=== PATIENT | female | born 1950 | race Caucasian/White ===

== ENCOUNTER 2021-12-07 12:37 | Inpatient (IN) | payer OTHER ==
--- OUTSIDE RECORDS SUMMARY | 2021-12-07 12:40 | XMS REPORT | Continuity of Care Document ---
:[address] [facility] t Address [address] [place] [address] Care Team Providers Name Role Phone Lab, Fam Pob I Attending Clinician Unavailable Nandini BEE T Attending Clinician Unavailable Only, Test Attending Clinician Unavailable MARTIN, Hyacinth Attending Clinician Unavailable Doctor Unassigned, Name Attending Clinician Unavailable Payers Payer Name Policy Type Policy Number Effective Date Expiration Date S hubert MEDICARE PART A [id number] 2017 \T\ B 00:00:00 [id number] 2001 00:00:00 Problems This patient has no known problems. Allergies, Adverse Reactions, Alerts Allergy Allergy Status Severity Reaction(s) Onset Inactive Treating Comm ents Source Name Type Date Date Clinician PENICILL Drug Active Rash 2018- [facility] INS Class 5-01 ity of 00:00: [place] [address] [facility] Social History Social Habit Start Date Stop Date Quantity Comments Source Sex Assigned At [birth year] [facility] 00:00:00 00:00:00 Smoking Status Start Date Stop Date Source Tobacco smoking consumption unknown [facility] Medications This patient has no known medications. Procedures This patient has no known procedures. Plan of Care Planned Activity Planned Date Details Comments Source Future Scheduled 2021-09-13 COVID-19 VACCINE (1) [facility] Test 03:12:08 [code = COVID-19 VACCINE (1)] Future Scheduled 2021-09-13 COLONOSCOPY SCREENING [facility] Test 03:12:08 [code = COLONOSCOPY SCREENING] Future Scheduled 2021-09-13 SHINGLES VACCINES (#1) [facility] Test 03:12:08 [code = SHINGLES VACCINES (#1)] Future Scheduled 2021-09-13 BREAST CANCER [facility] Test 03:12:08 SCREENING [code = BREAST CANCER SCREENING] Future Scheduled 2021-09-13 65+ [facility] [facility] Test 03:12:08 VACCINE (1 of 1 - PPSV23) [code = 65+ PNEUMOCOCCAL VACCINE (1 of 1 - PPSV23)] Future Scheduled 2021-09-13 [facility] 03:12:08 [code = INFLUENZA VACCINE] Encounters Start End Encounter Admission Attending Care Care Encounter Source Date/Time Date/Time Type Type Clinicians Facility Department ID 2020-08-26 2020-08-26 Laboratory Lab, [facility] [id number] 16:51:09 17:11:09 Only Fam Pob I [facility] [id number] Mohamud [id number] [facility] [id number] nal [address] 2020-08-26 2020-08-26 Outpatient R [facility] [id number] Univers 17:00:00 17:00:00 [id number] [facility] 2020-08-26 2020-08-26 Outpatient R [facility] [id number] [facility] 17:00:00 17:00:00 [facility] 2020-05-20 2020-05-20 Letter NILA Delatorre [id number] 00:00:00 00:00:00 (Out) [place] PRADO [id number] [facility] [id number] 2020-05-16 2020-05-16 Laboratory Only, [facility] [id number] 13:50:33 14:05:33 Only Test Mohamud [id number] [place] [id number] [place] [id number] 2020-05-16 2020-05-16 Outpatient R [facility] [id number] Univers 13:30:00 13:30:00 [facility]NA[facility] 2020-05-16 2020-05-16 Orders Doctor NILA [id number] 00:00:00 00:00:00 Only Unassigned, EVE [id number] [place] [facility] [id number] Results This patient has no known results.
[2021-12-07 12:59] LABS: Absolute Lymphocytes (CBC) 0.8 K/uL (0.7-4.9); Hematocrit 39.5 % (36.0-45.0); Lymphocytes % 21.8 % (15.3-44.8); MPV 7.9 fL (7.6-11.3); RBC Red Blood Cell Count 4.34 M/uL (3.86-4.86)
[2021-12-07 13:12] LABS: Magnesium 2.1 mg/dL (1.8-2.4); Potassium 4.4 mmol/L (3.5-5.1)
--- NOTE | 2021-12-07 13:13 | RAD REPORT ---
EXAM DESCRIPTION: RAD - Chest Single View - 12/07/2021 1:03 pm CLINICAL HISTORY: CHEST PAIN, near syncope COMPARISON: Portable 06/23/2016 TECHNIQUE: AP portable chest image was obtained 12/07/2021 1:03 pm . FINDINGS: Lung volumes are low accentuating a chronic interstitial lung pattern. Under penetrated fi lm technique further accentuates the lung pattern. No focal infiltrate or suspicious mass identifiabl e. A small 4-5 mm nodular focus in the lateral mid right lung field is not clearly seen on prior imag ing. Scarring or small granuloma would be favored. This can be monitored with re-evaluation chest exa m in 6 months. Trachea is midline. Hiatal hernia is seen in the midline. Heart and vasculature are normal. No measur able pleural effusion and no pneumothorax. No acute bony abnormality seen. No acute aortic findings s uspected. IMPRESSION: No acute cardiopulmonary process suspected. Chronic interstitial lung disease is present. Small 4-5 mm nodular focus lateral mid right lung field is likely benign but can be monitored for sta bility with re-evaluation chest exam in 6 months.
--- NOTE | 2021-12-07 14:17 | EDPHYS ---
Physician Documentation [facility] Name: Chaparrita Blanca Age: 71 yrs Sex: Female : 1950 Arrival Date: 12/07/2021 Time: 12:38 Bed 23 Private MD: ED Physician Desmond Thomason HPI: 12/07 13:10 This 71 yrs old Female presents to ER via EMS with complaints of Near Syncope. ms3 13:10 This 71 yrs old Female presents to ER via EMS with complaints of Chest pain. ms3 13:10 The patient or guardian reports chest pain that is located primarily in the substernal ms3 area. Onset: just prior to arrival. The patient has experienced near-syncope. Onset: The symptoms/episode began/occurred just prior to arrival. The pain does not radiate. Associated signs and symptoms: Pertinent positives: diaphoresis, lightheadedness. The chest pain is described as "Uncomfortable". Modifying factors: The symptoms are alleviated by exertion. Associated injury: The patient did not suffer any apparent associated injury. Associated signs and symptoms: Pertinent positives: lightheadedness, shortness of breath. 71-year-old female with past medical history of anxiety, arthritis, hyperlipidemia, hypertension presents for near-syncope that occurred while chasing a lizard. Patient states she and experiencing chest pain or shortness of breath with exertion that has been intermittent for the previous 6 months. Patient states her chest pressure is rated 2/10. Patient states it is worse with exertion. Patient denies alleviating factors. EMS states patient was given 324 mg of aspirin prior to arrival. . Historical: - Allergies: 12:40 PENICILLINS; ld1 - Home Meds: 12:40 gabapentin 100 mg Oral cap 1 caps nightime [Active]; spironolactone 25 mg Oral tab 1 ld1 tab once daily [Active]; Cymbalta 40 mg Oral cpDR 1 cap once daily [Active]; Metoprolol Tartrate Oral [Active]; imipramine HCl 50 mg Oral tab 1 tab 2 times per day [Active]; Estrace 0.5 mg Oral tab 1 tab once daily [Active]; Dexilant 60 mg oral CpDB 1 cap once daily [Active]; pitavastatin calcium 2 mg oral tab 1 tab once daily [Active]; oxymorphone 10 mg oral tab 1 tab every 6 hours [Active]; - PMHx: 12:40 Anxiety; Arthritis; Chronic pain; Hyperlipidemia; Hypertension; ld1 - Immunization history:: Adult Immunizations up to date, Client reports having NOT received the Covid vaccine. - Social history:: Smoking status: Patient denies any tobacco usage or history of. Patient/guardian denies using alcohol. ROS: 13:10 Constitutional: Negative for fever, and chills. Eyes: Negative for injury, pain, ms3 redness, and discharge, Neck: Negative for injury, pain, and swelling, Abdomen/GI: Negative for abdominal pain, nausea, vomiting, diarrhea, and constipation, Back: Negative for injury and pain, MS/Extremity: Negative for injury and deformity, Skin: Negative for injury, rash, and discoloration. 13:10 Cardiovascular: Positive for chest pain. 13:10 Respiratory: Positive for shortness of breath. 13:10 Neuro: Positive for Lightheaded. Exam: 12:35 ECG was reviewed by the Attending Physician. ms3 13:01 ECG was reviewed by the Attending Physician. ms3 13:10 Constitutional: This is a well developed, well nourished patient who is awake, alert, ms3 and in no acute distress. Eyes: Pupils equal round and reactive to light, extra-ocular motions intact. Lids and lashes normal. Conjunctiva and sclera are non-icteric and not injected. Periorbital areas with no swelling, redness, or edema. ENT: Nares patent. No nasal discharge, no septal abnormalities noted. Tympanic membranes are normal and external auditory canals are clear. Oropharynx with no redness, swelling, or masses, exudates, or evidence of obstruction, uvula midline. Mucous membranes moist. Neck: Trachea midline, no cervical lymphadenopathy. Supple, full range of motion without nuchal rigidity, or vertebral point tenderness. No Meningismus. Chest/axilla: Normal chest wall appearance and motion. Nontender with no deformity. Cardiovascular: Regular rate and rhythm with a normal S1 and S2. No gallops, murmurs, or rubs. Normal PMI, no JVD. No pulse deficits. Respiratory: Lungs have equal breath sounds bilaterally, clear to auscultation and percussion. No rales, rhonchi or wheezes noted. No increased work of breathing, no retractions or nasal flaring. Abdomen/GI: Soft, non-tender, with normal bowel sounds. No distension or tympany. No guarding or rebound. No evidence of tenderness throughout. Skin: Warm, dry with normal turgor. Normal color with no rashes, no lesions, and no evidence of cellulitis. Neuro: Awake and alert, GCS 15, oriented to person, place, time, and situation. Cranial nerves II-XII grossly intact. Motor strength 5/5 in all extremities. Sensory grossly intact. Cerebellar exam normal. Normal gait. Psych: Awake, alert, with orientation to person, place and time. Behavior, mood, and affect are within normal limits. Vital Signs: 12:38 BP 124 / 65; Pulse 91; Resp 18; Temp 98.5(O); Pulse Ox 97% on R/A; Weight 83.91 kg; ld1 Height 5 ft. 3 in. (160.02 cm); Pain 0/10; 14:12 BP 135 / 69; Pulse 79; Resp 18; Pulse Ox 97% on R/A; ld1 15:00 BP 103 / 67; Pulse 75; Resp 16; Pulse Ox 96% on R/A; ld1 15:45 BP 126 / 85; Pulse 74; Resp 25; Pulse Ox 99% on R/A; ld1 16:54 BP 151 / 73; Pulse 74; Resp 18; Pulse Ox 95% on R/A; ld1 18:28 BP 141 / 83; Pulse 70; Resp 18; Pulse Ox 97% on R/A; Pain 0/10; ld1 19:39 BP 165 / 98; Pulse 69; Resp 20; Pulse Ox 93% on R/A; sf1 12:38 Body Mass Index 32.77 (83.91 kg, 160.02 cm) ld1 MDM: 12:40 Patient medically screened. ms3 13:09 Transition of care: After a detail discussion of the patient's case, care is ms3 transferred to Desmond Thomason MD. 13:10 Differential diagnosis: abnormal EKG, acute myocardial infarction, anxiety, coronary ms3 artery disease pulmonary embolus, stable angina, unstable angina. 14:08 HEART Score: History: Moderately Suspicious (1), ECG: Normal (0), Age: > or = 65 years jr11 (2), Risk Factors: > or = 3 Risk factors for atherosclerotic disease (2), Troponin: < or = 1 x Normal Limit (0), Total Score = 5. Data reviewed: vital signs, nurses notes, lab test result(s), EKG. 14:15 ED course: Dr Reaves accepted OBS, asked for repeat trop 5pm, patient aware. 11 12/07 12:41 Order name: Basic Metabolic Panel; Complete Time: 14:04 ms3 12/07 12:41 Order name: CBC with Diff; Complete Time: 14:04 ms3 12/07 12:41 Order name: D-Dimer; Complete Time: 14:04 ms3 12/07 12:41 Order name: Magnesium; Complete Time: 14:04 ms3 12/07 12:41 Order name: NT PRO-BNP; Complete Time: 14:04 ms3 12/07 12:41 Order name: Troponin HS; Complete Time: 14:04 ms3 12/07 12:41 Order name: XRAY Chest (1 view); Complete Time: 14:04 ms3 12/07 12:41 Order name: EKG; Complete Time: 12:42 ms3 12/07 12:41 Order name: Cardiac monitoring; Complete Time: 12:45 ms3 12/07 14:15 Order name: Troponin High Sensitivity: for 5PM [facility] 12/07 14:16 Order name: Troponin High Sensitivity EDCO 12/07 14:22 Order name: COVID-19 SARS RT PCR (Document "Date of Onset" if Symptomatic) 12/07 14:22 Order name: SARS-COV-2 RT PCR; Complete Time: 15:45 EDMS 12/07 12:41 Order name: EKG - Nurse/Tech; Complete Time: 12:45 ms3 12/07 12:41 Order name: IV Saline Lock; Complete Time: 12:45 ms3 12/07 12:41 Order name: Labs collected and sent; Complete Time: 12:48 ms3 12/07 12:41 Order name: O2 Per Protocol; Complete Time: 12:45 ms3 12/07 12:41 Order name: O2 Sat Monitoring; Complete Time: 12:45 ms3 EC:35 Rate is 89 beats/min. Rhythm is regular. Left axis deviation noted. Clinical ms3 impression: NSR w/ Non-specific ST/T Changes. Interpreted by me. 13:01 Rate is 82 beats/min. Rhythm is regular. Left axis deviation noted. Clinical ms3 impression: NSR w/ Non-specific ST/T Changes. Interpreted by me. Administered Medications: No medications were administered Disposition Summary: 12/07/21 14:16 Hospitalization Ordered Hospitalization Status: Observation jr11 Provider: Juan Jose Reaves 11 Location: Telemetry/MedSurg (observation) jr11 Condition: Fair jr11 Problem: new jr11 Symptoms: have improved jr11 Bed/Room Type: Standard [facility] Room Assignment: [facility](12/07/21 18:33) bd Diagnosis - Chest pain, unspecified jr11 Forms: - Medication Reconciliation Form jr11 - SBAR form jr11 Signatures: Dispatcher [employer] EDMS Indu Shukla Marcus, DO DO ms3 Lima Howard RN RN ld1 Desmond Thomason MD MD jr11 Corrections: (The following items were deleted from the chart) 18:33 14:16 jr11 bd
--- NOTE | 2021-12-07 14:17 | ER ---
Nurse's Notes [facility] Name: Chaparrita Blanca Age: 71 yrs Sex: Female : 1950 Arrival Date: 12/07/2021 Time: 12:38 Bed 23 Private MD: Diagnosis: Chest pain, unspecified Presentation: 12/07 12:38 Chief complaint: Patient states: "I was chasing a lizard outside for my dog and I began ld1 feeling lightheaded and thought I was going to pass out." EMS reported near syncopal event on the way to ER. Coronavirus screen: At this time, the client does not indicate any symptoms associated with coronavirus-19. Ebola Screen: No symptoms or risks identified at this time. Initial Sepsis Screen: Does the patient meet any 2 criteria? No. Patient's initial sepsis screen is negative. Does the patient have a suspected source of infection? No. Patient's initial sepsis screen is negative. Risk Assessment: Do you want to hurt yourself or someone else? Patient reports no desire to harm self or others. Onset of symptoms was December 07, 2021. 12:38 Method Of Arrival: EMS: [facility] ld1 12:38 Acuity: NORBERT 3 ld1 Triage Assessment: 12:40 General: Appears in no apparent distress. comfortable, Behavior is calm, cooperative, ld1 appropriate for age. Pain: Denies pain. EENT: No signs and/or symptoms were reported regarding the EENT system. Neuro: Level of Consciousness is awake, alert, obeys commands, Oriented to person, place, time, situation, Appropriate for age. Cardiovascular: Capillary refill < 3 seconds Patient's skin is warm and dry. Respiratory: Reports shortness of breath on exertion Airway is patent Respiratory effort is even, unlabored, Respiratory pattern is regular, symmetrical. GI: Abdomen is round non-distended. : No signs and/or symptoms were reported regarding the genitourinary system. Derm: No signs and/or symptoms reported regarding the dermatologic system. Musculoskeletal: No signs and/or symptoms reported regarding the musculoskeletal system. Historical: - Allergies: 12:40 PENICILLINS; ld1 - Home Meds: 12:40 gabapentin 100 mg Oral cap 1 caps nightime [Active]; spironolactone 25 mg Oral tab 1 ld1 tab once daily [Active]; Cymbalta 40 mg Oral cpDR 1 cap once daily [Active]; Metoprolol Tartrate Oral [Active]; imipramine HCl 50 mg Oral tab 1 tab 2 times per day [Active]; Estrace 0.5 mg Oral tab 1 tab once daily [Active]; Dexilant 60 mg oral CpDB 1 cap once daily [Active]; pitavastatin calcium 2 mg oral tab 1 tab once daily [Active]; oxymorphone 10 mg oral tab 1 tab every 6 hours [Active]; - PMHx: 12:40 Anxiety; Arthritis; Chronic pain; Hyperlipidemia; Hypertension; ld1 - Immunization history:: Adult Immunizations up to date, Client reports having NOT received the Covid vaccine. - Social history:: Smoking status: Patient denies any tobacco usage or history of. Patient/guardian denies using alcohol. Screenin:43 Abuse screen: Denies threats or abuse. Denies injuries from another. Nutritional ld1 screening: No deficits noted. Tuberculosis screening: No symptoms or risk factors identified. Fall Risk None identified. Assessment: 12:43 Reassessment: See triage assessment. ld1 14:00 Reassessment: Patient appears in no apparent distress at this time. Patient and/or ld1 family updated on plan of care and expected duration. Pain level reassessed. Patient is alert, oriented x 3, equal unlabored respirations, skin warm/dry/pink. 15:10 Reassessment: No changes from previously documented assessment. Patient is alert, ld1 oriented x 3, equal unlabored respirations, skin warm/dry/pink. 16:00 Reassessment: Patient appears in no apparent distress at this time. Patient is alert, ld1 oriented x 3, equal unlabored respirations, skin warm/dry/pink. Patient denies pain at this time. 17:30 Reassessment: Patient appears in no apparent distress at this time. Patient and/or ld1 family updated on plan of care and expected duration. Pain level reassessed. Patient is alert, oriented x 3, equal unlabored respirations, skin warm/dry/pink. 18:30 Reassessment: Unsuccessful attempt to contact Dr. Reaves about elevated troponin 177.6. aa5 Left voice mail for Dr. Reaves to call back. . 18:46 Reassessment: Patient appears in no apparent distress at this time. Pt waiting to go ld1 upstairs to personal room. Denies concerns at this time. States "I am feeling better." Patient denies pain at this time. Vital Signs: 12:38 BP 124 / 65; Pulse 91; Resp 18; Temp 98.5(O); Pulse Ox 97% on R/A; Weight 83.91 kg; ld1 Height 5 ft. 3 in. (160.02 cm); Pain 0/10; 14:12 BP 135 / 69; Pulse 79; Resp 18; Pulse Ox 97% on R/A; ld1 15:00 BP 103 / 67; Pulse 75; Resp 16; Pulse Ox 96% on R/A; ld1 15:45 BP 126 / 85; Pulse 74; Resp 25; Pulse Ox 99% on R/A; ld1 16:54 BP 151 / 73; Pulse 74; Resp 18; Pulse Ox 95% on R/A; ld1 18:28 BP 141 / 83; Pulse 70; Resp 18; Pulse Ox 97% on R/A; Pain 0/10; ld1 19:39 BP 165 / 98; Pulse 69; Resp 20; Pulse Ox 93% on R/A; sf1 12:38 Body Mass Index 32.77 (83.91 kg, 160.02 cm) ld1 ED Course: 12:38 Patient arrived in ED. ds1 12:38 Lima Howard, RN is Primary Nurse. ld1 12:40 Triage completed. ld1 12:40 Haresh Winchester DO is Attending Physician. ms3 12:40 Arm band placed on right wrist. ld1 12:43 Patient has correct armband on for positive identification. Placed in gown. Bed in low ld1 position. Call light in reach. Side rails up X2. rubber mixer on. Pulse ox on. NIBP on. Door closed. Noise minimized. Warm blanket given. 12:43 No provider procedures requiring assistance completed. Maintain EMS IV. Dressing ld1 intact. Good blood return noted. Site clean \\T\\ dry. Gauge \\T\\ site: 22 G RAC. 13:03 XRAY Chest (1 view) In Process Unspecified. EDMS 14:04 Attending Physician role handed off by Haresh Winchester DO jr11 14:04 Desmond Thomason MD is Attending Physician. jr11 14:16 Juan Jose Reaves MD is Hospitalizing Provider. jr11 16:56 COVID-19 SARS RT PCR (Document "Date of Onset" if Symptomatic) Sent. ld1 17:23 Troponin High Sensitivity: for 5PM Sent. ld1 Administered Medications: No medications were administered Outcome: 14:16 Decision to Hospitalize by Provider. jr11 19:38 Admitted to Med/surg Report called to ROHIT Millan sf1 19:38 Condition: good 20:04 Patient left the ED. sf1 Signatures: Dispatcher [employer] EDMS Indu Shukla Demi ds1 Giselel Xiong RN RN aa5 Haresh Winchester DO DO ms3 Lima Howard RN RN ld1 Stacia Nails RN RN sf1 Desmond Thomason MD MD jr11 Corrections: (The following items were deleted from the chart) 16:26 14:22 initiated transfer to [facility]. bd bd
--- NOTE | 2021-12-07 21:02 | P.SSS ---
Patient History Date of Service: 12/07/21 Reason for admission: CHEST PAIN History of Present Illness: LETA HAS HTN AND DJD. SHE HAS HAD DYSPNEA ON EXERSION OVER 6 MONTHS AND WANTED TO GO TO MEASURE[facility] BUT NEVER DID. TODAY SHE HAD CHEST PAIN WHILE CHASING A LIZARD. SHE WAS ON THE FLOOR OUTSIDE. SHE HAS NO NAUSEA, VOMITING OR DIARRHEA. Allergies citalopram hydrobromide [From Celexa] Allergy (Verified 06/23/16 05:31) UNK codeine Allergy (Verified 06/23/16 05:31) UNK ezetimibe [From Zetia] Allergy (Verified 06/23/16 05:31) UNK fish derived Allergy (Verified 06/23/16 05:31) PALPITATIONS ibandronate sodium [From Boniva] Allergy (Verified 06/23/16 05:31) REFLUX levofloxacin [From Levaquin] Allergy (Verified 06/23/16 05:31) UNK meloxicam [From Mobic] Allergy (Verified 06/23/16 05:31) Rash niacin Allergy (Verified 06/23/16 05:31) UNK NSAIDS (Non-Steroidal Anti-Inflamma Allergy (Verified 06/23/16 05:31) UNK paroxetine HCl [From Paxil] Allergy (Verified 06/23/16 05:31) UNK penicillin G Allergy (Verified 06/23/16 05:31) UNK Penicillins Allergy (Verified 06/23/16 05:31) Unknown risedronate sodium [From Actonel] Allergy (Verified 06/23/16 05:31) UNK Eybocha-NAY-CsB Reductase Inhibitor [Gcxcfnj-Fet-Icl Reductase Inhibitor] Allergy (Verified 06/23/16 05:31) UNK cephalexin monohydrate [From Keflex] Adverse Reaction (Verified 06/23/16 05:31) NAUSEA Home Medications: Duloxetine [Cymbalta *] 30 mg PO DAILY 08/17/13 estradioL [Estradiol] 0.5 mg PO DAILY 08/17/13 Esomeprazole Mag Trihydrate [Nexium] 20 mg PO DAILY 05/29/15 Pitavastatin Calcium [Livalo] 2 mg PO DAILY 05/29/15 Tramadol HCl [Ultram] 50 mg PO Q12H #30 tablet 05/31/15 Metoprolol Succinate [Toprol Xl] 50 mg PO DAILY #30 tab 06/23/16 - Past Medical/Surgical History Diabetic: No -: Arthritis -: Chronic Pain -: Hysterectomy -: Appendectomy -: Pain Pump - Family History Father -: Heart disease Mother -: Stroke - Social History Alcohol use: Yes CD- Drugs: No Caffeine use: No Review of Systems 10-point ROS is otherwise unremarkable Physical Examination - Vital Signs Temperature: 97.4 F Blood Pressure: 158/74 Pulse: 69 Respirations: 18 Pulse Ox (%): 98 - Physical Exam General: Mild distress HEENT: Atraumatic, PERRLA, Mucous membr. moist/pink, EOMI, Sclerae nonicteric Neck: Supple, 2+ carotid pulse no bruit, No LAD, Without JVD or thyroid abnormality Respiratory: Clear to auscultation bilaterally, Normal air movement Cardiovascular: Regular rate/rhythm, Normal S1 S2 Gastrointestinal: Normal bowel sounds, No tenderness Musculoskeletal: No tenderness Integumentary: No rashes Neurological: Normal gait, Normal speech, Normal strength at 5/5 x4 extr, Normal tone, Normal affect Lymphatics: No axilla or inguinal lymphadenopathy - Studies Laboratory Data (last 24 hrs) 12/07/21 12:46: WBC 3.70 L, Hgb 13.4, Hct 39.5, Plt Count 166 12/07/21 12:46: Sodium 139, Potassium 4.4, BUN 23 H, Creatinine 1.09, Glucose 113 H, Magnesium 2.1 - Diagnosis (Problem(s)) (1) Anterior wall myocardial infarction Current Visit: Yes Status: Acute Plan: HER TROPONIN IS HIGH ANT Q WAVES ON SECOND EKG. START LOVENOX SC OXYGEN. ASPIRIN 81 MG DAILY I CALLED DR. ROMO AND HE WILL SEE PATIENT IN AM. MAY NEED CATH IN AM. (2) DJD (degenerative joint disease) Current Visit: Yes Status: Chronic - Disposition Disposition: ROUTINE DISCHARGE
[2021-12-07] MEDS: ALPRAZOLAM 0.5 MG TABLET PO PRN (21:30)
[2021-12-07] MEDS: ENOXAPARIN 60 MG/0.6 ML SQ SCH (23:31)
[2021-12-08 02:02] VITALS: BMI 32.8
[2021-12-08 04:35] LABS: Absolute Lymphocytes (CBC) 1.1 K/uL (0.7-4.9); Hematocrit 40.5 % (36.0-45.0); Lymphocytes % 24.5 % (15.3-44.8); MPV 7.7 fL (7.6-11.3); RBC Red Blood Cell Count 4.46 M/uL (3.86-4.86)
[2021-12-08] MEDS: ENOXAPARIN 60 MG/0.6 ML SQ SCH ×2 (09:00→20:24)
[2021-12-08] MEDS: OXYMORPHONE HCL 10 MG PO SCH ×2 (09:00→21:00)
[2021-12-08] MEDS ORDERED: HOME MED 1 EA UNK (Dexlansoprazole [Dexilant] 30 MG Cap.Dr.Bp) PO SCH (09:00)
[2021-12-08] MEDS: ESTRADIOL 0.5 MG PO SCH (09:00)
[2021-12-08] MEDS: SPIRONOLACTONE 25 MG TABLET PO SCH (09:04)
[2021-12-08] MEDS: PANTOPRAZOLE 40MG TABLET PO SCH (09:04)
[2021-12-08] MEDS: METOPROLOL TAR 50 MG TAB PO SCH ×2 (09:05→20:22)
[2021-12-08] MEDS: ASPIRIN EC 81 MG TAB PO SCH (09:17)
[2021-12-08] MEDS: ALPRAZOLAM 0.5 MG TABLET PO PRN (20:22)
--- NOTE | 2021-12-08 20:34 | P.PN ---
Subjective Date of Service: 12/08/21 Chief Complaint: CHEST PAIN Subjective: Improving SHE HAS BEEN PAINFREE. I TALKED T DR. ONEAL LAST NIGHT AND KEPT HER NPO BUT HE GOT TOO BUSY AND COULD NOT SEE HER UNTIL AFTERNOON. HE WILL DO OUTPATIENT CATH BUT WANTS TO KEEP HER ONE MORE DAY AND REPEAT TROP IN AM. IF STALE WILL GO HOME AND HE WILL DO ANGIOGRAM NW. Physical Examination - Vital Signs Temperature: 97.6 F Blood Pressure: 166/55 Pulse: 77 Respirations: 17 Pulse Ox (%): 95 - Physical Exam General: Alert, In no apparent distress HEENT: Atraumatic, PERRLA, EOMI Neck: Supple, JVD not distended Respiratory: Clear to auscultation bilaterally, Normal air movement Cardiovascular: Regular rate/rhythm, Normal S1 S2 Gastrointestinal: Normal bowel sounds, No tenderness Musculoskeletal: No tenderness Integumentary: No rashes Neurological: Normal speech, Normal tone, Normal affect Lymphatics: No axilla or inguinal lymphadenopathy - Studies Laboratory Data (last 24 hrs) 12/08/21 04:19: Sodium 136, Potassium 4.0, BUN 19 H, Creatinine 0.85, Glucose 93 12/08/21 04:19: WBC 4.60 D, Hgb 13.7, Hct 40.5, Plt Count 171 Medications List Reviewed: Yes Assessment And Plan - Current Problems (Diagnosis) (1) Anterior wall myocardial infarction Current Visit: Yes Status: Acute Plan: HER TROPONIN IS HIGH ANT Q WAVES ON SECOND EKG. START LOVENOX SC OXYGEN. ASPIRIN 81 MG DAILY I CALLED DR. ROMO AND HE WILL SEE PATIENT IN AM. MAY NEED CATH IN AM. PLAN PER NOTED. CONT LOVENOX FEED HER TODAY. TALKD TO DR. ROMO ADN NURSES A FEW TIMES. (2) DJD (degenerative joint disease) Current Visit: Yes Status: Chronic
[2021-12-08 20:49] VITALS: O2SAT 96
[2021-12-08] MEDS ORDERED: DULOXETINE 30 MG CAP PO SCH (21:00)
[2021-12-08] MEDS ORDERED: GABAPENTIN 100 MG CAP PO SCH (21:00)
[2021-12-08] MEDS ORDERED: PITAVASTATIN CALCIUM 2 MG PO SCH (21:00)
[2021-12-08] MEDS ORDERED: IMIPRAMINE HCL 25 MG TAB PO SCH (21:00)
--- NOTE | 2021-12-08 22:25 | CON ---
Date of Consultation: 12/08/2021 Reason For Consultation: Chest pain, elevated troponin. History Of Present Illness: A 71-year-old female has a new known cardiac history, has history of dys lipidemia, presented with chest pain, pressure-like while she was playing with her dog. Lasted for a bout 15 minutes. When she rested, the pain subsided and she has been chest pain free. States she hagan s been having this pain with exertion over the past 2 months, retrosternal, radiates to left upper ex tremity and gets slightly short of breath with exertion as well and the pain lasts 10-15 minutes afte r she stops the strenuous activity and then she will feel better. Past Medical History: Dyslipidemia. Medications: Refer to reconciliation sheet for detailed list. Allergies: LONG LIST OF ALLERGIES WAS REVIEWED. Family History: No premature coronary artery disease or cancer. Social History: She does not smoke or drink. Does not use any drugs. Review of Systems: All systems reviewed and negative except mentioned in HPI. Physical Examination: Vital Signs: Reviewed. Head and Neck: Pupils are equal, reactive to light. Intact eye movements. No JVD. No cervical lym phadenopathy. Neck is supple. Thyroid is not enlarged. Lungs: Clear to auscultation bilaterally. No rhonchi, rales, or crackles. No accessory muscle use. Heart: Regular rate and rhythm. No extra sounds. Abdomen: Soft, nontender. Bowel sounds positive. No organomegaly. No masses or hernia. No rigidi ty or rebound. Extremities: No clubbing, cyanosis. Intact pulses. Skin: No rashes. Neurologic: Alert, awake, oriented x3. No acute focal deficits appreciated. Investigations: Troponin 177 and 126. Assessment And Recommendations: Chest pain, very typical. This is suggestive of angina. Load with Plavix 300 mg, then 75 mg daily and 81 mg of aspirin. Also, recommend to start on low-dose beta bloc ker, metoprolol-XL 25 mg daily. Obtain echocardiogram and this patient will need coronary angiogram. The timing of it will be determined based on her symptoms. If she remains asymptomatic by tomorrow and cardiac enzymes kept trending down, then it will be okay to discharge her home and do a coronary angiogram early next week on Saturday or Saturday. However, if she gets further chest pain episodes , if her troponin rises, then I recommend to keep her through the weekend for coronary angiogram on M on. I will see the patient in the morning and will make a final plan accordingly. Thank you for the consult. /MARLENY Voice ID: [id number] Report ID: [id number]
[2021-12-09 06:12] LABS: Hematocrit 41.1 % (36.0-45.0); Lymphocytes % 27.2 % (15.3-44.8); MPV 7.8 fL (7.6-11.3)
[2021-12-09 08:15] VITALS: BP 139/67; TEMP 96.5
[2021-12-09] MEDS: SPIRONOLACTONE 25 MG TABLET PO SCH (08:29)
[2021-12-09] MEDS: PANTOPRAZOLE 40MG TABLET PO SCH (08:29)
[2021-12-09] MEDS: METOPROLOL TAR 50 MG TAB PO SCH (08:29)
[2021-12-09] MEDS: ASPIRIN EC 81 MG TAB PO SCH (08:29)
[2021-12-09] MEDS: ENOXAPARIN 60 MG/0.6 ML SQ SCH (08:30)
[2021-12-09] MEDS: ESTRADIOL 0.5 MG PO SCH (08:31)
[2021-12-09] MEDS: OXYMORPHONE HCL 10 MG PO SCH (08:31)
--- NOTE | 2021-12-11 08:30 | EKG ---
Test Date: 2021-12-07 Test Time: 13:01:32 Virtualization Architect: NURY MEASUREMENT RESULTS: Intervals: Rate: 82 KS: 208 QRSD: 86 QT: 380 QTc: 443 [place]: P: 66 KS: 208 QRS: -31 T: 38 INTERPRETIVE STATEMENTS: Normal sinus rhythm Left axis deviation Low voltage QRS Cannot rule out Anterior infarct, age undetermined Abnormal ECG Compared to ECG 12/07/2021 12:35:13 Left-axis deviation now present Myocardial infarct finding now present Electronically Signed On 12-11-21 08:23:37 CDT by Randy Mason
--- NOTE | 2021-12-11 08:30 | EKG ---
Test Date: 2021-12-07 Test Time: 12:35:13 Event Manager: NURY MEASUREMENT RESULTS: Intervals: Rate: 89 AK: 198 QRSD: 84 QT: 376 QTc: 457 [place]: P: 71 AK: 198 QRS: -19 T: 61 INTERPRETIVE STATEMENTS: Normal sinus rhythm Low voltage QRS Borderline ECG Compared to ECG 06/23/2016 03:44:01 Left-axis deviation no longer present Electronically Signed On 12-11-21 08:23:39 CDT by Randy Mason
== END 2021-12-09 09:02 | disposition home or self-care (01) | DRG 282 ==
LOC: ER 12:37 → ERHOLD 14:30 → 2ND 19:47 → OBSVTOIN 12-08 17:54
PROVIDERS: ADMIT Internal Medicine; ATTEND Internal Medicine
DX: I21.09 ST elevation (STEMI) myocardial infarction involving other coronary artery of anterior wall (principal); I10 Essential (primary) hypertension; M19.90 Unspecified osteoarthritis, unspecified site; E78.5 Hyperlipidemia, unspecified; Z88.0 Allergy status to penicillin; Z20.822 Contact with and (suspected) exposure to COVID-19
CPT/HCPCS: 36415; 71045; 80048; 83735; 83880; 84484; 85025; 85379; 93005; 99285; G0378; J1650; U0003

== ENCOUNTER 2021-12-14 11:00 | Day surgery (SDC) | payer OTHER ==
[2021-12-12 10:38] LABS: Protime INR 1.01
[~2021-12-14 11:00] MED LIST: ASPIRIN 325 MG TAB ONE; CLOPIDOGREL 75 MG TABLET ONE; FENTANYL CITR 100 MCG/2 ML ONE; HEPA 1000U/500MLS 2,000 UNIT/1,000 ML BAG IV ONE; HEPARIN 10,000 UNIT/10 ML VIAL IV ONE; HEPARIN 5000 UNIT/ML 1 ML VIAL ONE; LIDOCAINE 1% 20 ML MDV ONE; MIDAZOLAM HCL 2 MG/2 ML INJ ONE; VERAPAMIL HCL 10 MG/4 ML VIAL IV ONE
[2021-12-14] MEDS ORDERED: TICAGRELOR 90 MG TABLET PO ONE (11:01)
[2021-12-14] MEDS ORDERED: ATROPINE SULF 1 MG/10 ML SYR IV ONE (11:01)
[2021-12-14] MEDS ORDERED: NA CHLORIDE 0.9% 500 ML ONE (11:14)
[2021-12-14 16:36] VITALS: O2SAT 97
[2021-12-14 17:06] VITALS: BP 114/60
--- NOTE | 2021-12-14 23:32 | OP ---
Date of Procedure: 12/14/2021 Surgeon: LEXIE ROMO Procedure Performed: 1.Selective coronary angiogram. 2.Percutaneous coronary intervention of severe mid left circumflex stenosis, used 3.5 x 20 mm Synerg y drug-eluting stent and overlapped distally due to the edge of dissection using 3.0 x 8 mm Synergy d rug-eluting stent. Access: Right radial artery 6-Bhutanese closed with TR band. Indication: Unstable angina. Anesthesia: Total sedation time was 55 minutes. Complications: None. Bleeding: Less than 10 mL. Description Of Procedure: After risks, benefits, and alternatives were explained, the patient agreed to procedure and signed informed consent. [facility] prepped and draped in the usual sterile fashion. Then I accessed right radial artery using p ediatric micropuncture kit, placed a 6-Bhutanese slender sheath and given fentanyl and Versed in increme ntal doses to achieve adequate moderate sedation, then accessed right radial artery using pediatric m icropuncture kit, placed 6-Bhutanese slender sheath and took a 5-Bhutanese [place] 4.0 Catheter into the aort ic root, engaged the left main, right coronary artery, took standard views and then removed the serafin ter, exchanged for a 6-Bhutanese XB to the aortic root over wire, engaged left main, gave sys temic heparin to assure ACT level above 250 and loaded with 300 mg of Plavix that she was on 75 mg da pepper and she took them today. Then I took a short run-through wire into the left main, the left circu mflex, and the pre-dilated lesion and then I took a 3.5 x 20 mm Synergy drug-eluting stent across the area of stenosis, expanded very well with excellent results; however, there was a concern of possibl e dissection, so I used another 3.0 x 8 mm Synergy drug-eluting stent to overlap the first one with e xcellent angiographic results at the end with ELISABETH-3 flow and 0% residual stenosis. I then removed t he wire and took final angiogram, which was satisfactory and then removed the catheter and the sheath was removed, placed TR band with good hemostasis. Findings: 1.Left main is normal. 2.LAD, large vessel with ostial 20% and diagonal branches appears to be normal. Then the rest of th e LAD is with luminal irregularities. 3.The left circumflex is a large size vessel with mid 80% stenosis status post successful PCI as abo ve. 4.RCA it is large and dominant with luminal irregularities throughout stenosis. Conclusion: Severe mid left circumflex stenosis, status post successful PCI as above. Plan: Aspirin, Plavix, and high-dose statin. Follow up with me in the office in 1 week. SR/MODL Voice ID: [id number] Report ID: [id number]
== END 2021-12-14 17:31 | disposition home or self-care (01) ==
LOC: CCL 11:00
PROVIDERS: ATTEND Internal Medicine
DX: I25.110 Atherosclerotic heart disease of native coronary artery with unstable angina pectoris (principal); I10 Essential (primary) hypertension; E78.5 Hyperlipidemia, unspecified; Z88.0 Allergy status to penicillin; Z88.1 Allergy status to other antibiotic agents; Z88.6 Allergy status to analgesic agent; Z88.8 Allergy status to other drugs, medicaments and biological substances
CPT/HCPCS: 36415; 85610; 85730; 93454; 76937; C1893; C1725; C9600; J1644 ×2; J2250; J3010; J7040

== ENCOUNTER 2021-12-20 18:11 | Observation (INO) | payer OTHER ==
--- OUTSIDE RECORDS SUMMARY | 2021-12-20 18:13 | XMS REPORT | Continuity of Care Document ---
:1950 Author Organization [facility] t Address [address] [place] [address] Care Team Providers Name Role Phone Lab, Fam Pob I Attending Clinician Unavailable Nandini BEE T Attending Clinician Unavailable Only, Test Attending Clinician Unavailable MARTIN, Hyacinth Attending Clinician Unavailable Doctor Unassigned, Name Attending Clinician Unavailable Payers Payer Name Policy Type Policy Number Effective Date Expiration Date S hubert MEDICARE PART A [id number] 2017 \T\ B 00:00:00 [id number] 2001 00:00:00 Problems This patient has no known problems. Allergies, Adverse Reactions, Alerts Allergy Allergy Status Severity Reaction(s) Onset Inactive Treating Comm ents Source Name Type Date Date Clinician PENICILL Drug Active Rash 2018- [facility] INS Class 5-01 ity of 00:00: [place] [address] [facility] Social History Social Habit Start Date Stop Date Quantity Comments Source Sex Assigned At [birth year] [facility] 00:00:00 00:00:00 Smoking Status Start Date Stop Date Source Tobacco smoking consumption unknown [facility] Medications This patient has no known medications. Procedures This patient has no known procedures. Plan of Care Planned Activity Planned Date Details Comments Source Future Scheduled 2021-09-13 COVID-19 VACCINE (1) [facility] Test 03:12:08 [code = COVID-19 VACCINE (1)] Future Scheduled 2021-09-13 COLONOSCOPY SCREENING [facility] Test 03:12:08 [code = COLONOSCOPY SCREENING] Future Scheduled 2021-09-13 SHINGLES [facility]INES (#[facility]) [facility] Test 03:12:08 [code = SHINGLES VACCINES (#1)] Future Scheduled 2021-09-13 BREAST CANCER [facility] Test 03:12:08 SCREENING [code = BREAST [...] Facility Department ID 2020-08-26 2020-08-26 Laboratory Lab, [facility] [id number] 16:51:09 17:11:09 Only Fam Pob I [facility] [id number] Mohamud [id number] [facility] [id number] nal [address] 2020-08-26 2020-08-26 Outpatient R [facility] [id number] Univers 17:00:00 17:00:00 [id number] [facility] 2020-08-26 2020-08-26 Outpatient R [facility] [id number] Univers 17:00:00 17:00:00 [facility] 2020-05-20 2020-05-20 Letter NILA Delatorre [id number] 00:00:00 00:00:00 (Out) [id number] [facility] [id number] 2020-05-16 2020-05-16 Laboratory Only, [facility] [id number] 13:50:33 14:05:33 Only Test Mohamud [id number] [place] [id number] [place] [id number] 2020-05-16 2020-05-16 [facility] [id number] Univers 13:30:00 13:30:00 DANAY [facility] 2020-05-16 2020-05-16 Orders Doctor NILA [id number] 00:00:00 00:00:00 Only Unassigned, EVE [id number] [facility] [id number] Results This patient has no known results.
[2021-12-20 18:57] LABS: Absolute Lymphocytes (CBC) 0.9 K/uL (0.7-4.9); Hematocrit 36.9 % (36.0-45.0); Lymphocytes % 26.1 % (15.3-44.8); MPV 7.6 fL (7.6-11.3); RBC Red Blood Cell Count 4.05 M/uL (3.86-4.86)
[2021-12-20 19:05] LABS: Protime INR 0.99
[2021-12-20 19:14] LABS: Magnesium 2.2 mg/dL (1.8-2.4); Potassium 3.9 mmol/L (3.5-5.1)
--- NOTE | 2021-12-20 19:18 | RAD REPORT ---
EXAM DESCRIPTION: Vlad Single View12/20/2021 7:00 pm CLINICAL HISTORY: Chest pain COMPARISON: December 07, 2021 FINDINGS: The lungs appear clear of acute infiltrate. The heart is normal size IMPRESSION: No acute abnormalities displayed
[2021-12-20 19:24] LABS: Troponin High Sensitivity 474.6 pg/mL (<58.9)
[2021-12-20] MEDS ORDERED: LORazepam 2 MG/ML VIAL ONE (19:41)
--- NOTE | 2021-12-20 19:48 | ER ---
Nurse's Notes [facility] Name: Chaparrita Blanca Age: 71 yrs Sex: Female : 1950 Arrival Date: 12/20/2021 Time: 18:11 Bed 27 Private MD: Diagnosis: Chest pain, unspecified Presentation: 12/20 18:12 Chief complaint: Patient states: Chest pain that began earlier today. Pt reports that ss she recently had cardiac cath with 2 stents placed. F/u with Barahdi tomorrow. Coronavirus screen: Client denies travel out of the [place] in the last 14 days. Ebola Screen: Patient denies exposure to infectious person. Patient denies travel to an Ebola-affected area in the 21 days before illness onset. Initial Sepsis Screen: Does the patient have a suspected source of infection? No. Patient's initial sepsis screen is negative. Risk Assessment: Do you want to hurt yourself or someone else? Patient reports no desire to harm self or others. Note EMS states, "12 LEAD shows sinus tach.". Onset of symptoms was December 20, 2021. 18:12 Method Of Arrival: EMS: [facility] ss 18:12 Acuity: NORBERT 2 ss 18:38 Initial Sepsis Screen: Does the patient meet any 2 criteria? No. Patient's initial ph sepsis screen is negative. Triage Assessment: 18:44 General: Appears in no apparent distress. comfortable, well groomed, Behavior is calm, ph cooperative, appropriate for age, Denies fever, feeling ill. Pain: Complains of pain in chest Pain does not radiate. Quality of pain is described as squeezing. Neuro: Level of Consciousness is awake, alert, obeys commands, Oriented to person, place, time, situation. Cardiovascular: Reports chest pain, shortness of breath, Capillary refill < 3 seconds in bilateral fingers Patient's skin is warm and dry. Chest pain quality is squeezing, is located in substernal area. Respiratory: Reports shortness of breath at rest Airway is patent Respiratory effort is even, unlabored, Respiratory pattern is regular, symmetrical. GI: No signs and/or symptoms were reported involving the gastrointestinal system. Derm: Skin is healthy with good turgor, Skin is pink, warm \\T\\ dry. Musculoskeletal: Circulation, motion, and sensation intact. Range of motion: intact in all extremities. Historical: - Allergies: 18:39 PENICILLINS; ph - Home Meds: 18:39 Cymbalta 40 mg Oral cpDR 1 cap once daily [Active]; Dexilant 60 mg Oral CpDB 1 cap once ph daily [Active]; Estrace 0.5 mg Oral tab 1 tab once daily [Active]; gabapentin 100 mg Oral cap 1 cap nightime [Active]; imipramine HCl 50 mg Oral tab 1 tab 2 times per day [Active]; Metoprolol Tartrate Oral [Active]; oxymorphone 10 mg Oral tab 1 tab every 6 hours [Active]; pitavastatin calcium 2 mg Oral tab 1 tab once daily [Active]; spironolactone 25 mg Oral tab 1 tab once daily [Active]; - PMHx: 18:39 Anxiety; Arthritis; Chronic pain; Hyperlipidemia; Hypertension; ph - PSHx: 18:39 pain pump (morphine); ph - Immunization history:: Adult Immunizations up to date. - Social history:: Smoking status: Patient denies any tobacco usage or history of. Screenin:43 Abuse screen: Denies threats or abuse. Denies injuries from another. Nutritional ph screening: No deficits noted. Tuberculosis screening: No symptoms or risk factors identified. Fall Risk None identified. Assessment: 18:55 General: SEE TRIAGE ASSESSMENT. ph Vital Signs: 18:38 BP 132 / 93; Pulse 99; Resp 18; Temp 97.8(TE); Pulse Ox 98% on R/A; Weight 81.65 kg; ph Height 5 ft. 5 in. (165.10 cm); 21:22 BP 141 / 69; Pulse 96; Resp 18; Pulse Ox 95% on R/A; sm5 18:38 Body Mass Index 29.95 (81.65 kg, 165.10 cm) ph ED Course: 18:11 Patient arrived in ED. ss 18:12 Alyssa Gloria, ROHIT is Primary Nurse. ph 18:14 Triage completed. ss 18:14 Arm band placed on left wrist. ss 18:23 Femi Reese PA is PHCP. jr8 18:23 Haresh Winchester DO is Attending Physician. jr8 18:44 Patient has correct armband on for positive identification. Bed in low position. Call ph light in reach. Side rails up X 1. raise drill operator on. Pulse ox on. NIBP on. Door closed. Noise minimized. Warm blanket given. 18:45 Inserted saline lock: 20 gauge in right antecubital area, using aseptic technique. Blood collected. 19:02 XRAY Chest (1 view) In Process Unspecified. EDMS 19:03 EKG done, by automotive specialty technician. 19:41 Primary Nurse role handed off by Alyssa Gloria, ROHIT mw2 19:42 Lynette Delatorre, RN is Primary Nurse. [facility] 19:46 Juan Jose Reaves MD is Hospitalizing Provider. jr8 Administered Medications: 19:42 Drug: Ativan (LORazepam) 1 mg Route: IVP; Site: right antecubital; [facility] Outcome: 19:47 Decision to Hospitalize by Provider. jr8 12/21 13:01 Patient left the ED. iw Signatures: Dispatcher [employer] EDCO Paloma Cruz RN RN Niyah Beltrán RN Femi Carroll PA PA jr8 Alyssa Gloria RN RN Elena Tsang 2 Monika Merino Lynette Delatorre, ROHIT BEE Herbert
--- NOTE | 2021-12-20 19:48 | EDPHYS ---
Physician Documentation [facility] Name: Chaparrita Blanca Age: 71 yrs Sex: Female : 1950 Arrival Date: 12/20/2021 Time: 18:11 Bed 27 Private MD: ED Physician Haresh Winchester HPI: 12/20 21:29 This 71 yrs old Female presents to ER via EMS with complaints of Chest Pain > 30 y/o. jr8 21:29 The patient or guardian reports chest pain that is located primarily in the substernal jr8 area. Onset: acutely, today. The pain does not radiate. Associated signs and symptoms: The patient has no apparent associated signs or symptoms. The chest pain is described as a pressure. Duration: The patient or guardian reports a single episode, that is still ongoing. Modifying factors: The symptoms are alleviated by nothing. the symptoms are aggravated by nothing. Severity of pain: At its worst the pain was moderate in the emergency department the pain has improved mildly. The patient has experienced a previous episode. The patient has been recently seen by a physician:. Historical: - Allergies: 18:39 PENICILLINS; ph - Home Meds: 18:39 Cymbalta 40 mg Oral cpDR 1 cap once daily [Active]; Dexilant 60 mg Oral CpDB 1 cap once ph daily [Active]; Estrace 0.5 mg Oral tab 1 tab once daily [Active]; gabapentin 100 mg Oral cap 1 cap nightime [Active]; imipramine HCl 50 mg Oral tab 1 tab 2 times per day [Active]; Metoprolol Tartrate Oral [Active]; oxymorphone 10 mg Oral tab 1 tab every 6 hours [Active]; pitavastatin calcium 2 mg Oral tab 1 tab once daily [Active]; spironolactone 25 mg Oral tab 1 tab once daily [Active]; - PMHx: 18:39 Anxiety; Arthritis; Chronic pain; Hyperlipidemia; Hypertension; ph - PSHx: 18:39 pain pump (morphine); ph - Immunization history:: Adult Immunizations up to date. - Social history:: Smoking status: Patient denies any tobacco usage or history of. ROS: 21:29 Eyes: Negative for injury, pain, redness, and discharge, ENT: Negative for injury, jr8 pain, and discharge, Neck: Negative for injury, pain, and swelling, Respiratory: Negative for shortness of breath, cough, wheezing, and pleuritic chest pain, Abdomen/GI: Negative for abdominal pain, nausea, vomiting, diarrhea, and constipation, Back: Negative for injury and pain, MS/Extremity: Negative for injury and deformity, Skin: Negative for injury, rash, and discoloration, Neuro: Negative for headache, weakness, numbness, tingling, and seizure. 21:29 Cardiovascular: Positive for chest pain, Negative for edema, orthopnea, palpitations, paroxysmal nocturnal dyspnea. Exam: 21:29 Neck: Trachea midline, no thyromegaly or masses palpated, and no cervical jr8 lymphadenopathy. Supple, full range of motion without nuchal rigidity, or vertebral point tenderness. No Meningismus. Cardiovascular: Regular rate and rhythm with a normal S1 and S2. No gallops, murmurs, or rubs. Normal PMI, no JVD. No pulse deficits. Respiratory: Lungs have equal breath sounds bilaterally, clear to auscultation and percussion. No rales, rhonchi or wheezes noted. No increased work of breathing, no retractions or nasal flaring. Abdomen/GI: Soft, non-tender, with normal bowel sounds. No distension or tympany. No guarding or rebound. No evidence of tenderness throughout. Back: No spinal tenderness. No costovertebral tenderness. Full range of motion. Skin: Warm, dry with normal turgor. Normal color with no rashes, no lesions, and no evidence of cellulitis. MS/ Extremity: Pulses equal, no cyanosis. Neurovascular intact. Full, normal range of motion. Neuro: Awake and alert, GCS 15, oriented to person, place, time, and situation. Cranial nerves II-XII grossly intact. Motor strength 5/5 in all extremities. Sensory grossly intact. Cerebellar exam normal. Normal gait. Vital Signs: 18:38 BP 132 / 93; Pulse 99; Resp 18; Temp 97.8(TE); Pulse Ox 98% on R/A; Weight 81.65 kg; ph Height 5 ft. 5 in. (165.10 cm); 21:22 BP 141 / 69; Pulse 96; Resp 18; Pulse Ox 95% on R/A; sm5 18:38 Body Mass Index 29.95 (81.65 kg, 165.10 cm) ph MDM: 18:27 Patient medically screened. 8 21:29 Data reviewed: vital signs, nurses notes, lab test result(s), EKG, radiologic studies, [facility] plain films. Data interpreted: Pulse oximetry: on room air is 95 %. Interpretation: normal. Counseling: I had a detailed discussion with the patient and/or guardian regarding: the historical points, exam findings, and any diagnostic results supporting the discharge/admit diagnosis, lab results, radiology results, the need for further work-up and treatment in the hospital. ED course: Dr. Mason called and will consult on case. Admitted to Dr. Reaves. 12/20 18:24 Order name: Basic Metabolic Panel; Complete Time: 19: [facility] 12/20 18:24 Order name: CBC with Diff; Complete Time: 19: [facility] 12/20 18:24 Order name: Magnesium; Complete Time: : [facility] 12/20 18:24 Order name: NT PRO-BNP; Complete Time: : [facility] 12/20 18:24 Order name: PT-INR; Complete Time: 19: [facility] 12/20 18:24 Order name: Troponin HS; Complete Time: 19: [facility] 12/20 18:24 Order name: XRAY Chest (1 view); Complete Time: : [facility] 12/20 20:12 Order name: COVID-19/FLU A+B (Document "Date of Onset" if Symptomatic); Complete Time: sm5 21:27 12/21 00:10 Order name: Troponin High Sensitivity; Complete Time: 00:33 [facility] 12/21 03:43 Order name: CBC with Automated Diff [facility] 12/21 03:55 Order name: Basic Metabolic Panel [facility] 12/21 09:18 Order name: CT [facility] 12/21 10:10 Order name: Troponin High Sensitivity [facility] 12/20 18:24 Order name: EKG; Complete Time: 18:25 [facility] 12/20 18:24 Order name: Cardiac monitoring; Complete Time: 18:28 [facility] 12/20 18:24 Order name: EKG - Nurse/Tech; Complete Time: 19:06 [facility] 12/20 18:24 Order name: IV Saline Lock; Complete Time: 18:45 [facility] 12/20 18:24 Order name: Labs collected and sent; Complete Time: 18:28 8 12/20 18:24 Order name: O2 Per Protocol; Complete Time: 18:28 jr8 12/20 18:24 Order name: O2 Sat Monitoring; Complete Time: 18:8 12/20 21:27 Order name: CONS Physician Consult EDMS Administered Medications: 19:42 Drug: Ativan (LORazepam) 1 mg Route: IVP; Site: right antecubital; 5 Disposition: 12/21 18:16 Co-signature as Attending Physician, Haresh FERREIRA was immediately available on-site ms3 in the Emergency Department for consultation in the care of the patient.. Disposition Summary: 12/20/21 19:47 Hospitalization Ordered Hospitalization Status: Observation jr8 Provider: Juan Jose Reaves jr Condition: Stable jr8 Problem: new jr8 Symptoms: have improved jr8 Bed/Room Type: Standard [facility] Location: [facility] ER HOLD(12/20/21 21:33) mw2 Room Assignment: ERHOLD-(12/20/21 21:33) mw2 Diagnosis - Chest pain, unspecified jr8 Forms: - Medication Reconciliation Form jr8 - SBAR form jr8 Signatures: Dispatcher [employer] EDMS Femi Reese PA PA jr8 Alyssa Gloria, RN RN Elena Tsang mw2 Haresh Winchester DO DO ms3 Lyntete Delatorre, RN RN sm5 Corrections: (The following items were deleted from the chart) 12/20 21:33 19:47 Telemetry/MedSurg (observation) 8 mw2 21:33 19:47 jr8 mw2
[2021-12-20 21:19] LABS: SARS-COV-2 RT PCR NEGATIVE (NEGATIVE)
[2021-12-20] MEDS ORDERED: ONDANSETRON 4 MG/2 ML VIAL IV PRN (22:51)
[2021-12-21 00:27] VITALS: BMI 31.7
[2021-12-21 03:36] LABS: Hematocrit 38.5 % (36.0-45.0)
[2021-12-21 03:42] LABS: Absolute Lymphocytes (CBC) 1.1 K/uL (0.7-4.9); MPV 7.6 fL (7.6-11.3); RBC Red Blood Cell Count 4.21 M/uL (3.86-4.86)
[2021-12-21 03:55] LABS: Potassium 4.7 mmol/L (3.5-5.1)
[2021-12-21 05:00] VITALS: TEMP 97.7
[2021-12-21] MEDS ORDERED: PANTOPRAZOLE 40MG TABLET PO SCH (07:30)
[2021-12-21] MEDS ORDERED: ASPIRIN EC 81 MG TAB PO ONE ×2 (07:50→08:54)
[2021-12-21] MEDS ORDERED: CLOPIDOGREL 75 MG TABLET ONE (07:51)
[2021-12-21] MEDS ORDERED: PANTOPRAZOLE 40MG TABLET PO ONE (08:54)
[2021-12-21] MEDS ORDERED: METOPROLOL TAR 50 MG TAB ONE (08:54)
[2021-12-21] MEDS ORDERED: SPIRONOLACTONE 25 MG TABLET ONE (08:55)
[2021-12-21 08:57] VITALS: BP 138/69
[2021-12-21] MEDS ORDERED: CLOPIDOGREL 75 MG TABLET PO SCH (09:00)
[2021-12-21] MEDS ORDERED: ESTRADIOL 0.5 MG PO SCH (09:00)
[2021-12-21] MEDS ORDERED: ASPIRIN EC 81 MG TAB PO SCH (09:00)
[2021-12-21] MEDS ORDERED: OXYMORPHONE HCL 10 MG PO SCH (09:00)
[2021-12-21] MEDS ORDERED: METOPROLOL TAR 50 MG TAB PO SCH (09:00)
[2021-12-21] MEDS ORDERED: SPIRONOLACTONE 25 MG TABLET PO SCH (09:00)
--- NOTE | 2021-12-21 09:18 | RAD REPORT ---
EXAM DESCRIPTION: CT - Chest For Pe Angio - 12/21/2021 8:59 am CLINICAL HISTORY: Chest pain COMPARISON: None. TECHNIQUE: Dynamically enhanced axial 3 mm thick images of the chest were obtained during administra tion of <100> mL Isovue 370 IV contrast. Coronal and oblique reconstruction images were generated and reviewed. Exam utilizes a protocol for optimal evaluation of pulmonary arterial tree. Maximum intensity projections 3D imaging was utilized All CT scans are performed using dose optimization technique as appropriate and may include automated exposure control or mA/KV adjustment according to patient size. FINDINGS: A pulmonary embolus is not seen. A thoracic aortic aneurysm is not noted. Bovine aorta A pleural effusion is not seen. A pericardial effusion is not seen. Mild tree-in-bud opacities are scattered throughout the lungs. A few very small nodules are present w ithin the lungs bilaterally. Moderate to large hiatal hernia IMPRESSION: Negative for a pulmonary embolism. Mild tree-in-bud opacities are scattered throughout the lungs. A few very small nodules are present w ithin the lungs bilaterally. Most likely this is infectious. An atypical pneumonia is a consideration . Neoplasm is doubtful. However, it is recommended that the patient have an unenhanced CT chest in 6 months for re-evaluation
--- NOTE | 2021-12-21 12:09 | P.SSS ---
Patient History Date of Service: 12/21/21 Reason for admission: CHEST HEAVINESS History of Present Illness: ELTA JUST HAD CATH AND STENT FOR SAME SYMPTOMS SHE GOT LAST NIGHT. SHE HAD CHEST HEAVINESS, GOT WEAK AND ALMOST FELL. HER TROP WAS MILD HIGH THAT DR. CASSIDY EXPECTS FROM THE CATH AND STENT. I ORDERED CT ANGIO TO MAKE SURE AND THAT SHOWS ATYPICAL PNEUMONIA. I CALLED IN Kim TANG RTHAT. SHE CAN'T TAKE LEVAQUIN. SHE IS STABLE TO GO HOME. Allergies citalopram hydrobromide [From Celexa] Allergy (Verified 06/23/16 05:31) UNK codeine Allergy (Verified 06/23/16 05:31) UNK ezetimibe [From Zetia] Allergy (Verified 06/23/16 05:31) UNK fish derived Allergy (Verified 06/23/16 05:31) PALPITATIONS ibandronate sodium [From Boniva] Allergy (Verified 06/23/16 05:31) REFLUX levofloxacin [From Levaquin] Allergy (Verified 06/23/16 05:31) UNK meloxicam [From Mobic] Allergy (Verified 06/23/16 05:31) Rash niacin Allergy (Verified 06/23/16 05:31) UNK NSAIDS (Non-Steroidal Anti-Inflamma Allergy (Verified 06/23/16 05:31) UNK paroxetine HCl [From Paxil] Allergy (Verified 06/23/16 05:31) UNK penicillin G Allergy (Verified 06/23/16 05:31) UNK Penicillins Allergy (Verified 06/23/16 05:31) Unknown risedronate sodium [From Actonel] Allergy (Verified 06/23/16 05:31) UNK Bpijgmo-NVG-IgH Reductase Inhibitor [Oticdbz-Npw-Fdt Reductase Inhibitor] Allergy (Verified 06/23/16 05:31) UNK cephalexin monohydrate [From Keflex] Adverse Reaction (Verified 06/23/16 05:31) NAUSEA Home medications list reviewed: Yes Home Medications: Duloxetine [Cymbalta *] 30 mg PO BEDTIME 08/17/13 estradioL [Estradiol] 0.5 mg PO DAILY 08/17/13 Pitavastatin Calcium [Livalo] 2 mg PO BEDTIME 05/29/15 Dexlansoprazole [Dexilant] 60 mg PO DAILY 12/08/21 Gabapentin 100 mg PO BEDTIME 12/08/21 Imipramine HCl 50 mg PO BEDTIME 12/08/21 Metoprolol Tartrate 100 mg PO BID 12/08/21 Oxymorphone HCl [Opana ER] 10 mg PO BID 12/08/21 Spironolactone 25 mg PO DAILY 12/08/21 Azithromycin Tab [Zithromax*] 250 mg PO SY #1 yandy 12/21/21 - Past Medical/Surgical History Has patient received pneumonia vaccine in the past: Yes Diabetic: No -: Arthritis -: Chronic Pain -: CORONARY ARTERY DISEASE WITH STENT RECENTLY -: Hysterectomy -: Appendectomy -: Pain Pump - Family History Father -: Heart disease Mother -: Stroke - Social History Smoking Status: Never smoker Alcohol use: No CD- Drugs: No Caffeine use: Yes Place of Residence: Home Review of Systems 10-point ROS is otherwise unremarkable Physical Examination - Vital Signs Temperature: 97.7 F Blood Pressure: 138/69 Pulse: 88 Respirations: 20 Pulse Ox (%): 94 - Physical Exam General: Alert, In no apparent distress, Mild distress (SEVERE ARTHRITIS) HEENT: Atraumatic, PERRLA, Mucous membr. moist/pink, EOMI, Sclerae nonicteric Neck: Supple, 2+ carotid pulse no bruit, No LAD, Without JVD or thyroid abnormality Respiratory: Clear to auscultation bilaterally, Normal air movement Cardiovascular: Regular rate/rhythm, Normal S1 S2 Gastrointestinal: Normal bowel sounds, No tenderness Musculoskeletal: No tenderness Integumentary: No rashes Neurological: Normal gait, Normal speech, Normal strength at 5/5 x4 extr, Normal tone, Normal affect Lymphatics: No axilla or inguinal lymphadenopathy - Studies Laboratory Data (last 24 hrs) 12/20/21 18:40: PT 10.9, INR 0.99 12/20/21 18:40: WBC 3.5 L, Hgb 12.4, Hct 36.9, Plt Count 207 D 12/20/21 18:40: Sodium 140, Potassium 3.9, BUN 19 H, Creatinine 0.92, Glucose 107 H, Magnesium 2.2 - Diagnosis (Problem(s)) (1) Atypical chest pain Current Visit: Yes Status: Acute Plan: MAY BE ANGINA OR SPASTIC CORONARY OR PNEUMONIA RELATED. PE AND DISSECTION RULED OUT. (2) Atypical pneumonia Current Visit: Yes Status: Acute Plan: Z PACK CALLED IN WILL FU NODULES SEEM TO BE BENIGN IN ORIGIN. (3) Coronary artery disease Current Visit: Yes Status: Acute - Disposition Disposition: ROUTINE DISCHARGE Condition: FAIR
--- NOTE | 2021-12-21 12:11 | CON ---
Date of Consultation: 12/21/[address] Reaves on 12/20/2021 for chest pain. I saw the patient on 12/21/2021. History Of Present Illness: Ms. Henderson is 71, has a history of gastroesophageal reflux disease. She had previous esophageal dilatation by Dr. Anglin. She has a history of hypertension, dyslipidemia , depression, neuropathy, recently 4 days ago underwent a circumflex stent by Dr. Perry which was ve ry successful. The LAD showed minimal coronary artery disease, so did the RCA. She came in after e started having chest pain after she bent over. Her chest pain is mid-epigastric. Her EKG is unrem arkable, chest x-ray is unremarkable. Troponin is elevated probably secondary to the recent stent. She denied PND, orthopnea, pedal edema. She denied any nausea, vomiting, or diaphoresis. Denied any palpitation. Denied any syncope. Denied any fever or chills. She is pain-free today. Past Medical History: As stated above. Allergies: SHE IS ALLERGIC TO ZETIA, FISH, CODEINE, AND LEVAQUIN. Medications: At home include Dexilant, Livalo, Aldactone, Cymbalta, , metoprolol. Physical Examination: General: She was pleasant, no acute distress. Vital Signs: Stable. Afebrile. HEENT: Negative. Neck: Supple with no bruit. Chest: Clear. Cardiac: Normal. Abdomen: Benign. Extremities: Revealed no clubbing, cyanosis, or edema. Diagnostic Data: As stated earlier. Impression And Plan: Chest pain, most likely gastroesophageal reflux disease in nature. She is on D exilant. She will see Dr. Anglin soon for a possible endoscopy and maybe more esophageal dilatation. She has been on Nexium in the past. Her troponin elevation is secondary to the recent stent. I doub t very seriously that this is a stent closure. Typically when the stent closed only 4 days after the procedure would be a thrombus causing ST elevation and she would be much sicker. I am comfortable w ith her going home. The case was discussed with Dr. Reaves. She will see her in the office in the ca xt week or 2. She will continue her home medications which should include Plavix. She will continue her statin and her metoprolol as well. Her other problems including hypertension, dyslipidemia, ronen ropathy, and depression are stable. NB/MODL Voice ID: [id number] Report ID: [id number]
[2021-12-21 12:28] VITALS: O2SAT 98
[2021-12-21] MEDS ORDERED: ENOXAPARIN 40 MG/0.4 ML SQ SCH (17:00)
[2021-12-21] MEDS ORDERED: GABAPENTIN 100 MG CAP PO SCH (21:00)
[2021-12-21] MEDS ORDERED: PITAVASTATIN CALCIUM 2 MG PO SCH (21:00)
[2021-12-21] MEDS ORDERED: DULOXETINE 30 MG CAP PO SCH (21:00)
[2021-12-21] MEDS ORDERED: IMIPRAMINE HCL 25 MG TAB PO SCH (21:00)
--- NOTE | 2021-12-25 11:28 | EKG ---
Test Date: 2021-12-20 Test Time: 18:52:49 Machined Parts Quality Inspector: PH MEASUREMENT RESULTS: Intervals: Rate: 89 CT: 190 QRSD: 76 QT: 358 QTc: 435 [place]: P: 62 CT: 190 QRS: -43 T: 30 INTERPRETIVE STATEMENTS: Normal sinus rhythm Left axis deviation Low voltage QRS Cannot rule out Anterior infarct, age undetermined Abnormal ECG Compared to ECG 12/07/2021 13:01:32 No significant changes Electronically Signed On 12-25-21 11:14:35 CDT by Randy Mason
== END 2021-12-21 12:15 | disposition home or self-care (01) ==
LOC: ER 18:11 → ERHOLD 21:24
PROVIDERS: ADMIT Internal Medicine; ATTEND Internal Medicine
DX: R07.89 Other chest pain (principal); J18.9 Pneumonia, unspecified organism; I25.10 Atherosclerotic heart disease of native coronary artery without angina pectoris; K21.9 Gastro-esophageal reflux disease without esophagitis; I10 Essential (primary) hypertension; E78.5 Hyperlipidemia, unspecified; G62.9 Polyneuropathy, unspecified; M19.90 Unspecified osteoarthritis, unspecified site; G89.29 Other chronic pain; F32.A Depression, unspecified; F41.9 Anxiety disorder, unspecified; Z95.5 Presence of coronary angioplasty implant and graft; Z79.899 Other long term (current) drug therapy; Z88.0 Allergy status to penicillin; Z88.6 Allergy status to analgesic agent; Z88.3 Allergy status to other anti-infective agents; Z88.8 Allergy status to other drugs, medicaments and biological substances; Z91.013 Allergy to seafood; Z90.710 Acquired absence of both cervix and uterus; Z20.822 Contact with and (suspected) exposure to COVID-19; Z82.49 Family history of ischemic heart disease and other diseases of the circulatory system; Z82.3 Family history of stroke
CPT/HCPCS: 93005; 85025 ×2; 80048 ×2; 36415; 83735; 85610; 84484 ×3; 83880; 0240U; 71275; 71045; Q9967; G0378 ×3; 96374; 99285

== ENCOUNTER 2022-01-18 11:05 | Day surgery (SDC) | payer OTHER ==
[2022-01-16 12:11] LABS: Absolute Lymphocytes (CBC) 0.9 K/uL (0.7-4.9); Lymphocytes % 23.1 % (15.3-44.8); MPV 7.9 fL (7.6-11.3); RBC Red Blood Cell Count 4.37 M/uL (3.86-4.86)
[2022-01-16 12:25] LABS: Protime INR 0.98
[2022-01-16 12:26] LABS: Potassium 4.5 mmol/L (3.5-5.1)
--- NOTE | 2022-01-17 12:59 | EKG ---
Test Date: 2022-01-16 Test Time: 10:49:25 Progressive Die Maker: GLENYS MEASUREMENT RESULTS: Intervals: Rate: 66 UT: 206 QRSD: 82 QT: 396 QTc: 415 Levels: P: 60 UT: 206 QRS: -55 T: 40 INTERPRETIVE STATEMENTS: Normal sinus rhythm Left axis deviation Low voltage QRS Abnormal ECG Compared to ECG 12/20/2021 18:52:49 Myocardial infarct finding no longer present Electronically Signed On 01-17-22 12:57:36 CDT by Randy Mason
[~2022-01-18 11:05] MED LIST changes: +ATROPINE SULF 1 MG/10 ML SYR IV ONE; -LIDOCAINE 1% 20 ML MDV ONE; +TICAGRELOR 90 MG TABLET PO ONE
[2022-01-18] MEDS ORDERED: NA CHLORIDE 0.9% 500 ML ONE (11:11)
[2022-01-18] MEDS ORDERED: LIDOCAINE 1% 20 ML MDV ONE (11:39)
[2022-01-18 14:25] VITALS: BP 113/58; O2SAT 62
--- NOTE | 2022-01-18 23:36 | OP ---
Date of Procedure: 01/18/2022 Surgeon: LEXIE ROMO Procedure Performed: Selective bilateral carotid angiogram. Indication: Abnormal Doppler suggesting significant stenosis on left side. Access: Right femoral artery 6-Kittitian closed with StarClose. Complications: None. Estimated Blood Loss: Bleeding less than 10 mL. Anesthesia: Total sedation time was 25 minutes. Description Of Procedure: After risks, benefits, and alternatives were explained, the patient agreed to the procedure and signed informed consent. The patient was brought into cardiac catheterization laboratory, prepped and draped in usual sterile fashion and given fentanyl and Versed in incremental doses to achieve adequate moderate sedation. Then I accessed right femoral artery using the [place] cture kit with ultrasound guidance and fluoroscopy and placed 6-Kittitian [place] sheath and took a 6-F rench JR4 catheter into the aortic root and then engaged selectively the right common carotid artery and obtained standard angiogram and then selectively engaged the left common carotid artery, which co mes from the brachiocephalic artery and then I took a standard angiogram and then removed the cathete r and the sheath, and StarClose was used for closure with good hemostasis. Findings: 1.Right common carotid artery/right internal carotid artery/right external carotid artery were all n ormal with no significant disease. 2.Left common carotid artery is normal. 3.In the left internal carotid artery, there is an area of bend with some stenosis that is about 60% with a very good ELISABETH-3 flow. Conclusion: Moderate left internal carotid artery stenosis. Plan: Medical management. /MARLENY Voice ID: [id number] Report ID: [id number]
== END 2022-01-18 14:50 | disposition home or self-care (01) ==
LOC: CCL 11:05
PROVIDERS: ATTEND Internal Medicine
DX: I65.22 Occlusion and stenosis of left carotid artery (principal); I70.212 Atherosclerosis of native arteries of extremities with intermittent claudication, left leg; I25.10 Atherosclerotic heart disease of native coronary artery without angina pectoris; I87.2 Venous insufficiency (chronic) (peripheral); G62.9 Polyneuropathy, unspecified; I10 Essential (primary) hypertension; K21.9 Gastro-esophageal reflux disease without esophagitis; F41.0 Panic disorder [episodic paroxysmal anxiety]; Z87.891 Personal history of nicotine dependence; Z88.0 Allergy status to penicillin; Z88.3 Allergy status to other anti-infective agents; Z88.5 Allergy status to narcotic agent; Z88.8 Allergy status to other drugs, medicaments and biological substances; Z79.84 Long term (current) use of oral hypoglycemic drugs; Z79.02 Long term (current) use of antithrombotics/antiplatelets; Z79.82 Long term (current) use of aspirin; Z79.899 Other long term (current) drug therapy; Z20.822 Contact with and (suspected) exposure to COVID-19; Z82.49 Family history of ischemic heart disease and other diseases of the circulatory system
CPT/HCPCS: 93005; 85025; 80048; 36415; 85610; 85730; 36215; 36222; U0003; C1893; J2250; J3010; J7040; J1644

== ENCOUNTER 2022-09-01 07:41 | Inpatient (IN) | payer OTHER ==
--- OUTSIDE RECORDS SUMMARY | 2022-09-01 07:44 | XMS REPORT | Continuity of Care Document ---
:1950 Author Organization [facility] t Address [address] [place] [address] Care Team Providers Name Role Phone HALINA LOWERY Primary Care Physician Unavailable Viviana De León MD Attending Clinician VIVIANA DE LEÓN Attending Clinician Unavailable Lab, Adc Fam Pob I Attending Clinician Unavailable Emerald Delatorre RN Attending Clinician Unavailable Only, Adc Test Attending Clinician Unavailable DANAY SALAZAR Attending Clinician Unavailable Doctor Unassigned, [place] Attending Clinician Unavailable Payers Payer Name Policy Type Policy Number Effective Date Expiration Date Aishwarya HIGH [id number] 2001 00:00:00 Problems Condition Condition Condition Status Onset Resolution Last Treating Co mments Source Name Details Category Date Date Treatment Clinician Date No known No known Disease Unive rs active active ity of problems problems [facility] Allergies, Adverse Reactions, Alerts Allergy Allergy Status Severity Reaction(s) Onset Inactive Treating Comm ents Source Name Type Date Date Clinician [place] Drug Active Rash 2018- Univers INS Class 01-21 ity of 00:00: [address] [place] Propensi Active Rash 2018- Univer s ins ty to 01-21 ity of adverse 00:00: [place] reaction [address] [place] [address] Social History Social Habit Start Date Stop Date Quantity Comments Source History of tobacco Cigarette Smoker University of use [facility] [place] [facility] Exposure to 2022-08-20 2022-08-30 Not sure University SARS-CoV-2 (event) 00:00:00 23:24:00 [facility] Alcohol intake 2022-08-30 2022-08-30 Current University of 00:00:00 00:00:00 non-drinker of [facility] alcohol Branch (finding) Cigarettes smoked 2019-01-21 2019-01-21 Univers ity of current (pack per 00:00:00 00:00:00 [facility] ) - Reported Branch Cigarette 2019-01-21 2019-01-21 University of pack-years 00:00:00 00:00:00 [facility] Tobacco use and 2019-01-21 2019-01-21 Smokeless Universit y of exposure 00:00:00 00:00:00 tobacco non-user [facility] dical [place] Sex Assigned At [birth year] [facility] 00:00:00 00:00:00 Hospital Smoking Status Start Date Stop Date Source Tobacco smoking [facility] consumption unknown Ex-smoker 2019-01-21 00:00:00 2019-01-21 University o f [place] 00:00:00 Medical Branch Medications Ordered Filled Start Stop Current Ordering Indication Dosage Frequency Signature Comments Components Source Medication Medication Date Date Medication? Clinician (SIG) Name Name iopamidol 2021-09- No [id number] 75mL 75 mL, U nivers (ISOVUE 2-09 12-09 Intravenou ity o f 370-500 mL) 09:15: 09:15 s, ONCE, 1 [place] injection 00 :00 dose, On Medica l 75 mL Fri Branch 08/31/22 at 0315, Routine GABAPENTIN 2018- Yes 100mg Take 100 Un milagros ORAL 5-06 mg by ity of 09:03: mouth [place] 35 daily. Medical Branch estradiol 2019-0 Yes .5mg Take 0.5 Univ ers (ESTRACE 5-06 mg by ity of ORAL) 09:03: mouth [place] 35 daily. Medical Branch DULoxetine 2018- Yes 30mg Take 30 mg U nivers 30 mg 5-06 by mouth ity of capsule 09:03: daily. [place] 35 Medical Branch Dexlansopra 2018-0 Yes Take by Uni vers zole 5-06 mouth ity of (DEXILANT) 09:03: daily. [place] 60 35 Medical capsule Branch metoprolol 2018- Yes 100mg Take 100 Un milagros tartrate 5-06 mg by ity of 100 mg 09:03: mouth 2 [place] tablet 35 (two) Medical times [place] daily. imipramine Yes 10mg Take 10 mg U nivers 10 mg 5-06 by mouth 2 ity of tablet 09:03: (two) [place] [address] times Medical daily. Branch Pitavastati Yes Take by Uni vers n (LIVALO) 5-06 mouth ity of 2 mg Tab 09:03: daily. [address] aspirin 81 2018- Yes 81mg Take 81 mg U nivers mg EC 5-06 by mouth ity of tablet 09:03: daily. [address] oxyMORphone Yes 10mg Take 10 mg Univers 10 mg 5-06 by mouth 2 ity of tablet 09:03: (two) [place] 35 [facility] daily. [place] Vital Signs Vital Name Observation Time Observation Value Comments Source Systolic blood 2022-08-31 09:59:00 123 mm[facility]Hg[facility] Diastolic blood 2022-08-31 09:59:00 70 mm[Hg] [facility] Heart rate 2022-08-31 09:59:00 88 /min [facility] Respiratory rate 2022-08-31 09:59:00 12 /min [facility] Oxygen saturation in 2022-08-31 09:59:00 94 /min [facility] Arterial blood by [facility] Pulse oximetry Branch Body temperature 2022-08-31 05:27:00 36.5 Lacey [facility] Body height 2022-08-31 05:27:00 162.6 cm [facility] Body weight 2022-08-31 05:27:00 81.194 kg [facility] BMI 2022-08-31 05:27:00 30.73 kg/m2 [facility] Procedures Procedure Date / Time Performing Clinician Source Performed CT CHEST PULMONARY 2022-08-31 08:29:00 Viviana De León [facility] ANGIOGRAM Medical [place] BASIC METABOLIC PANEL 2022-08-31 06:03:00 Viviana De León [facility] (NA, K, CL, CO2, Medical Branch GLUCOSE, BUN, CREATININE, CA) CBC WITH DIFF 2022-08-31 06:03:[address] [facility] PROTHROMBIN TIME / INR 2022-08-31 06:03:00 Viviana De León [facility] Plan of Care Planned Activity Planned Date Details Comments Source Future Scheduled 2022-08-30 INFLUENZA VACCINE [facility] Test 23:17:19 [code = INFLUENZA VACCINE] Future Scheduled 2022-08-30 HEPATITIS B VACCINES Met [facility] Test 23:17:19 (1 of 3 - 3-dose series) [code = HEPATITIS B VACCINES (1 of 3 - 3-dose series)] Future Scheduled 2022-08-30 COVID-19 VACCINE (#1) [facility] Test 23:17:19 [code = COVID-19 VACCINE (#1)] Future Scheduled 2022-08-30 COLONOSCOPY SCREENING [facility] Test 23:17:19 [code = COLONOSCOPY SCREENING] Future Scheduled 2022-08-30 SHINGLES VACCINES (1 Met [facility] Test 23:17:19 of 2) [code = SHINGLES VACCINES (1 of 2)] Future Scheduled 2022-08-30 BREAST CANCER [facility] Test 23:17:19 SCREENING [code = BREAST CANCER SCREENING] Future Scheduled 2022-08-30 65+ [facility]CCAL [facility] 23:17:19 VACCINE (1 - PCV) [code = 65+ PNEUMOCOCCAL VACCINE (1 - PCV)] Future Scheduled 2021-09-13 COVID-19 VACCINE (1) Met [facility] Test 03:12:08 [code = COVID-19 VACCINE (1)] Future Scheduled 2021-09-13 COLONOSCOPY SCREENING [facility] Test 03:12:08 [code = COLONOSCOPY SCREENING] Future Scheduled 2021-09-13 SHINGLES VACCINES (#1) [facility] Test 03:12:08 [code = SHINGLES VACCINES (#1)] Future Scheduled 2021-09-13 BREAST CANCER [facility] Test 03:12:08 SCREENING [code = BREAST CANCER SCREENING] Future Scheduled 2021-09-13 65+ [facility]CCAL [facility] Test 03:12:08 VACCINE (1 of 1 - PPSV23) [code = 65+ PNEUMOCOCCAL VACCINE (1 of 1 - PPSV23)] Future Scheduled 2021-09-13 INFLUENZA VACCINE [facility] Test 03:12:08 [code = INFLUENZA VACCINE] Encounters Start End Encounter Admission Attending Care Care Encounter Source Date/Time Date/Time Type Type Clinicians Facility Department ID 2022-08-30 2022-08-31 Emergency Samantha [facility] [id number] Univers 23:23:00 05:07:00 Viviana Neff DOMI [id number] [facility] [id number] [facility] [id number] [place] [id number] [place] 2022-08-30 2022-08-31 Emergency X SAMANTHA [facility] ERT [id number] Univers 23:23:00 05:07:00 VIVIANA [facility] 2020-08-26 2020-08-26 Laboratory Lab, [facility] [id number] 16:51:09 17:11:09 Only Fam Pob I [facility] [id number] [place] [id number] Profess [id number] nal [facility] 2020-08-26 2020-08-26 Outpatient R [facility] [id number] Univers 17:00:00 17:00:00 [facility] 2020-05-20 2020-05-20 Letter NILA Delatorre [id number] 00:00:00 00:00:00 (Out) Emerald Asencio EVE [id number] [facility] [id number] 2020-05-16 2020-05-16 Laboratory Only, [facility] [id number] 13:50:33 14:05:33 Only Test [place] [id number] [place] [id number] [place] [id number] 2020-05-16 2020-05-16 [facility] [id number] Univers 13:30:00 13:30:00 DANAY [facility] 2020-05-16 2020-05-16 Anand DOTSON [id number] 00:00:00 00:00:00 Only Unassigned, EVE [id number] [place] [facility] [id number] [id number] Results Test Description Test Time Test Comments Results Result Comments Source BASIC METABOLIC PANEL (NA, K, CL, CO2, GLUCOSE, BUN, 2022-08 07:11:02 CREATININE, CA) Test Item Value Reference Range Interpretation Comme nts NA (test code = 8041386966) 137 mmol/L 135-145 K (test code = 2567465471) 5.0 mmol/L 3.5-5.0 CL (test code = 5639301624) 96 mmol/L 98-108 L CO2 TOTAL (test code = 5522289906) 31 mmol/L 23-31 AGAP (test code = 4239313205) 2-16 BUN (test code = 9033607532) 19 mg/dL 7-23 GLUCOSE (test code = 9379126452) 123 mg/dL 70-110 H CREATININE (test code = 0.74 mg/dL 0.50-1.04 7113640337) CALCIUM (test code = 3210425940) 9.4 mg/dL 8.6-10.6 eGFR (test code = 6368310196) mL/min/1.73m2 YANI (test code = YANI) Association of Glomerular Filtration Rate (GFR) and Staging of Kidney Disease* + +-------- + ------+| GFR (mL/min/1.73 m2) ?| With Kidney Damage ?| ?Without Kidney Damage+ +-- + +| ?>90 ?| ?Stage one ?| ? Normal ?+ +------- + -------+| ?60-89 ?| ?Stage two ?| ? Decreased GFR ? + +-------- + ------+| ?30-59 ?| ?Stage three ?| ? Stage three ? + +-------- + ------+| ?15-29 ?| ?Stage four ? | ? Stage four ?+ +------- + -------+| ?<15 (or dialysis) ? ?| ?Stage five ? | ? Stage five ?+ +------- + -------+ *Each stage assumes the associated GFR level has been in effect for at least three months. ?Stages 1 to 5, with or without kidney disease, indicate chronic kidney disease. Notes: Determination of stages one and two (with eGFR >59mL/min/1.73 m2) requires estimation of kidney damage for at least three months as defined by structural or functional abnormalities of the kidney, manifested by either:Pathological abnormalities or Markers of kidney damage (including abnormalities in the composition of the blood or urine or abnormalities in imaging tests). Lab Interpretation (test code = Abnormal 42851-9) [facility] Time / [id number] 06:54:58 Test Item Value Reference Range Interpretation Comments PROTIME PATIENT (test See_Comment [Auto mated message] code = 5964-2) The system Plib[employer] ich generated this result transmitted ref erence range: 12.0 - 1 4.7 Seconds. The re ference range was not u sed to interpret this result as normal/abnor mal. INR (test code = 6301-6) Nor mal INR <1.1; Warfarin Therap eutic range 2.0 to 3. 0 or 2.5 to 3.5, dep ending upon the indica tions. Lab Interpretation (test Normal code = 47900-2) [facility] WITH [id number] 06:22:40 Test Item Value Reference Range Interpretation Comments WBC (test code = See_Comment H [Automated 7690-2) message] The sy stem which generated this result transmitted reference range : 4.30 - 11.10 10*3/?L. The reference range was not used to interpret this result as normal/abnormal . RBC (test code = See_Comment [Automated 229-8) message] The sy stem which generated this result transmitted reference range : 3.93 - 5.25 10*6/?L. The reference range was not used to interpret this result as normal/abnormal . HGB (test code = 13.9 g/dL 11.6-15.0 718-7) HCT (test code = 43.3 % 35.7-45.2 4544-3) MCV (test code = 90.8 fL 80.6-95.5 787-2) MCH (test code = 29.1 pg 25.9-32.8 785-6) MCHC (test code = 32.1 g/dL 31.6-35.1 786-4) RDW-SD (test code = 40.1 fL 39.0-49.9 36314-8) RDW-CV (test code = 12.1 % 12.0-15.5 788-0) PLT (test code = See_Comment H [Automated 777-3) message] The sy stem which generated this result transmitted reference range : 166 - 358 10*3/ ?L. The reference r musa was not used to interpret this result as normal/abnormal . MPV (test code = 9.1 fL 9.5-12.9 L 64814-0) NRBC/100 WBC (test See_Comment [Automat ed code = 9984164409) message] The system which generated this result transmitted reference range : 0.0 - 10.0 /100 WBCs. The refer ence range was not u sed to interpret th is result as normal/abnormal . NRBC x10^3 (test code See_Comment [Auto mated = 5724769154) message] The s ystem which generated this result transmitted reference range : 10*3/?L. The reference range was not used to interpret this result as normal/abnormal . GRAN MAT (NEUT) % 87.4 % (test code = 770-8) IMM GRAN % (test code 0.80 % = 5436953814) LYMPH % (test code = 5.3 % 736-9) MONO % (test code = 6.2 % 5905-5) EOS % (test code = 0.0 % 713-8) BASO % (test code = 0.3 % 706-2) GRAN MAT x10^3(ANC) 9.99 10*3/uL 1.88-7.09 H (test code = 2714126320) IMM GRAN x10^3 (test 0.09 10*3/uL 0.00-0.06 H code = 5299439107) LYMPH x10^3 (test code 0.60 10*3/uL 1.32-3.29 L = 731-0) MONO x10^3 (test code 0.71 10*3/uL 0.33-0.92 = 742-7) EOS x10^3 (test code = 0.03-0.39 L 711-2) BASO x10^3 (test code 0.03 10*3/uL 0.01-0.07 = 704-7) Lab Interpretation Abnormal (test code = 52079-5) [facility]"
--- NOTE | 2022-09-01 08:41 | RAD REPORT ---
EXAM DESCRIPTION: RAD - Chest Single View - 09/01/2022 8:34 am CLINICAL HISTORY: CHEST PAIN COMPARISON: 08/28/2022 FINDINGS: Lines: None. Lungs: Increased consolidative airspace disease in the right lung base. Pleural: No significant pleural effusions or pneumothorax. Cardiac: The heart size is within normal limits. Mediastinum: Within normal limits. Bones: No acute fractures. Other: None IMPRESSION: New consolidative airspace disease in the right lower lobe may represent atelectasis and /or pneumonia. A chest CT is pending.
[2022-09-01] MEDS ORDERED: HYDROCODONE/CHLORPHEN 5 ML/OSYR ONE (08:59)
[2022-09-01 09:21] LABS: Protime INR 1.34
[2022-09-01 09:24] LABS: Albumin 2.4 g/dL (3.4-5.0); Bilirubin Direct 0.3 mg/dL (0-0.2); Bilirubin Total 0.8 mg/dL (0.2-1.0); Potassium 4.5 mmol/L (3.5-5.1); Protein, Total 7.2 g/dL (6.4-8.2); Troponin High Sensitivity 4.4 pg/mL (<58.9)
--- NOTE | 2022-09-01 09:30 | RAD REPORT ---
EXAM DESCRIPTION: CT - Chest For Pe Angio - 09/01/2022 9:08 am CLINICAL HISTORY: hemoptysis COMPARISON: 12/21/2021, chest radiograph from 08/28/2022 TECHNIQUE: Dynamically enhanced axial 3 mm thick images of the chest were obtained during administra tion of <100> mL Isovue 370 IV contrast. Coronal and oblique reconstruction images were generated and reviewed. Exam utilizes a protocol for optimal evaluation of pulmonary arterial tree. Maximum intensity projections 3D imaging was utilized All CT scans are performed using dose optimization technique as appropriate and may include automated exposure control or mA/KV adjustment according to patient size. FINDINGS: Chest Wall: No suspicious thyroid nodules or pathologic lymphadenopathy. Lungs: Near complete consolidation of the right middle lobe. Pleura: Small right pleural effusion. Mediastinum/sheeba: Enlarged subcarinal lymph node measuring 11 millimeters. Moderate hiatal hernia. Pulmonary arteries/Aorta: No filling defect identified. No aortic aneurysm. Heart: No significant pericardial effusion. Normal heart size. Upper abdomen: No acute abnormality. Bones: No acute abnormality. IMPRESSION: Negative for pulmonary embolism. Near complete consolidation of the right middle lobe wh ich is probably secondary to lobar pneumonia. A small right pleural effusion is noted. Close [facility] follow-up is recommended to ensure resolution. Bronchoscopy is another consideration if pneumoni a is not suspected clinically.
--- NOTE | 2022-09-01 09:52 | ER ---
Nurse's Notes [facility] Name: Chaparrita Blanca Age: 72 yrs Sex: Female : 1950 Arrival Date: 09/01/2022 Time: 07:55 Bed 18 Private MD: Diagnosis: Right lobar pneumonia/hemoptysis/hypoxemia Presentation: 09/01 08:20 Chief complaint: EMS states: toned out for chest pain, was in [facility] on the 08/30 with dx kr3 of pneumonia, collapsed lung, coughing up blood. EMS applied 2 LPM [place] O2 due to oxygen sat in high 80's and chest pain went away. Coronavirus screen: Vaccine status: Patient reports being unvaccinated. Client denies travel out of the [place] in the last 14 days. Ebola Screen: Patient denies travel to an Ebola-affected area in the 21 days before illness onset. Initial Sepsis Screen: Does the patient meet any 2 criteria? No. Patient's initial sepsis screen is negative. Does the patient have a suspected source of infection? Yes: Productive cough/pneumonia. Initial Sepsis Screen: Does the patient meet any 2 criteria?. Risk Assessment: Do you want to hurt yourself or someone else? Patient reports no desire to harm self or others. Onset of symptoms was September 01, 2022. 08:20 Method Of Arrival: EMS kr3 08:20 Acuity: NORBERT 3 kr3 Triage Assessment: 08:30 General: Appears in no apparent distress. uncomfortable, Behavior is calm, cooperative, kr3 appropriate for age. Pain: Complains of pain in chest. EENT: Reports nasal congestion. Neuro: Level of Consciousness is awake, alert, obeys commands, Oriented to person, place, time, situation. Cardiovascular: Patient's skin is warm and dry. Respiratory: Airway is patent Respiratory effort is even, unlabored, Respiratory pattern is regular, symmetrical. GI: Abdomen is round non-distended. : No signs and/or symptoms were reported regarding the genitourinary system. Derm: Skin is intact, Skin is diaphoretic, Skin is pink. Musculoskeletal: Circulation, motion, and sensation intact. Historical: - Allergies: 08:28 PENICILLINS; kr3 - Home Meds: 08:28 Dexilant 60 mg Oral CpDB 1 cap once daily [Active]; oxymorphone 10 mg Oral tab 1 tab kr3 every 6 hours [Active]; Metoprolol Tartrate Oral [Active]; pitavastatin calcium 2 mg Oral tab 1 tab once daily [Active]; imipramine HCl 50 mg Oral tab 1 tab 2 times per day [Active]; gabapentin 100 mg Oral cap 1 cap nightime [Active]; Estrace 0.5 mg Oral tab 1 tab once daily [Active]; Cymbalta 40 mg Oral cpDR 1 cap once daily [Active]; - PMHx: 08:28 Anxiety; Arthritis; Chronic pain; Hyperlipidemia; Hypertension; kr3 - PSHx: 08:28 pain pump (morphine); kr3 - Immunization history:: Adult Immunizations up to date. - Social history:: Smoking status: Patient/guardian denies using tobacco, the patient reports quitting approximately 50 years ago. Screenin:29 Abuse screen: Denies threats or abuse. Nutritional screening: No deficits noted. kr3 Tuberculosis screening: No symptoms or risk factors identified. Fall Risk IV access (20 points). Total Luz Fall Scale indicates No Risk (0-24 pts). Assessment: 10:20 Reassessment: No changes from previously documented assessment. Patient and/or family kr3 updated on plan of care and expected duration. Pain level reassessed. Patient is alert, oriented x 3, equal unlabored respirations, skin warm/dry/pink. 11:20 Reassessment: No changes from previously documented assessment. Patient and/or family kr3 updated on plan of care and expected duration. Pain level reassessed. Patient is alert, oriented x 3, equal unlabored respirations, skin warm/dry/pink. 12:20 Reassessment: No changes from previously documented assessment. Patient and/or family kr3 updated on plan of care and expected duration. Pain level reassessed. Patient is alert, oriented x 3, equal unlabored respirations, skin warm/dry/pink. 13:20 Reassessment: No changes from previously documented assessment. Patient and/or family kr3 updated on plan of care and expected duration. Pain level reassessed. Patient is alert, oriented x 3, equal unlabored respirations, skin warm/dry/pink. Vital Signs: 08:20 BP 113 / 54; Pulse 101; Resp 20; Temp 98.5; Pulse Ox 95% on 2 lpm NC; Weight 79.38 kg; kr3 Height 5 ft. 4 in. (162.56 cm); 11:20 BP 128 / 63; Pulse 100; Resp 20; Pulse Ox 95% on 1 lpm NC; kr3 12:20 BP 112 / 61; Pulse 102; Resp 20; Pulse Ox 95% on 1 lpm NC; kr3 13:34 BP 108 / 51; Pulse 107; Resp 20; Pulse Ox 96% on 1 lpm NC; kr3 08:20 Body Mass Index 30.04 (79.38 kg, 162.56 cm) kr3 ED Course: 07:55 Patient arrived in ED. vc1 08:00 Lynnette Will [facility]-C [facility] snw 08:00 Indra Hartmann MD is Attending Physician. snw 08:12 Aleyda Sawyer, RN is Primary Nurse. kr3 08:28 Triage completed. kr3 08:32 Arm band placed on right wrist. Patient placed in an exam room, on a stretcher, on kr3 oxygen. 08:36 XRAY Chest (1 view) In Process Unspecified. EDMS 08:40 Bed in low position. Call light in reach. Side rails up X 1. kr3 08:54 Inserted saline lock: 22 gauge in right antecubital area, using aseptic technique. kr3 Blood collected. 08:55 Maintain EMS IV. Dressing intact. Site clean \T\ dry. Gauge \T\ site: 20 LH. kr 3 09:10 CT Chest For PE Angio In Process Unspecified. EDMS 09:50 Juan Jose Reaves MD is Hospitalizing Provider. snw 11:35 Urinalysis Sent. kr3 13:29 No provider procedures requiring assistance completed. kr3 Administered Medications: 09:35 Drug: Tussionex Pennkinetic ER (chlorpheniramine-hydrocodone) Suspension 5 ml Route: PO;kr3 Outcome: 09:51 Decision to Hospitalize by Provider. snw 15:43 Patient left the ED. kr3 Signatures: Dispatcher [employer] EDMS Lynnette Will FNP-C DRY PAN CHARGER-Csnw Sherrie Durant RN RN vc1 Aleyda Sawyer, ROHIT RN kr3 Corrections: (The following items were deleted from the chart) 13:34 13:32 BP 128 / 63; Pulse 100bpm; Resp 20bpm; Pulse Ox 95% 1 lpm Nasal Cannula; kr3 kr3
--- NOTE | 2022-09-01 09:52 | EDPHYS ---
Physician Documentation [facility] Name: Chaparrita Blanca Age: 72 yrs Sex: Female : 1950 Arrival Date: 09/01/2022 Time: 07:55 Bed 18 Private MD: ED Physician Indra Hartmann HPI: 09/01 08:10 This 72 yrs old Female presents to ER via Unassigned with complaints of anterior chest. snw 08:10 The patient or guardian reports chest pain that is located primarily in the anterior snw chest wall, bilaterally. Onset: suddenly. The pain does not radiate. Associated signs and symptoms: Pertinent positives: hemoptysis, shortness of breath. The chest pain is described as a heaviness. Duration: The patient or guardian reports multiple episodes. Severity of pain: At its worst the pain was moderate. EMS care prior to arrival includes: supplemental oxygen, pain resolved with Oxygen. The patient has experienced a previous episode, last week. Historical: - Allergies: 08:28 PENICILLINS; kr3 - Home Meds: 08:28 Dexilant 60 mg Oral CpDB 1 cap once daily [Active]; oxymorphone 10 mg Oral tab 1 tab kr3 every 6 hours [Active]; Metoprolol Tartrate Oral [Active]; pitavastatin calcium 2 mg Oral tab 1 tab once daily [Active]; imipramine HCl 50 mg Oral tab 1 tab 2 times per day [Active]; gabapentin 100 mg Oral cap 1 cap nightime [Active]; Estrace 0.5 mg Oral tab 1 tab once daily [Active]; Cymbalta 40 mg Oral cpDR 1 cap once daily [Active]; - PMHx: 08:28 Anxiety; Arthritis; Chronic pain; Hyperlipidemia; Hypertension; kr3 - PSHx: 08:28 pain pump (morphine); kr3 - Immunization history:: Adult Immunizations up to date. - Social history:: Smoking status: Patient/guardian denies using tobacco, the patient reports quitting approximately 50 years ago. ROS: 08:12 Eyes: Negative for injury, pain, redness, and discharge, ENT: Negative for injury, snw pain, and discharge, Neck: Negative for injury, pain, and swelling. 08:12 Abdomen/GI: Negative for abdominal pain, nausea, vomiting, diarrhea, and constipation, Back: Negative for injury and pain, : Negative for injury, bleeding, discharge, and swelling, MS/Extremity: Negative for injury and deformity, Skin: Negative for injury, rash, and discoloration, Neuro: Negative for headache, weakness, numbness, tingling, and seizure. 08:12 Constitutional: Positive for malaise. 08:12 Cardiovascular: Positive for chest pain. 08:12 Respiratory: Positive for cough, pleurisy, shortness of breath, hemoptysis. Exam: 09:49 Constitutional: This is a well developed, well nourished patient who is awake, alert, snw and in no acute distress. Head/Face: Normocephalic, atraumatic. Eyes: Pupils equal round and reactive to light, extra-ocular motions intact. Lids and lashes normal. Conjunctiva and sclera are non-icteric and not injected. Cornea within normal limits. Periorbital areas with no swelling, redness, or edema. ENT: Nares patent. No nasal discharge, no septal abnormalities noted. Tympanic membranes are normal and external auditory canals are clear. Oropharynx with no redness, swelling, or masses, exudates, or evidence of obstruction, uvula midline. Mucous membranes moist. Neck: Trachea midline, no thyromegaly or masses palpated, and no cervical lymphadenopathy. Supple, full range of motion without nuchal rigidity, or vertebral point tenderness. No Meningismus. Chest/axilla: Normal chest wall appearance and motion. Nontender with no deformity. No lesions are appreciated. Cardiovascular: Regular rate and rhythm with a normal S1 and S2. No gallops, murmurs, or rubs. Normal PMI, no JVD. No pulse deficits. 09:49 Abdomen/GI: Soft, non-tender, with normal bowel sounds. No distension or tympany. No guarding or rebound. No evidence of tenderness throughout. Back: No spinal tenderness. No costovertebral tenderness. Full range of motion. Skin: Warm, dry with normal turgor. Normal color with no rashes, no lesions, and no evidence of cellulitis. MS/ Extremity: Pulses equal, no cyanosis. Neurovascular intact. Full, normal range of motion. Neuro: Awake and alert, GCS 15, oriented to person, place, time, and situation. Cranial nerves II-XII grossly intact. Motor strength 5/5 in all extremities. Sensory grossly intact. Cerebellar exam normal. Normal gait. 09:49 Respiratory: the patient does not display signs of respiratory distress, Respirations: normal, Breath sounds: decreased breath sounds, that are moderate, are heard in the right posterior middle lobe. Vital Signs: 08:20 BP 113 / 54; Pulse 101; Resp 20; Temp 98.5; Pulse Ox 95% on 2 lpm NC; Weight 79.38 kg; kr3 Height 5 ft. 4 in. (162.56 cm); 11:20 BP 128 / 63; Pulse 100; Resp 20; Pulse Ox 95% on 1 lpm NC; kr3 12:20 BP 112 / 61; Pulse 102; Resp 20; Pulse Ox 95% on 1 lpm NC; kr3 13:34 BP 108 / 51; Pulse 107; Resp 20; Pulse Ox 96% on 1 lpm NC; kr3 08:20 Body Mass Index 30.04 (79.38 kg, 162.56 cm) kr3 MDM: 08:00 Patient medically screened. snw 09:52 The patient was not given aspirin in the Emergency Department. Not indicated due to snw patient's past medical history. Data reviewed: vital signs, nurses notes, lab test result(s), radiologic studies. Data interpreted: Pulse oximetry: on room air is 88 %. Interpretation: hypoxia. Plan: O2 by NC applied. Physician consultation: Juan Jose Reaves MD was called at 09:52, regarding admission, to the telemetry unit. 10:04 Physician consultation: was contacted at 10:04, would like medications started, Merrem snw 1gm IV BID. Other consultation: Dr. Delacruz for bronchoscopy - called and notified, no new orders.. 09/01 08:18 Order name: Basic Metabolic Panel; Complete Time: 09:29 snw 09/01 08:18 Order name: CBC with Diff; Complete Time: 10:11 snw 09/01 08:18 Order name: LFT's; Complete Time: : snw 09/01 08:18 Order name: Magnesium; Complete Time: :29 snw 09/01 08:18 Order name: NT PRO-BNP; Complete Time: :29 snw 09/01 08:18 Order name: PT-INR; Complete Time: : snw 09/01 08:18 Order name: Troponin HS; Complete Time: 09:29 snw 09/01 08:18 Order name: Procalcitonin; Complete Time: 10:05 snw 09/01 08:18 Order name: Blood Culture Adult (2) snw 09/01 08:18 Order name: Sputum Culture snw 09/01 08:18 Order name: Lactate w/ 2H reflex if indic.; Complete Time: 09:41 snw 09/01 08:22 Order name: Acid Fast Bacilli Culture EDMS 09/01 10:02 Order name: Urinalysis EDMS 09/01 10:02 Order name: Basic Metabolic Panel EDMS 09/01 10:02 Order name: Basic Metabolic Panel EDMS 09/01 10:02 Order name: CBC with Automated Diff EDMS 09/01 10:02 Order name: CBC with Automated Diff EDMS 09/01 10:02 Order name: Comprehensive Metabolic Panel EDMS 09/01 10:02 Order name: Comprehensive Metabolic Panel EDMS 09/01 10:02 Order name: Creatine Phosphokinase EDMS 09/01 10:02 Order name: Creatine Phosphokinase; Complete Time: 14:24 EDMS 09/01 10:02 Order name: Creatine Phosphokinase EDMS 09/01 10:02 Order name: Creatine Phosphokinase EDMS 09/01 10:02 Order name: Lipid Profile EDMS 09/01 10:02 Order name: Lipid Profile EDMS 09/01 10:02 Order name: Magnesium EDMS 09/01 10:02 Order name: Magnesium EDMS 09/01 10:02 Order name: Phosphorus EDMS 09/01 10:02 Order name: Phosphorus EDMS 09/01 10:02 Order name: PTT, Activated Partial Thromb EDMS 09/01 08:18 Order name: XRAY Chest (1 view); Complete Time: 08:43 snw 09/01 08:18 Order name: EKG; Complete Time: 08:19 snw 09/01 08:18 Order name: Cardiac monitoring; Complete Time: 08:54 snw 09/01 08:18 Order name: EKG - Nurse/Tech; Complete Time: 10:11 snw 09/01 08:18 Order name: IV Saline Lock; Complete Time: 08:54 snw 09/01 08:18 Order name: Labs collected and sent; Complete Time: 08:54 snw 09/01 08:18 Order name: O2 Per Protocol; Complete Time: 08:54 snw 09/01 08:18 Order name: O2 Sat Monitoring; Complete Time: 08:54 snw 09/01 08:18 Order name: CT Chest For PE Angio; Complete Time: 09:41 snw 09/01 10:02 Order name: CONS Physician Consult EDDE 09/01 10:02 Order name: Heart Healthy EDDE 09/01 10:02 Order name: PTT, Activated Partial Thromb EDMS 09/01 11:35 Order name: Urine Dipstick-Ancillary; Complete Time: 11:41 EDMS 09/01 11:49 Order name: SARS RAPID; Complete Time: 13:02 eb EC:48 Rate is 104 beats/min. Rhythm is regular. QRS [place] is Normal. T waves are Inverted in snw leads III, aVR. Clinical impression: Sinus tachycardia. Administered Medications: 09:35 Drug: Tussionex Pennkinetic ER (chlorpheniramine-hydrocodone) Suspension 5 ml Route: PO;kr3 Disposition: 17:29 Co-signature as Attending Physician, Indra Hartmann MD I agree with the assessment and rt plan of care. Disposition Summary: 09/01/22 09:51 Hospitalization Ordered Hospitalization Status: Inpatient Admission snw Provider: Juan Jose Reaves snw Location: Telemetry/MedSurg (Inpatient) snw Condition: Fair snw Problem: an acute exacerbation snw Symptoms: have worsened snw Bed/Room Type: Standard snw Room Assignment: 427(09/01/22 13:15) ja1 Diagnosis - Right lobar pneumonia/hemoptysis/hypoxemia snw Forms: - Medication Reconciliation Form snw - SBAR form snw Signatures: Dispatcher [employer] EDDE Lynnette Will, [employer]PER[employer]OR-C [employer] SUPERVISOR-Csnw Desmond Anaya RN RN ja1 Aleyda Sawyer RN RN kr3 Indra Hartmann MD MD rt Corrections: (The following items were deleted from the chart) 13:15 09:51 snw ja1
[2022-09-01] MEDS ORDERED: ALBUTEROL 2.5 MG/3 ML NEB SOL NEB PRN (09:54)
[2022-09-01 10:07] LABS: Absolute Lymphocytes (CBC) 0.9 K/uL (0.7-4.9); Hematocrit 36.5 % (36.0-45.0); Lymphocytes % 6.8 % (15.3-44.8); MCV 87.4 fL (80-100); MPV 6.9 fL (7.6-11.3); RBC Red Blood Cell Count 4.18 M/uL (3.86-4.86)
[2022-09-01 11:35] LABS: Urine Blood Negative (Negative); Urine Glucose Negative (Negative); Urine Protein Negative (Negative)
[2022-09-01 12:59] LABS: SARS-CoV-2 Antigen Rapid Res Negative (Negative)
--- NOTE | 2022-09-01 16:42 | P.CNS ---
Date of Consult: 09/01/22 Reason for Consult: Hemoptysis and right middle lobe atelectasis Chief Complaint: Hemoptysis and right-sided chest pain History of Present Illness: Patient is pleasant 72-year-old lady been having problems for the past 2 weeks developed some pain [place] any fever or chills went to [facility] emergency room in [place] and was informed that she had a collapse of her right middle lobe to follow-up with pulmonology he was treated with antibiotics as an outpatient pain continued to get worse ended up here in the emergency room he is got arthritis back pain has a pain pump and takes oxycodone patient has never smoked Allergies citalopram hydrobromide [From Celexa] Allergy (Verified 01/16/22 12:05) UNK codeine Allergy (Verified 01/16/22 12:05) Flushing in face ezetimibe [From Zetia] Allergy (Verified 01/16/22 12:05) UNK fish derived Allergy (Verified 01/16/22 12:05) PALPITATIONS ibandronate sodium [From Boniva] Allergy (Verified 01/16/22 12:05) REFLUX levofloxacin [From Levaquin] Allergy (Verified 01/16/22 12:05) Rash meloxicam [From Mobic] Allergy (Verified 01/16/22 12:05) Rash niacin Allergy (Verified 01/16/22 12:05) UNK NSAIDS (Non-Steroidal Anti-Inflamma Allergy (Verified 01/16/22 12:05) UNK paroxetine HCl [From Paxil] Allergy (Verified 01/16/22 12:05) UNK penicillin G Allergy (Verified 01/16/22 12:05) Rash Penicillins Allergy (Verified 01/16/22 12:05) Rash risedronate sodium [From Actonel] Allergy (Verified 01/16/22 12:05) UNK Wsixguw-BSI-WrM Reductase Inhibitor [Bzontld-Bdx-Fkk Reductase Inhibitor] Allergy (Verified 01/16/22 12:05) UNK cephalexin monohydrate [From Keflex] Adverse Reaction (Verified 01/16/22 12:05) NAUSEA Home Medications: Duloxetine [Cymbalta *] 30 mg PO BEDTIME 08/17/13 estradioL [Estradiol] 0.5 mg PO DAILY 08/17/13 Pitavastatin Calcium [Livalo] 2 mg PO BEDTIME 05/29/15 Dexlansoprazole [Dexilant] 60 mg PO DAILY 12/08/21 Gabapentin 100 mg PO BEDTIME 12/08/21 Imipramine HCl 50 mg PO BEDTIME 12/08/21 Metoprolol Tartrate 100 mg PO BID 12/08/21 Spironolactone 25 mg PO DAILY 12/08/21 - Past Medical/Surgical History Diabetic: No -: Arthritis -: Chronic Pain -: CORONARY ARTERY DISEASE WITH STENT RECENTLY -: Hysterectomy -: Appendectomy -: Pain Pump - Family History Father Medical History: Heart disease Mother Medical History: Stroke - Social History Smoking Status: Former smoker Alcohol use: No CD- Drugs: No Caffeine use: Yes Place of Residence: Home Review of Systems 10-point ROS is otherwise unremarkable Physical Examination General: Alert, Oriented x3 Neck: Supple Respiratory: Clear to auscultation bilaterally Cardiovascular: No edema, Normal pulses, Normal S1 S2 Gastrointestinal: Normal bowel sounds, Soft and benign Musculoskeletal: No clubbing, No swelling Integumentary: No rashes, No breakdown Laboratory Data (last 24 hrs) 09/01/22 09:44: WBC 12.70 H, Hgb 12.1, Hct 36.5, Plt Count 352 09/01/22 08:47: PT 14.7 H, INR 1.34 09/01/22 08:47: Sodium 130 L, Potassium 4.5, BUN 15, Creatinine 0.88, Glucose 96, Magnesium 2.0, Total Bilirubin 0.8, AST 18, ALT 28, Alkaline Phosphatase 114 - Problems (1) Hemoptysis Current Visit: Yes Status: Acute Plan: Patient is 72 years of age admitted with hemoptysis right-sided chest pain he is got complete right middle lobe collapse is never smoked no prior history of malignancy labs chemistries reviewed mildly elevated white count patient is also on Plavix PT/INR is also mildly elevated CT scan reviewed she will need a bronchoscopy possibility of a malignancy cussed with cardiology can stop Plavix for 5 days this was in November and she had a stent placed patient was also started on meropenem according to Dr. Ruiz she has numerous allergies have to hold off on the Plavix for at least 5 days and for bronchoscopy on Saturday or Saturday discussed with the patient
[2022-09-01] MEDS: Meropenem 1,000 MG in NA CHLORIDE 0.9% 100 ML IV SCH (17:10)
--- NOTE | 2022-09-01 18:58 | P.HP ---
Certification for Inpatient Patient admitted to: Inpatient With expected LOS: >2 Midnights Practitioner: I am a practitioner with admitting privileges, knowledge of patient current condition, hospital course, and medical plan of care. Services: Services provided to patient in accordance with Admission requirements found in Title 42 Section 412.3 of the Code of Federal Regulations Patient History Date of Service: 09/01/22 Reason for admission: Hemoptysis and right-sided chest pain History of Present Illness: LETA IS PATIENT WITH CORONARY ARTERY DISEASE AND A STENT ABOUT 6 MONTHS AGO. SHE HAS HAD COUGH AND REPORTED TO ME FIRST. I ASKED HER TO COME TO ER SHE HAD CHEST PAIN AND DYSPNEA. SHE DID NOT GO FIRST HER SON IS PHYSICALLY AND MENTALLY CHALLANGED. SHE CAME TO OFFICE, I PUT HER ON Z KITTY SHE ALLERGIC TO ALL OTHER ANTIBIOTICS. SHE HAD DSPNEA NEXT DAY AND SHE RPORTS TO ER SHE WAS FOUND TO HAVE R MIDDLE LOBE COLLAPSE, CONTINUED ON ZPAK WITH PLAN TO GO TO PULMONARY MD BUT NEXT DAY ENDS UP IN ER AGAIN SHE HAD HEMOPTYSIS. SHE NOW IS ADMITTED. I ASKED ER PA TO CALL DR. BECKER TO PLAN FOR BRONCHOSCOPY. SHE IS ON PLAVIX AND WILL HAVE TO HOLD IT FOR 5 DAYS BEFORE WE CAN DO SCOPE. SHE UNDERSTANDS. SHE MAY GO HOME WITH SOME IMPROVEMENT AND RETURN FOR SCOPE IF SHE GETS BETTER. Allergies citalopram hydrobromide [From Celexa] Allergy (Verified 01/16/22 12:05) UNK codeine Allergy (Verified 01/16/22 12:05) Flushing in face ezetimibe [From Zetia] Allergy (Verified 01/16/22 12:05) UNK fish derived Allergy (Verified 01/16/22 12:05) PALPITATIONS ibandronate sodium [From Boniva] Allergy (Verified 01/16/22 12:05) REFLUX levofloxacin [From Levaquin] Allergy (Verified 01/16/22 12:05) Rash meloxicam [From Mobic] Allergy (Verified 01/16/22 12:05) Rash niacin Allergy (Verified 01/16/22 12:05) UNK NSAIDS (Non-Steroidal Anti-Inflamma Allergy (Verified 01/16/22 12:05) UNK paroxetine HCl [From Paxil] Allergy (Verified 01/16/22 12:05) UNK penicillin G Allergy (Verified 01/16/22 12:05) Rash Penicillins Allergy (Verified 01/16/22 12:05) Rash risedronate sodium [From Actonel] Allergy (Verified 01/16/22 12:05) UNK Dwgdugw-DMG-TqV Reductase Inhibitor [Ytvdqvp-Yiq-Ngw Reductase Inhibitor] Allergy (Verified 01/16/22 12:05) UNK cephalexin monohydrate [From Keflex] Adverse Reaction (Verified 01/16/22 12:05) NAUSEA Home Medications: Duloxetine [Cymbalta *] 30 mg PO BEDTIME 08/17/13 estradioL [Estradiol] 0.5 mg PO DAILY 08/17/13 Pitavastatin Calcium [Livalo] 2 mg PO BEDTIME 05/29/15 Dexlansoprazole [Dexilant] 60 mg PO DAILY 12/08/21 Gabapentin 100 mg PO BEDTIME 12/08/21 Imipramine HCl 50 mg PO BEDTIME 12/08/21 Metoprolol Tartrate 100 mg PO BID 12/08/21 Spironolactone 25 mg PO DAILY 12/08/21 - Past Medical/Surgical History Has patient received pneumonia vaccine in the past: Yes Diabetic: No -: Arthritis -: Chronic Pain -: CORONARY ARTERY DISEASE WITH STENT RECENTLY -: Hysterectomy -: Appendectomy -: Pain Pump - Family History Father -: Heart disease Mother -: Stroke - Social History Smoking Status: Former smoker Alcohol use: No CD- Drugs: No Caffeine use: Yes Place of Residence: Home Review of Systems 10-point ROS is otherwise unremarkable General: Weakness, Malaise Respiratory: Shortness of Breath, Pleuritic Pain (R BREAST TO BACK.) Physical Examination - Vital Signs Temperature: 98.1 F Blood Pressure: 128/62 Pulse: 116 Respirations: 18 Pulse Ox (%): 94 - Physical Exam General: Oriented x3, Mild distress, Moderate distress HEENT: Atraumatic, PERRLA, Mucous membr. moist/pink, EOMI, Sclerae nonicteric Neck: Supple, 2+ carotid pulse no bruit, No LAD, Without JVD or thyroid abnormality Respiratory: Clear to auscultation bilaterally, Normal air movement Cardiovascular: Regular rate/rhythm, Normal S1 S2 Gastrointestinal: Normal bowel sounds, No tenderness Musculoskeletal: No tenderness Integumentary: No rashes Neurological: Normal gait, Normal speech, Normal strength at 5/5 x4 extr, Normal tone, Normal affect Lymphatics: No axilla or inguinal lymphadenopathy - Studies Laboratory Data (last 24 hrs) 09/01/22 09:44: WBC 12.70 H, Hgb 12.1, Hct 36.5, Plt Count 352 09/01/22 08:47: PT 14.7 H, INR 1.34 09/01/22 08:47: Sodium 130 L, Potassium 4.5, BUN 15, Creatinine 0.88, Glucose 96, Magnesium 2.0, Total Bilirubin 0.8, AST 18, ALT 28, Alkaline Phosphatase 114 Assessment and Plan - Problems (Diagnosis) (1) Chest pain, radiating Current Visit: Yes Status: Acute Plan: THIS IS FROM THE POST OBSTRUCTIVE PNEUMONIA. SHE MAY HAVE MALIGNANCY IN R BRONCHUS. (2) Atelectasis, right Current Visit: Yes Status: Acute Plan: FROM OBSTRUCTION. (3) Bacterial pneumonia Current Visit: Yes Status: Acute Plan: IV MERRREM SHE IS ALLERGIC TO ALL OTHER ANTIBIOTICS AND ZPAKDID NOT WORK. - Advance Directives Does patient have a Living Will: Yes Does patient have a Durable POA for Healthcare: Yes
[2022-09-01] MEDS: ATORVASTATIN 10 MG TAB PO SCH ×2 (20:36→20:43)
[2022-09-01] MEDS: METOPROLOL TAR 50 MG TAB PO SCH (20:36)
[2022-09-01] MEDS: DULOXETINE 30 MG CAP PO SCH (20:37)
[2022-09-01] MEDS: GABAPENTIN 100 MG CAP PO SCH (20:37)
[2022-09-01] MEDS: IMIPRAMINE HCL 25 MG TAB PO SCH (20:39)
[2022-09-01] MEDS: TRAMADOL HCL 50 MG TAB PO PRN (21:49)
[2022-09-01] MEDS: ENOXAPARIN 40 MG/0.4 ML SQ SCH (22:44)
[2022-09-01] MEDS: SOTALOL HCL 80 MG TAB PO SCH (22:45)
[2022-09-02] MEDS: TRAMADOL HCL 50 MG TAB PO PRN ×3 (05:04→21:37)
[2022-09-02] MEDS: SOTALOL HCL 80 MG TAB PO SCH ×2 (05:05→18:08)
[2022-09-02 06:04] LABS: Specific Gravity > 1.030 (1.005-1.030); Urine Bacteria <20 /HPF (<20); Urine Bilirubin NEGATIVE (Negative); Urine Blood Trace (Negative); Urine Clarity Clear (Clear); Urine Color Yellow (Yellow); Urine Glucose NEGATIVE (Negative); Urine Mucus Slight /HPF (None Seen); Urine Protein 1+ (Negative); Urine Urobilinogen Normal (Normal)
[2022-09-02 06:23] LABS: Absolute Lymphocytes (CBC) 1.3 K/uL (0.7-4.9); Hematocrit 44.3 % (36.0-45.0); Lymphocytes % 6.7 % (15.3-44.8); MCV 88.1 fL (80-100); MPV 7.2 fL (7.6-11.3); RBC Red Blood Cell Count 5.03 M/uL (3.86-4.86)
[2022-09-02 06:49] LABS: Bilirubin Total 0.7 mg/dL (0.2-1.0); Magnesium 2.2 mg/dL (1.6-2.4); Phosphorus 4.3 mg/dL (2.5-4.9); Potassium 4.4 mmol/L (3.5-5.1); Protein, Total 6.8 g/dL (6.4-8.2)
[2022-09-02 07:04] LABS: Blood Morphology Comment NOT SEEN (NOT SEEN); Platelet Estimate INCR; White Blood Cell Scan OK (OK)
[2022-09-02] MEDS: METOPROLOL TAR 50 MG TAB PO SCH (09:00)
[2022-09-02] MEDS: ESTRADIOL 0.5 MG PO SCH (09:00)
[2022-09-02] MEDS ORDERED: SPIRONOLACTONE 25 MG TABLET PO SCH (09:00)
[2022-09-02] MEDS: Meropenem 1,000 MG in NA CHLORIDE 0.9% 100 ML IV SCH ×2 (09:12→21:37)
[2022-09-02] MEDS: PANTOPRAZOLE 40MG TABLET PO SCH (09:16)
[2022-09-02] MEDS: ENOXAPARIN 40 MG/0.4 ML SQ SCH (10:17)
--- NOTE | 2022-09-02 10:34 | P.PN ---
Subjective Date of Service: 09/02/22 Chief Complaint: Hemoptysis and right-sided chest pain Subjective: New changes (PAIN IS SAME. LAST NIGHT A FIB. CHANGED TO SOTALOL. BACK IN SINUS) Review of Systems 10-point ROS is otherwise unremarkable General: Weakness, Malaise Respiratory: Pleuritic Pain Physical Examination - Vital Signs Temperature: 97.2 F Blood Pressure: 98/51 Pulse: 80 Respirations: 19 Pulse Ox (%): 95 - Physical Exam General: Oriented x3, Moderate distress HEENT: Atraumatic, PERRLA, EOMI Neck: Supple, JVD not distended Respiratory: Clear to auscultation bilaterally, Normal air movement Cardiovascular: Regular rate/rhythm, Normal S1 S2 Gastrointestinal: Normal bowel sounds, No tenderness Musculoskeletal: No tenderness Integumentary: No rashes Neurological: Normal speech, Normal tone, Normal affect Lymphatics: No axilla or inguinal lymphadenopathy - Studies Microbiology Data (last 24 hrs): 09/01/22 09:54 Sputum Sputum Gram Stain - Final Medications List Reviewed: Yes Assessment And Plan - Current Problems (Diagnosis) (1) Chest pain, radiating Current Visit: Yes Status: Acute Plan: THIS IS FROM THE POST OBSTRUCTIVE PNEUMONIA. SHE MAY HAVE MALIGNANCY IN R BRONCHUS. TRAMADOL NOT ENOUGH ADD DILAUDID. (2) Atelectasis, right Current Visit: Yes Status: Acute Plan: FROM OBSTRUCTION. (3) Bacterial pneumonia Current Visit: Yes Status: Acute Plan: IV MERRREM SHE IS ALLERGIC TO ALL OTHER ANTIBIOTICS AND ZPAKDID NOT WORK. CONT ABX. DR Myriam SOLIZ ADDED STEROIDS IV. (4) A-fib Current Visit: Yes Status: Acute Plan: BACK TO SINUS AFTER SOTALOL STOP METOPROLOL STOP ALDACTONE BP IS MILD LOW. WILL AVOID ANTICOAG FOR NOW SHE NEEDS BRONCHOSCOPY. Qualifiers: Atrial fibrillation type: paroxysmal Qualified Code(s): I48.0 - Paroxysmal atrial fibrillation
[2022-09-02] MEDS ORDERED: HYDROMORPHONE HCL 1 MG/ML INJ IV PRN (10:36)
[2022-09-02] MEDS ORDERED: NA CHLORIDE 0.9% 500 ML IV ONE (11:12)
[2022-09-02] MEDS: METHYLPREDNISOLONE 125 MG INJ IV SCH ×2 (11:22→21:42)
--- NOTE | 2022-09-02 12:07 | P.PN ---
Subjective Date of Service: 09/02/22 Chief Complaint: Hemoptysis and right-sided chest pain Patient is not doing well blood pressures are low still complaining of right- sided chest pain is more hypoxic Review of Systems General: Weakness Respiratory: Cough, Shortness of Breath Cardiovascular: Chest Pain Physical Examination - Vital Signs Temperature: 97.2 F Blood Pressure: 98/51 Pulse: 80 Respirations: 19 Pulse Ox (%): 95 - Physical Exam General: Alert, Moderate distress Respiratory: Clear to auscultation bilaterally, Diminished (Condition on the right side) Cardiovascular: No edema, Regular rate/rhythm, Normal S1 S2 - Studies Microbiology Data (last 24 hrs): 09/01/22 09:54 Sputum Sputum Gram Stain - Final Medications List Reviewed: Yes Assessment And Plan - Current Problems (Diagnosis) (1) Hemoptysis Current Visit: Yes Status: Acute Plan: No further hemoptysis (2) Atelectasis, right Current Visit: Yes Status: Acute Plan: Discussed with the patient she is going to need a bronchoscopy when she is more stable her Plavix has been stopped plan for bronchoscopy either Saturday or Saturday discussed with the patient risk of bronchoscopy include bleeding infection and lung collapse - Plan Patient admitted with right middle lobe atelectasis White count now is mildly elevated have added some steroids continue with meropenem pain relief complains of pleuritic chest pain IV fluid boluses repeat chest x-ray given her a fluid bolus patient is complaining of severe anxiety add some Xanax as needed low-dose
--- NOTE | 2022-09-02 13:23 | RAD REPORT ---
EXAM DESCRIPTION: RAD - Chest Single View - 09/02/2022 12:44 pm CLINICAL HISTORY: Respiratory failure COMPARISON: Chest CT 09/01/2022, chest radiograph 09/01/2022 FINDINGS: Lines: None. Lungs: Unchanged right middle lobe consolidation. Pleural: Small right effusion. Cardiac: The heart size is within normal limits. Mediastinum: Within normal limits. Bones: No acute fractures. Other: None IMPRESSION: Aeration of the lungs is unchanged since 09/01/2022 with persistent right middle lobe co nsolidation and small right effusion.
[2022-09-02] MEDS: NA CHLORIDE 0.9% 1,000 ML IV SCH ×2 (14:17→23:10)
--- NOTE | 2022-09-02 15:31 | CON ---
Date of Consultation: 09/02/2022 Reason For Consultation: Anti-platelet management. History Of Present Illness: This is a well known patient to me, 72 years of age, history of coronary artery disease, status post PCI to the RCA back in November. She has been doing well; however, she has been battling with postobstructive pneumonia. There was a concern for a lung malignancy. Dr. Kimberli patton called me and is planning to do a bronchoscopy once to hold Plavix, which is done at this point a s the patient is having some significant symptoms that could suggest lung malignancy that needs alexis p. I saw her by bedside, is doing well hemodynamically and clinically. Past Medical History: Coronary artery disease, dyslipidemia, hypertension. Medications: Refer to reconciliation sheet for detailed list. Allergies: STATINS. Family History: No premature coronary artery disease or cancer. Social History: She does not currently smoke. She is an ex-smoker. Does not drink, use any drugs. Review of Systems: All systems reviewed and they were negative except what mentioned in HPI. Physical Examination: Vital Signs: Reviewed. Head and Neck: Pupils are equal, reactive to light. Intact eye movements. No JVD. No cervical lym phadenopathy. Neck is supple. Thyroid is not enlarged. Lungs: She has rhonchi bilaterally. No accessory muscle use or muscle retraction. Heart: Irregular. No extra sounds. Abdomen: Soft, nontender. Bowel sounds positive. No organomegaly. No masses or hernia. No rigidi ty or rebound. Extremities: No edema, clubbing, or cyanosis. Intact pulses. Skin: No rash. Neurologic: Alert, awake, oriented x3. No acute focal deficits appreciated. Lymph Nodes: No cervical or axillary lymphadenopathy. Investigations: Labs were reviewed. Assessment And Recommendations: 1.Coronary artery disease, status post percutaneous coronary intervention back in November. At this po int, she needs to have bronchoscopy and it was requested that she comes off the Plavix. There has be en more than 9 months since she had the stent. I believe at this point, the benefits of stopping the Plavix outweighs the risk of waiting for ahead and proceed with bronchoscopy and hold Simeon vix for 5 days and monitor with EKG on daily basis, especially if she gets a chest pain. 2.Pneumonia that is postobstructive. There is a plan for a bronchoscopy. 3.Atrial fibrillation, rate is controlled. At this point, she requires anticoagulation; however, th is is held for the bronchoscopy. SR/MODL Voice ID: [id number] Report ID: [id number]
[2022-09-02] MEDS: ATORVASTATIN 10 MG TAB PO SCH (21:00)
[2022-09-02] MEDS: ALPRAZOLAM 0.25 MG TABLET PO PRN (21:38)
[2022-09-02] MEDS: DULOXETINE 30 MG CAP PO SCH (21:38)
[2022-09-02] MEDS: IMIPRAMINE HCL 25 MG TAB PO SCH (21:38)
[2022-09-02] MEDS: GABAPENTIN 100 MG CAP PO SCH (21:38)
[2022-09-02] MEDS ORDERED: SOTALOL HCL 80 MG TAB PO SCH (22:02)
[2022-09-02] MEDS ORDERED: ENOXAPARIN 40 MG/0.4 ML SQ SCH (22:03)
[2022-09-03] MEDS: SOTALOL HCL 80 MG TAB PO SCH ×2 (06:08→16:45)
[2022-09-03] MEDS: TRAMADOL HCL 50 MG TAB PO PRN ×2 (06:08→21:06)
--- NOTE | 2022-09-03 07:53 | RAD REPORT ---
EXAM DESCRIPTION: Zot Single View09/03/2022 6:06 am CLINICAL HISTORY: Respiratory failure COMPARISON: September 02 FINDINGS: Right middle lobe atelectasis persists The remainder lungs appear clear of acute infiltrate. Heart is normal size
[2022-09-03] MEDS: ESTRADIOL 0.5 MG PO SCH (08:07)
[2022-09-03] MEDS: NA CHLORIDE 0.9% 1,000 ML IV SCH ×3 (09:00→21:07)
[2022-09-03] MEDS: ENOXAPARIN 40 MG/0.4 ML SQ SCH (09:41)
[2022-09-03] MEDS: Meropenem 1,000 MG in NA CHLORIDE 0.9% 100 ML IV SCH ×2 (09:42→16:45)
[2022-09-03] MEDS: PANTOPRAZOLE 40MG TABLET PO SCH (09:42)
[2022-09-03] MEDS: METHYLPREDNISOLONE 125 MG INJ IV SCH ×2 (09:42→21:04)
--- NOTE | 2022-09-03 12:33 | P.PN ---
Subjective Date of Service: 09/03/22 Chief Complaint: Hemoptysis and right-sided chest pain Patient is doing much better improving chest pain has improved oxygenation is also improved Review of Systems General: Weakness Respiratory: Shortness of Breath Cardiovascular: Chest Pain Physical Examination - Vital Signs Temperature: 96.9 F Blood Pressure: 109/53 Pulse: 66 Respirations: 16 Pulse Ox (%): 92 - Physical Exam General: Alert, In no apparent distress, Oriented x3 Respiratory: Clear to auscultation bilaterally, Diminished Cardiovascular: No edema, Regular rate/rhythm, Normal S1 S2 - Studies Microbiology Data (last 24 hrs): 09/01/22 09:54 Sputum Sputum Gram Stain - Final Medications List Reviewed: Yes Assessment And Plan - Current Problems (Diagnosis) (1) Atelectasis, right Current Visit: Yes Status: Acute Plan: Patient admitted with atelectasis of the right middle lobe she is doing much better off Plavix as per cardiology has been 9 months Case to be relative contraindication due to hemoptysis patient's chest pain has improved discussed with the patient will have to remain off Plavix for 5 to 7 days at least plan to arrange for a bronchoscopy as an outpatient can be discharged home on prednisone 10 mg twice a day for 2 weeks in addition to an antibiotic vital signs and oxygenation have all improved chest x-ray no change right middle lobe atelecta sis
--- NOTE | 2022-09-03 13:00 | P.PN ---
Subjective Date of Service: 09/03/22 Chief Complaint: Hemoptysis and right-sided chest pain Subjective: Improving SHE SAYS HER SYMPTOMS HAVE IMPROVED BY 50%. DR. BECKER CALLED ME THAT SHE HAS TO BE OFF PLAVIX FOR 7 DAYS AND HE IS OUT OF [place]. HE WILL DO PROCEDURE AFTER DISCHARGE. Review of Systems 10-point ROS is otherwise unremarkable General: Weakness, Malaise Respiratory: Pleuritic Pain Physical Examination - Vital Signs Temperature: 96.9 F Blood Pressure: 109/53 Pulse: 66 Respirations: 16 Pulse Ox (%): 92 - Physical Exam General: Oriented x3, Mild distress HEENT: Atraumatic, PERRLA, EOMI Neck: Supple, JVD not distended Respiratory: Clear to auscultation bilaterally, Normal air movement Cardiovascular: Regular rate/rhythm, Normal S1 S2 Gastrointestinal: Normal bowel sounds, No tenderness Musculoskeletal: No tenderness Integumentary: No rashes Neurological: Normal speech, Normal tone, Normal affect Lymphatics: No axilla or inguinal lymphadenopathy - Studies Microbiology Data (last 24 hrs): 09/01/22 09:54 Sputum Sputum Gram Stain - Final Medications List Reviewed: Yes Assessment And Plan - Current Problems (Diagnosis) (1) Chest pain, radiating Current Visit: Yes Status: Acute Plan: THIS IS FROM THE POST OBSTRUCTIVE PNEUMONIA. SHE MAY HAVE MALIGNANCY IN R BRONCHUS. TRAMADOL NOT ENOUGH ADD DILAUDID. BRONCHOSCOPY PLANNED. WILL DC N AM AND FU WITH DR. BECKER. (2) Atelectasis, right Current Visit: Yes Status: Acute Plan: FROM OBSTRUCTION. (3) Bacterial pneumonia Current Visit: Yes Status: Acute Plan: IV MERRREM SHE IS ALLERGIC TO ALL OTHER ANTIBIOTICS AND ZPAKDID NOT WORK. CONT ABX. DR Myriam SOLIZ ADDED STEROIDS IV. (4) A-fib Current Visit: Yes Status: Acute Plan: BACK TO SINUS AFTER SOTALOL STOP METOPROLOL STOP ALDACTONE BP IS MILD LOW. WILL AVOID ANTICOAG FOR NOW SHE NEEDS BRONCHOSCOPY. Qualifiers: Atrial fibrillation type: paroxysmal Qualified Code(s): I48.0 - Paroxysmal atrial fibrillation
[2022-09-03] MEDS ORDERED: ALBUTEROL 2.5 MG/3 ML NEB SOL NEB PRN (14:00)
--- NOTE | 2022-09-03 15:02 | EKG ---
Test Date: 2022-09-01 Test Time: 09:42:24 Dragline Mechanic: MAYITO MEASUREMENT RESULTS: Intervals: Rate: 104 DE: 160 QRSD: 78 QT: 336 QTc: 441 [place]: P: 49 DE: 160 QRS: -51 T: 34 INTERPRETIVE STATEMENTS: Sinus tachycardia Left axis deviation Low voltage QRS Cannot rule out Anterior infarct, age undetermined Abnormal ECG Compared to ECG 01/16/2022 10:49:25 Myocardial infarct finding now present Sinus rhythm no longer present Electronically Signed On 09-03-22 14:57:22 TEACHER [employer]IFT[employer]UD[employer] by Abdon Perry
[2022-09-03] MEDS: ATORVASTATIN 10 MG TAB PO SCH (21:00)
[2022-09-03] MEDS: IMIPRAMINE HCL 25 MG TAB PO SCH (21:05)
[2022-09-03] MEDS: ALPRAZOLAM 0.25 MG TABLET PO PRN (21:05)
[2022-09-03] MEDS: GABAPENTIN 100 MG CAP PO SCH (21:06)
[2022-09-03] MEDS: DULOXETINE 30 MG CAP PO SCH (21:06)
[2022-09-04] MEDS: Meropenem 1,000 MG in NA CHLORIDE 0.9% 100 ML IV SCH ×3 (01:17→17:05)
[2022-09-04] MEDS: NA CHLORIDE 0.9% 1,000 ML IV SCH ×2 (05:00→08:43)
[2022-09-04] MEDS: SOTALOL HCL 80 MG TAB PO SCH ×2 (05:18→17:05)
[2022-09-04] MEDS: ESTRADIOL 0.5 MG PO SCH (08:39)
[2022-09-04] MEDS: ENOXAPARIN 40 MG/0.4 ML SQ SCH (08:39)
[2022-09-04] MEDS: METHYLPREDNISOLONE 125 MG INJ IV SCH ×2 (08:39→21:31)
[2022-09-04] MEDS: PANTOPRAZOLE 40MG TABLET PO SCH (08:40)
[2022-09-04] MEDS: TRAMADOL HCL 50 MG TAB PO PRN ×2 (08:43→21:30)
[2022-09-04] MEDS ORDERED: NA CHLORIDE 0.9% 1,000 ML IV SCH (11:41)
--- NOTE | 2022-09-04 12:21 | P.PN ---
Subjective Date of Service: 09/04/22 Chief Complaint: Hemoptysis and right-sided chest pain Patient is doing better chest pain is improved shortness of breath is also improved Review of Systems Respiratory: Shortness of Breath Cardiovascular: Chest Pain Physical Examination - Vital Signs Temperature: 97.3 F Blood Pressure: 122/65 Pulse: 83 Respirations: 18 Pulse Ox (%): 93 - Physical Exam General: Alert, In no apparent distress, Oriented x3 Respiratory: Clear to auscultation bilaterally, Diminished (Diminished on the right side) Cardiovascular: No edema, Regular rate/rhythm, Normal S1 S2 - Studies Microbiology Data (last 24 hrs): 09/01/22 09:54 Sputum Sputum Gram Stain - Final 09/01/22 09:54 Sputum Culture & Sensitivity - Final Pseudomonas Aeruginosa Medications List Reviewed: Yes Assessment And Plan - Current Problems (Diagnosis) (1) Atelectasis, right Current Visit: Yes Status: Acute Plan: Patient's condition is improved hemodynamically stable no further hemoptysis patient has been off Plavix will be 5 days tomorrow mild hyponatremia White count is mildly elevated I suspect is from the steroid discussed with the patient we will plan to proceed with bronchoscopy tomorrow pulm patient risk of bleeding infection and lung collapse and she agrees oxygenation satisfactory reduce dose of IV fluid DC Lovenox
--- NOTE | 2022-09-04 19:36 | PN ---
Date of Progress Note: 09/03/2022 Subjective: Seen by bedside. No chest pain. Review of Systems: No chest pain. She has cough and shortness of breath. No nausea, vomiting, diarrhea. No abdominal pain. No history of polyuria or urgency. All other systems reviewed are negative. Physical Examination: Vital Signs: Reviewed. Head and Neck: Pupils are equal, reactive to light. Intact eye movements. No JVD. No cervical lym phadenopathy. Neck is supple. Thyroid is not enlarged. Lungs: Clear to auscultation bilaterally. No rhonchi, wheezing, or crackles. No accessory muscle u se. Heart: Regular rate and rhythm. No extra sounds. Abdomen: Soft, nontender. Bowel sounds positive. No organomegaly. No masses or hernia. No rigidi ty or rebound. Extremities: No edema, clubbing, or cyanosis. Intact pulses. Skin: No rash. Neurologic: Alert, awake, oriented x3. No acute focal deficits appreciated. Lymph Nodes: No cervical or axillary lymphadenopathy. Investigations: Labs were reviewed. Assessment And Recommendations: Coronary artery disease, status post percutaneous coronary intervent ion in November, doing clinically well, off the Plavix. No chest pain. Continue to monitor on daily ba sis while off the Plavix and we will discuss with Pulmonary to try to do the bronchoscopy later this week and to resume Plavix as soon as the bronchoscopy is done. Continue baby aspirin. SR/MODL Voice ID: [id number] Report ID: [id number]
--- NOTE | 2022-09-04 20:34 | PN ---
Date of Progress Note: 09/04/2022 Subjective: Seen by bedside, doing clinically well. Does not have any chest pain. Review of Systems: No chest pain. Has cough and shortness of breath. No nausea, vomiting, or diarrhea. No abdominal p ain. All other systems reviewed, they were negative. Physical Examination: Vital Signs: Reviewed. Head and Neck: Pupils are equal, reactive to light. Intact eye movements. No JVD. No cervical lym phadenopathy. Neck is supple. Thyroid is not enlarged. Lungs: Clear to auscultation bilaterally. Heart: Irregular. No extra sounds. Abdomen: Soft, nontender. Bowel sounds positive. No organomegaly. No masses or hernia. No rigidi ty or rebound. Extremities: No clubbing or cyanosis. Intact pulses. Skin: No rashes. Neurologic: Alert, awake. No acute focal deficits appreciated. Investigations: Labs were reviewed. Assessment And Recommendations: Coronary artery disease, status post percutaneous coronary intervent ion in November. She is still off the Plavix and the patient has no chest pain. Discussed with Pulmary ortega and we will plan to do bronchoscopy tomorrow and to resume the Plavix after that and to continue b luciano aspirin 81 mg daily and I will follow the patient on an outpatient basis. /MODL Voice ID: [id number] Report ID: [id number]
[2022-09-04] MEDS: ATORVASTATIN 10 MG TAB PO SCH (21:00)
[2022-09-04] MEDS ORDERED: SPIRONOLACTONE 25 MG TABLET PO SCH (21:00)
[2022-09-04] MEDS: DULOXETINE 30 MG CAP PO SCH (21:30)
[2022-09-04] MEDS: ALPRAZOLAM 0.25 MG TABLET PO PRN (21:30)
[2022-09-04] MEDS: GABAPENTIN 100 MG CAP PO SCH (21:31)
[2022-09-04] MEDS: IMIPRAMINE HCL 25 MG TAB PO SCH (21:31)
--- NOTE | 2022-09-04 21:51 | P.PN ---
Subjective Date of Service: 09/04/22 Chief Complaint: Hemoptysis and right-sided chest pain Subjective: Improving SHE SAYS HER SYMPTOMS HAVE IMPROVED BY 50%. DR. BECKER CALLED ME THAT SHE HAS TO BE OFF PLAVIX FOR 7 DAYS AND HE IS OUT [place]. HE WILL DO PROCEDURE AFTER DISCHARGE. SHE IS STABLE. I TALKED TO DR BOYLE AND DR ROMO. SHE CAN GET BRONCHOSCOPY IN AM. Physical Examination - Vital Signs Temperature: 97.0 F Blood Pressure: 150/75 Pulse: 78 Respirations: 18 Pulse Ox (%): 98 - Physical Exam General: Oriented x3, Mild distress HEENT: Atraumatic, PERRLA, EOMI Neck: Supple, JVD not distended Respiratory: Clear to auscultation bilaterally, Normal air movement Cardiovascular: Regular rate/rhythm, Normal S1 S2 Gastrointestinal: Normal bowel sounds, No tenderness Musculoskeletal: No tenderness Integumentary: No rashes Neurological: Normal speech, Normal tone, Normal affect Lymphatics: No axilla or inguinal lymphadenopathy - Studies Microbiology Data (last 24 hrs): 09/01/22 09:54 Sputum Sputum Gram Stain - Final 09/01/22 09:54 Sputum Culture & Sensitivity - Final Pseudomonas Aeruginosa Medications List Reviewed: Yes Assessment And Plan - Current Problems (Diagnosis) (1) Chest pain, radiating Current Visit: Yes Status: Acute Plan: THIS IS FROM THE POST OBSTRUCTIVE PNEUMONIA. SHE MAY HAVE MALIGNANCY IN R BRONCHUS. TRAMADOL NOT ENOUGH ADD DILAUDID. BRONCHOSCOPY PLANNED. WILL DC N AM AND FU WITH DR. BECKER. (2) Atelectasis, right Current Visit: Yes Status: Acute Plan: FROM OBSTRUCTION. (3) Bacterial pneumonia Current Visit: Yes Status: Acute Plan: IV MERRREM SHE IS ALLERGIC TO ALL OTHER ANTIBIOTICS AND ZPAKDID NOT WORK. CONT ABX. DR Myriam SOLIZ ADDED STEROIDS IV. STABLE BRONCHIN AM. (4) A-fib Current Visit: Yes Status: Acute Plan: BACK TO SINUS AFTER SOTALOL STOP METOPROLOL STOP ALDACTONE BP IS MILD LOW. WILL AVOID ANTICOAG FOR NOW SHE NEEDS BRONCHOSCOPY. Qualifiers: Atrial fibrillation type: paroxysmal Qualified Code(s): I48.0 - Paroxysmal atrial fibrillation
[2022-09-05] MEDS: Meropenem 1,000 MG in NA CHLORIDE 0.9% 100 ML IV SCH ×3 (00:15→16:01)
[2022-09-05] MEDS: SOTALOL HCL 80 MG TAB PO SCH ×2 (06:00→17:18)
[2022-09-05] MEDS ORDERED: Meropenem 1000 MG/VIAL IV ONE (07:36)
[2022-09-05] MEDS: METHYLPREDNISOLONE 125 MG INJ IV SCH (08:18)
[2022-09-05] MEDS: PANTOPRAZOLE 40MG TABLET PO SCH (08:20)
[2022-09-05] MEDS: ESTRADIOL 0.5 MG PO SCH (08:20)
[2022-09-05] MEDS ORDERED: NA CHLORIDE 0.9% 100 ML ONE (08:23)
[2022-09-05 09:11] LABS: Absolute Lymphocytes (CBC) 0.6 K/uL (0.7-4.9); Hematocrit 37.6 % (36.0-45.0); Lymphocytes % 5.4 % (15.3-44.8); MCV 88.5 fL (80-100); MPV 6.8 fL (7.6-11.3); RBC Red Blood Cell Count 4.25 M/uL (3.86-4.86)
[2022-09-05 09:23] LABS: Magnesium 2.6 mg/dL (1.6-2.4); Potassium 4.6 mmol/L (3.5-5.1)
[2022-09-05] MEDS ORDERED: Phenylephrine HCl 10 MG/ML 1 ML VIAL ONE ×2 (09:53→12:31)
[2022-09-05] MEDS ORDERED: LIDOCAINE 4% TOP SOLUTION ONE (09:54)
[2022-09-05] MEDS ORDERED: Ringers Lactate 1,000 ML IV ONE (11:37)
[2022-09-05 12:11] LABS: Blood Morphology Comment NOT SEEN (NOT SEEN); Platelet Estimate INCR; Smudge Cells PRESENT
[2022-09-05] MEDS ORDERED: LIDOCAINE VISCOUS 2% SOLN 15 ML UDC ONE (12:31)
[2022-09-05] MEDS ORDERED: LIDOCAINE 1% MPF 30 ML VIAL ONE (12:31)
[2022-09-05] MEDS ORDERED: GLYCOPYRROLATE 0.2 MG/ML SYR ONE (12:31)
[2022-09-05] MEDS ORDERED: LIDOCAINE 1% MPF 5 ML VIAL ONE (12:32)
[2022-09-05] MEDS ORDERED: propofoL 200 MG/20 ML VIAL IV ONE ×2 (12:32)
--- NOTE | 2022-09-05 13:17 | P.OP ---
Date of Service: 09/05/22 (Bronchoscopy with RML Biospy and ) Findings and Operative Technique Pt is 72 ys of age AW RML atelectasis. No risk factors for cancer. He also has some hemoptysis patient was on Plavix After obtaining informed consent from the patient she was premedicated by anesthesia findings normal vocal cords normal trachea normal right and left- sided bronchial anatomy he did have loss of purulent secretions in the right mainstem and the right middle lobe some in the left lower lobe which were all suctioned and there was no endobronchial lesion or obstruction in the right middle lobe symptoms were sent for routine pathology and culture patient tolerated the procedure very well did not experience any bleeding or arrhythmias suppurative chest x-ray has been ordered patient be followed up in my office in 2-week
--- NOTE | 2022-09-05 14:11 | RAD REPORT ---
EXAM DESCRIPTION: RAD - Fluoroscopy <1 Hour - 09/05/2022 1:45 pm CLINICAL HISTORY: Device placement central venous catheter placement FINDINGS: Fluoroscopy time 191 seconds. Three fluoroscopic spot images obtained. Bronchoscope placed into right bronchus. Procedure performed by Dr. Delacruz
--- NOTE | 2022-09-05 14:43 | RAD REPORT ---
EXAM DESCRIPTION: Vlad Single View09/05/2022 2:25 pm CLINICAL HISTORY: Bronchoscopy IMPRESSION: No pneumothorax
[2022-09-05 14:49] VITALS: O2SAT 95
[2022-09-05] MEDS ORDERED: CLOPIDOGREL 75 MG TABLET PO ONE (17:27)
--- NOTE | 2022-09-05 18:04 | P.DS ---
Admission Date: 09/01/22 Discharge Date: 09/05/22 Disposition: ROUTINE DISCHARGE Discharge Condition: FAIR Reason for Admission: Hemoptysis and right-sided chest pain - Problems (1) Chest pain, radiating Current Visit: Yes Status: Acute (2) Atelectasis, right Current Visit: Yes Status: Acute (3) Bacterial pneumonia Current Visit: Yes Status: Acute (4) A-fib Current Visit: Yes Status: Acute Qualifiers: Atrial fibrillation type: paroxysmal Qualified Code(s): I48.0 - Paroxysmal atrial fibrillation Brief History of Present Illness: LETA IS PATIENT WITH CORONARY ARTERY DISEASE AND A STENT ABOUT 6 MONTHS AGO. SHE HAS HAD COUGH AND REPORTED TO ME FIRST. I ASKED HER TO COME TO ER SHE HAD CHEST PAIN AND DYSPNEA. SHE DID NOT GO FIRST HER SON IS PHYSICALLY AND MENTALLY CHALLANGED. SHE CAME TO OFFICE, I PUT HER ON Z KITTY SHE ALLERGIC TO ALL OTHER ANTIBIOTICS. SHE HAD DSPNEA NEXT DAY AND SHE RPORTS TO ER SHE WAS FOUND TO HAVE R MIDDLE LOBE COLLAPSE, CONTINUED ON ZPAK WITH PLAN TO GO TO PULMONARY MD BUT NEXT DAY ENDS UP IN ER AGAIN SHE HAD HEMOPTYSIS. SHE NOW IS ADMITTED. I ASKED ER PA TO CALL DR. BECKER TO PLAN FOR BRONCHOSCOPY. SHE IS ON PLAVIX AND WILL HAVE TO HOLD IT FOR 5 DAYS BEFORE WE CAN DO SCOPE. SHE UNDERSTANDS. SHE MAY GO HOME WITH SOME IMPROVEMENT AND RETURN FOR SCOPE IF SHE GETS BETTER. Hospital Course: LETA COMES WITH CHEST PAIN, COUGH, DYSPNEA, FOUNDTO HAVE R SIDE MID LOBE PNEUMONIA, IMPROVED ON IV ABX. WE HAD TO GIVE HER SOTALOL FOR A FIB AND STOP METOPROLOL. SHE HAS HEMOPTYSIS SO SHE IS NOT ON ANTICOAGULATION. WILL LET HER TECHNICIAN AUTOMATIC DECIDE. SHE IS BACK ON PLAVIX NOW. SHE WILL CONT AUGMENTIN. [facility] DID NOT SHOW AND MASS PER DR. BECKER. Vital Signs/Physical Exam: Temp Pulse Resp BP Pulse Ox 98.2 F 78 18 137/65 95 09/05/22 13:50 09/05/22 14:20 09/05/22 14:20 09/05/22 14:20 09/05/22 08:00 Laboratory Data at Discharge: WBC 11.90 K/uL (4.3-10.9) H 09/05/22 08:51 Hgb 12.4 g/dL (12.0-15.0) 09/05/22 08:51 Hct 37.6 % (36.0-45.0) 09/05/22 08:51 Plt Count 450 K/uL (152-406) H 09/05/22 08:51 PT 14.7 SECONDS (9.5-12.5) H 09/01/22 08:47 INR 1.34 09/01/22 08:47 APTT 32.8 SECONDS (24.3-36.9) 09/02/22 05:33 Sodium 138 mmol/L (136-145) 09/05/22 08:45 Potassium 4.6 mmol/L (3.5-5.1) 09/05/22 08:45 BUN 27 mg/dL (7-18) H 09/05/22 08:45 Creatinine 0.81 mg/dL (0.55-1.02) 09/05/22 08:45 Glucose 114 mg/dL (74-106) H 09/05/22 08:45 Phosphorus 4.3 mg/dL (2.5-4.9) 09/02/22 05:33 Magnesium 2.6 mg/dL (1.6-2.4) H 09/05/22 08:45 Total Bilirubin 0.7 mg/dL (0.2-1.0) 09/02/22 05:33 AST 17 U/L (15-37) 09/02/22 05:33 ALT 21 U/L (13-56) 09/02/22 05:33 Alkaline Phosphatase 126 U/L (45-117) H 09/02/22 05:33 Triglycerides 111 mg/dL (<150) 09/02/22 05:33 Cholesterol 162 mg/dL (<200) 09/02/22 05:33 HDL Cholesterol 22 mg/dL (40-60) L 09/02/22 05:33 Cholesterol/HDL Ratio 7.36 09/02/22 05:33 Home Medications: Duloxetine [Cymbalta *] 30 mg PO BEDTIME 08/17/13 estradioL [Estradiol] 0.5 mg PO DAILY 08/17/13 Pitavastatin Calcium [Livalo] 2 mg PO BEDTIME 05/29/15 Dexlansoprazole [Dexilant] 60 mg PO DAILY 12/08/21 Gabapentin 100 mg PO BEDTIME 12/08/21 Imipramine HCl 50 mg PO BEDTIME 12/08/21 Spironolactone 25 mg PO DAILY 12/08/21 Amox/Clavulanate [Augmentin 875-125 Tab] 875 mg PO BID #14 tab 09/05/22 Sotalol HCl [Betapace*] 80 mg PO BID 6AM 6PM #60 tab 09/05/22 New Medications: Amox/Clavulanate [Augmentin 875-125 Tab] 875 mg PO BID #14 tab Sotalol HCl [Betapace*] 80 mg PO BID 6AM 6PM #60 tab Followup: NONE,NONE [Primary Care Provider] -
[2022-09-05 18:41] VITALS: BP 128/74; TEMP 97.3
[2022-09-05] MEDS ORDERED: SPIRONOLACTONE 25 MG TABLET PO SCH (21:00)
[2022-09-05] MEDS ORDERED: METHYLPREDNISOLONE 40 MG INJ IV SCH (21:00)
--- NOTE | 2022-09-06 08:09 | EKG ---
Test Date: 2022-09-01 Test Time: 21:39:35 Linux Vmware Administrator: SHAMEKA MEASUREMENT RESULTS: Intervals: Rate: 147 CT: QRSD: 74 QT: 268 QTc: 419 [place]: P: CT: QRS: -34 T: 9 INTERPRETIVE STATEMENTS: Atrial fibrillation with rapid ventricular response Left axis deviation Low voltage QRS Inferior infarct, age undetermined Abnormal ECG Compared to ECG 09/01/2022 09:42:24 Sinus tachycardia no longer present Myocardial infarct finding still present Electronically Signed On 09-06-22 08:02:34 BRAKE COUPLER DINKEY by Randy Mason
== END 2022-09-05 18:40 | disposition home or self-care (01) | DRG 194 ==
LOC: ER 07:41 → ERHOLD 12:49 → 4TH 14:49
PROVIDERS: ADMIT Internal Medicine; ATTEND Internal Medicine
PROC: 0B9D8ZX Drainage of Right Middle Lung Lobe, Via Natural or Artificial Opening Endoscopic, Diagnostic (ICD-10-PCS; principal; 2022-09-05 12:00)
DX: J15.9 Unspecified bacterial pneumonia (principal); E87.1 Hypo-osmolality and hyponatremia; J98.11 Atelectasis; R04.2 Hemoptysis; E78.5 Hyperlipidemia, unspecified; I10 Essential (primary) hypertension; I48.0 Paroxysmal atrial fibrillation; G89.29 Other chronic pain; I25.10 Atherosclerotic heart disease of native coronary artery without angina pectoris; R09.02 Hypoxemia; Z95.5 Presence of coronary angioplasty implant and graft; Z88.0 Allergy status to penicillin; Z88.1 Allergy status to other antibiotic agents; Z88.5 Allergy status to narcotic agent; Z88.8 Allergy status to other drugs, medicaments and biological substances; Z90.49 Acquired absence of other specified parts of digestive tract; Z79.02 Long term (current) use of antithrombotics/antiplatelets; Z91.013 Allergy to seafood; Z87.891 Personal history of nicotine dependence; Z90.710 Acquired absence of both cervix and uterus; Z79.899 Other long term (current) drug therapy; Z20.822 Contact with and (suspected) exposure to COVID-19
CPT/HCPCS: 36415; 71045; 71275; 76000; 80048; 80053; 80061; 80076; 81001; 81003; 82550; 82565; 83605; 83735; 83880; 84100; 84145; 84484; 85025; 85610; 85730; 87015; 87040; 87070; 87077; 87102; 87116; 87186; 87205; 87206; 87811; 88108; 88305; 88312; 93005; 94760; 99284; J1170; J1650; J2001; J2185; J2370; J2704; J2930; J7030; J7040; J7120; Q9967

== ENCOUNTER 2022-10-08 10:45 | Observation (INO) | payer OTHER ==
[2022-10-08 11:51] LABS: Hematocrit 37.7 % (36.0-45.0); Lymphocytes % 13.5 % (15.3-44.8); MCV 86.7 fL (80-100); RBC Red Blood Cell Count 4.35 M/uL (3.86-4.86)
[2022-10-08 11:56] LABS: Protime INR 1.05
[2022-10-08 11:59] LABS: SARS-CoV-2 Antigen Rapid Res Negative (Negative)
--- OUTSIDE RECORDS SUMMARY | 2022-10-08 12:27 | XMS REPORT | Continuity of Care Document ---
:1950 Author Organization [facility] t Address [address] [place] [address] Care Team Providers Name Role Phone HALINA LOWERY Primary Care Physician Unavailable SIDNEY LOPES Attending Clinician Unavailable Viviana De León MD Attending Clinician VIVIANA DE LEÓN Attending Clinician Unavailable Lab, Adc Fam Pob I Attending Clinician Unavailable Emerald Delatorre RN Attending Clinician Unavailable Only, Adc Test Attending Clinician Unavailable DANAY SALAZAR Attending Clinician Unavailable Doctor Unassigned, [place] Attending Clinician Unavailable SIDNEY LOPES Admitting Clinician Unavailable VIVIANA DE LEÓN Admitting Clinician Unavailable Payers Payer Name Policy Type Policy Number Effective Date Expiration Date S hubert MEDICARE PART A [id number] 2017 \\T\\ B 00:00:00 [id number] 2021 00:00:00 [id number] 2001 00:00:00 Problems Condition Condition Condition Status Onset Resolution Last Treating Co mments Source Name Details Category Date Date Treatment Clinician Date No known No known Disease Unive rs active active ity of problems problems [facility] Allergies, Adverse Reactions, Alerts Allergy Allergy Status Severity Reaction(s) Onset Inactive Treating Comm ents Source Name Type Date Date Clinician [place] Drug Active Rash Univers INS Class 01-21 ity of 00:00: [address] [place] Propensi Active Rash Univer s ins ty to 01-21 ity of adverse 00:00: [place] reaction 00 Medical s Branch Social History Social Habit Start Date Stop Date Quantity Comments Source History of tobacco Cigarette Smoker University of use [facility] Exposure to 2022-08-20 2022-08-30 Not sure University SARS-CoV-2 (event) 00:00:00 23:24:00 [facility] Alcohol intake 2022-08-30 2022-08-30 Current University of 00:00:00 00:00:00 non-drinker of [facility] alcohol Branch (finding) Cigarettes smoked 2019-01-21 2019-01-21 [facility] ity of current (pack per 00:00:00 00:00:00 [facility] ) - Reported Branch Cigarette 2019-01-21 2019-01-21 University of pack-years 00:00:00 00:00:00 [facility] Tobacco use and 2019-01-21 2019-01-21 Smokeless Universit y of exposure 00:00:00 00:00:00 tobacco non-user [facility] Sex Assigned At [birth year] [facility] 00:[facility]00 [facility] Smoking Status Start Date Stop Date Source Tobacco smoking [facility] consumption unknown Ex-smoker 2019-01-21 00:00:00 2019-01-21 [place] [facility] 00:00:00 [facility] Medications Ordered Filled Start Stop Current Ordering Indication Dosage Frequency Signature Comments Components Source Medication Medication Date Date Medication? Clinician (SIG) Name Name iopamidol 2021-09- No [id number] 75mL 75 mL, U nivers (ISOVUE 11-01 Intravenou ity o f 370-500 mL) 09:15: 09:15 s, ONCE, 1 [place] injection 00 :00 dose, On Medica l 75 mL Fri Branch 08/31/22 at 0315, Routine GABAPENTIN 2018- Yes 100mg Take 100 Un milagros ORAL 5-06 mg by ity of 09:03: mouth [place] 35 daily. Medical Branch estradiol 2019- Yes .5mg Take 0.5 Univ ers (ESTRACE 5-06 mg by ity of ORAL) 09:03: mouth [place] 35 daily. Medical Branch DULoxetine 2018- Yes 30mg Take 30 mg U nivers 30 mg 5-06 by mouth ity of capsule 09:03: daily. [address] Branch Dexlansopra 2018-0 Yes Take by Uni vers zole 5-06 mouth ity of (DEXILANT) 09:03: daily. [place] 60 mg 35 Medical capsule Branch metoprolol 0 Yes 100mg Take 100 Un milagros tartrate 5-06 mg by ity of 100 mg 09:03: mouth 2 [place] tablet 35 (two) Medical times Branch daily. imipramine 2018-0 Yes 10mg Take 10 mg U nivers 10 mg 5-06 by mouth 2 ity of tablet 09:03: (two) [place] 35 times Medical daily. Branch Pitavastati 2018-0 Yes Take by Uni vers n (LIVALO) 5-06 mouth ity of 2 mg Tab 09:03: daily. [address] aspirin 81 2018-0 Yes 81mg Take 81 mg U nivers mg EC 5-06 by mouth ity of tablet 09:03: daily. [address] Branch oxyMORphone Yes 10mg Take 10 mg Univers 10 mg 5-06 by mouth 2 ity of tablet 09:03: (two) [place] 35 times Medical daily. Branch Vital Signs Vital Name Observation Time Observation Value Comments Source Systolic blood 2022-08-31 09:59:00 123 mm[Hg] Univer sity of pressure [facility] Diastolic blood 2022-08-31 09:59:00 70 mm[Hg] Unive rsity of pressure [facility] Heart rate 2022-08-31 09:59:00 88 /min [facility] acute hospital Respiratory rate 2022-08-31 09:59:00 12 /min [facility] Oxygen saturation in 2022-08-31 09:59:00 94 /min [facility] Arterial blood by [facility] Pulse oximetry Branch Body height 2022-08-31 05:27:00 162.6 cm General acute hospital Body weight 2022-08-31 05:27:00 81.194 kg General acute hospital BMI 2022-08-31 05:27:00 30.73 kg/m2 General acute hospital Body temperature 2022-08-31 05:27:00 36.5 [place] [facility] Procedures Procedure Date / Time Performing Clinician Source Performed CT CHEST PULMONARY 2022-08-31 08:29:00 Viviana De León [facility] ANGIOGRAM Medical Branch BASIC METABOLIC PANEL 2022-08-31 06:03:00 Viviana De León [facility] (NA, K, CL, CO2, Medical Branch GLUCOSE, BUN, CREATININE, CA) CBC WITH DIFF 2022-08-31 06:03:00 Viviana De León [facility] PROTHROMBIN TIME / INR 2022-08-31 06:03:00 Viviana De León [facility] Plan of Care Planned Activity Planned Date Details Comments Source Future Scheduled 2022-09-05 [facility]19 [facility] Test 05:13:37 [code = COVID-19 VACCINE (#1)] Future Scheduled 2022-09-05 [facility] Test 05:13:37 [code = COLONOSCOPY SCREENING] Future Scheduled 2022-09-05 SHINGLES VACCINES (1 [facility] Test 05:13:37 of 2) [code = SHINGLES VACCINES (1 of 2)] Future Scheduled 2022-09-05 BREAST CANCER [facility] Test 05:13:37 SCREENING [code = BREAST CANCER SCREENING] Future Scheduled 2022-09-05 65+ PNEUMOCOCCAL [facility] Test 05:13:37 VACCINE (1 - PCV) [code = 65+ PNEUMOCOCCAL VACCINE (1 - PCV)] Future Scheduled 2022-09-05 INFLUENZA VACCINE [facility] Test 05:13:37 [code = INFLUENZA VACCINE] Future Scheduled 2022-08-30 COVID-19 VACCINE (#1) [facility] Hospital Test 23:17:19 [code = COVID-19 VACCINE (#1)] Future Scheduled 2022-08-30 COLONOSCOPY SCREENING [facility] Hospital Test 23:17:19 [code = COLONOSCOPY SCREENING] Future Scheduled 2022-08-30 SHINGLES VACCINES (1 [facility] Test 23:17:19 of 2) [code = SHINGLES VACCINES (1 of 2)] Future Scheduled 2022-08-30 BREAST CANCER [facility] Test 23:17:19 SCREENING [code = BREAST CANCER SCREENING] Future Scheduled 2022-08-30 65+ P[facility]UMOCOCCAL [facility] Test 23:17:19 VACCINE (1 - PCV) [code = 65+ PNEUMOCOCCAL VACCINE (1 - PCV)] Future Scheduled 2022-08-30 INFLUENZA VACCINE Method is Hospital Test 23:17:19 [code = INFLUENZA VACCINE] Future Scheduled 2022-08-30 HEPATITIS B VACCINES [facility] Test 23:17:19 (1 of 3 - 3-dose series) [code = HEPATITIS B VACCINES (1 of 3 - 3-dose series)] Future Scheduled 2021-09-13 COLONOSCOPY SCREENING [place] [facility] Hospital Test 03:12:08 [code = COLONOSCOPY SCREENING] Future Scheduled 2021-09-13 SHINGLES VACCINES (#1) [facility] Hospital Test 03:12:08 [code = SHINGLES VACCINES (#1)] Future Scheduled 2021-09-13 BREAST CANCER [facility] Test 03:12:08 SCREENING [code = BREAST CANCER SCREENING] Future Scheduled 2021-09-13 65+ PNEUMOCOCCAL [facility] Test 03:12:08 VACCINE (1 of 1 - PPSV23) [code = 65+ PNEUMOCOCCAL VACCINE (1 of 1 - PPSV23)] Future Scheduled 2021-09-13 INFLUENZA VACCINE Method [facility] Hospital Test 03:12:08 [code = INFLUENZA VACCINE] Future Scheduled 2021-09-13 COVID-19 VACCINE (1) [facility] Test 03:12:08 [code = COVID-19 VACCINE (1)] Encounters Start End Encounter Admission Attending Care Care Encounter Source Date/Time Date/Time Type Type Clinicians Facility Department ID 2022-10-04 Outpatient [facility] OPH [id number] Univers 08:14:59 SIDNEY [facility] 2022-08-30 2022-08-31 [facility] [id number] Univers 23:23:00 05:07:00 Viviana Neff JESUP [id number] [facility] [id number] [facility] [id number] [place] [id number] Branch 2022-08-30 2022-08-31 Emergency [id number] Univers 23:23:00 05:07:00 VIVIANA [facility] 2020-08-26 2020-08-26 Laboratory Lab, [facility] [id number] 16:51:09 17:11:09 Only Fam Pob I Health [id number] [place] [id number] [facility] [id number] nal [address] 2020-08-26 2020-08-26 Outpatient R [facility] [id number] Univers 17:00:00 17:00:00 [facility] 2020-05-20 2020-05-20 Letter NILA Delatorre [id number] 00:00:00 00:00:00 (Out) Emerald PRADO [id number] [facility] [id number] 2020-05-16 2020-05-16 Laboratory Only, [facility] [id number] 13:50:33 14:05:33 Only Test [place] [id number] [place] [id number] [place] [id number] 2020-05-16 2020-05-16 Outpatient R MARTIN, [facility] [id number] Univers 13:30:00 13:30:00 DANAY [facility] 2020-05-16 2020-05-16 Orders Doctor NILA [id number] 00:00:00 00:00:00 Only Unassigned, EEV [id number] [place] [facility] [id number] Results Test Description Test Time Test Comments Results Result Comments Source BASIC METABOLIC PANEL (NA, K, CL, CO2, GLUCOSE, BUN, 2022-08 07:11:02 CREATININE, CA) Test Item Value Reference Range Interpretation Comme nts NA (test code = 1356796652) 137 mmol/L 135-145 K (test code = 3086449112) 5.0 mmol/L 3.5-5.0 CL (test code = 4183805200) 96 mmol/L 98-108 L CO2 TOTAL (test code = 7615835034) 31 mmol/L 23-31 AGAP (test code = 7095474135) 2-16 BUN (test code = 4332680031) 19 mg/dL 7-23 GLUCOSE (test code = 2787296083) 123 mg/dL 70-110 H CREATININE (test code = 0.74 mg/dL 0.50-1.04 7449855620) CALCIUM (test code = 3677301347) 9.4 mg/dL 8.6-10.6 eGFR (test code = 3150907111) mL/min/1.73m2 YANI (test code = YANI) Association [...] tests). Lab Interpretation (test code = Abnormal 90305-2) [facility] / [id number] 06:54:58 Test Item Value Reference Range Interpretation Comments PROTIME PATIENT (test See_Comment [Auto mated message] code = 5964-2) The system [employer] generated this result transmitted ref erence range: 12.0 - 1 4.7 Seconds. The re ference range was not u sed to interpret this result as normal/abnor mal. INR (test code = 6301-6) Nor mal INR <1.1; Warfarin Therap eutic range 2.0 to 3. 0 or 2.5 to 3.5, dep ending upon the indica tions. Lab Interpretation (test Normal code = 74390-7) [facility] WITH [id number] 06:22:40 Test Item Value Reference Range Interpretation Comments WBC (test code = See_Comment H [Automated 8190-2) message] The sy stem which generated this result transmitted reference range : 4.30 - 11.10 10*3/?L. The reference range was not used to interpret this result as normal/abnormal . RBC (test code = See_Comment [Automated 789-8) message] The sy stem which generated this [...] RDW-SD (test code = 40.1 fL 39.0-49.9 40610-4) RDW-CV (test code = 12.1 % 12.0-15.5 788-0) PLT (test code = See_Comment H [Automated 777-3) message] The sy stem which generated this result transmitted reference range : 166 - 358 10*3/ ?L. The reference r musa was not used to interpret this result as normal/abnormal . MPV (test code = 9.1 fL 9.5-12.9 L 79818-4) NRBC/100 WBC (test See_Comment [Automat ed code = 5894363468) message] The system which generated this result transmitted reference range : 0.0 - 10.0 /100 WBCs. The refer ence range was not u sed to interpret th is result as normal/abnormal . NRBC x10^3 (test code See_Comment [Auto mated = 5395803342) message] The s ystem which generated this result transmitted reference range : 10*3/?L. The reference range was not used to interpret this result as normal/abnormal . GRAN MAT (NEUT) % 87.4 % (test code = 770-8) IMM GRAN % (test code 0.80 % = 9210097182) LYMPH % (test code = 5.3 % 736-9) MONO % (test code = 6.2 % 5905-5) EOS % (test code = 0.0 % 713-8) BASO % (test code = 0.3 % 706-2) GRAN MAT x10^3(ANC) 9.99 10*3/uL 1.88-7.09 H (test code = 5483763139) IMM GRAN x10^3 (test 0.09 10*3/uL 0.00-0.06 H code = 5989066403) LYMPH x10^3 (test code 0.60 10*3/uL 1.32-3.29 L = 731-0) MONO x10^3 (test code 0.71 10*3/uL 0.33-0.92 = 742-7) EOS x10^3 (test code = 0.03-0.39 L 711-2) BASO x10^3 (test code 0.03 10*3/uL 0.01-0.07 = 704-7) Lab Interpretation Abnormal (test code = 51713-7) [facility]"
[2022-10-08 12:30] LABS: Bilirubin Direct 0.1 mg/dL (0-0.2); Bilirubin Total 0.4 mg/dL (0.2-1.0); C-Reactive Protein 80.9 mg/L (<3.00); Magnesium 2.2 mg/dL (1.6-2.4); Phosphorus 4.3 mg/dL (2.5-4.9); Potassium 4.7 mmol/L (3.5-5.1); Protein, Total 7.3 g/dL (6.4-8.2); Thyroid Stimulating Hormone 3.36 uIU/mL (0.358-3.740); Troponin High Sensitivity 4.1 pg/mL (<58.9)
[2022-10-08 13:39] VITALS: BMI 28.6
[2022-10-08] MEDS ORDERED: ONDANSETRON 4 MG/2 ML VIAL IV PRN (14:10)
[2022-10-08] MEDS ORDERED: DIPHENHYDRAMINE 25 MG TAB/CAP PO PRN (14:10)
[2022-10-08] MEDS ORDERED: ACETAMINOPHEN 325 MG TABLET PO PRN (14:10)
[2022-10-08] MEDS ORDERED: LOPERAMIDE HCL 2 MG CAPSULE PO PRN (14:10)
[2022-10-08] MEDS ORDERED: POLYETHYL GLY 3350 17 GM/DOSE PO PRN (14:10)
[2022-10-08] MEDS ORDERED: NACHLORIDE 0.45% 500 ML IV SCH (14:30)
[2022-10-08] MEDS ORDERED: NACHLORIDE 0.45% 1,000 ML IV SCH ×2 (14:45→15:25)
[2022-10-08] MEDS: ENOXAPARIN 40 MG/0.4 ML SQ SCH (14:53)
[2022-10-08] MEDS: METHYLPREDNISOLONE 40 MG INJ IV SCH ×3 (14:53→23:11)
[2022-10-08] MEDS ORDERED: METHYLPRED NA SUC 40 MG in NA CHLORIDE 0.9% 100 ML IV SCH (15:00)
[2022-10-08 15:35] LABS: Specific Gravity 1.013 (1.005-1.030); Urine Bilirubin NEGATIVE (Negative); Urine Blood Negative (Negative); Urine Clarity Clear (Clear); Urine Color Light-Yellow (Yellow); Urine Glucose NEGATIVE (Negative); Urine Protein NEGATIVE (Negative); Urine Urobilinogen Normal (Normal); Urine pH 5.5 (5.0-7.0)
--- NOTE | 2022-10-08 15:46 | RAD REPORT ---
EXAM DESCRIPTION: CT - Chest For Pe Angio - 10/08/2022 3:30 pm CLINICAL HISTORY: Chest pain. chest pain COMPARISON: Chest For Pe Angio dated 09/01/2022 TECHNIQUE: CT angiogram of the pulmonary arteries was performed with MIP. All CT scans are performed using dose optimization technique as appropriate and may include automated exposure control or mA/KV adjustment according to patient size. FINDINGS: No evidence of pulmonary thromboembolism. No acute aortic finding demonstrated. Airspace consolidation is seen in the right middle lobe, moderately improved. Mild ground-glass atten uation is seen bilaterally. 6 mm nodule in the right apex is noted which is new since comparative brijesh dy. No significant pericardial or pleural fluid. No concerning bony finding. Large hiatal hernia. IMPRESSION: No evidence of pulmonary thromboembolism. Moderate improvement in right middle lobe pneumonia.
--- NOTE | 2022-10-08 15:51 | RAD REPORT ---
EXAM DESCRIPTION: US - Extrem Venous W Compress [place] - 10/08/2022 3:46 pm CLINICAL HISTORY: rule out DVT Bilateral leg edema and swelling. COMPARISON: EXT VENOUS UNI LTD dated 09/09/2015 TECHNIQUE: Real-time sonographic interrogation of the left and right lower extremity deep venous sys tems was performed. FINDINGS: Normal compressibility, flow augmentation, phasic flow and spontaneous flow is identified in both the left and right lower extremity deep venous systems. IMPRESSION: No sonographic evidence of left or right lower extremity deep venous thrombosis.
[2022-10-08] MEDS: SOTALOL HCL 80 MG TAB PO SCH (17:47)
[2022-10-08] MEDS ORDERED: DULOXETINE 30 MG CAP PO SCH (21:00)
[2022-10-08] MEDS ORDERED: IMIPRAMINE HCL 50 MG PO SCH (21:00)
[2022-10-08] MEDS ORDERED: GABAPENTIN 100 MG CAP PO SCH (21:00)
[2022-10-08] MEDS ORDERED: IMIPRAMINE HCL 25 MG TAB PO SCH (21:00)
[2022-10-08] MEDS: TRAMADOL HCL 50 MG TAB PO SCH (21:20)
[2022-10-08] MEDS: PANTOPRAZOLE 40MG TABLET PO SCH (21:20)
[2022-10-09 03:44] LABS: Absolute Lymphocytes (CBC) 0.6 K/uL (0.7-4.9); Lymphocytes % 13.4 % (15.3-44.8); MCV 86.2 fL (80-100); MPV 6.8 fL (7.6-11.3); RBC Red Blood Cell Count 4.18 M/uL (3.86-4.86)
[2022-10-09 04:02] LABS: Magnesium 2.2 mg/dL (1.6-2.4); Potassium 4.3 mmol/L (3.5-5.1)
[2022-10-09] MEDS: SOTALOL HCL 80 MG TAB PO SCH (06:14)
[2022-10-09] MEDS: METHYLPREDNISOLONE 40 MG INJ IV SCH (06:14)
[2022-10-09] MEDS: ENOXAPARIN 40 MG/0.4 ML SQ SCH (08:37)
[2022-10-09 08:38] VITALS: O2SAT 93
[2022-10-09] MEDS: TRAMADOL HCL 50 MG TAB PO SCH (08:38)
[2022-10-09] MEDS: PANTOPRAZOLE 40MG TABLET PO SCH (08:39)
[2022-10-09 08:40] VITALS: BP 121/66
[2022-10-09] MEDS ORDERED: ESTRADIOL 0.5 MG PO SCH (09:00)
[2022-10-09] MEDS ORDERED: AMLODIPINE 5 MG TAB PO SCH (09:00)
[2022-10-09] MEDS ORDERED: CLOPIDOGREL 75 MG TABLET PO SCH (09:00)
[2022-10-09] MEDS ORDERED: SPIRONOLACTONE 25 MG TABLET PO SCH (09:00)
[2022-10-09] MEDS ORDERED: HOME MED 1 EA UNK (Dexlansoprazole [Dexilant] 30 MG Cap.Dr.Bp) PO SCH (09:00)
[2022-10-09 09:08] VITALS: TEMP 97.5
--- NOTE | 2022-10-09 22:01 | P.DS ---
Admission Date: 10/08/22 Discharge Date: 10/09/22 Disposition: ROUTINE DISCHARGE Discharge Condition: FAIR Hospital Course: SHE IS DOING LOT BETTER. STEROIDS HELPED HER BACK AND BREATHING CT SCAN SHOWS NO NEW FININGS AND PNEUMONIA HAS IMPROVED. SHE IS STABLE. I CALLED IN [facility] FOR HER. Vital Signs/Physical Exam: Temp Pulse Resp BP Pulse Ox 97.5 F 86 17 121/66 93 10/09/22 08:00 10/09/22 08:38 10/09/22 08:00 10/09/22 08:38 10/09/22 08:00 Laboratory Data at Discharge: WBC 4.20 K/uL (4.3-10.9) L 10/09/22 03:00 Hgb 12.0 g/dL (12.0-15.0) 10/09/22 03:00 Hct 36.0 % (36.0-45.0) 10/09/22 03:00 Plt Count 329 K/uL (152-406) 10/09/22 03:00 PT 11.5 SECONDS (9.5-12.5) 10/08/22 11:34 INR 1.05 10/08/22 11:34 APTT 24.2 SECONDS (24.3-36.9) L 10/08/22 11:34 Sodium 137 mmol/L (136-145) 10/09/22 03:00 Potassium 4.3 mmol/L (3.5-5.1) 10/09/22 03:00 BUN 14 mg/dL (7-18) 10/09/22 03:00 Creatinine 0.54 mg/dL (0.55-1.02) L 10/09/22 03:00 Glucose 137 mg/dL (74-106) H 10/09/22 03:00 Phosphorus 4.3 mg/dL (2.5-4.9) 10/08/22 11:34 Magnesium 2.2 mg/dL (1.6-2.4) 10/09/22 03:00 Total Bilirubin 0.4 mg/dL (0.2-1.0) 10/08/22 11:34 AST 15 U/L (15-37) 10/08/22 11:34 ALT 16 U/L (13-56) 10/08/22 11:34 Alkaline Phosphatase 69 U/L (45-117) 10/08/22 11:34 Home Medications: Duloxetine [Cymbalta *] 30 mg PO BEDTIME 08/17/13 estradioL [Estradiol] 0.5 mg PO DAILY 08/17/13 Dexlansoprazole [Dexilant] 60 mg PO DAILY 12/08/21 Gabapentin 200 mg PO BEDTIME 12/08/21 Imipramine HCl 50 mg PO BEDTIME 12/08/21 Spironolactone 25 mg PO DAILY 12/08/21 Sotalol HCl [Betapace*] 80 mg PO BID 6AM 6PM #60 tab 09/05/22 Amlodipine Besylate 5 mg PO DAILY 10/08/22 Clopidogrel Bisulfate [Plavix*] 75 mg PO DAILY 10/08/22 traMADol HCL [Ultram*] 50 mg PO TID 10/08/22 Polyethyl Gly 3350 [Glycolax*] 17 gm PO DAILY PRN udbot 10/09/22 Followup: Omar Delacruz MD [ACTIVE - CAN ADMIT] - 1-2 Weeks Juan Jose Reaves MD [ACTIVE - CAN ADMIT] - 1-2 Weeks
== END 2022-10-09 10:35 | disposition home or self-care (01) ==
LOC: 4TH 12:24
PROVIDERS: ADMIT Internal Medicine; ATTEND Internal Medicine
DX: J18.1 Lobar pneumonia, unspecified organism (principal); Z20.822 Contact with and (suspected) exposure to COVID-19
CPT/HCPCS: 85025 ×2; 80048 ×2; 36415 ×2; 83735 ×2; 84100; 85610; 85379; 80076; 85730; 84443; 81003; 83036; 84484 ×3; 82607; 82306; 86140 ×2; 71275; 93970; 87811; Q9967; J1650 ×2; J2920 ×4; G0378; G0379

== ENCOUNTER 2022-10-28 22:42 | Inpatient (IN) | payer OTHER ==
--- OUTSIDE RECORDS SUMMARY | 2022-10-28 22:46 | XMS REPORT | Continuity of Care Document ---
:1950 Author Organization [facility] t Address [address] [place] [address] Care Team Providers Name Role Phone HALINA LOWERY Primary Care Physician Unavailable SIDNEY LOPES Attending Clinician Unavailable Viviana De León MD Attending Clinician VIVIANA DE LEÓN Attending Clinician Unavailable Lab, Adc Fam Pob I Attending Clinician Unavailable Emerald Delatorre RN Attending Clinician Unavailable Only, Adc Test Attending Clinician Unavailable DANAY SALAZAR Attending Clinician Unavailable Doctor Unassigned, [place] Attending Clinician Unavailable SIDNEY LOPES Admitting Clinician Unavailable VIVIANA DE LEÓN Admitting Clinician Unavailable Payers Payer Name Policy Type Policy Number Effective Date Expiration Date S hubert MEDICARE PART A [id number] 2017 \\T\\ B 00:00:00 [id number] 2021 00:00:00 [id number] 2001 00:00:00 Problems Condition Condition Condition Status Onset Resolution Last Treating Co mments Source Name Details Category Date Date Treatment Clinician Date No known No known Disease Unive rs active active ity of problems problems [facility] Allergies, Adverse Reactions, Alerts Allergy Allergy Status Severity Reaction(s) Onset Inactive Treating Comm ents Source Name Type Date Date Clinician [place] Drug Active Rash Univers INS Class 01-21 ity of 00:00: [address] [place] Propensi Active Rash Univer s ins ty to 01-21 ity of adverse 00:00: [place] reaction 00 Medical s Branch Social History Social Habit Start Date Stop Date Quantity Comments Source History of tobacco Cigarette Smoker University of use [facility] Exposure to 2022-08-20 2022-08-30 Not sure University SARS-CoV-2 (event) 00:00:00 23:24:00 [facility] Alcohol intake 2022-08-30 2022-08-30 Current University of 00:00:00 00:00:00 non-drinker of [facility] alcohol Branch (finding) Cigarettes smoked 2019-01-21 2019-01-21 [facility] ity of current (pack per 00:00:00 00:00:00 [facility] ) - Reported Branch Cigarette 2019-01-21 2019-01-21 University of pack-years 00:00:00 00:00:00 [facility] Tobacco use and 2019-01-21 2019-01-21 Smokeless Universit y of exposure 00:00:00 00:00:00 tobacco non-user [facility] Sex Ass[birth year] [facility] 00:00:00 00:[facility]:00 [facility] Smoking Status Start Date Stop Date Source Tobacco smoking [facility] consumption unknown Ex-smoker 2019-01-21 00:00:00 2019-01-21 [place] [facility] 00:00:00 [facility] Medications Ordered Filled Start Stop Current Ordering Indication Dosage Frequency Signature Comments Components Source Medication Medication Date Date Medication? Clinician (SIG) Name Name iopamidol 2021-09- No [id number] 75mL 75 mL, U nivers (ISOVUE 11-01 [...] by mouth ity of capsule 09:03: daily. [address] Branch Dexlansopra 2018-0 Yes Take by Uni vers zole 5-06 mouth ity of (DEXILANT) 09:03: daily. [place] 60 mg 35 Medical capsule Branch metoprolol 2018-0 Yes 100mg Take 100 Un milagros tartrate 5-06 mg by ity of 100 mg 09:03: mouth 2 [place] tablet 35 (two) Medical times Branch daily. imipramine 2018-0 Yes 10mg Take 10 mg U nivers 10 mg 5-06 by mouth 2 ity of tablet 09:03: (two) [place] 35 times Medical daily. Branch Pitavastati 2018- Yes Take by Uni vers n (LIVALO) 5-06 mouth ity of 2 mg Tab 09:03: daily. [address] aspirin 81 2018-0 Yes 81mg Take 81 mg U nivers mg EC 5-06 by mouth ity of tablet 09:03: daily. [address] Branch oxyMORphone Yes 10mg Take 10 mg Univers 10 mg 5-06 by mouth 2 ity of tablet 09:03: (two) [place] 35 times Medical daily. Branch Vital Signs Vital Name Observation Time Observation Value Comments Source Systolic blood 2022-08-31 09:59:00 123 mm[Hg] Univer sity of pressure [facility] Diastolic blood 2022-08-31 09:59:00 70 mm[Hg] Unive rsity of pressure [facility] Heart rate 2022-08-31 09:59:00 88 /min [facility] Respiratory rate 2022-08-31 09:59:00 12 /[facility] O[facility] saturation in 2022-08-31 09:59:00 94 /min [facility] Arterial blood by [facility] Pulse oximetry Branch Body temperature 2022-08-31 05:27:00 36.5 [facility] Body height 2022-08-31 05:27:00 162.6 cm [facility] Body weight 2022-08-31 05:27:00 81.194 kg [facility] BMI 2022-08-31 05:27:00 30.73 kg/m2 [facility] Procedures Procedure Date / Time Performing Clinician Source Performed CT CHEST PULMONARY 2022-08-31 08:29:00 Viviana De León [facility] ANGIOGRAM Medical Branch BASIC METABOLIC PANEL 2022-08-31 06:03:00 Viviana De León [facility] (NA, K, CL, CO2, Medical Branch GLUCOSE, BUN, CREATININE, CA) CBC WITH DIFF 2022-08-31 06:03:00 Viviana De León [facility] PROTHROMBIN TIME / INR 2022-08-31 06:03:00 Viviana [facility] León [facility] Plan of Care Planned Activity Planned Date Details Comments Source Future Scheduled 2022-10-28 COVID-19 VACCINE (#1) [facility] Hospital Test 22:45:11 [code = COVID-19 VACCINE (#1)] Future Scheduled 2022-10-28 COLONOSCOPY SCREENING [facility] Hospital Test 22:45:11 [code = COLONOSCOPY SCREENING] Future Scheduled 2022-10-28 SHINGLES VACCINES (1 Met [facility] Hospital Test 22:45:11 of 2) [code = SHINGLES VACCINES (1 of 2)] Future Scheduled 2022-10-28 BREAST CANCER [facility] Test 22:45:11 SCREENING [code = BREAST CANCER SCREENING] Future Scheduled 2022-10-28 65+ [facility]OCOCCAL [facility] Test 22:45:11 VACCINE (1 - PCV) [code = 65+ PNEUMOCOCCAL VACCINE (1 - PCV)] Future Scheduled 2022-10-28 INFLUENZA VACCINE Method [facility] Hospital Test 22:45:11 [code = INFLUENZA VACCINE] Future Scheduled 2022-09-05 COVID-19 VACCINE (#1) [facility] Hospital Test 05:13:37 [code = COVID-19 VACCINE (#1)] Future Scheduled 2022-09-05 COLONOSCOPY SCREENING [facility] Hospital Test 05:13:37 [code = COLONOSCOPY SCREENING] Future Scheduled 2022-09-05 SHINGLES VACCINES (1 Met [facility] Test 05:13:37 of 2) [code = SHINGLES VACCINES (1 of 2)] Future Scheduled 2022-09-05 BREAST CANCER [facility] Test 05:13:37 SCREENING [code = BREAST CANCER SCREENING] Future Scheduled 2022-09-05 65+ [facility]UMOCOCCAL [facility] Test 05:13:37 VACCINE (1 - PCV) [code = 65+ PNEUMOCOCCAL VACCINE (1 - PCV)] Future Scheduled 2022-09-05 INFLUENZA VACCINE [facility] Hospital Test 05:13:37 [code = INFLUENZA VACCINE] Future Scheduled 2022-08-30 SHINGLES VACCINES ([address] [facility] Test 23:17:19 of 2) [code = SHINGLES VACCINES (1 of 2)] Future Scheduled 2022-08-30 BREAST CANCER [facility] Test 23:17:19 SCREENING [code = BREAST CANCER SCREENING] Future Scheduled 2022-08-30 65+ [facility] Test 23:17:19 VACCINE (1 - PCV) [code = 65+ PNEUMOCOCCAL VACCINE (1 - PCV)] Future Scheduled 2022-08-30 INFLUENZA VACCINE [facility] Hospital Test 23:17:19 [code = INFLUENZA VACCINE] Future Scheduled 2022-08-30 HEPATITIS B VACCINES Met [facility] Test 23:17:19 (1 of 3 - 3-dose series) [code = HEPATITIS B VACCINES (1 of 3 - 3-dose series)] Future Scheduled 2022-08-30 COVID-19 VACCINE (#1) [facility] Test 23:17:19 [code = COVID-19 VACCINE (#1)] Future Scheduled 2022-08-30 COLONOSCOPY SCREENING [facility] Test 23:17:19 [code = COLONOSCOPY SCREENING] Future Scheduled 2021-09-13 COVID-19 VACCINE (1) Met [facility] Test 03:12:08 [code = COVID-19 VACCINE (1)] Future Scheduled 2021-09-13 COLONOSCOPY SCREENING [facility] Test 03:12:08 [code = COLONOSCOPY SCREENING] Future Scheduled 2021-09-13 SHINGLES VACCINES (#1) [facility] Hospital Test 03:12:08 [code = SHINGLES VACCINES (#1)] Future Scheduled 2021-09-13 BREAST CANCER [facility] Test 03:12:08 SCREENING [code = BREAST CANCER SCREENING] Future Scheduled 2021-09-13 65+ [facility]CCAL [facility] Test 03:12:08 VACCINE (1 of 1 - PPSV23) [code = 65+ PNEUMOCOCCAL VACCINE (1 of 1 - PPSV23)] Future Scheduled 2021-09-13 INFLUENZA VACCINE [facility] Test 03:12:08 [code = INFLUENZA VACCINE] Encounters Start End Encounter Admission Attending Care Care Encounter Source Date/Time Date/Time Type Type Clinicians Facility Department ID 2022-10-04 Outpatient [facility]IAN[facility] OPH [id number] Univers 08:14:59 SIDNEY [facility] 2022-08-30 2022-08-31 Emergency Samantha [facility] [id number] Univers 23:23:00 05:07:00 Viviana Neff [place] [id number] ity [facility] [id number] [facility] [id number] [facility] [address] [place] 2022-08-30 2022-08-31 Emergency X SAMANTHA [facility] ERT [id number] Univers 23:23:00 05:07:00 VIVIANA [facility] 2020-08-26 2020-08-26 Laboratory Lab, [facility] [id number] 16:51:09 17:11:09 Only Fam Pob I Health [id number] [place] [id number] [facility] [id number] [address]al [address] 2020-08-26 2020-08-26 Outpatient R [facility] [id number] Univers 17:00:00 17:00:00 [facility] 2020-05-20 2020-05-20 Letter NILA Delatorre [id number] 00:00:00 00:00:00 (Out) Emerald PRADO [id number] [facility] [id number] [id number] 2020-05-16 2020-05-16 Laboratory Only, [facility] [id number] 13:50:33 14:05:33 Only Test [place] [id number] [place] [id number] [place] [id number] 2020-05-16 2020-05-16 [facility] [id number] Univers 13:30:00 13:30:00 DANAY [facility] 2020-05-16 2020-05-16 Orders Doctor DOTSON [id number] 00:00:00 00:00:00 Only Unassigned, EVE [id number] [place] [facility] [id number] [id number] Results Test Description Test Time Test Comments Results Result Comments Source BASIC METABOLIC PANEL (NA, K, CL, CO2, GLUCOSE, BUN, 2022-08 07:11:02 CREATININE, CA) Test Item Value Reference Range Interpretation Comme nts NA (test code = 9311447360) 137 mmol/L 135-145 K (test code = 6471197384) 5.0 mmol/L 3.5-5.0 CL (test code = 1570042278) 96 mmol/L 98-108 L CO2 TOTAL (test code = 3606199667) 31 mmol/L 23-31 AGAP (test code = 9792020663) 2-16 BUN (test code = 4227873047) 19 mg/dL 7-23 GLUCOSE (test code = 3627128783) 123 mg/dL 70-110 H CREATININE (test code = 0.74 mg/dL 0.50-1.04 9146852760) CALCIUM (test code = 2705951020) 9.4 mg/dL 8.6-10.6 eGFR (test code = 1376258647) mL/min/1.73m2 YANI (test code = YANI) Association [...] tests). Lab Interpretation (test code = Abnormal 59963-0) [facility] / [id number] 06:54:58 Test Item Value Reference Range Interpretation Comments PROTIME PATIENT (test See_Comment [Auto mated message] code = 5964-2) The system [employer] ich generated this result transmitted ref erence range: 12.0 - 1 4.7 Seconds. The re ference range was not u sed to interpret this result as normal/abnor mal. INR (test code = 6301-6) Nor mal INR <1.1; Warfarin Therap eutic range 2.0 to 3. 0 or 2.5 to 3.5, dep ending upon the indica tions. Lab Interpretation (test Normal code = 68584-6) [facility] WITH [id number] 06:22:40 Test Item Value Reference Range Interpretation Comments WBC (test code = See_Comment H [Automated 3790-2) message] The sy stem which generated this result transmitted reference range : 4.30 - 11.10 10*3/?L. The reference range was not used to interpret this result as normal/abnormal . RBC (test code = See_Comment [Automated 579-8) message] The sy stem which generated this [...] RDW-SD (test code = 40.1 fL 39.0-49.9 67957-3) RDW-CV (test code = 12.1 % 12.0-15.5 788-0) PLT (test code = See_Comment H [Automated 777-3) message] The sy stem which generated this result transmitted reference range : 166 - 358 10*3/ ?L. The reference r musa was not used to interpret this result as normal/abnormal . MPV (test code = 9.1 fL 9.5-12.9 L 14886-0) NRBC/100 WBC (test See_Comment [Automat ed code = 2250729463) message] The system which generated this result transmitted reference range : 0.0 - 10.0 /100 WBCs. The refer ence range was not u sed to interpret th is result as normal/abnormal . NRBC x10^3 (test code See_Comment [Auto mated = 6810062576) message] The s ystem which generated this result transmitted reference range : 10*3/?L. The reference range was not used to interpret this result as normal/abnormal . GRAN MAT (NEUT) % 87.4 % (test code = 770-8) IMM GRAN % (test code 0.80 % = 1381009370) LYMPH % (test code = 5.3 % 736-9) MONO % (test code = 6.2 % 5905-5) EOS % (test code = 0.0 % 713-8) BASO % (test code = 0.3 % 706-2) GRAN MAT x10^3(ANC) 9.99 10*3/uL 1.88-7.09 H (test code = 3497684548) IMM GRAN x10^3 (test 0.09 10*3/uL 0.00-0.06 H code = 0573162083) LYMPH x10^3 (test code 0.60 10*3/uL 1.32-3.29 L = 731-0) MONO x10^3 (test code 0.71 10*3/uL 0.33-0.92 = 742-7) EOS x10^3 (test code = 0.03-0.39 L 711-2) BASO x10^3 (test code 0.03 10*3/uL 0.01-0.07 = 704-7) Lab Interpretation Abnormal (test code = 44035-5) [facility]"
[2022-10-29] MEDS ORDERED: MORPHINE 2 MG/ML SYR ONE ×2 (00:01→01:18)
[2022-10-29] MEDS ORDERED: ONDANSETRON 4 MG/2 ML VIAL ONE (00:01)
[2022-10-29] MEDS ORDERED: LEVALBUTEROL 1.25 MG/3 ML NEB ONE (00:01)
[2022-10-29] MEDS ORDERED: METHYLPREDNISOLONE 125 MG INJ ONE (00:01)
[2022-10-29] MEDS ORDERED: NA CHLORIDE 0.9% 1,000 ML ONE (00:02)
[2022-10-29] MEDS ORDERED: IPRATROPIUM BROM 0.5MG/2.5ML ONE (00:02)
[2022-10-29] MEDS ORDERED: NA CHLORIDE 0.9% 100 ML ONE (00:02)
[2022-10-29] MEDS ORDERED: NA CHLORIDE 0.9% 500 ML ONE (00:02)
[2022-10-29] MEDS ORDERED: PIPERACIL/TAZO 3.375 GM VIAL IV ONE (00:03)
[2022-10-29 00:14] LABS: Absolute Lymphocytes (CBC) 1.1 K/uL (0.7-4.9); Hematocrit 37.6 % (36.0-45.0); Lymphocytes % 9.9 % (15.3-44.8); MCV 86.6 fL (80-100); MPV 7.3 fL (7.6-11.3); RBC Red Blood Cell Count 4.34 M/uL (3.86-4.86)
[2022-10-29 00:15] LABS: Protime INR 1.04
[2022-10-29 00:34] LABS: Albumin 2.9 g/dL (3.4-5.0); Bilirubin Direct 0.1 mg/dL (0-0.2); Bilirubin Total 0.6 mg/dL (0.2-1.0); Potassium 4.3 mmol/L (3.5-5.1); Protein, Total 6.7 g/dL (6.4-8.2); Troponin High Sensitivity 3.6 pg/mL (<58.9)
[2022-10-29 01:00] LABS: SARS-COV-2 RT PCR NEGATIVE (NEGATIVE)
--- NOTE | 2022-10-29 01:18 | EDPHYS ---
Physician Documentation [facility] Name: Chaparrita Blanca Age: 72 yrs Sex: Female : 1950 Arrival Date: 10/28/2022 Time: 22:46 Bed 24 Private MD: ED Physician Venkatesh Evans HPI: 10/28 23:45 This 72 yrs old Female presents to ER via EMS with complaints of Breathing michelle Difficulty. 23:45 The patient has shortness of breath at rest, with light activity. Onset: The michelle symptoms/episode began/occurred 2 week(s) ago. Duration: The symptoms are continuous, and are steadily getting worse. The patient's shortness of breath is aggravated by coughing, exertion, light activity, is alleviated by rest, sitting up. Associated signs and symptoms: Pertinent positives: non-productive cough. Severity of symptoms: At their worst the symptoms were moderate in the emergency department the symptoms are unchanged. The patient has experienced similar episodes in the past, several times. Historical: - PMHx: 22:51 Anxiety; Arthritis; Chronic pain; Hyperlipidemia; Hypertension; bb - Immunization history:: Adult Immunizations up to date. - Social history:: Smoking status: Patient denies any tobacco usage or history of. Patient/guardian denies using alcohol, street drugs. ROS: 23:46 Constitutional: Negative for fever, chills, and weight loss, Eyes: Negative for injury, michelle pain, redness, and discharge, ENT: Negative for injury, pain, and discharge, Neck: Negative for injury, pain, and swelling, Cardiovascular: Negative for chest pain, palpitations, and edema, Abdomen/GI: Negative for abdominal pain, nausea, vomiting, diarrhea, and constipation, Back: Negative for injury and pain, : Negative for injury, bleeding, discharge, and swelling, MS/Extremity: Negative for injury and deformity, Skin: Negative for injury, rash, and discoloration, Neuro: Negative for headache, weakness, numbness, tingling, and seizure, Psych: Negative for depression, anxiety, suicide ideation, homicidal ideation, and hallucinations, Allergy/Immunology: Negative for hives, rash, and allergies, Endocrine: Negative for neck swelling, polydipsia, polyuria, polyphagia, and marked weight changes, Hematologic/Lymphatic: Negative for swollen nodes, abnormal bleeding, and unusual bruising. 23:46 Respiratory: Positive for cough, shortness of breath, at rest. Exam: 23:46 Constitutional: This is a well developed, well nourished patient who is awake, alert, michelle and in no acute distress. Head/Face: Normocephalic, atraumatic. Eyes: Pupils equal round and reactive to light, extra-ocular motions intact. Lids and lashes normal. Conjunctiva and sclera are non-icteric and not injected. Cornea within normal limits. Periorbital areas with no swelling, redness, or edema. ENT: Nares patent. No nasal discharge, no septal abnormalities noted. Tympanic membranes are normal and external auditory canals are clear. Oropharynx with no redness, swelling, or masses, exudates, or evidence of obstruction, uvula midline. Mucous membranes moist. Neck: Trachea midline, no thyromegaly or masses palpated, and no cervical lymphadenopathy. Supple, full range of motion without nuchal rigidity, or vertebral point tenderness. No Meningismus. Chest/axilla: Normal chest wall appearance and motion. Nontender with no deformity. No lesions are appreciated. Cardiovascular: Regular rate and rhythm with a normal S1 and S2. No gallops, murmurs, or rubs. Normal PMI, no JVD. No pulse deficits. Abdomen/GI: Soft, non-tender, with normal bowel sounds. No distension or tympany. No guarding or rebound. No evidence of tenderness throughout. Back: No spinal tenderness. No costovertebral tenderness. Full range of motion. Female : Normal external genitalia. Skin: Warm, dry with normal turgor. Normal color with no rashes, no lesions, and no evidence of cellulitis. MS/ Extremity: Pulses equal, no cyanosis. Neurovascular intact. Full, normal range of motion. Neuro: Awake and alert, GCS 15, oriented to person, place, time, and situation. Cranial nerves II-XII grossly intact. Motor strength 5/5 in all extremities. Sensory grossly intact. Cerebellar exam normal. Normal gait. Psych: Awake, alert, with orientation to person, place and time. Behavior, mood, and affect are within normal limits. 23:46 ECG was reviewed by the Attending Physician. 23:46 Respiratory: the patient does not display signs of respiratory distress, Respirations: labored breathing, that is mild, Breath sounds: decreased breath sounds, that are moderate, are located in both bases, are heard in the right middle lobe, right lower lobe, right posterior middle lobe and right posterior lower lobe. 23:50 Respiratory: Respiratory rate: 24 michelle 23:50 Musculoskeletal/extremity: DVT Exam: No signs of deep vein thrombosis. no pain, no swelling, no tenderness, negative Homans' sign noted on exam, no appreciated bluish discoloration, no erythema, no increased warmth. 10/29 01:12 ECG was reviewed by the Attending Physician. [facility] Vital Signs: 10/28 22:48 BP 142 / 78; Pulse 112; Resp 18 S; Temp 98.7; Pulse Ox 93% on R/A; bb 10/29 00:30 BP 134 / 80; Pulse 102; Resp 17 S; Pulse Ox 100% on 2 lpm NC; lg3 02:09 BP 116 / 78; Pulse 77; Resp 16 S; Pulse Ox 96% on 2 lpm NC; lg3 MDM: 10/28 22:52 Patient medically screened. michelle 23:51 Differential diagnosis: Bronchitis Chronic Obstructive Pulmonary Disease pneumonia, michelle Pneumothorax pulmonary edema, Pulmonary Embolism reactive airway disease, Sepsis. Antibiotic administration: zosyn. Differential Diagnosis: Obstructed Airway Bronchitis Influenza Upper Respiratory Infection Pneumonia. Immunization status: Pneumococcal vaccine: within last 5 years. Influenza vaccine: within last 5 years. Data reviewed: vital signs, EMS record, lab test result(s), EKG, radiologic studies, CT scan, plain films. Consideration of Admission/Observation Patient was admitted/placed on observation. I considered the following discharge prescriptions or medication management in the emergency department Medications were administered in the Emergency Department. See MAR. Historians other than the Patient: Family Member: . 10/28 22:54 Order name: Basic Metabolic Panel; Complete Time: 00:40 [facility] 10/28 22:54 Order name: CBC with Diff; Complete Time: 00:28 [facility] 10/28 22:54 Order name: LFT's; Complete Time: 00:40 [facility] 10/28 22:54 Order name: Magnesium; Complete Time: 00:40 [facility] 10/28 22:54 Order name: NT PRO-BNP; Complete Time: 00:40 [facility] 10/28 22:54 Order name: PT-INR; Complete Time: 00:18 [facility] 10/28 22:54 Order name: Troponin HS; Complete Time: 00:40 [facility] 10/28 22:54 Order name: XRAY Chest (1 view) [facility] 10/28 22:54 Order name: CT Chest For PE Angio [facility] 10/28 22:54 Order name: Blood Culture Adult (2) [facility] 10/28 22:54 Order name: Lactate w/ 2H reflex if indic.; Complete Time: 00:40 [facility] 10/28 22:55 Order name: COVID-19/FLU A+B; Complete Time: 01:06 [facility] 10/28 23:32 Order name: INCENTIVE SPIROMETRY [facility] 10/28 22:54 Order name: EKG; Complete Time: 22:55 [facility] 10/28 22:54 Order name: Cardiac monitoring; Complete Time: 23:53 [facility] 10/28 22:54 Order name: EKG - Nurse/Tech; Complete Time: 00:07 [facility] 10/28 22:54 Order name: IV Saline Lock; Complete Time: 23:53 [facility] 10/28 22:54 Order name: Labs collected and sent; Complete Time: 23:53 [facility] 10/28 22:54 Order name: O2 Per Protocol; Complete Time: 23:53 [facility] 10/29 01:25 Order name: CONS Physician Consult [facility] 10/28 22:54 Order name: O2 Sat Monitoring; Complete Time: 23:53 [facility] EC/06 01:12 Rate is 92 beats/min. Rhythm is regular. QRS [place] is Normal. MA interval is normal. QRS michelle interval is normal. QT interval is normal. No Q waves. T waves are Normal. No ST changes noted. Clinical impression: NSR w/ Non-specific ST/T Changes and No evidence of ischemia. Interpreted by me. Reviewed by me. Administered Medications: 10/28 23:31 CANCELLED (Duplicate Order): Rocephin (cefTRIAXone) 1 grams IV at per protocol once; michelle Given slow IV push per pharmacy instructions 10/29 00:09 Drug: Zosyn (piperacillin-tazobactam) 3.375 grams Route: IVPB; Infused Over: 60 mins; lg3 Site: right forearm; 00:20 Follow up: Response: No adverse reaction; IV Status: Completed infusion; IV Intake: lg3 100ml 00:09 Drug: morphine 2 mg Route: IVP; Infused Over: 4 mins; Site: right forearm; lg3 00:20 Follow up: Response: No adverse reaction; Marked relief of symptoms; Pain is decreased lg3 00:09 Drug: Zofran (Ondansetron) 4 mg Route: IVP; Site: right forearm; lg3 00:20 Follow up: Response: No adverse reaction lg3 00:10 Drug: NS 0.9% 500 ml Route: IV; Rate: bolus; Site: right forearm; lg3 00:21 Follow up: Response: No adverse reaction; IV Status: Completed infusion; IV Intake: lg3 500ml 00:10 Drug: SOLU-Medrol (methylPrednisoLONE) 125 mg Route: IVP; Site: right forearm; lg3 00:21 Follow up: Response: No adverse reaction lg3 00:15 Not Given (Patient Refused): Xopenex (levalbuterol) 2.5 mg Inhalation once lg3 00:15 Not Given (Patient Refused): AtroVENT (ipratropium) Aerosol 0.5 mg Inhalation once lg3 01:18 Drug: NS 0.9% 1000 ml Route: IV; Rate: 125 ml/hr; Site: right forearm; lg3 02:12 Follow up: IV Status: Infusion continued upon admission lg3 01:18 Drug: morphine 2 mg Route: IVP; Infused Over: 4 mins; Site: right forearm; lg3 02:12 Follow up: Response: No adverse reaction; Marked relief of symptoms; Pain is decreased lg3 Disposition Summary: 10/29/22 01:17 Hospitalization Ordered Hospitalization Status: Inpatient Admission michelle Provider: Juan Jose Reaves cha Location: Telemetry/[facility] (Inpatient) michelle Condition: Fair michelle Problem: an acute exacerbation michelle Symptoms: have worsened michelle Bed/Room Type: Standard [facility] Room Assignment: 214(10/29/22 01:55) Diagnosis - Atelectasis michelle - Pneumonia due to other specified bacteria michelle - Hypoxemia michelle - Pleural effusion in other conditions classified elsewhere michelle - Pleurisy michelle Forms: - Medication Reconciliation Form michelle - SBAR form michelle Signatures: Dispatcher [employer] EDVenkatesh Hyatt MD MD cha Ballard, Brenda RN RN Deep Chance FNP-C [id number] Tala Mireles RN RN Guerita Story RN RN lg3 Corrections: (The following items were deleted from the chart) 10/28 23:31 22:54 Rocephin (cefTRIAXone) 1 grams IV at per protocol once; Given slow IV push per [facility] pharmacy instructions ordered. [facility] 10/29 01:13 10/28 23:46 Rate is 112 beats/min. Rhythm is regular. QRS [place] is Normal. MA interval michelle is normal. QRS interval is normal. QT interval is normal. No Q waves. T waves are Normal. No ST changes noted. Clinical impression: Sinus tachycardia and No evidence of ischemia. Interpreted by me. Reviewed by me. [facility] 10/29 01:55 01:17 [facility]
--- NOTE | 2022-10-29 01:18 | ER ---
Nurse's Notes [facility] Name: Chaparrita Blanca Age: 72 yrs Sex: Female : 1950 Arrival Date: 10/28/2022 Time: 22:46 Bed 24 Private MD: Diagnosis: Atelectasis;Pneumonia due to other specified bacteria;Hypoxemia;Pleural effusion in other conditions classified elsewhere;Pleurisy Presentation: 10/28 22:48 Chief complaint: EMS states: they were toned out for report of pt with pneumonia c/o bb right sided pain increasing and she still has a productive cough pt had Covid a year ago and has had pneumonia x 2 since then had a biopsy on right lung in August but has not received results yet. Coronavirus screen: Client presents with at least one sign or symptom that may indicate coronavirus-19. Ebola Screen: No symptoms or risks identified at this time. Initial Sepsis Screen: Does the patient meet any 2 criteria? No. Patient's initial sepsis screen is negative. Does the patient have a suspected source of infection? Yes: Productive cough/pneumonia. Risk Assessment: Do you want to hurt yourself or someone else? Patient reports no desire to harm self or others. Onset of symptoms was October 28, 2022. 22:48 Method Of Arrival: EMS: [facility] bb 22:48 Acuity: NORBERT 3 bb 22:52 Care prior to arrival: Glucose check: 140. bb Historical: - PMHx: 22:51 Anxiety; Arthritis; Chronic pain; Hyperlipidemia; Hypertension; bb - Immunization history:: Adult Immunizations up to date. - Social history:: Smoking status: Patient denies any tobacco usage or history of. Patient/guardian denies using alcohol, street drugs. Screenin/06 00:30 [facility] ED Fall Risk Assessment (Adult) History of falling in the last 3 months, lg3 including since admission No falls in past 3 months (0 pts). Abuse screen: Denies threats or abuse. Denies injuries from another. Nutritional screening: No deficits noted. Tuberculosis screening: No symptoms or risk factors identified. Assessment: 00:30 General: Appears in no apparent distress. uncomfortable, Behavior is calm, cooperative. lg3 Pain: Complains of pain in right posterior lower lobe and right posterior middle lobe. Neuro: No deficits noted. Garces Agitation-Sedation Scale (RASS): 0 - Alert and Calm Level of Consciousness is awake, alert, obeys commands, Oriented to person, place, time, situation. Cardiovascular: No deficits noted. Denies chest pain, Rhythm is sinus rhythm. Respiratory: Airway is patent Trachea midline Respiratory effort is even, unlabored, Respiratory pattern is regular, symmetrical. GI: No deficits noted. No signs and/or symptoms were reported involving the gastrointestinal system. Abdomen is flat, non-distended, Abd is soft X 4 quads Abd is non tender X 4 quads. : No deficits noted. No signs and/or symptoms were reported regarding the genitourinary system. EENT: No deficits noted. No signs and/or symptoms were reported regarding the EENT system. Derm: No deficits noted. No signs and/or symptoms reported regarding the dermatologic system. Skin is intact, is healthy with good turgor, Skin is dry, Skin is normal. Musculoskeletal: No deficits noted. No signs and/or symptoms reported regarding the musculoskeletal system. Circulation, motion, and sensation intact. Range of motion: intact in all extremities. 02:42 Respiratory: lg3 Vital Signs: 10/28 22:48 BP 142 / 78; Pulse 112; Resp 18 S; Temp 98.7; Pulse Ox 93% on R/A; bb 10/29 00:30 BP 134 / 80; Pulse 102; Resp 17 S; Pulse Ox 100% on 2 lpm NC; lg3 02:09 BP 116 / 78; Pulse 77; Resp 16 S; Pulse Ox 96% on 2 lpm NC; lg3 ED Course: 10/28 22:46 Patient arrived in ED. bb 22:51 Triage completed. bb 22:51 Arm band placed on Patient placed in an exam room, on a stretcher, on pulse oximetry. bb 22:52 Venkatesh Evans MD is Attending Physician. michelle 23:17 XRAY Chest (1 view) In Process Unspecified. EDMS 10/29 00:06 Inserted saline lock: 22 gauge in right antecubital area, using aseptic technique. ds4 Blood collected. 00:20 INCENTIVE SPIROMETRY Sent. lg3 00:30 Patient has correct armband on for positive identification. Placed in gown. Bed in low lg3 position. Call light in reach. Side rails up X 1. Client placed on continuous cardiac and pulse oximetry monitoring. NIBP monitoring applied. court recording monitor on. Door closed. Noise minimized. Warm blanket given. 01:15 Juan Jose Reaves MD is Hospitalizing Provider. michelle 01:16 CT Chest For PE Angio In Process Unspecified. EDMS 02:12 No provider procedures requiring assistance completed. lg3 02:42 Patient admitted, IV remains in place. intact, No redness/swelling at site. lg3 Administered Medications: 10/28 23:31 CANCELLED (Duplicate Order): Rocephin (cefTRIAXone) 1 grams IV at per protocol once; michelle Given slow IV push per pharmacy instructions 10/29 00:09 Drug: Zosyn (piperacillin-tazobactam) 3.375 grams Route: IVPB; Infused Over: 60 mins; lg3 Site: right forearm; 00:20 Follow up: Response: No adverse reaction; IV Status: Completed infusion; IV Intake: lg3 100ml 00:09 Drug: morphine 2 mg Route: IVP; Infused Over: 4 mins; Site: right forearm; lg3 00:20 Follow up: Response: No adverse reaction; Marked relief of symptoms; Pain is decreased lg3 00:09 Drug: Zofran (Ondansetron) 4 mg Route: IVP; Site: right forearm; lg3 00:20 Follow up: Response: No adverse reaction lg3 00:10 Drug: NS 0.9% 500 ml Route: IV; Rate: bolus; Site: right forearm; lg3 00:21 Follow up: Response: No adverse reaction; IV Status: Completed infusion; IV Intake: lg3 500ml 00:10 Drug: SOLU-Medrol (methylPrednisoLONE) 125 mg Route: IVP; Site: right forearm; lg3 00:21 Follow up: Response: No adverse reaction lg3 00:15 Not Given (Patient Refused): Xopenex (levalbuterol) 2.5 mg Inhalation once lg3 00:15 Not Given (Patient Refused): AtroVENT (ipratropium) Aerosol 0.5 mg Inhalation once lg3 01:18 Drug: NS 0.9% 1000 ml Route: IV; Rate: 125 ml/hr; Site: right forearm; lg3 02:12 Follow up: IV Status: Infusion continued upon admission lg3 01:18 Drug: morphine 2 mg Route: IVP; Infused Over: 4 mins; Site: right forearm; lg3 02:12 Follow up: Response: No adverse reaction; Marked relief of symptoms; Pain is decreased lg3 Medication: 00:30 VIS not applicable for this client. lg3 Intake: 00:20 IV: 100ml; Total: 100ml. lg3 00:21 IV: 500ml; Total: 600ml. lg3 Outcome: 01:17 Decision to Hospitalize by Provider. michelle 02:42 Admitted to Med/surg accompanied by tech, via stretcher, room 214, with oxygen, Report lg3 called to [place] 02:42 Condition: stable 02:42 Instructed on the need for admit, Demonstrated understanding of instructions. 02:43 Patient left the ED. lg3 Signatures: Dispatcher [employer] EDMS Venkatesh Evans MD MD cha Ballard, Brenda, RN RN Oz Arnold ds4 Guerita Story, ROHIT RN lg3 Corrections: (The following items were deleted from the chart) 00:15 00:09 AtroVENT (ipratropium) Aerosol 0.5 mg Inhalation lg3 lg3 00:15 00:09 Xopenex (levalbuterol) 2.5 mg Inhalation lg3 lg3
[2022-10-29] MEDS ORDERED: ACETAMINOPHEN 325 MG TABLET PO PRN (03:56)
[2022-10-29] MEDS ORDERED: IPRATROPIUM BROM 0.5MG/2.5ML NEB PRN (03:56)
[2022-10-29] MEDS: ALBUTEROL 2.5 MG/3 ML NEB SOL NEB SCH ×4 (03:56→20:00)
[2022-10-29] MEDS ORDERED: ONDANSETRON 4 MG/2 ML VIAL IV PRN (03:56)
[2022-10-29] MEDS ORDERED: PNEUMOCOCCAL VACCINE 0.5 ML IMVAC ONE (08:00)
[2022-10-29] MEDS: METHYLPREDNISOLONE 40 MG INJ IV SCH ×2 (08:11→16:27)
[2022-10-29] MEDS: FAMOTIDINE 20 MG/2 ML VIAL IV SCH ×2 (08:11→21:04)
[2022-10-29] MEDS: PIPER TAZO 3.375 GM in NA CHLORIDE 0.9% 100 ML IV SCH ×2 (08:13→09:00)
[2022-10-29] MEDS ORDERED: HYDROCODONE/APAP 5/325 MG TAB PO PRN (08:14)
[2022-10-29] MEDS: TRAMADOL HCL 50 MG TAB PO PRN ×2 (09:38→16:28)
--- NOTE | 2022-10-29 11:54 | P.CNS ---
Date of Consult: 10/29/22 Reason for Consult: Right-sided chest Chief Complaint: Right-sided chest pain History of Present Illness: Patient is 72 years of age recurrent hospital admissions for right-sided infiltrate coloscopy nondiagnostic [employer] probe tested negative for TB and again [facility] complaining of pleuritic chest pain shortness of breath CT scan again shows an infiltrate in the right side Allergies Skvbujg-DGL-QuG Reductase Inhibitor [Nvyhhcn-Qjm-Qha Reductase Inhibitor] Allergy (Severe, Verified 09/01/22 20:46) Hives/Rash citalopram hydrobromide [From Celexa] Allergy (Verified 01/16/22 12:05) UNK codeine Allergy (Verified 01/16/22 12:05) Flushing in face ezetimibe [From Zetia] Allergy (Verified 01/16/22 12:05) UNK fish derived Allergy (Verified 01/16/22 12:05) PALPITATIONS ibandronate sodium [From Boniva] Allergy (Verified 01/16/22 12:05) REFLUX levofloxacin [From Levaquin] Allergy (Verified 01/16/22 12:05) Rash meloxicam [From Mobic] Allergy (Verified 01/16/22 12:05) Rash niacin Allergy (Verified 01/16/22 12:05) UNK NSAIDS (Non-Steroidal Anti-Inflamma Allergy (Verified 01/16/22 12:05) UNK paroxetine HCl [From Paxil] Allergy (Verified 01/16/22 12:05) UNK penicillin G Allergy (Verified 01/16/22 12:05) Rash Penicillins Allergy (Verified 01/16/22 12:05) Rash risedronate sodium [From Actonel] Allergy (Verified 01/16/22 12:05) UNK atorvastatin [From Lipitor] Adverse Reaction (Verified 09/03/22 03:26) Hives/Rash cephalexin monohydrate [From Keflex] Adverse Reaction (Verified 01/16/22 12:05) NAUSEA Home Medications: Duloxetine [Cymbalta *] 30 mg PO BEDTIME 08/17/13 estradioL [Estradiol] 0.5 mg PO DAILY 08/17/13 Dexlansoprazole [Dexilant] 60 mg PO DAILY 12/08/21 Gabapentin 300 mg PO BEDTIME 12/08/21 Imipramine HCl 50 mg PO BEDTIME 12/08/21 Spironolactone 25 mg PO DAILY 12/08/21 Sotalol HCl [Betapace*] 80 mg PO BID 6AM 6PM #60 tab 09/05/22 Amlodipine Besylate 5 mg PO DAILY 10/08/22 Clopidogrel Bisulfate [Plavix*] 75 mg PO DAILY 10/08/22 traMADol HCL [Ultram*] 50 mg PO TID 10/08/22 - Past Medical/Surgical History Diabetic: No -: Arthritis -: Chronic Pain -: CORONARY ARTERY DISEASE WITH STENT RECENTLY -: ANXIETY -: HTN -: HLD -: Hysterectomy -: Appendectomy -: Pain Pump -: Foot surgery - Family History Father Medical History: Heart disease, Cancer Notes: pancreatic/liver cancer Mother Medical History: Heart disease, Hypertension, Stroke - Social History Smoking Status: Former smoker Alcohol use: No CD- Drugs: No Caffeine use: Yes Place of Residence: Home Review of Systems General: Weakness Respiratory: Cough, Shortness of Breath Cardiovascular: Chest Pain Physical Examination Temp Pulse Resp BP Pulse Ox 96.7 F L 76 14 115/59 L 94 10/29/22 08:00 10/29/22 08:00 10/29/22 08:00 10/29/22 08:00 10/29/22 08:00 General: Alert, Oriented x3, Moderate distress Respiratory: Diminished Cardiovascular: No edema (Initially the right base), Regular rate/rhythm, Normal S1 S2 Gastrointestinal: Normal bowel sounds, Soft and benign, Non-distended Laboratory Data (last 24 hrs) 10/28/22 23:55: PT 11.4, INR 1.04 10/28/22 23:55: WBC 11.60 H, Hgb 12.3, Hct 37.6, Plt Count 244 10/28/22 23:55: Sodium 133 L, Potassium 4.3, BUN 15, Creatinine 0.69, Glucose 149 H, Magnesium 2.0, Total Bilirubin 0.6, AST 12 L, ALT 20, Alkaline Phosphatase 65 - Problems (1) Atypical pneumonia Current Visit: No Status: Acute Plan: Patient is 72 years of age admitted with right-sided pleuritic chest pain he was admitted in August underwent a bronchoscopy initially improving got worse again apparently she gets worse whenever the steroids are tapered off far cultures have been negative on 1209 Pseudomonas was isolated from the sputum white count is mildly elevated plan to treat her with 2 weeks of IV meropenem
[2022-10-29] MEDS: Meropenem 1,000 MG in NA CHLORIDE 0.9% 100 ML IV SCH ×2 (12:59→21:04)
--- NOTE | 2022-10-29 14:32 | RAD REPORT ---
EXAM DESCRIPTION: Chest Single View CLINICAL HISTORY: 72 years Female, Chest pain COMPARISON: Chest radiograph dated 10/26/2022 IMPRESSION: Bibasilar interstitial opacities and small right pleural effusion. Chronic lung changes. No pneumothorax. Cardiomediastinal silhouette is within normal limits. No acute osseous abnormality. Osteopenia. Electronically signed by: Seng Gonzalez DO 10/29/2022 12:01 AM BEATER ROOM SUPERVISOR Due to temporary technical issues with the PACS/Fluency reporting system, reports are being signed by the in house radiologists without review as a courtesy to insure prompt reporting. The interpreting radiologist is fully responsible for the content of the report.
--- NOTE | 2022-10-29 14:53 | RAD REPORT ---
EXAM DESCRIPTION: CT Angiography Chest With Intravenous Contrast CLINICAL HISTORY: The patient is 72 years old and is Female; dyspnea TECHNIQUE: Axial computed tomographic angiography images of the chest with intravenous contrast. T his CT exam was performed using one or more of the following dose reduction techniques: automated e xposure control, adjustment of the mA and/or kV according to patient size, and/or use of iterative re construction technique. MIP reconstructed images were created and reviewed. Oblique reformatted images were created and reviewed. DLP: 368 mGy*cm COMPARISON: Chest radiograph of the same day and CTA chest dated 10/08/2022. FINDINGS: PULMONARY ARTERIES: Unremarkable. No pulmonary embolism. AORTA: No acute findings. No thoracic aortic aneurysm. LUNGS: Interval worsening right lower lobe consolidation. Continued evidence of opacity in the right middle lobe with associated atelectasis. PLEURAL SPACE: Small right pleural effusion. No pneumothorax. HEART: Unremarkable. No cardiomegaly. No significant pericardial effusion. No evidence of RV dysfunction. MEDIASTINUM: Mediastinal and right hilar lymphadenopathy. Moderate hiatal hernia. BONES/JOINTS: No acute fracture. No dislocation. SOFT TISSUES: Unremarkable. LYMPH NODES: Unremarkable. No enlarged lymph nodes. LIVER: Hepatic steatosis. IMPRESSION: 1. No pulmonary embolism. 2. Interval worsening right lower lobe consolidation. Continued evidence of opacity in the right mi ddle lobe with associated atelectasis. 3. Small right pleural effusion. 4. Mediastinal and right hilar lymphadenopathy. 5. Moderate hiatal hernia. 6. Hepatic steatosis. Electronically signed by: Seng Gonzalez DO 10/29/2022 1:49 AM FLATWORK FOLDER Due to temporary technical issues with the PACS/Fluency reporting system, reports are being signed by the in house radiologists without review as a courtesy to insure prompt reporting. The interpreting radiologist is fully responsible for the content of the report.
[2022-10-29 18:29] VITALS: BMI 29.2
--- NOTE | 2022-10-29 18:31 | P.SSS ---
Patient History Date of Service: 10/29/22 Reason for admission: Right-sided chest pain History of Present Illness: R SIDED CHEST PAIN. LOWER. RECURRENCE. SHE HAS GONE THROUGH ABX, STEROIDS, BRONCHOSCOPY WITH NO MASS DETECTION BUT SYMPTOMS RECURRED AND SHE IS BACK HERE. CT SCAN SHOWS A MASS BUT RADIOLOGIST IS NOT SURE IF IT IS JUST PNEUMONIA OR NOT AND WANTS TO DELAY BIOPSY UNTIL MERREM IS GIVEN FOR 14 DAYS. SHE IS GROWING PSEUDOMONAS FROM THE CULTURE. SHE WANTS BIOPSY BUT DR. BECKER WILL TALK TO HER IN AM. Allergies Ombwxvj-OYP-MjL Reductase Inhibitor [Awgyawk-Ogp-Ehn Reductase Inhibitor] Allergy (Severe, Verified 09/01/22 20:46) Hives/Rash citalopram hydrobromide [From Celexa] Allergy (Verified 01/16/22 12:05) UNK codeine Allergy (Verified 01/16/22 12:05) Flushing in face ezetimibe [From Zetia] Allergy (Verified 01/16/22 12:05) UNK fish derived Allergy (Verified 01/16/22 12:05) PALPITATIONS ibandronate sodium [From Boniva] Allergy (Verified 01/16/22 12:05) REFLUX levofloxacin [From Levaquin] Allergy (Verified 01/16/22 12:05) Rash meloxicam [From Mobic] Allergy (Verified 01/16/22 12:05) Rash niacin Allergy (Verified 01/16/22 12:05) UNK NSAIDS (Non-Steroidal Anti-Inflamma Allergy (Verified 01/16/22 12:05) UNK paroxetine HCl [From Paxil] Allergy (Verified 01/16/22 12:05) UNK penicillin G Allergy (Verified 01/16/22 12:05) Rash Penicillins Allergy (Verified 01/16/22 12:05) Rash risedronate sodium [From Actonel] Allergy (Verified 01/16/22 12:05) UNK atorvastatin [From Lipitor] Adverse Reaction (Verified 09/03/22 03:26) Hives/Rash cephalexin monohydrate [From Keflex] Adverse Reaction (Verified 01/16/22 12:05) NAUSEA Home Medications: Duloxetine [Cymbalta *] 30 mg PO BEDTIME 08/17/13 estradioL [Estradiol] 0.5 mg PO DAILY 08/17/13 Dexlansoprazole [Dexilant] 60 mg PO DAILY 12/08/21 Gabapentin 300 mg PO BEDTIME 12/08/21 Imipramine HCl 50 mg PO BEDTIME 12/08/21 Spironolactone 25 mg PO DAILY 12/08/21 Sotalol HCl [Betapace*] 80 mg PO BID 6AM 6PM #60 tab 09/05/22 Amlodipine Besylate 5 mg PO DAILY 10/08/22 Clopidogrel Bisulfate [Plavix*] 75 mg PO DAILY 10/08/22 traMADol HCL [Ultram*] 50 mg PO TID 10/08/22 - Past Medical/Surgical History Has patient received pneumonia vaccine in the past: No Diabetic: No -: Arthritis -: Chronic Pain -: CORONARY ARTERY DISEASE WITH STENT RECENTLY -: ANXIETY -: HTN -: HLD -: Hysterectomy -: Appendectomy -: Pain Pump -: Foot surgery - Family History Father -: Heart disease, Cancer Notes: pancreatic/liver cancer Mother -: Heart disease, Hypertension, Stroke - Social History Smoking Status: Never smoker Alcohol use: No CD- Drugs: No Caffeine use: Yes Place of Residence: Home Review of Systems 10-point ROS is otherwise unremarkable General: Weakness, Other (WEIGHTLOSS 20 LBS), As per HPI Physical Examination - Vital Signs Temperature: 96.9 F Blood Pressure: 112/50 Pulse: 94 Respirations: 16 Pulse Ox (%): 92 - Physical Exam General: Mild distress, Moderate distress HEENT: Atraumatic, PERRLA, Mucous membr. moist/pink, EOMI, Sclerae nonicteric Neck: Supple, 2+ carotid pulse no bruit, No LAD, Without JVD or thyroid abnormality Respiratory: Clear to auscultation bilaterally, Normal air movement Cardiovascular: Regular rate/rhythm, Normal S1 S2 Gastrointestinal: Normal bowel sounds, No tenderness Musculoskeletal: No tenderness Integumentary: No rashes Neurological: Normal gait, Normal speech, Normal strength at 5/5 x4 extr, Normal tone, Normal affect Lymphatics: No axilla or inguinal lymphadenopathy - Studies Laboratory Data (last 24 hrs) 10/28/22 23:55: PT 11.4, INR 1.04 10/28/22 23:55: WBC 11.60 H, Hgb 12.3, Hct 37.6, Plt Count 244 10/28/22 23:55: Sodium 133 L, Potassium 4.3, BUN 15, Creatinine 0.69, Glucose 149 H, Magnesium 2.0, Total Bilirubin 0.6, AST 12 L, ALT 20, Alkaline Phosphatase 65 - Diagnosis (Problem(s)) (1) Right lower lobe lung mass Current Visit: Yes Status: Acute Plan: IV MERREM I SUSPECT SHE HAS RECURRENCE BECAUSE OF MASS. BIOPSY TO BE DONE AFTER ABX IF SHE HAS PERSISTENT FINDINGS. SHE LOST WEIGHT ABOUT 20 LBS AND THAT IS WORRISOME FOR MASS. (2) Bacterial pneumonia Current Visit: No Status: Acute - Disposition Disposition: ROUTINE DISCHARGE
[2022-10-29] MEDS: ENOXAPARIN 40 MG/0.4 ML SQ SCH (21:04)
[2022-10-29] MEDS ORDERED: ALPRAZOLAM 0.25 MG TABLET PO ONE (21:16)
--- NOTE | 2022-10-30 00:41 | PN ---
Date of Progress Note: 10/29/2022 Ms. Henderson is a 72-year-old female who has a history of chronic pain in the low back region. She has an indwelling intrathecal pump with low battery alarm occurring. She was scheduled to come in t o our office to get a refill. She has been admitted to the hospital for pneumonia. bupiv acaine at 15 mg/cc. Current volume was 1.2 cc, current rate was 26 mg of morphine per day. The pump was prepped and draped in a sterile fashion. A specialized needle was inserted into the pum p. Aspiration revealed 1.5 cc of a clear fluid which was discarded. Next, the syringe labelled with Chaparrita Henderson's name with the same medications 19 cc injected in to the pump, 1 cc was discarded. Rate was kept the same. She has to follow up with her son in next week . /MARLENY Voice ID: [id number] Report ID: [id number]
[2022-10-30] MEDS: METHYLPREDNISOLONE 40 MG INJ IV SCH ×3 (00:43→17:28)
[2022-10-30] MEDS: ALBUTEROL 2.5 MG/3 ML NEB SOL NEB SCH ×2 (02:00→08:00)
[2022-10-30 05:45] LABS: Absolute Lymphocytes (CBC) 0.6 K/uL (0.7-4.9); MCV 86.6 fL (80-100); MPV 7.1 fL (7.6-11.3); RBC Red Blood Cell Count 4.04 M/uL (3.86-4.86)
[2022-10-30 06:15] LABS: Potassium 4.2 mmol/L (3.5-5.1)
--- NOTE | 2022-10-30 06:55 | RAD REPORT ---
EXAM DESCRIPTION: RAD - Chest Single View - 10/30/2022 6:18 am CLINICAL HISTORY: Chest Pain COMPARISON: Portable 10/28/2022, CT chest 10/29/2022 TECHNIQUE: AP portable chest image was obtained 10/30/2022 6:18 am . FINDINGS: Right base mass density has not changed. No new or progressive lung parenchymal finding. Moderately large hiatal hernia again noted. Heart and vasculature are normal. No measurable pleural e ffusion and no pneumothorax. No acute bony abnormality seen. No acute aortic findings suspected. IMPRESSION: Stable portable chest as detailed.
[2022-10-30] MEDS: ENOXAPARIN 40 MG/0.4 ML SQ SCH (10:11)
[2022-10-30] MEDS: SPIRONOLACTONE 25 MG TABLET PO SCH (10:11)
[2022-10-30] MEDS: FAMOTIDINE 20 MG/2 ML VIAL IV SCH (10:11)
[2022-10-30] MEDS: CLOPIDOGREL 75 MG TABLET PO SCH (10:12)
[2022-10-30] MEDS: Meropenem 1,000 MG in NA CHLORIDE 0.9% 100 ML IV SCH ×2 (10:14→21:14)
[2022-10-30] MEDS: AMLODIPINE 5 MG TAB PO SCH (10:19)
[2022-10-30] MEDS: TRAMADOL HCL 50 MG TAB PO PRN (10:24)
--- NOTE | 2022-10-30 11:47 | P.PN ---
Subjective Date of Service: 10/30/22 Chief Complaint: Right-sided chest pain Subjective: Improving (Patient is improving feeling somewhat better pain is decreased) Review of Systems General: Weakness Respiratory: Shortness of Breath Cardiovascular: Chest Pain Physical Examination - Vital Signs Temperature: 97.1 F Blood Pressure: 114/57 Pulse: 89 Respirations: 18 Pulse Ox (%): 18 - Physical Exam General: Alert, Oriented x3 HEENT: Atraumatic Neck: Supple Respiratory: Diminished (Diminished on the right side) Cardiovascular: No edema, Regular rate/rhythm Assessment And Plan - Current Problems (Diagnosis) (1) Atypical pneumonia Current Visit: No Status: Acute Plan: Discussed with radiology not a suitable candidate for percutaneous biopsy did have Pseudomonas isolated in August however patient was not a candidate for oral therapy due to multiple allergies to commonly prescribed medication we will try patient on 2 weeks of meropenem for now if there is no change plan to do bronchoscopy patient to continue with Plavix will review with my office in a week chest x-ray if symptoms do not improve we will proceed to bronchoscopy chemistries labs all reviewed vital signs and oxygenation stable
[2022-10-30 12:22] LABS: Blood Morphology Comment NOT SEEN (NOT SEEN); Platelet Estimate ADEQ; White Blood Cell Scan OK (OK)
--- NOTE | 2022-10-30 17:23 | PN ---
Ms. Henderson is doing better. Denies any chest pain, nausea, vomiting. She is tolerating meropene m IV. This morning after discussion, she has agreed to a PICC line and meropenem IV. Dr. Jayme samson ants to do this for 2 weeks, repeat bronchoscopy and see if she has any masses. Radiology is not abl e to do any kind of a biopsy because they said this is just a pneumonia. 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 Meropenem will help this pneumonia hopefully. I am not sure why she has lost 20 pounds of weight and why she does have pneumonia in the same place again, which is unusual for sherry sanabria who is a nonsmoker and has no signs of any kind of COPD. In any case, patient will require possibl e biopsy to rule out cancer in future. VINITA/MARLENY Voice ID: [id number] Report ID: [id number]
[2022-10-30] MEDS: SOTALOL HCL 80 MG TAB PO SCH (17:28)
[2022-10-30] MEDS: GABAPENTIN 300 MG CAP PO SCH (21:16)
[2022-10-30] MEDS: ALPRAZOLAM 0.25 MG TABLET PO PRN (21:16)
[2022-10-30] MEDS: DULOXETINE 30 MG CAP PO SCH (21:16)
[2022-10-30] MEDS: IMIPRAMINE HCL 25 MG TAB PO SCH (21:16)
[2022-10-31] MEDS: SOTALOL HCL 80 MG TAB PO SCH ×2 (06:11→18:02)
[2022-10-31] MEDS: Meropenem 1,000 MG in NA CHLORIDE 0.9% 100 ML IV SCH ×2 (08:53→20:21)
[2022-10-31] MEDS: TRAMADOL HCL 50 MG TAB PO PRN ×2 (08:53→20:40)
[2022-10-31] MEDS: ENOXAPARIN 40 MG/0.4 ML SQ SCH (08:53)
[2022-10-31] MEDS: SPIRONOLACTONE 25 MG TABLET PO SCH (08:53)
[2022-10-31] MEDS: CLOPIDOGREL 75 MG TABLET PO SCH (08:53)
[2022-10-31] MEDS: AMLODIPINE 5 MG TAB PO SCH (08:53)
--- NOTE | 2022-10-31 12:17 | P.PN ---
Subjective Date of Service: 10/31/22 Chief Complaint: Right-sided chest pain Subjective: Improving (Patient is doing much better right-sided chest pain is improved notes of breath is also improved) Review of Systems Unremarkable Physical Examination - Vital Signs Temperature: 98.6 F Blood Pressure: 138/65 Pulse: 88 Respirations: 16 Pulse Ox (%): 95 - Physical Exam General: Alert Respiratory: Clear to auscultation bilaterally Cardiovascular: No edema, Regular rate/rhythm Assessment And Plan - Current Problems (Diagnosis) (1) Atypical pneumonia Current Visit: No Status: Acute Plan: Patient is improving on IV antibiotics continue with present therapy IV antibiotics for at least 2 weeks via PICC line pneumonia is isolated Calcitonin level is declining steroids have been discontinued vital signs oxygenation satisfactory
--- NOTE | 2022-10-31 17:55 | RAD REPORT ---
EXAM DESCRIPTION: RAD - Chest Single View - 10/31/2022 5:48 pm CLINICAL HISTORY: PICC line placement COMPARISON: Chest Single View dated 10/30/2022; Chest Single View dated 10/28/2022; Chest Pa And Lat (2 Views) dated 10/26/2022; Chest Pa And Lat (2 Views) dated 09/14/2022 FINDINGS: Portable chest was obtained following placement of a right upper extremity PICC line. The catheter tip projects over the SVC.
[2022-10-31] MEDS: DULOXETINE 30 MG CAP PO SCH (20:21)
[2022-10-31] MEDS: ALPRAZOLAM 0.25 MG TABLET PO PRN (20:21)
[2022-10-31] MEDS: GABAPENTIN 300 MG CAP PO SCH (20:21)
[2022-10-31] MEDS: IMIPRAMINE HCL 25 MG TAB PO SCH (20:22)
--- NOTE | 2022-10-31 20:29 | P.PN ---
Subjective Date of Service: 10/31/22 Chief Complaint: Right-sided chest pain Subjective: Improving SHE WILL GO HOME IN AM SHE DOES NOT WANT TO GO HOME LATE. PICC LINE PLACEMENT TOOK TIME. Physical Examination - Vital Signs Temperature: 97.4 F Blood Pressure: 136/66 Pulse: 79 Respirations: 16 Pulse Ox (%): 96 - Physical Exam General: In no apparent distress HEENT: Atraumatic, PERRLA, EOMI Neck: Supple, JVD not distended Respiratory: Clear to auscultation bilaterally, Normal air movement Cardiovascular: Regular rate/rhythm, Normal S1 S2 Gastrointestinal: Normal bowel sounds, No tenderness Musculoskeletal: No tenderness Integumentary: No rashes Neurological: Normal speech, Normal tone, Normal affect Lymphatics: No axilla or inguinal lymphadenopathy - Studies Medications List Reviewed: Yes Assessment And Plan - Current Problems (Diagnosis) (1) Right lower lobe lung mass Current Visit: Yes Status: Acute Plan: IV MERREM I SUSPECT SHE HAS RECURRENCE BECAUSE OF MASS. BIOPSY TO BE DONE AFTER ABX IF SHE HAS PERSISTENT FINDINGS. SHE LOST WEIGHT ABOUT 20 LBS AND THAT IS WORRISOME FOR MASS. (2) Bacterial pneumonia Current Visit: No Status: Acute Plan: IV MERREM FOR 14 DAYS. BRONCH AFTER THAT.
[2022-11-01] MEDS: MORPHINE 2 MG/ML SYR IV PRN ×2 (01:46→05:22)
[2022-11-01] MEDS: SOTALOL HCL 80 MG TAB PO SCH ×2 (05:27→17:12)
--- NOTE | 2022-11-01 08:10 | EKG ---
Test Date: 2022-10-29 Test Time: 00:02:00 Recruiting Internship: TESHA MEASUREMENT RESULTS: Intervals: Rate: 92 GA: 176 QRSD: 80 QT: 362 QTc: 447 Entiat: P: 45 GA: 176 QRS: -36 T: 32 INTERPRETIVE STATEMENTS: Normal sinus rhythm Left axis deviation Possible Anterior infarct, age undetermined Abnormal ECG Compared to ECG 09/01/2022 21:39:35 Atrial fibrillation no longer present Myocardial infarct finding still present Electronically Signed On 11-01-22 08:00:39 BIT BENDER by Abodn Perry
[2022-11-01] MEDS: SPIRONOLACTONE 25 MG TABLET PO SCH (08:21)
[2022-11-01] MEDS: CLOPIDOGREL 75 MG TABLET PO SCH (08:21)
[2022-11-01] MEDS: AMLODIPINE 5 MG TAB PO SCH (08:21)
[2022-11-01] MEDS: Meropenem 1,000 MG in NA CHLORIDE 0.9% 100 ML IV SCH ×2 (08:21→22:05)
[2022-11-01] MEDS: ENOXAPARIN 40 MG/0.4 ML SQ SCH (08:22)
[2022-11-01] MEDS: METHYLPREDNISOLONE 40 MG INJ IV SCH ×3 (10:09→17:12)
--- NOTE | 2022-11-01 12:24 | RAD REPORT ---
EXAM DESCRIPTION: RAD - Chest Single View - 11/01/2022 12:12 pm CLINICAL HISTORY: pnuemonia Chest pain. COMPARISON: Chest Single View dated 10/31/2022; Chest Single View dated 10/30/2022; Chest Single View da cindy 10/28/2022; Chest Pa And Lat (2 Views) dated 10/26/2022 FINDINGS: Portable technique limits examination quality. Since 10/31/2022, right-sided lung infiltrate and pleural effusion has moderately progressed. The hea rt is normal in size. Small hiatal hernia. IMPRESSION: Moderate worsening of right lower lobe lung aeration since comparative study.
[2022-11-01] MEDS: TRAMADOL HCL 50 MG TAB PO PRN (17:17)
--- NOTE | 2022-11-01 21:17 | P.PN ---
Subjective Date of Service: 11/01/22 Chief Complaint: Right-sided chest pain Subjective: New changes SHE WILL GO HOME IN AM SHE DOES NOT WANT TO GO HOME LATE. PICC LINE PLACEMENT TOOK TIME. SHE WAS DOING GREAT YESTERDAY, TODAY SHE HAS RECURRENCE OF SEVERE RIGHT SIDED CHEST PAIN. I ORDERED STEROIDS IV AGAIN AND CXR. CXR SHOWS WORSE PNEUMONIA. I ASKED DR. BECKER TO SEE HER AGAIN. Physical Examination - Vital Signs Temperature: 98.1 F Blood Pressure: 140/73 Pulse: 85 Respirations: 18 Pulse Ox (%): 95 - Physical Exam General: Oriented x3, Moderate distress HEENT: Atraumatic, PERRLA, EOMI Neck: Supple, JVD not distended Respiratory: Clear to auscultation bilaterally, Normal air movement Cardiovascular: Regular rate/rhythm, Normal S1 S2 Gastrointestinal: Normal bowel sounds, No tenderness Musculoskeletal: No tenderness Integumentary: No rashes Neurological: Normal speech, Normal tone, Normal affect Lymphatics: No axilla or inguinal lymphadenopathy - Studies Medications List Reviewed: Yes Assessment And Plan - Current Problems (Diagnosis) (1) Right lower lobe lung mass Current Visit: Yes Status: Acute Plan: IV MERREM I SUSPECT SHE HAS RECURRENCE BECAUSE OF MASS. BIOPSY TO BE DONE AFTER ABX IF SHE HAS PERSISTENT FINDINGS. SHE LOST WEIGHT ABOUT 20 LBS AND THAT IS WORRISOME FOR MASS. DESPITE MERRREM IV HER PNEUMONIA IS WORSE. POST OBSTRUCTIVE ETIOLOGY IS LIKELY. IV STEROIDS UNTIL SHE IS BETTER THEN ORAL STEROIDS. (2) Bacterial pneumonia Current Visit: No Status: Acute Plan: IV MERREM FOR 14 DAYS. BRONCH AFTER THAT.
[2022-11-01] MEDS: IMIPRAMINE HCL 25 MG TAB PO SCH (22:05)
[2022-11-01] MEDS: GABAPENTIN 300 MG CAP PO SCH (22:05)
[2022-11-01] MEDS: DULOXETINE 30 MG CAP PO SCH (22:05)
[2022-11-02] MEDS: METHYLPREDNISOLONE 40 MG INJ IV SCH ×2 (00:01→06:15)
[2022-11-02] MEDS: TRAMADOL HCL 50 MG TAB PO PRN (00:02)
[2022-11-02 05:17] VITALS: TEMP 97.6
[2022-11-02] MEDS: SOTALOL HCL 80 MG TAB PO SCH (06:15)
[2022-11-02 06:36] VITALS: O2SAT 94
--- NOTE | 2022-11-02 07:39 | RAD REPORT ---
EXAM DESCRIPTION: Vlad Single View11/02/2022 5:27 am CLINICAL HISTORY: Chest pain COMPARISON: November 01, 2022 FINDINGS: No significant change in large right basilar consolidation Left lung appears clear of acute infiltrate Heart is normal size. PICC line place IMPRESSION: No significant change in the large right basilar consolidation presumably pneumonia. Thi s should be followed until it is clear to help exclude a post obstructive process/underlying mass
[2022-11-02 08:19] VITALS: BP 134/68
[2022-11-02] MEDS: ENOXAPARIN 40 MG/0.4 ML SQ SCH (08:44)
[2022-11-02] MEDS: SPIRONOLACTONE 25 MG TABLET PO SCH (08:45)
[2022-11-02] MEDS: AMLODIPINE 5 MG TAB PO SCH (08:45)
[2022-11-02] MEDS: CLOPIDOGREL 75 MG TABLET PO SCH (08:45)
[2022-11-02] MEDS: Meropenem 1,000 MG in NA CHLORIDE 0.9% 100 ML IV SCH (08:46)
--- NOTE | 2022-11-02 15:28 | P.DS ---
Admission Date: 10/29/22 Discharge Date: 11/02/22 Disposition: ROUTINE DISCHARGE Discharge Condition: FAIR Reason for Admission: Right-sided chest pain - Problems (1) Right lower lobe lung mass Status: Acute (2) Bacterial pneumonia Status: Acute Brief History of Present Illness: R SIDED CHEST PAIN. LOWER. RECURRENCE. SHE HAS GONE THROUGH ABX, STEROIDS, BRONCHOSCOPY WITH NO MASS DETECTION BUT SYMPTOMS RECURRED AND SHE IS BACK HERE. CT SCAN SHOWS A MASS BUT RADIOLOGIST IS NOT SURE IF IT IS JUST PNEUMONIA OR NOT AND WANTS TO DELAY BIOPSY UNTIL MERREM IS GIVEN FOR 14 DAYS. SHE IS GROWING PSEUDOMONAS FROM THE CULTURE. SHE WANTS BIOPSY BUT DR. BECKER WILL TALK TO HER IN AM. Hospital Course: Stella has r side chest pain that shows pneumonia needing IV abx. She lost weight and I suspect a tumor but so far the plan is to give her 14 days of antibiotics and redo bronch by dr. becker. she hadchest pain when we stopped steroids and that is concerning also. SHe will continue steroids for now and fu with dr. rodriguez. Vital Signs/Physical Exam: Temp Pulse Resp BP Pulse Ox 97.6 F 80 16 134/68 96 11/02/22 08:00 11/02/22 08:45 11/02/22 08:00 11/02/22 08:45 11/02/22 08:00 Laboratory Data at Discharge: WBC 12.10 K/uL (4.3-10.9) H 10/30/22 05:07 Hgb 11.6 g/dL (12.0-15.0) L 10/30/22 05:07 Hct 35.0 % (36.0-45.0) L 10/30/22 05:07 Plt Count 232 K/uL (152-406) 10/30/22 05:07 PT 11.4 SECONDS (9.5-12.5) 10/28/22 23:55 INR 1.04 10/28/22 23:55 Sodium 139 mmol/L (136-145) 10/30/22 05:07 Potassium 4.2 mmol/L (3.5-5.1) 10/30/22 05:07 BUN 15 mg/dL (7-18) 10/30/22 05:07 Creatinine 0.59 mg/dL (0.55-1.02) 10/30/22 05:07 Glucose 149 mg/dL (74-106) H 10/30/22 05:07 Magnesium 2.0 mg/dL (1.6-2.4) 10/28/22 23:55 Total Bilirubin 0.6 mg/dL (0.2-1.0) 10/28/22 23:55 AST 12 U/L (15-37) L 10/28/22 23:55 ALT 20 U/L (13-56) 10/28/22 23:55 Alkaline Phosphatase 65 U/L (45-117) 10/28/22 23:55 Home Medications: Duloxetine [Cymbalta *] 30 mg PO BEDTIME 08/17/13 estradioL [Estradiol] 0.5 mg PO DAILY 08/17/13 Dexlansoprazole [Dexilant] 60 mg PO DAILY 12/08/21 Gabapentin 300 mg PO BEDTIME 12/08/21 Imipramine HCl 50 mg PO BEDTIME 12/08/21 Spironolactone 25 mg PO DAILY 12/08/21 Sotalol HCl [Betapace*] 80 mg PO BID 6AM 6PM #60 tab 09/05/22 Amlodipine Besylate 5 mg PO DAILY 10/08/22 Clopidogrel Bisulfate [Plavix*] 75 mg PO DAILY 10/08/22 traMADol HCL [Ultram*] 50 mg PO TID 10/08/22 ALPRAZolam [Xanax*] 0.25 mg PO BEDTIME PRN tab 11/02/22
== END 2022-11-02 10:13 | disposition home or self-care (01) | DRG 179 ==
LOC: ER 22:42 → ERHOLD 10-29 01:19 → 2ND 10-29 02:05
PROVIDERS: ADMIT Internal Medicine; ATTEND Internal Medicine
PROC: 02HV33Z Insertion of Infusion Device into Superior Vena Cava, Percutaneous Approach (ICD-10-PCS; principal; 2022-10-31)
DX: J15.1 Pneumonia due to Pseudomonas (principal); E78.5 Hyperlipidemia, unspecified; I10 Essential (primary) hypertension; G89.29 Other chronic pain; M54.50 Low back pain, unspecified; D49.1 Neoplasm of unspecified behavior of respiratory system; R91.8 Other nonspecific abnormal finding of lung field; Z88.5 Allergy status to narcotic agent; Z88.8 Allergy status to other drugs, medicaments and biological substances; Z88.0 Allergy status to penicillin; Z91.013 Allergy to seafood; Z79.02 Long term (current) use of antithrombotics/antiplatelets; Z79.899 Other long term (current) drug therapy; Z87.891 Personal history of nicotine dependence; Z90.710 Acquired absence of both cervix and uterus; Z20.822 Contact with and (suspected) exposure to COVID-19
CPT/HCPCS: 0240U; 36415; 71045; 71046; 71275; 80048; 80076; 83605; 83735; 83880; 84145; 84484; 85025; 85610; 87040; 87205; 93005; 94010; 94760; 96361; 96374; 96375; 99285; J1650; J2185; J2270; J2405; J2543; J2920; J7613; J7614; J7644; Q9967

== ENCOUNTER 2023-02-22 21:52 | Emergency (ER) | payer OTHER ==
--- OUTSIDE RECORDS SUMMARY | 2023-02-22 21:59 | XMS REPORT | Continuity of Care Document ---
:1950 Author Organization [facility] t Address [address] [facility] [address] [place] [address] Care Team Providers Name Role Phone No MD, Pcp Primary Care Physician Unavailable Ruperto Burns Rahil Attending Clinician Unavailable [id number] Attending Clinician Unavailable SIDNEY LOPES Attending Clinician Unavailable STEVE BENNETT Attending Clinician Unavailable JACQUELINE COHEN Attending Clinician Unavailable JACQUELINE COHEN Attending Clinician Unavailable Frances Childs Attending Clinician Sophia Mitchell Attending Clinician Unavailable Provider , Not In System Attending Clinician Unavailable ABDIRIZAK MELO Attending Clinician Unavailable Steve Bennett Attending Clinician [phone] STEVE BENNETT Attending Clinician Unavailable STACIE BUCK Attending Clinician Unavailable Stacie Buck Attending Clinician Viviana Singh MD Attending Clinician VIVIANA SINGH Attending Clinician Unavailable Lab, Adc Fam Pob I Attending Clinician Unavailable Emerald Delatorre RN Attending Clinician Unavailable Only, Adc Test Attending Clinician Unavailable DANAY SALAZAR Attending Clinician Unavailable Doctor Unassigned, [place] Attending Clinician Unavailable Ruperto Burns Rahil Admitting Clinician Unavailable [id number] Admitting Clinician Unavailable SIDNEY LOPES Admitting Clinician Unavailable STACIE BUCK Admitting Clinician Unavailable Stacie Buck Admitting Clinician VIVIANA SINGH Admitting Clinician Unavailable Payers Payer Name Policy Type Policy Number Effective Date Expiration Date Aishwarya HIGH [id number] 2001 00:00:00 [facility] [id number] MEDICARE PART A [id number] 2017 \\T\\ B 00:00:00 ANILA [id number] 2021 00:00:00 ANILA [id number] 2001 00:00:00 Problems Condition Condition Condition Status Onset Resolution Last Treating Co mments Source Name Details Category Date Date Treatment Clinician Date Gastroesop Gastroeso Diagnosis Active 2022-12-31 Memoria hageal phageal 12-25 00:46:47 l reflux reflux 00:00: Christoval disease disease 00 (disorder) (disorder) Active 12/25/2022 Diagnosis 12/31/2022 [facility] RIGHT OPEN RIGHT Diagnosis Active 2023-01-10 Memoria ANKLE OPEN ANKLE 12-21 21:54:00 l FRACTURE FRACTURE 00:00: Isaak n DISLOCATIO DISLOCATIO 00 N N Active 12/21/2022 [facility] [place] Ankle Ankle Disease Active [place] fracture, fracture, 12-19 Heal th right, right, 00:00: open type open type 00 I or II, I or II, initial initial encounter encounter HEART HEART Diagnosis Active 2022-12-08 Mem oria DISEASE DISEASE 12-07 13:54:00 l Active 00:00: Christoval 12/07/2022 [facility] ACUTE ACUTE Diagnosis Active 2022-12-19 Mem oria RIGHT RIGHT 12-06 21:48:00 l ANKLE PAIN ANKLE PAIN 00:00: He rmann Active 00 12/06/2022 [facility] [place] OPEN ANKLE OPEN Diagnosis Active 2022-12-06 Memoria FX ANKLE FX 12-06 10:50:00 l Active 00:00: Christoval 12/06/2022 00 [facility] [place] No known No known Disease Unive rs active active ity of problems problems [facility] Acute pain Acute Problem Active 2022-12-31 M emoria (finding) pain 00:46:47 l (finding) Matthias Active Problem 12/31/2022 [facility] Acute Acute Problem Active 2022-12-31 Memor ia respirator respirator 00:46:47 l y failure y failure Herm juan (disorder) (disorder) Active Problem 12/31/2022 [facility] Arthritis Arthritis Problem Active 2022-12-31 Memoria (disorder) (disorder) 00:46:47 l Active Christoval Problem 12/31/2022 [facility] Atrial Atrial Problem Active 2022-12-31 Gregory lula fibrillati fibrillati 00:46:47 l on on Matthias (disorder) (disorder) Active Problem 12/31/2022 [facility] Atypical Atypical Problem Active 2022-12-31 Memoria pneumonia pneumonia 00:46:47 l (disorder) (disorder) He rmann Active Problem 12/31/2022 [facility] Coronary Coronary Problem Active 2022-12-31 Memoria arterioscl arterioscl 00:46:47 l erosis erosis Matthias (disorder) (disorder) Active Problem 12/31/2022 [facility] Fracture Fracture Problem Active 2022-12-31 Memoria of ankle of ankle 00:46:47 l (disorder) (disorder) He rmann Active Problem 12/31/2022 [facility],M emorial Christoval [facility] Hypertensi Hypertens Problem Active 2022-12-31 Memoria ve vijaya 00:46:47 l disorder, disorder, Herm juan systemic systemic arterial arterial (disorder) (disorder) Active Problem 12/31/2022 [facility] Retention Retention Problem Active 2022-12-31 Memoria of urine of urine 00:46:47 l (disorder) (disorder) He rmann Active Problem 12/31/2022 [facility] PAIN IN PAIN IN Diagnosis Active 2022-12-19 Memoria RIGHT RIGHT 21:48:00 l ANKLE AND ANKLE AND Herm juan JOINTS OF JOINTS OF RIGHT RIGHT Active [facility] [place] Osteoarthr Osteoarth Diagnosis 2022-2022-12-31 2022-12-31 Memoria itis ritis 4-04 00:46:47 00:46:47 l (disorder) (disorder) 17:56: He rmann 12/25/2022 00 Diagnosis 12/31/2022 [facility] [place] Gastroesop Gastroeso Diagnosis 2022-12-31 2022-12-31 Memoria hageal phageal - 00:46:47 00:46:47 l reflux reflux 17:12: Matthias disease disease 00 without without esophagiti esophagiti s s (disorder) (disorder) 3 Diagnosis 12/31/2022 [facility] [place] Atheroscle Atheroscl Diagnosis 2022-12-31 2022-12-31 Memoria rosis of erosis of 12-25 00:46:47 00:46:47 l coronary coronary 17:10: Isaak n artery artery 00 (disorder) (disorder) 3 Diagnosis 12/31/2022 [facility] [place] Essential Essential Diagnosis 2022-12-31 2022-12-31 Memoria hypertensi hypertensi 12-25 00:46:47 00:46:47 l on on 17:10: Matthias (disorder) (disorder) 00 3 Diagnosis 12/31/2022 [facility] [place] Allergies, Adverse Reactions, Alerts Allergy Allergy Status Severity Reaction(s) Onset Inactive Treating Comm ents Source Name Type Date Date Clinician Ezetimib Allergy Active 2021-09 Other [place] e to 0-13 reaction( Health substanc 00:00: s): e 00 Unknown Ibandron Allergy Active 2021-09 Other [place] ic Acid to 0-13 reaction( Health substanc 00:00: s): e 00 Unknown Nsaids Allergy Active 2021-09 Other [place] to 0-13 reaction( Health substanc 00:00: s): e 00 Unknown Statins Allergy Active 2021-09 Other [place] to 0-13 reaction( Health substanc 00:00: s): e 00 Unknown Evolocum Allergy Active 2021-09 Other [place] ab to 0-13 reaction( Health substanc 00:00: s): e 00 Unknown PENICILL Drug Active Rash Univers INS Class 01-21 ity of 00:00: [place] 00 Medical Branch Penicill Propensi Active Rash Univer s ins ty to 5 ity of adverse 00:00: [place] reaction 00 Medical s Branch Penicill Allergy Active Rash Other [place] ins to 05-31 reaction( Health substanc 00:00: s): e 00 Unknown Codeine Codeine Active Memoria Sulfate Sulfate l Matthias CeleXA CeleXA Active Memoria l Matthias Repatha Repatha Active Memoria l Matthias Levaquin Levaquin Active Memori a l Christoval Paxil Paxil Active Memoria l [place] penicill penicill Active Memori a ins ins l [place] niacin niacin Active Memoria l Matthias Keflex Keflex Active Memoria l [place] Mobic Mobic Active Memoria l [place] Crestor Crestor Active Memoria l Matthias statins statins Active Memoria l Christ[place] Social History Social Habit Start Date Stop Date Quantity Comments Source History of tobacco Cigarette Smoker University of use [facility] Gender identity [facility] Sexual orientation [facility] Exposure to 2023-01-28 2023-02-07 Not sure [facility] SARS-CoV-2 (event) 00:00:00 11:54:00 Alcohol intake 2022-08-30 2022-08-30 Current University of 00:00:00 00:00:00 non-drinker of [facility] alcohol Branch (finding) Cigarettes smoked 2019-01-21 2019-01-21 Univers ity of current (pack per 00:00:00 00:00:00 [facility] ) - Reported Branch Cigarette 2019-01-21 2019-01-21 University of pack-years 00:00:00 00:00:00 [facility] Tobacco use and 2019-01-21 2019-01-21 Smokeless Universit y of exposure 00:00:00 00:00:00 tobacco non-user [facility] dical [place] Sex Ass[birth year] At [birth year] [facility] 00:00:[facility] 00:[facility]00 Hospital Smoking Status Start Date Stop Date Source Tobacco smoking [facility] consumption unknown Tobacco smoking status [facility] Ex-smoker 2019-01-21 00:00:00 2019-01-21 [place] [facility] 00:00:00 [facility] Branch Medications Ordered Filled Start Stop Current Ordering Indication Dosage Frequency Signature Comments Components Source Medication Medication Date Date Medication? Clinician (SIG) Name Name gabapentin Yes 400 mg = 1 M emoria 400 mg oral 4-06 cap, PO, l capsule 17:02: Bedtime, # Herm juan 00 30 cap, 0 Refill(s), Pharmacy: [facility] #[id number], 162.56, cm, 04/05/23 15:20:00 CDT, Height, 77.273, kg, 12/27/22 10:50:00 CDT, Weight oxyCODONE 5 2022-0 Yes 5 mg = 1 Me moria mg oral 4-06 tab, PO, l tablet, 17:01: Q6H, PRN Isaak n immediate 00 Pain Score release 7-10, X 5 day, # 20 tab, 0 Refill(s), Pharmacy: [facility] #[id number], 162.56, cm, 12/26/22 15:20:00 CDT, Height, 77.273, kg, 12/27/22 10:50:00 CDT, Weight enoxaparin 0 Yes 30 mg = Gregory lula 30 mg/0.3 4-06 0.3 ml, l mL 17:01: SUB-Q, Matthias subcutaneou 00 Q12H, X 21 s solution day, # 12.6 mL, 0 Refill(s), Pharmacy: [facility] #[id number], 162.56, cm, 12/26/22 15:20:00 CDT, Height, 77.273, kg, 12/27/22 10:50:00 CDT, Weight methocarbam 2022-0 Yes 500 mg = 1 Memoria ol 500 mg 4-06 tab, PO, l oral tablet 17:01: TID, PRN He rmann 00 Spasm, X 14 day, # 42 tab, 0 Refill(s), Pharmacy: [facility] #[id number], 162.56, cm, 12/26/22 15:20:00 CDT, Height, 77.273, kg, 12/27/22 10:50:00 CDT, Weight clopidogrel 2022-0 Yes 75 mg = 1 M emoria 75 mg oral 3-22 tab, PO, l tablet 23:21: Daily, 0 Christoval 00 Refill(s) pantoprazol 2022-0 Yes 40 mg = 1 M emoria e 40 mg 3-22 tab, PO, l oral 23:21: Daily, 0 Christoval enteric 00 Refill(s) coated tablet senna 8.6 2022-0 Yes 17.2 mg = Mem oria mg oral 3-22 2 tab, PO, l tablet 23:21: Bedtime, 0 Bambi nn 00 Refill(s) sotalol AF Yes 40 mg = Gregory lula 80 mg oral 3-22 0.5 tab, l tablet 23:21: PO, BID, 0 Bambi nn 00 Refill(s) Dermoplast Yes 1 spray, Mem oria Pain 12-12 TOP, QID, l Relieving 23:21: 0 Christoval 20%-0.5% 00 Refill(s) topical spray enoxaparin Yes 30 mg, Memor ia 12-12 SUB-Q, l 23:21: Q12H, 0 Matthias 00 Refill(s) lidocaine Yes 0.05 gm = Mem oria 1% 12-12 5 mL, l preservativ 23:21: INTRADERM, Matthias e-free 00 ONCALL, 0 injectable Refill(s) solution meropenem 1 Yes 1 gm, Memor ia g 12-12 IVPB, l intravenous 23:21: ABXQ6H, Her silva injection 00 (CrCl 10 - 29 mL/min), 0 Refill(s) methocarbam Yes 500 mg = 1 Memoria ol 500 mg -22 tab, PO, l oral tablet 23:21: TID, PRN He rmann 00 Spasm, 0 Refill(s) oxybutynin Yes 5 mg = 1 Mem oria 5 mg oral 3-22 tab, PO, l tablet 23:21: TID, 0 Matthias 00 Refill(s) tramadol 50 Yes 50 mg = 1 M emoria mg oral 3-22 tab, PO, l tablet 23:21: Q6H, PRN Matthias 00 Pain Score 4-6, 0 Refill(s) acetaminoph 0 Yes 1 gm = 2 Me moria en 500 mg 3-22 tab, PO, l oral 23:20: Q8H-06, 0 Christoval tablet. 00 Refill(s) NS 1,000 mL No 1,000 mL, M emoria 3-19 Rate: 75 l 12:33: ml/hr, Christoval 00 Infuse over: 13.3 hr, Route: IV, Dosing Weight 78.182 kg, Total Volume: 1,000, Start date: 12/09/22 7:33:00 CDT, Duration: 1 doses or times, Stop date: 12/09/22 20:50:00 CDT, BSA: 1.9 m2, 0 tramadol 50 Yes Notes: Not Memoria mg oral 3-18 to exceed l tablet 16:14: 400mg/day. Bambi nn (Same As: Ultram) tramadol 50 Yes Notes: Not Memoria mg oral 3-18 to exceed l tablet 13:35: 400mg/day. Bambi nn (Same As: Ultram) ALPRAZOLam Yes Notes: Memor ia 0.25 mg 3-18 With food l oral tablet 12:49: or milk Her silva (Same as: Xanax) tramadol No Notes: Not Mem oria 3-18 to exceed l 05:52: 400mg/day. Matthias (Same As: Ultram) trazodone No Notes: Memori a 50 mg oral 3-18 (Same As: l tablet 05:52: Desyrel) Matthias 00 acetaminoph No Notes: Do M emoria en 3-18 not exceed l 03:00: 4 gm/day. Matthias (Same as: Tylenol) enoxaparin Yes Notes: Memor ia 3-18 (Same as: l 02:00: Lovenox) Matthias 00 melatonin 3 Yes Notes: Gregory lula mg oral 3-18 (Same as: l tablet 02:00: Melatonin) Bambi nn acetaminoph No 100.4 F, M emoria en 3-17 Start l 20:35: date: Matthias 00 12/07/22 15:35:00 CDT, Duration: 30 day, Stop date: 01/06/23 15:34:00 CDT, 0 oxyCODONE No Notes: Memori a immediate 3-17 (Same as: l release 20:27: Roxicodone ) oxyCODONE 5 No Notes: Gregory lula mg/5 mL 3-17 Same as: l oral 20:27: Roxicodone Christoval solution 00 cloNIDine No 190, # 50 Mem oria 0.1 mg oral 3-17 tab, 0 l tablet 15:21: Refill(s) Isaak n 00 tramadol 50 No 50 mg = 1 M emoria mg oral 3-17 tab, PO, l tablet 15:20: TID, # 90 Isaak n 00 tab, 0 Refill(s) desoximetas No 1 appl, Mem oria one topical 3-17 TOP, TID, l 0.25% 15:19: # 60 gm, 0 Isaak n ointment 00 Refill(s) spironolact No 50 mg = 1 M emoria one 50 mg 3-17 tab, PO, l oral tablet 15:18: Daily, # He rmann 00 90 tab, 0 Refill(s) ALPRAZOLam No 0.25 mg = Me moria 0.25 mg 3-17 1 tab, PO, l oral tablet 15:18: Bedtime, He rmann 00 PRN PRN, # 30 tab, 0 Refill(s) sotalol 80 No 80 mg = 1 Me moria mg oral 3-17 tab, PO, l tablet 15:17: BID, # 180 Bambi nn 00 tab, 0 Refill(s) gabapentin Yes 400 mg = 1 M emoria 400 mg oral 3-17 cap, PO, l capsule 15:15: Bedtime, # Herm juan 00 90 cap, 0 Refill(s) imipramine No 50 mg = 1 Me moria 50 mg oral 3-17 tab, PO, l tablet 15:15: Bedtime, # Bambi nn 00 90 tab, 0 Refill(s) estradiol No 0.5 mg = 1 Me moria 0.5 mg oral 3-17 tab, PO, l tablet 15:14: Daily, # Christoval 00 90 tab, 0 Refill(s) amLODIPine No 5 mg = 1 Mem oria 5 mg oral 3-17 tab, PO, l tablet 15:13: Daily, # Christoval 00 90 tab, 0 Refill(s) Dexilant 60 2023-0 No 60 mg = 1 M emoria mg oral 3-17 cap, PO, l delayed 15:12: Daily, # Isaak n release 00 90 cap, 0 capsule Refill(s) Plavix 75 2022-0 No 75 mg = 1 Mem oria mg oral 3-17 tab, PO, l tablet 15:12: Daily, # Matthias 00 90 tab, 0 Refill(s) DULoxetine 2022-0 Yes 30 mg = 1 Me moria 30 mg oral 3-17 cap, PO, l delayed 14:49: Bedtime, # Herm juan release 00 90 tab, 0 capsule Refill(s) amLODIPine 2022-0 Yes 5 mg, 1 Gregory lula 3-17 tab, l 14:00: Route: PO, Drug form: TAB, Daily, Dosing Weight 78.182, kg, Start date: 12/07/22 9:00:00 CDT, Duration: 30 day, Stop date: 01/05/23 9:00:00 CDT, 0 Plavix 2022-0 Yes 75 mg, 1 Memoria 3-17 tab, l 14:00: Route: PO, Drug form: TAB, Daily, Dosing Weight 78.182, kg, Start date: 12/07/22 9:00:00 CDT, Duration: 30 day, Stop date: 01/05/23 9:00:00 CDT, 0 Dexilant 2022-0 No 60 mg, 1 Memor ia 3-17 cap, l 14:00: Route: PO, Drug form: DRC, Daily, Dosing Weight 78.182, kg, Start date: 12/07/22 9:00:00 CDT, Duration: 30 day, Stop date: 01/05/23 9:00:00 CDT Cymbalta 0 Yes Notes: Memoria 3-17 (Same as: l 14:00: Cymbalta) (Do Not Crush) spironolact Yes Notes: Gregory lula one 3-17 (Same As: l 14:00: Aldactone) Hazardous Drug Group 2:Non-anti neoplastic Hazardous Drug -- Refer to safe handling procedure PPE [id number] docusate Yes Notes: Memoria 3-17 (Same as: l 14:00: Colace) (Do Not Crush) polyethylen Yes Notes: Gregory lula e glycol 3-17 Dissolve l 3350 14:00: in 8 oz of water or juice. (Same as: Miralax) Protonix Yes 40 mg, 1 Memor ia 3-17 tab, l 14:00: Route: PO, Drug form: ECTAB, Daily, Start date: 12/07/22 9:00:00 CDT, Duration: 30 day, Stop date: 01/05/23 9:00:00 CDT, 0 clindamycin No Notes: Gregory lula + Sodium 3-17 (clindamyc l Chloride 12:00: in 150 Matthias 0.9% IV 100 00 mg/1 ml mL (600 mg/4 ml VL) INJ) (Same As: Cleocin) sotalol Yes Notes: Memoria 3-17 (Same As: l 11:00: Betapace) 40 mg = 1/2 x 80 mg TAB morphine No Notes: Memoria Sulfate 3-17 (Same l 02:16: as:MORPhin e Sulfate) gabapentin Yes 300 mg, 1 Me moria 300 mg oral 3-17 cap, l capsule 02:00: Route: PO, Drug form: CAP, Bedtime, Dosing Weight 78.182, kg, Start date: 12/06/22 21:00:00 CDT, Duration: 30 day, Stop date: 01/04/23 21:00:00 CDT, 0 senna Yes Notes: Memoria 3-17 (Same as: l 02:00: Senokot) ondansetron No Route: IV, Memoria (ANES) 3-17 Drug form: l 00:19: INJ, ONCE, Stop date: 12/06/22 19:19:00 CDT sugammadex No Route: IV, M emoria (ANES) 3-17 Drug form: l 00:19: SOLN, Matthias 00 ONCE, Stop date: 12/06/22 19:19:00 CDT albuterol No Route: Memori a (ANES) 3-16 INHALATION l 23:36: , Drug form: AERO/A, ONCE, Stop date: 12/06/22 18:36:00 CDT propofol No Route: IV, Mem oria (ANES) 3-16 Drug form: l 23:26: INJ, ONCE, Stop date: 12/06/22 18:26:00 CDT rocuronium No Route: IV, M emoria (ANES) 3-16 Drug form: l 23:26: INJ, ONCE, Stop date: 12/06/22 18:26:00 CDT fentaNYL No Route: IV, Mem oria (ANES) 3-16 Drug form: l 23:26: INJ, ONCE, Stop date: 12/06/22 18:26:00 CDT dexamethaso No Route: IV, Memoria ne (ANES) 3-16 Drug form: l 23:26: INJ, ONCE, Stop date: 12/06/22 18:26:00 CDT enoxaparin No Notes: Memor ia 3-16 (Same as: l 23:00: Lovenox) S No 25 Memoria fentaNYL 3-16 microgram, l 22:59: Route: IVP, Q5Min, Dosing Weight 78.182, kg, PRN Pain Score 4-6, Priority: Routine, Start date: 12/06/22 17:59:00 CDT, Duration: 4 doses or times, Stop date: Limited # of times ANES No 0.2 mg, Memoria flumazenil 3-16 Route: l 22:59: IVP, PRN, Dosing Weight 78.182, kg, PRN Benzodiaze pine Reversal, Initial dose, Start date: 12/06/22 17:59:00 CDT, Duration: 30 day, Stop date: 01/05/23 17:58:00 CDT ANES No 0.4 mg, Memoria naloxone 3-16 Route: l 22:59: IVP, Matthias 00 Q2MIN, Dosing Weight 78.182, kg, PRN Narcotic Reversal, Start date: 12/06/22 17:59:00 CDT, Duration: 8 doses or times, Stop date: Limited # of times ANES 2022-0 No 10 mg, Memoria hydrALAZINE -16 Route: l 22:59: IVP, Matthias 00 Q20Min, Dosing Weight 78.182, kg, PRN Elevated BP, Start date: 12/06/22 17:59:00 CDT, Duration: 2 doses or times, Stop date: Limited # of times ANES 2022-0 No 10 mg, Memoria labetalol -16 Route: l 22:59: IVP, Matthias 00 Q5Min, Dosing Weight 78.182, kg, PRN Elevated BP, Start date: 12/06/22 17:59:00 CDT, Duration: 5 doses or times, Stop date: Limited # of times ANES 0 No 1,000 mg, Memoria acetaminoph 16 Route: PO, l en 22:59: Drug form: Christoval 00 TAB, ONCE, Dosing Weight 78.182, kg, Start date: 12/06/22 17:59:00 CDT, Stop date: 12/06/22 17:59:00 CDT Lactated 2022-0 No Route: IV, Mem oria Ringers -16 Total l Injection 22:32: Volume: Bambi nn IV (ANES) 00 1,000, 1000 mL Start date: 12/06/22 17:32:00 CDT, Stop date: 12/06/22 18:32:00 CDT Dextrose 2022-0 Yes 12.5 gm, Memor ia 50% Syringe 16 25 mL, l (D50W) 22:29: Route: Christoval 00 IVP, Drug Form: INJ, Dosing Weight 78.182, kg, PRN, PRN Blood Glucose Results, Start date: 12/06/22 17:29:00 CDT, Duration: 30 day, Stop date: 01/05/23 17:28:00 CDT, 0 glucagon 3-0 Yes 1 mg, Memoria 3-16 Route: IM, l 22:29: Drug form: Matthias 00 PDR/INJ, PRN, Dosing Weight 78.182, kg, PRN Blood Glucose Results, Start date: 12/06/22 17:29:00 CDT, Duration: 30 day, Stop date: 01/05/23 17:28:00 CDT, 0 bisacodyl Yes Notes: Memori a 3-16 (Same As: l 22:29: Dulcolax, Christoval 00 Bisco-Lax) melatonin No Notes: Memori a 3-16 (Same as: l 22:29: Melatonin) Matthias 00 acetaminoph No Notes: Do M emoria en 3-16 not exceed l 22:29: 4 gm/day. Christoval 00 (Same as: Tylenol) estradiol No 0.5 mg = 1 Me moria 0.5 mg oral 3-16 tab, PO, l tablet 22:22: Daily, # Christoval 00 30 tab, 0 Refill(s) imipramine No 50 mg = 1 Me moria 50 mg oral 3-16 tab, PO, l tablet 22:21: TID, 0 Christoval 00 Refill(s) sotalol AF No 80 mg = 1 Me moria 80 mg oral 3-16 tab, PO, l tablet 22:21: BID, # 60 Isaak n 00 tab, 0 Refill(s) spironolact No 25 mg = 1 M emoria one 25 mg 3-16 tab, PO, l oral tablet 22:21: Daily, # He rmann 00 30 tab, 3 Refill(s) Cymbalta 30 No 30 mg = 1 M emoria mg oral 3-16 cap, PO, l delayed 22:20: Daily, # Isaak n release 00 30 cap, 0 capsule Refill(s) gabapentin No 300 mg = 1 M emoria 300 mg oral 3-16 cap, PO, l capsule 22:20: Daily, # Isaak n 00 90 cap, 1 Refill(s) amLODIPine No 5 mg = 1 Mem oria 5 mg oral 3-16 tab, PO, l tablet 22:19: Daily, # Christoval 00 30 tab, 0 Refill(s) Plavix 75 No 75 mg = 1 Mem oria mg oral 3-16 tab, PO, l tablet 22:19: Daily, # Christoval 00 30 tab, 0 Refill(s) Dexilant 60 No 60 mg = 1 M emoria mg oral 3-16 cap, PO, l delayed 22:19: Daily, # Isaak n release 00 30 cap, 0 capsule Refill(s) ketAMINE No 20 mg, Memoria 3-16 Route: IV, l 20:03: ONCE, Dosing Weight 78.182, kg, Start date: 12/06/22 15:03:00 CDT, Stop date: 12/06/22 15:03:00 CDT fentaNYL No Notes: Memoria 3-16 (Same as: l 19:42: Sublimaze) Preservati ve free. fentaNYL No Notes: Memoria 3-16 (Same as: l 19:41: Sublimaze) Preservati ve free. Omnipaque No 90 mL, Memori a 350 mg/mL 3-16 Route: l 17:18: IVP, Drug Form: SOLN, Dosing Weight 78.182, kg, ONCALL, STAT, Start date: 12/06/22 12:18:00 CDT, Duration: 1 doses or times, Dose = 2.2ml/kg, Max dose = 100ml -- "To be infused by Radiology Staff ONLY" clindamycin No Notes: Gregory lula 3-16 (Same As: l 15:03: Cleocin) ketAMINE No Notes: Memoria 3-16 (Same as: l 15:02: keTALAR) Saline Yes Notes: Memoria Flush 0.9% -16 (Same as: l 14:27: BD Posiflush) ceFAZolin No 2 gm, Memoria 3-16 Route: IV, l 14:27: ONCE, kg, Christoval 00 (Weight < 120 kg), Priority: STAT, Start date: 12/06/22 9:27:00 CDT, Stop date: 12/06/22 9:27:00 CDT, ABX Indication : Open Fracture/W ound Prophylaxi s clindamycin Yes Notes: Gregory lula + Sodium 3-16 (clindamyc l Chloride 01:00: in 150 Matthias 0.9% IV 100 00 mg/1 ml mL (600 mg/4 ml VL) INJ) (Same As: Cleocin) iopamidol 2021-09- No [id number] 75mL 75 mL, U nivers (ISOVUE 2 12-09 Intravenou ity o f 370-500 mL) 09:15: 09:15 s, ONCE, 1 [place] injection 00 :00 dose, On Medica l 75 mL Fri Branch 08/31/22 at 0315, Routine GABAPENTIN Yes 100mg Take 100 Un milagros ORAL 5-06 mg by ity of 09:03: mouth [place] 35 daily. Medical Branch estradiol Yes .5mg Take 0.5 Univ ers (ESTRACE 5-06 mg by ity of ORAL) 09:03: mouth [place] 35 daily. Medical Branch DULoxetine Yes 30mg Take 30 mg U nivers 30 mg 5-06 by mouth ity of capsule 09:03: daily. [address] Branch Dexlansopra Yes Take by Uni vers zole 5-06 mouth ity of (DEXILANT) 09:03: daily. [place] 60 mg Medical capsule Branch metoprolol Yes 100mg Take 100 Un milagros tartrate 5-06 mg by ity of 100 mg 09:03: mouth 2 [place] tablet 35 (two) Medical times Branch daily. imipramine Yes 10mg Take 10 mg U nivers 10 mg 5-06 by mouth 2 ity of tablet 09:03: (two) [place] 35 times Medical daily. Branch Pitavastati Yes Take by Uni vers n (LIVALO) 5-06 mouth ity of 2 mg Tab 09:03: daily. [address] Branch aspirin 81 Yes 81mg Take 81 mg U nivers mg EC 5-06 by mouth ity of tablet 09:03: daily. [address] Branch oxyMORphone Yes 10mg Take 10 mg Univers 10 mg 5-06 by mouth 2 ity of tablet 09:03: (two) [place] 35 times Medical daily. Branch Immunizations Ordered Immunization Filled Immunization Date Status Commen ts Source Name Name diphtheria/pertussis 2022-12-06 Completed Gregory rial , acel/tetanus adult 14:54:00 Herm juan Vital Signs Vital Name Observation Time Observation Value Comments Source Systolic blood 2022-08-31 09:59:00 123 mm[Hg] Univer sity of pressure [facility] Diastolic blood 2022-08-31 09:59:00 70 mm[Hg] Unive rsity of pressure [facility] Heart rate 2022-08-31 09:59:00 88 /min [facility] Respiratory rate 2022-08-31 09:59:00 12 /min [facility] Oxygen saturation in 2022-08-31 09:59:00 94 /min [facility] Arterial blood by [facility] Pulse oximetry Branch Body temperature 2022-08-31 05:27:00 36.5 [facility] Body height 2022-08-31 05:27:00 162.6 cm [facility] Body weight 2022-08-31 05:27:00 81.194 kg [facility] BMI 2022-08-31 05:27:00 30.73 kg/m2 [facility] Weight 2022-12-28 22:56:00 [facility] 2022-12-28 13:30:31 [facility] [facility]thias Systolic (mm Hg) 2022-12-28 13:30:26 Gregory rial Matthias Diastolic (mm Hg) 2022-12-28 13:30:26 Mem orial Matthias Temperature Oral (F) 2022-12-28 13:30:17 97.7 F [facility] Height 2022-12-26 20:20:00 5 [ft_i] [facility] BMI Calculated 2022-12-26 20:20:00 Memori al [facility] Heart Rate 2022-12-13 17:14:14 [facility] Systolic (mm Hg) 2022-12-13 17:14:08 Gregory rial Matthias Diastolic (mm Hg) 2022-12-13 17:14:08 Mem orial Matthias Temperature Oral (F) 2022-12-13 17:13:44 98.5 F [facility] Temperature Oral (F) 2022-12-13 10:11:11 97.8 F [facility] Height 2022-12-10 20:57:00 162.56 cm [facility] Weight 2022-12-10 20:57:00 [facility] Respitory Rate 2022-12-10 15:00:00 [facility] Systolic (mm Hg) 2022-12-10 15:00:00 Gregory rial Matthias Diastolic (mm Hg) 2022-12-10 15:00:00 Mem orial [facility] Heart Rate 2022-12-10 12:42:32 [facility] Respitory Rate 2022-12-10 12:42:32 [facility] Systolic (mm Hg) 2022-12-10 12:42:11 Gregory rial [facility] Diastolic (mm Hg) 2022-12-10 12:42:11 Mem orial Matthias Heart Rate 2022-12-10 12:42:11 [facility] Temperature Oral (F) 2022-12-10 12:42:09 97.8 F [facility] Heart Rate 2022-12-10 09:21:11 [facility] Systolic (mm Hg) 2022-12-10 09:20:29 Gregory rial Matthias Diastolic (mm Hg) 2022-12-10 09:20:29 [facility] Temperature Oral (F) 2022-12-10 09:20:29 97.7 F [facility] Temperature Oral (F) 2022-12-10 04:51:16 97.3 F [facility] Respitory Rate 2022-12-08 21:18:32 [facility] Height 2022-12-06 14:26:00 5 [ft_i] [facility] BMI Calculated 2022-12-06 14:26:00 Memori al [facility] Weight 2022-12-06 14:26:00 [facility] Procedures Procedure Date / Time Performing Clinician Source Performed CT CHEST W CONTRAST 2023-01-09 00:00:00 Provider, Not In [facility] CT CHEST PULMONARY 2022-08-31 08:29:00 Viviana Singh [facility] ANGIOGRAM Medical Branch BASIC METABOLIC PANEL 2022-08-31 06:03:[address] [facility] (NA, K, CL, CO2, Medical Branch GLUCOSE, BUN, CREATININE, CA) CBC WITH DIFF 2022-08-31 06:03:00 Viviana Singh [facility] PROTHROMBIN TIME / INR 2022-08-31 06:03:00 Viviana Singh [facility] ORIF - Open reduction [facility] and internal fixation of fracture I and D [facility] Placement of [facility] stent<sup>1</sup> External fixation [facility]i nn Hysterectomy [facility] Appendectomy [facility] Procedure on [facility] foot<sup>2</sup> Plan of Care Planned Activity Planned Date Details Comments Source Future Scheduled 2023-01-10 COLONOSCOPY SCREENING [facility] Test 11:11:33 [code = COLONOSCOPY SCREENING] Future Scheduled 2023-01-10 SHINGLES VACCINES (1 Met [facility] Test 11:11:33 of 2) [code = SHINGLES VACCINES (1 of 2)] Future Scheduled 2023-01-10 BREAST CANCER [facility] Test 11:11:33 SCREENING [code = BREAST CANCER SCREENING] Future Scheduled 2023-01-10 65+ [facility]AL [facility] 11:11:33 VACCINE (1 - PCV) [code = 65+ PNEUMOCOCCAL VACCINE (1 - PCV)] Future Scheduled 2023-01-10 INFLUENZA VACCINE [facility] Test 11:11:33 [code = INFLUENZA VACCINE] Future Scheduled 2023-01-10 COVID-19 VACCINE (#1) [facility] Test 11:11:33 [code = COVID-19 VACCINE (#1)] Future Scheduled 2022-10-28 COVID-19 VACCINE (#1) [facility] Test 22:45:11 [code = COVID-19 VACCINE (#1)] Future Scheduled 2022-10-28 COLONOSCOPY SCREENING [facility] Test 22:45:11 [code = COLONOSCOPY SCREENING] Future Scheduled 2022-10-28 SHINGLES VACCINES (1 Met [facility] Test 22:45:11 of 2) [code = SHINGLES VACCINES (1 of 2)] Future Scheduled 2022-10-28 BREAST CANCER [facility] Test 22:45:11 SCREENING [code = BREAST CANCER SCREENING] Future Scheduled 2022-10-28 65+ [facility]AL [facility] 22:45:11 VACCINE (1 - PCV) [code = 65+ PNEUMOCOCCAL VACCINE (1 - PCV)] Future Scheduled 2022-10-28 INFLUENZA VACCINE Method [facility] Test 22:45:11 [code = INFLUENZA VACCINE] Future Scheduled 2022-09-05 COVID-19 VACCINE (#1) [facility] Test 05:13:37 [code = COVID-19 VACCINE (#1)] Future Scheduled 2022-09-05 COLONOSCOPY SCREENING [facility] Test 05:13:37 [code = COLONOSCOPY SCREENING] Future Scheduled 2022-09-05 SHINGLES VACCINES (1 Met [facility] Test 05:13:37 of 2) [code = SHINGLES VACCINES (1 of 2)] Future Scheduled 2022-09-05 BREAST CANCER [facility] Test 05:13:37 SCREENING [code = BREAST CANCER SCREENING] Future Scheduled 2022-09-05 [address]UM[address] [facility] Test 05:13:37 VACCINE (1 - PCV) [code = 65+ PNEUMOCOCCAL VACCINE (1 - PCV)] Future Scheduled 2022-09-05 INFLUENZA VACCINE Method [facility] Test 05:13:37 [code = INFLUENZA VACCINE] Future Scheduled 2022-08-30 COVID-19 VACCINE (#1) [facility] Test 23:17:19 [code = COVID-19 VACCINE (#1)] Future Scheduled 2022-08-30 COLONOSCOPY SCREENING [facility] Test 23:17:19 [code = COLONOSCOPY SCREENING] Future Scheduled 2022-08-30 SHINGLES VACCINES (1 Met [facility] Test 23:17:19 of 2) [code = SHINGLES VACCINES (1 of 2)] Future Scheduled 2022-08-30 BREAST CANCER [facility] Test 23:17:19 SCREENING [code = BREAST CANCER SCREENING] Future Scheduled 2022-08-30 65+ [facility]CCAL [facility] Test 23:17:19 VACCINE (1 - PCV) [code = 65+ PNEUMOCOCCAL VACCINE (1 - PCV)] Future Scheduled 2022-08-30 INFLUENZA VACCINE Method [facility] Test 23:17:19 [code = INFLUENZA VACCINE] Future Scheduled 2022-08-30 HEPATITIS B VACCINES Met [facility] Test 23:17:19 (1 of 3 - 3-dose series) [code = HEPATITIS B VACCINES (1 of 3 - 3-dose series)] Future Scheduled 2021-09-13 COVID-19 VACCINE (1) [facility] Test 03:12:08 [code = COVID-19 VACCINE (1)] Future Scheduled 2021-09-13 COLONOSCOPY SCREENING Me [facility] Test 03:12:08 [code = COLONOSCOPY SCREENING] Future Scheduled 2021-09-13 SHINGLES VACCINES (#1) [facility] Test 03:12:08 [code = SHINGLES VACCINES (#1)] Future Scheduled 2021-09-13 BREAST CANCER [facility] Test 03:12:08 SCREENING [code = BREAST [...] Date/Time Type Type Clinicians Facility Department ID 2023-02-20 Outpatient [facility] [id number] [place] 13:13:41 [id number] [facility] 2023-01-15 Outpatient [facility] [id number] [place] 04:05:20 [id number] [facility] 2023-01-10 Outpatient [facility] [id number] [place] 06:53:11 [id number] [facility] 2022-12-21 Outpatient [facility] [id number] [place] 10:09:16 [id number] [facility] 2022-12-20 Outpatient [facility] [id number] [place] 06:29:52 [id number] [facility] 2022-12-13 Outpatient [facility] [id number] [place] 14:56:23 [id number] [facility] 2022-12-12 Outpatient 3 Roselynalexandru, ENCPL ANETTE [id number] [facility] 11:21:12 [facility] [place] 2022-12-11 Outpatient 3 [id number] ENCPL REF [id number] [facility] 13:49:07 [facility] [place] 2022-10-04 Outpatient MOMO LOPES [facility] [id number] Univers 08:14:59 SIDNEY carrington [facility] 2023 2023 [facility] [id number] [place] 12:15:00 12:15:00 STEVE Health 2023-03-05 2023-03-05 Outpatient R JACQUELINE COHEN [facility] 10 [id number] [facility] 10:30:00 10:30:00 JACQUELINE COHEN i [facility] 2023-02-07 2023-02-07 Office NOELLE Bennett 6414 [id number] [place] 12:00:00 13:00:[address] [id number] Health 9.2.7.2.686 [id number] 1 2023-02-07 2023-02-07 Outpatient [facility] [id number] [place] 12:00:00 12:00:00 Health 2023-01-17 2023-01-17 Office NOELLE Bennett 6414 [id number] [place] 11:45:00 12:02:[address] [id number] Health 9.2.7.2.686 [id number] 1 2023-01-17 2023-01-17 Outpatient [facility] [id number] [place] 11:45:00 11:45:00 Health 2023-01-10 2023-01-10 Office NOELLE Garza 6414 [id number] [place] 12:00:00 13:05:[address] [id number] Health 9.2.7.2.686 [id number] 1 2023-01-09 2023-01-09 Telephone Stephen 1.2.840.1 [id number] [id number] Methodi 00:00:00 00:00:[address] 3.430.2.7 Hospit a .3.260250 l .8 2023-01-09 2023-01-09 Orders Provider, 1.2.840.1 [id number] 2099 [id number] Methodi 00:00:00 00:00:00 Only [place] [address]80.1.[address] System 3.430.2.7 Hospit a .3.982095 l .8 2022-12-31 2022-12-31 Telephonic KAMERON UTP 6410 1.2.840.114 14 [id number] MD 15:45:00 15:45:00 Encounter ABDIRIZAK FAJARDO 350.1.13.58 Health 9.2.7.2.686 [id number] 2022-12-26 2022-12-28 Observatio ALYSON [facility] [id number] Memoria 15:38:00 19:15:00 [facility] 02 [facility] 2022-12-26 2022-12-28 Outpatient Oleg [facility] [id number] 10:38:00 14:15:00 Steve 02 Asif 2022-12-26 2022-12-28 Outpatient OLEG [facility] [id number] MH 10:38:00 14:15:00 STEVE 2022-12-13 2022-12-26 Inpatient 3 Katy ENCPL ANETTE [id number] [facility] 14:10:00 04:43:00 Ruperto [facility] Tramaine montanez 2022-12-20 2022-12-20 Office NOELLE Garza 6414 [id number] [id number] MD 14:00:00 14:32:34 Visit Frances FAJARDO 350.1.13.58 Health 9.2.7.2.686 [id number] 1 2022-12-06 2022-12-13 Inpatient ALYSON [facility] [id number] Memoria 14:17:08 18:40:00 Christoval 00 l [facility] 2022-12-06 2022-12-13 Inpatient E [facility] 7500 [facility] 13:40:00 13:40:00 SHIFA 2022-12-06 2022-12-13 Outpatient Heber [facility] [id number] 09:17:08 13:40:00 Shifa 00 2022-12-06 2022-12-06 Outpatient Heber [facility] [id number] 09:17:08 09:17:08 Shifa 2022-08-30 2022-08-31 Emergency [facility] [id number] Univers 23:23:00 05:07:00 [facility] 350.1.13.10 y [facility] 4.2.7.2.686 [facility] [id number] [address] 2022-08-30 2022-08-31 Emergency X GENET [facility] ERT [id number] Univers 23:23:00 05:07:[facility] 2020-08-26 2020-08-26 Laboratory Lab, [facility] 1.2.840.114 [id number] 16:51:09 17:11:09 Only Fam Pob I Health 350.1.13.10 [place] 4.2.7.2.686 [facility] [id number] nal [address] 2020-08-26 2020-08-26 Outpatient R [facility] [id number] Univers 17:00:00 17:00:00 [facility] 2020-05-20 2020-05-20 Letter NILA Delatorre 1.2.840.114 [id number] 00:00:00 00:00:00 (Out) Emerald PRADO 350.1.13.10 [facility] 4.2.7.2.686 [id number] 019 2020-05-16 2020-05-16 Laboratory Only, [facility] 1.2.840.114 [id number] 13:50:33 14:05:33 Only Test [place] 350.1.13.10 [place] [address].2.7.2.686 [place] [id number] 2020-05-16 2020-05-16 [facility] [id number] Univers 13:30:00 13:30:00 [facility] 2020-05-16 2020-05-16 Orders Doctor DOTSON 1.2.840.114 [id number] 00:00:00 00:00:00 Only UnassignedEVE 350.1.13.10 [facility] 4.2.7.2.686 [id number] Results Test Description Test Time Test Comments Results Result Comments Source CHEMISTRY 2022-12-27 07:22:00 Test Item Value Reference Range Interpretation Comme nts Glucose Lvl (test code = Glucose Lvl) 97 70-99 [place] 787243-04-06 07:22:00 Test Item Value Reference Range Interpretation Comments BUN (test code = BUN) 11 7-22 [facility]776[facility] 07:22:00 Test Item Value Reference Range Interpretation Comments Creatinine Lvl (test code = Creatinine 0.76 0.50-1.40 Lvl) [facility] HospitalNifozexASINBLOCH4639-52-20 07:22:00 Test Item Value Reference Range Interpretation Comments Sodium Lvl (test code = Sodium Lvl) 135 135-145 [place] 787243-04-06 07:22:00 Test Item Value Reference Range Interpretation Comments Potassium Lvl (test code = Potassium 4.2 3.5-5.1 Lvl) [facility] HospitalJaljxinPBGFVKYAA5956-30-91 07:22:00 Test Item Value Reference Range Interpretation Comments Chloride Lvl (test code = Chloride Lvl) 106 95-109 [facility] HospitalAdzibxwKICTTIYDR9181-12-31 07:22:00 Test Item Value Reference Range Interpretation Comments CO2 (test code = CO2) 28 24-32 [facility] HospitalIysgefpTLQZPBALK7727-02-35 07:22:00 Test Item Value Reference Range Interpretation Comments Calcium Lvl (test code = Calcium Lvl) 9.7 8.5-10.5 [facility] HospitalFiulghwPDCUGHXXQ0452-92-14 07:22:00 Test Item Value Reference Range Interpretation Comments AGAP (test code = AGAP) 5.2 10.0-20.0 [facility] HospitalVtwzzmqGKFJGQQES3653-06-84 07:22:00 Test Item Value Reference Range Interpretation Comments eGFR (test code = eGFR) 85 [facility] CenterGrexcsdRQZDCKDGJL9916-83-04 07:22:00 Test Item Value Reference Range Interpretation Comments WBC (test code = WBC) 6.1 3.7-10.4 [place] 302573-04-06 07:22:00 Test Item Value Reference Range Interpretation Comments RBC (test code = RBC) 3.63 4.20-5.40 [place] 302573-04-06 07:22:00 Test Item Value Reference Range Interpretation Comments Hgb (test code = Hgb) 10.4 12.0-16.0 [place] 302573-04-06 07:22:00 Test Item Value Reference Range Interpretation Comments Hct (test code = Hct) 31.3 36.0-48.0 [place] 302573-04-06 07:22:00 Test Item Value Reference Range Interpretation Comments MCV (test code = MCV) 86.2 80.0-98.0 [place] [address]-04-06 07:22:00 Test Item Value Reference Range Interpretation Comments MCH (test code = MCH) 28.8 pg 27.0-31.0 [place] [address]-04-06 07:22:00 Test Item Value Reference Range Interpretation Comments MCHC (test code = MCHC) 33.4 32.0-36.0 [place] 302573-04-06 07:22:00 Test Item Value Reference Range Interpretation Comments RDW (test code = RDW) 15.8 11.5-14.5 [place] 302573-04-06 07:22:00 Test Item Value Reference Range Interpretation Comments Platelet (test code = Platelet) 122 133-450 [place] 302573-04-06 07:22:00 Test Item Value Reference Range Interpretation Comments MPV (test code = MPV) 10.0 7.4-10.4 [place] 302573-04-06 07:22:00 Test Item Value Reference Range Interpretation Comments Segs (test code = Segs) 75.4 45.0-75.0 [place] 302573-04-06 07:22:00 Test Item Value Reference Range Interpretation Comments Lymphocytes (test code = Lymphocytes) 15.7 20.0-40.0 [place] [address]-04-06 07:22:00 Test Item Value Reference Range Interpretation Comments Monocytes (test code = Monocytes) 8.7 2.0-12.0 [place] [address]-04-06 07:22:00 Test Item Value Reference Range Interpretation Comments Basophils (test code = 0.2 See_Comment [Aut omated message] The Basophils) system which ge nerated this result tra nsmitted reference range : <=1.0. The reference r musa was not used to int erpret this result as normal/abnormal . [place] 302573-04-06 07:22:00 Test Item Value Reference Range Interpretation Comments Neutrophils # (test code = Neutrophils 4.6 1.5-8.1 #) [facility] CenterYhcfyyyEZKTHANMVO8153-57-07 07:22:00 Test Item Value Reference Range Interpretation Comments Lymphocytes # (test code = Lymphocytes 1.0 1.0-5.5 #) [facility] CenterIobhfbrPEGSYSPCNP2749-50-56 07:22:00 Test Item Value Reference Range Interpretation Comments Monocytes # (test code 0.5 See_Comment [Aut omated message] The = Monocytes #) system which generated this result tra nsmitted reference range : <=0.8. The reference r musa was not used to int erpret this result as normal/abnormal . [facility] CenterFmxwtmaCXVVRVYAVH2126-66-45 01:48:00 Test Item Value Reference Range Interpretation Comments PB Smear Path (test Peripheral blood smear code = PB Smear shows hypochromic anemia Path) with anisopoikilocytosis, a few elliptocytes, no increase in schistocytes, slight polychromasia, mild thrombocytopenia. Impression: (1) no evidence of microangiopathic hemolysis, (2) RBC morphology is suggestive of iron deficiency anemia vs. anemia of chronic disease. CPT: 50184 [facility] CenterTcbwxbvXDTQZKVLIE8753-79-87 01:48:00 Test Item Value Reference Range Interpretation Comments Eosinophils (test code = 0.1 See_Comment [A utomated message] The Eosinophils) system which ge nerated this result tra nsmitted reference range : <=4.0. The reference r musa was not used to int erpret this result as normal/abnormal . [facility]P6939-23-90 21:00:11 Test Item Value Reference Range Interpretation Comments RADRPT (test code EXAM: XR CHEST 1 VIEWDATE: = RADRPT) December 26, 2022, 15:59.Age: 72 years y/o FemaleINDICATION: - picc line positionCOMPARISON: December 06, 2022.TECHNIQUE: AP chest.IMPRESSION: Lines/tubes: There is a partially visualized left sided PICC line with its tip projecting over the left brachial vasculature. Advancement is recommended.Heart and mediastinum: The cardiomediastinal silhouette is stable. Aortic vascular wall calcifications are noted. Lungs: Scattered subsegmental atelectasis is noted. There are diffuse bilateral reticular/interstitial opacities which may be secondary to pulmonary edema with or without superimposed infection, less prominent compared to prior radiograph. There is a new airspace opacity in the right middle zone which likely represents infection.Pleura: The costophrenic sulci are sharp without evidence of pleural effusion. No pneumothorax is identified on this portable radiograph.Musculoskeletal: The regional skeleton is unchanged. [facility] CenterIkrzwygBTXGTTKUIX8032-87-47 11:18:00 Test Item Value Reference Range Interpretation Comments Eosinophils # (test code 0.3 See_Comment [A utomated message] The = Eosinophils #) system whic h generated this result tra nsmitted reference range : <=0.5. The reference r musa was not used to int erpret this result as normal/abnormal . [place] 787243-03-23 09:20:00 Test Item Value Reference Range Interpretation Comments Glucose Lvl (test code = Glucose Lvl) 92 70-99 [place] [address]-03-23 09:20:00 Test Item Value Reference Range Interpretation Comments BUN (test code = BUN) 10 7-22 [place] [address]-03-23 09:20:00 Test Item Value Reference Range Interpretation Comments Creatinine Lvl (test code = Creatinine 0.59 0.50-1.40 Lvl) [place] [address]-03-23 09:20:00 Test Item Value Reference Range Interpretation Comments Sodium Lvl (test code = Sodium Lvl) 138 135-145 [facility] HospitalGhlhytaVWZVEKASN9017-43-54 09:20:00 Test Item Value Reference Range Interpretation Comments Potassium Lvl (test code = Potassium 3.6 3.5-5.1 Lvl) [place] 787243-03-23 09:20:00 Test Item Value Reference Range Interpretation Comments Chloride Lvl (test code = Chloride Lvl) 104 95-109 [place] [address]-03-23 09:20:00 Test Item Value Reference Range Interpretation Comments CO2 (test code = CO2) 29 24-32 [place] 787243-03-23 09:20:00 Test Item Value Reference Range Interpretation Comments Calcium Lvl (test code = Calcium Lvl) 9.0 8.5-10.5 [place] 787243-03-23 09:20:00 Test Item Value Reference Range Interpretation Comments Total Protein (test code = Total 5.8 6.4-8.4 Protein) [facility] HospitalFapodkgWCQZYMBKL3128-14-50 09:20:00 Test Item Value Reference Range Interpretation Comments Albumin Lvl (test code = Albumin Lvl) 2.0 3.5-5.0 [facility]JnpuzuzGDYCXJZQS1211-28-10 09:20:00 Test Item Value Reference Range Interpretation Comments ALT (test code = ALT) 13 See_Comment [Auto mated message] The system which ge nerated this result transmit cindy reference range : <=65. The reference range was not used to interpr et this result as estrella l/abnormal. [facility] HospitalHatdbgpGHSCRPKHU4036-75-36 09:20:00 Test Item Value Reference Range Interpretation Comments AST (test code = AST) 14 See_Comment [Auto mated message] The system which ge nerated this result transmit cindy reference range : <=37. The reference range was not used to interpr et this result as estrella l/abnormal. [facility] ZgeqnslCLKSMGMYQ4779-03-34 09:20:00 Test Item Value Reference Range Interpretation Comments Alk Phos (test code = Alk Phos) 49 39-136 [facility] HospitalVjrkzowFGCROZKJM5130-18-31 09:20:00 Test Item Value Reference Range Interpretation Comments Bili Total (test code = Bili Total) 0.2 0.2-1.3 [facility] HospitalWoipmbdGMJJMDZJG0513-69-23 09:20:00 Test Item Value Reference Range Interpretation Comments AGAP (test code = AGAP) 8.6 10.0-20.0 [facility] HospitalIsmfdugUEOZCPCWE1125-49-90 09:20:00 Test Item Value Reference Range Interpretation Comments B/C Ratio (test code = B/C Ratio) 17 1 6-25 [facility] HospitalOnnttomZQNNGNIPK7580-28-07 09:20:00 Test Item Value Reference Range Interpretation Comments Globulin (test code = Globulin) 3.8 2.7-4.2 [facility] HospitalRhkplmiFHVLFHHIV6599-90-82 09:20:00 Test Item Value Reference Range Interpretation Comments A/G Ratio (test code = A/G Ratio) 0.5 1 0.7-1.6 [facility] HospitalDeawvbjBWFAMCWQE8036-02-34 09:20:00 Test Item Value Reference Range Interpretation Comments eGFR (test code = eGFR) 97 [facility] HospitalQhxypwoBUWXPZRUEX7280-06-31 09:20:00 Test Item Value Reference Range Interpretation Comments Segs (test code = Segs) 73.5 45.0-75.0 [place] [address]-03-23 09:20:00 Test Item Value Reference Range Interpretation Comments Lymphocytes (test code = Lymphocytes) 17.8 20.0-40.0 [place] [address]-03-23 09:20:00 Test Item Value Reference Range Interpretation Comments Monocytes (test code = Monocytes) 6.4 2.0-12.0 [place] [address]-03-23 09:20:00 Test Item Value Reference Range Interpretation Comments Eosinophils (test code = 1.8 See_Comment [A utomated message] The Eosinophils) system which ge nerated this result tra nsmitted reference range : <=4.0. The reference r musa was not used to int erpret this result as normal/abnormal . [address]03-23 09:20:00 Test Item Value Reference Range Interpretation Comments Basophils (test code = 0.5 See_Comment [Aut omated message] The Basophils) system which ge nerated this result tra nsmitted reference range : <=1.0. The reference r musa was not used to int erpret this result as normal/abnormal . [place] [address]-03-23 09:20:00 Test Item Value Reference Range Interpretation Comments Neutrophils # (test code = Neutrophils 4.4 1.5-8.1 #) [address]03-23 09:20:00 Test Item Value Reference Range Interpretation Comments Lymphocytes # (test code = Lymphocytes 1.1 1.0-5.5 #) [address]03-23 09:20:00 Test Item Value Reference Range Interpretation Comments Monocytes # (test code 0.4 See_Comment [Aut omated message] The = Monocytes #) system which generated this result tra nsmitted reference range : <=0.8. The reference r musa was not used to int erpret this result as normal/abnormal . [place] [address]-03-23 09:20:00 Test Item Value Reference Range Interpretation Comments Eosinophils # (test code 0.1 See_Comment [A utomated message] The = Eosinophils #) system whic h generated this result tra nsmitted reference range : <=0.5. The reference r musa was not used to int erpret this result as normal/abnormal . [facility] CenterCejhbalEUKIORSLGK4141-05-25 09:20:00 Test Item Value Reference Range Interpretation Comments WBC (test code = WBC) 6.0 3.7-10.4 [facility] CenterPaumsykWDQDWVMDLK0572-57-56 09:20:00 Test Item Value Reference Range Interpretation Comments RBC (test code = RBC) 3.22 4.20-5.40 [place] 302573-03-23 09:20:00 Test Item Value Reference Range Interpretation Comments Hgb (test code = Hgb) 9.3 12.0-16.0 [facility] CenterGfcbnhzBUKJNSIOJH4268-18-90 09:20:00 Test Item Value Reference Range Interpretation Comments Hct (test code = Hct) 28.0 36.0-48.0 [facility] CenterGohbntmNLZEOTEAYQ3393-01-74 09:20:00 Test Item Value Reference Range Interpretation Comments MCV (test code = MCV) 87.1 80.0-98.0 [place] 302573-03-23 09:20:00 Test Item Value Reference Range Interpretation Comments MCH (test code = MCH) 28.9 pg 27.0-31.0 [facility] CenterBsbrckxHCMAWCYYHD2408-73-00 09:20:00 Test Item Value Reference Range Interpretation Comments MCHC (test code = MCHC) 33.2 32.0-36.0 [facility] CenterUqodechSVPFQLUERZ3668-64-04 09:20:00 Test Item Value Reference Range Interpretation Comments RDW (test code = RDW) 15.7 11.5-14.5 [facility] CenterKpmyashXAPEIFAFNX9321-42-32 09:20:00 Test Item Value Reference Range Interpretation Comments Platelet (test code = Platelet) 320 133-450 [facility] CenterQojfjvvMESZTSACET1443-06-69 09:20:00 Test Item Value Reference Range Interpretation Comments MPV (test code = MPV) 7.0 7.4-10.4 [facility] HospitalKudxgkhCICZCZMNN7498-47-78 13:54:00 Test Item Value Reference Range Interpretation Comments Osmolality (test code = Osmolality) 285 280-300 [facility] HospitalXdmnuejDRIWXERJV0485-19-74 10:33:00 Test Item Value Reference Range Interpretation Comments Magnesium Lvl (test code = Magnesium 1.8 1.8-2.4 Lvl) [facility] HospitalIxsonumCYLKEQYTJ9007-23-17 10:33:00 Test Item Value Reference Range Interpretation Comments Phosphorus (test code = Phosphorus) 2.5 2.5-4.5 [facility] HospitalHxmmfyrMXNOPTDKJO9415-70-84 10:33:00 Test Item Value Reference Range Interpretation Comments Hypochrom (test code = 1+ (12/11/22 5:33 AM) Hypochrom) [facility] HospitalBmnmayxKFFTAIRTHF9980-90-38 10:33:00 Test Item Value Reference Range Interpretation Comments Polychrom (test code = Moderate *ABN*(12/11/22 Polychrom) 5:33 AM) [facility] HospitalInjdhmxMGYWIBCTGJ7296-70-72 10:33:00 Test Item Value Reference Range Interpretation Comments Rouleaux (test code = Present *ABN*(12/11/22 Rouleaux) 5:33 AM) [facility] HospitalREFER[facility] [id number] 18:00:00 Test Item Value Reference Range Interpretation Comments Test Name (test code Aspergillus Galactomanna = Test Name) [facility] HospitalREFERENC LAB [id number] 18:00:00 Test Item Value Reference Range Interpretation Comments Misc Lab (test code = Misc Lab) SEE COMMENT [facility]annAFB Fgaol7332-99-04 16:09:00 Test Item Value Reference Range Interpretation Comments AFB Stain (test code = No Acid Fast Bacilli AFB Stain) [facility]B w/Mfydc6377-55-05 16:09:00 Test Item Value Reference Range Interpretation Comments Culture: AFB w/Smear (test Culture in Process code = Culture: AFB w/Smear) [facility] HospitalFungal Fhviz9803-56-06 16:09:00 Test Item Value Reference Range Interpretation Comments Fungal Smear (test No Yeast Or Fungal code = Fungal Smear) Elements Seen [facility] HospitalannCulture: Fungal w/Curkl0394-71-68 16:09:00 Test Item Value Reference Range Interpretation Comments Culture: Fungal w/Smear Culture In Progress (test code = Culture: Fungal w/Smear) [facility] HospitalGram Qwbbb7845-39-76 16:09:00 Test Item Value Reference Range Interpretation Comments Gram Stain (test Many Wbc'S; No Squamous code = Gram Stain) Epithelial Cells; Few Gram Positive Cocci In Pairs [facility] HospitalGram Yoohp8716-27-27 16:09:00 Test Item Value Reference Range Interpretation Comments Gram Stain (test Moderate WBC's No code = Gram Stain) Squamous Epithelial Cells; Few Gram Positive Cocci In Pairs [facility] Stain Ekzvis8079-52-71 16:09:00 Test Item Value Reference Range Interpretation Comments Gram Stain Report Gram Stain Performed By: (test code = Gram [facility] Stain Report) [facility] HospitalCulture[facility] BAL Quantitative w/Gram Sopfy3592-01-00 16:09:00 Test Item Value Reference Range Interpretation Comments Culture: BAL <10,000 CFU/mL Quantitative w/Gram Pseudomonas aeruginosa Stain (test code = <10,000 CFU/mL Normal Culture: BAL Respiratory Loly Quantitative w/Gram Isolated Stain) [facility] Stain [id number] 16:09:00 Test Item Value Reference Range Interpretation Comments Gram Stain Report Gram Stain Performed By: (test code = Gram [facility] Stain Report) [facility] HospitalCulture: Respiratory w/Gram [id number] 16:09:00 Test Item Value Reference Range Interpretation Comments Culture: Respiratory Few Pseudomonas w/Gram Stain (test aeruginosa Refer To code = Culture: Culture # [id number] Respiratory w/Gram (3-19) For Stain) Susceptibility Results , Normal Respiratory Loly Isolated [facility] [id number] 05:09:00 Test Item Value Reference Range Interpretation Comments Glucose Lvl (test code = Glucose Lvl) 65 70-99 [facility] [id number] 05:09:00 Test Item Value Reference Range Interpretation Comments BUN (test code = BUN) 11 7-22 [facility]2023-03-20 05:09:00 Test Item Value Reference Range Interpretation Comments Creatinine Lvl (test code = Creatinine 0.59 0.50-1.40 Lvl) [facility] HospitalHigh [facility] [employer] [id number] 05:09:00 Test Item Value Reference Range Interpretation Comments Sodium Lvl (test code = Sodium Lvl) 137 135-145 [facility] HospitalHigh [facility] [employer] [id number] 05:09:00 Test Item Value Reference Range Interpretation Comments Potassium Lvl (test code = Potassium 3.8 3.5-5.1 Lvl) [facility] HospitalHigh [facility] [employer] [id number] 05:09:00 Test Item Value Reference Range Interpretation Comments Chloride Lvl (test code = Chloride Lvl) 105 95-109 [facility]2023-03-20 05:09:00 Test Item Value Reference Range Interpretation Comments CO2 (test code = CO2) 29 24-32 [place] 853313-03-20 05:09:00 Test Item Value Reference Range Interpretation Comments Calcium Lvl (test code = Calcium Lvl) 9.3 8.5-10.5 [place] 853313-03-20 05:09:00 Test Item Value Reference Range Interpretation Comments AGAP (test code = AGAP) 6.8 10.0-20.0 [place] 853313-03-20 05:09:00 Test Item Value Reference Range Interpretation Comments eGFR (test code = eGFR) 97 [facility] CenterAxkrjhnLYDYDYTEKO9843-21-32 05:09:00 Test Item Value Reference Range Interpretation Comments Segs (test code = Segs) 72.0 45.0-75.0 [facility] CenterBwabwpzFCLTOCDOZH7268-55-22 05:09:00 Test Item Value Reference Range Interpretation Comments Lymphocytes (test code = Lymphocytes) 18.1 20.0-40.0 [place] 302573-03-20 05:09:00 Test Item Value Reference Range Interpretation Comments Monocytes (test code = Monocytes) 7.0 2.0-12.0 [facility] CenterEemjunbCZYXKAYCPO8999-77-23 05:09:00 Test Item Value Reference Range Interpretation Comments Eosinophils (test code = 2.4 See_Comment [A utomated message] The Eosinophils) system which ge nerated this result tra nsmitted reference range : <=4.0. The reference r musa was not used to int erpret this result as normal/abnormal . [facility] CenterFydoqlsQJWYRCOJNF8693-11-73 05:09:00 Test Item Value Reference Range Interpretation Comments Basophils (test code = 0.5 See_Comment [Aut omated message] The Basophils) system which ge nerated this result tra nsmitted reference range : <=1.0. The reference r musa was not used to int erpret this result as normal/abnormal . [facility] CenterOaqwsykSMQBTYBGRZ6357-29-72 05:09:00 Test Item Value Reference Range Interpretation Comments Neutrophils # (test code = Neutrophils 4.2 1.5-8.1 #) [facility] CenterFvrrbbvRDFRBNQLJF4297-61-31 05:09:00 Test Item Value Reference Range Interpretation Comments Lymphocytes # (test code = Lymphocytes 1.1 1.0-5.5 #) [facility] CenterCjjdmqlVZKZRWNBVV9743-62-75 05:09:00 Test Item Value Reference Range Interpretation Comments Monocytes # (test code 0.4 See_Comment [Aut omated message] The = Monocytes #) system which generated this result tra nsmitted reference range : <=0.8. The reference r musa was not used to int erpret this result as normal/abnormal . [facility] CenterTrtedpsVMMEPCQJIV6397-85-70 05:09:00 Test Item Value Reference Range Interpretation Comments Eosinophils # (test code 0.1 See_Comment [A utomated message] The = Eosinophils #) system whic h generated this result tra nsmitted reference range : <=0.5. The reference r musa was not used to int erpret this result as normal/abnormal . [facility] CenterEiifsdaLMAQKDLJOV8157-32-84 05:09:00 Test Item Value Reference Range Interpretation Comments WBC (test code = WBC) 5.8 3.7-10.4 [facility] CenterCouzklsSLZFXLZGTZ9161-69-42 05:09:00 Test Item Value Reference Range Interpretation Comments RBC (test code = RBC) 3.61 4.20-5.40 [facility] CenterSlhbtvyZNPXMKOBPJ3580-29-97 05:09:00 Test Item Value Reference Range Interpretation Comments Hgb (test code = Hgb) 10.4 12.0-16.0 [facility] CenterGrxwqkaSGQBPBAGVJ5563-54-27 05:09:00 Test Item Value Reference Range Interpretation Comments Hct (test code = Hct) 31.4 36.0-48.0 [facility] CenterVcmyuvmGNCLCMIQPD1526-98-06 05:09:00 Test Item Value Reference Range Interpretation Comments MCV (test code = MCV) 86.8 80.0-98.0 [place] [address]-03-20 05:09:00 Test Item Value Reference Range Interpretation Comments MCH (test code = MCH) 28.9 pg 27.0-31.0 [place] 302573-03-20 05:09:00 Test Item Value Reference Range Interpretation Comments MCHC (test code = MCHC) 33.3 32.0-36.0 [place] 302573-03-20 05:09:00 Test Item Value Reference Range Interpretation Comments RDW (test code = RDW) 15.6 11.5-14.5 [facility] HospitalHjfrebjOWZVDWHKTZ1994-86-31 05:09:00 Test Item Value Reference Range Interpretation Comments Platelet (test code = Platelet) 334 267-450 [facility] HospitalLcbnpvpCAIOFJHTPI6737-69-95 05:09:00 Test Item Value Reference Range Interpretation Comments MPV (test code = MPV) 7.4 7.4-10.4 [facility]annIMIPENEM:SUSC:PT:ISOLATE:ORDQN:[id number] 13:26:00 Test Item Value Reference Range Interpretation Comments Gram Stain Report Gram Stain Performed By: (test code = Gram [facility] [place] Stain Report) [facility] HermannIMIPENEM:SUSC:PT:ISOLATE:ORDQN:[id number] 13:26:00 Test Item Value Reference Range Interpretation Comments Culture: Respiratory Few Pseudomonas w/Gram Stain (test code aeruginosa Normal = Culture: Respiratory Respiratory Loly w/Gram Stain) Isolated [facility] HermannIMIPENEM:SUSC:PT:ISOLATE:ORDQN:[id number] 13:26:00 Test Item Value Reference Range Interpretation Comments Pseudomonas aeruginosa Pseudomonas aeruginosa (test code = Pseudomonas aeruginosa) [facility] HospitalExtended SystemsGram Uhifo7065-70-82 13:26:00 Test Item Value Reference Range Interpretation Comments Gram Stain (test Few Wbc'S; Less Than 25 code = Gram Stain) Squamous Epithelial Cells/Lpf Few Gram Positive Cocci In Pairs Good Quality Specimen [facility] [id number] 09:53:00 Test Item Value Reference Range Interpretation Comments Magnesium Lvl (test code = Magnesium 2.1 1.8-2.4 Lvl) [facility] [id number] 09:53:00 Test Item Value Reference Range Interpretation Comments Phosphorus (test code = Phosphorus) 3.8 2.5-4.5 [facility] [id number] 09:53:00 Test Item Value Reference Range Interpretation Comments Glucose Lvl (test code = Glucose Lvl) 56 70-99 [facility] [id number] 09:53:00 Test Item Value Reference Range Interpretation Comments BUN (test code = BUN) 17 7-22 [facility] HospitalSolle Naturals [id number] 09:53:00 Test Item Value Reference Range Interpretation Comments Creatinine Lvl (test code = Creatinine 0.77 0.50-1.40 Lvl) [place] 853313-03-19 09:53:00 Test Item Value Reference Range Interpretation Comments Sodium Lvl (test code = Sodium Lvl) 134 135-145 [place] 853313-03-19 09:53:00 Test Item Value Reference Range Interpretation Comments Potassium Lvl (test code = Potassium 4.8 3.5-5.1 Lvl) [place] 853313-03-19 09:53:00 Test Item Value Reference Range Interpretation Comments Chloride Lvl (test code = Chloride Lvl) 99 95-109 [place] 853313-03-19 09:53:00 Test Item Value Reference Range Interpretation Comments CO2 (test code = CO2) 31 24-32 [place] 853313-03-19 09:53:00 Test Item Value Reference Range Interpretation Comments Calcium Lvl (test code = Calcium Lvl) 9.4 8.5-10.5 [place] 853313-03-19 09:53:00 Test Item Value Reference Range Interpretation Comments AGAP (test code = AGAP) 8.8 10.0-20.0 [place] 853313-03-19 09:53:00 Test Item Value Reference Range Interpretation Comments eGFR (test code = eGFR) 82 [facility] CenterXgeyzupEFNLYJNRGZ1735-83-66 09:53:00 Test Item Value Reference Range Interpretation Comments WBC (test code = WBC) 8.5 3.7-10.4 [place] 302573-03-19 09:53:00 Test Item Value Reference Range Interpretation Comments RBC (test code = RBC) 3.60 4.20-5.40 [place] 302573-03-19 09:53:00 Test Item Value Reference Range Interpretation Comments Hgb (test code = Hgb) 10.5 12.0-16.0 [place] [address]-03-19 09:53:00 Test Item Value Reference Range Interpretation Comments Hct (test code = Hct) 31.4 36.0-48.0 [place] [address]-03-19 09:53:00 Test Item Value Reference Range Interpretation Comments MCV (test code = MCV) 87.2 80.0-98.0 [address]03-19 09:53:00 Test Item Value Reference Range Interpretation Comments MCH (test code = MCH) 29.3 pg 27.0-31.0 [facility] CenterKxqavhbHZPHDAKPUU7097-63-33 09:53:00 Test Item Value Reference Range Interpretation Comments MCHC (test code = MCHC) 33.6 32.0-36.0 [facility] CenterAomtsoxHBEXGXEQXD4867-29-91 09:53:00 Test Item Value Reference Range Interpretation Comments RDW (test code = RDW) 15.9 11.5-14.5 [place] 302573-03-19 09:53:00 Test Item Value Reference Range Interpretation Comments Platelet (test code = Platelet) 348 133-450 [facility] CenterXtfqpaySDNXNJHEKH9479-51-31 09:53:00 Test Item Value Reference Range Interpretation Comments MPV (test code = MPV) 7.3 7.4-10.4 [facility] CenterGcmpfflCXFQJUKJYX4477-16-33 09:53:00 Test Item Value Reference Range Interpretation Comments Segs (test code = Segs) 73.7 45.0-75.0 [place] 302573-03-19 09:53:00 Test Item Value Reference Range Interpretation Comments Lymphocytes (test code = Lymphocytes) 17.2 20.0-40.0 [facility] CenterVnhradjFRDINBMDQB5598-28-81 09:53:00 Test Item Value Reference Range Interpretation Comments Monocytes (test code = Monocytes) 6.9 2.0-12.0 [facility] CenterOhaskdqGOPUFCPMDY8116-25-99 09:53:00 Test Item Value Reference Range Interpretation Comments Eosinophils (test code = 1.9 See_Comment [A utomated message] The Eosinophils) system which ge nerated this result tra nsmitted reference range : <=4.0. The reference r musa was not used to int erpret this result as normal/abnormal . [place] 302573-03-19 09:53:00 Test Item Value Reference Range Interpretation Comments Basophils (test code = 0.3 See_Comment [Aut omated message] The Basophils) system which ge nerated this result tra nsmitted reference range : <=1.0. The reference r musa was not used to int erpret this result as normal/abnormal . [place] 302573-03-19 09:53:00 Test Item Value Reference Range Interpretation Comments Neutrophils # (test code = Neutrophils 6.3 1.5-8.1 #) [facility] CenterHfcddhbVEPXSVIPZL2965-44-48 09:53:00 Test Item Value Reference Range Interpretation Comments Lymphocytes # (test code = Lymphocytes 1.5 1.0-5.5 #) [place] [address]-03-19 09:53:00 Test Item Value Reference Range Interpretation Comments Monocytes # (test code 0.6 See_Comment [Aut omated message] The = Monocytes #) system which generated this result tra nsmitted reference range : <=0.8. The reference r musa was not used to int erpret this result as normal/abnormal . [place] 302573-03-19 09:53:00 Test Item Value Reference Range Interpretation Comments Eosinophils # (test code 0.2 See_Comment [A utomated message] The = Eosinophils #) system whic h generated this result tra nsmitted reference range : <=0.5. The reference r musa was not used to int erpret this result as normal/abnormal . [facility] HospitalSiuktsfMDPKWGDCL6434-24-09 05:25:00 Test Item Value Reference Range Interpretation Comments U Sodium (test code = U Sodium) 24 [place] [address]-03-19 05:25:00 Test Item Value Reference Range Interpretation Comments U Osmolality (test code = U Osmolality) 442 300-800 [place] [address]-03-19 05:25:00 Test Item Value Reference Range Interpretation Comments U Creatinine (test code = U 104.00 Creatinine) [place] [address]-03-19 05:25:00 Test Item Value Reference Range Interpretation Comments U Chloride (test code = U Chloride) 43 [place] [address]-03-19 05:25:00 Test Item Value Reference Range Interpretation Comments U Sodium (test code = U Sodium) 24 [place] 123993-03-19 05:25:00 Test Item Value Reference Range Interpretation Comments U Osmolality (test code = U Osmolality) 442 300-800 [place] 123993-03-19 05:25:00 Test Item Value Reference Range Interpretation Comments U Creatinine (test code = U 104.00 Creatinine) [place] 123993-03-19 05:25:00 Test Item Value Reference Range Interpretation Comments U Chloride (test code = U Chloride) 43 [place] 853313-03-18 05:44:00 Test Item Value Reference Range Interpretation Comments Glucose Lvl (test code = Glucose Lvl) 113 70-99 [place] 853313-03-18 05:44:00 Test Item Value Reference Range Interpretation Comments BUN (test code = BUN) 17 7-22 [place] [address]-03-18 05:44:00 Test Item Value Reference Range Interpretation Comments Creatinine Lvl (test code = Creatinine 0.76 0.50-1.40 Lvl) [place] 853313-03-18 05:44:00 Test Item Value Reference Range Interpretation Comments Sodium Lvl (test code = Sodium Lvl) 129 135-145 [place] 853313-03-18 05:44:00 Test Item Value Reference Range Interpretation Comments Potassium Lvl (test code = Potassium 4.1 3.5-5.1 Lvl) [place] 853313-03-18 05:44:00 Test Item Value Reference Range Interpretation Comments Chloride Lvl (test code = Chloride Lvl) 101 95-109 [place] [address]-03-18 05:44:00 Test Item Value Reference Range Interpretation Comments CO2 (test code = CO2) 29 24-32 [place] 853313-03-18 05:44:00 Test Item Value Reference Range Interpretation Comments AGAP (test code = AGAP) 3.1 10.0-20.0 [place] 853313-03-18 05:44:00 Test Item Value Reference Range Interpretation Comments Calcium Lvl (test code = Calcium Lvl) 9.3 8.5-10.5 [place] 853313-03-18 05:44:00 Test Item Value Reference Range Interpretation Comments eGFR (test code = eGFR) 85 [place] [address]-03-18 05:44:00 Test Item Value Reference Range Interpretation Comments WBC (test code = WBC) 10.6 3.7-10.4 [place] [address]-03-18 05:44:00 Test Item Value Reference Range Interpretation Comments RBC (test code = RBC) 3.56 4.20-5.40 [place] 302573-03-18 05:44:00 Test Item Value Reference Range Interpretation Comments Hgb (test code = Hgb) 10.6 12.0-16.0 [facility]CacagegKEAIRXIQAT4294-98-83 05:44:00 Test Item Value Reference Range Interpretation Comments Hct (test code = Hct) 30.3 36.0-48.0 [facility]awIduszaaHDXEHWMTOW1006-22-27 05:44:00 Test Item Value Reference Range Interpretation Comments MCV (test code = MCV) 85.0 80.0-98.0 [facility]awCxnjcvwYYGAYQPSXZ7403-66-17 05:44:00 Test Item Value Reference Range Interpretation Comments MCH (test code = MCH) 29.8 pg 27.0-31.0 [facility]aginawIzfnknbDTQPWPRLRB0648-12-59 05:44:00 Test Item Value Reference Range Interpretation Comments MCHC (test code = MCHC) 35.1 32.0-36.0 [facility]awVqkpypxOUSYYJMZBZ2082-02-50 05:44:00 Test Item Value Reference Range Interpretation Comments RDW (test code = RDW) 15.8 11.5-14.5 [facility]awHxztpfcHCVKIOFKBW3340-19-73 05:44:00 Test Item Value Reference Range Interpretation Comments Platelet (test code = Platelet) 316 133-450 [facility] CenterNbujbwyQDAFNNCUIL5825-60-58 05:44:00 Test Item Value Reference Range Interpretation Comments MPV (test code = MPV) 7.1 7.4-10.4 [facility]stAjlccuaYKSLXA5839-79-06 21:41:49 Test Item Value Reference Range Interpretation Comments RADRPT (test code EXAM: CT RIGHT ANKLE = RADRPT) WITHOUT CONTRASTEXAM: 3D RECONSTRUCTIONSDATE: 12/07/2022 3:11INDICATION: - pre op planning. PainCOMPARISON: Previous dayTECHNIQUE: Volumetric CT of the ankle is acquired without contrast. Axial, coronal and sagittal images are provided. 3D volume-rendered reconstructions are created at the acquisition workstation.IV contrast: None.DLP: Refer to CT protocol formFINDINGS: Final Inspector And Tester: CT has been performed in an external fixator.Distal tibia: Medial malleolar fracture has been immobilized with 2 fully threaded screws. Satisfactory alignment.Minimally displaced posterior malleolar fracture is seen. With adjacent minimal irregularity along the posterior articular surface.No focal tibial plafond involvement.Distal fibula: The distal fibula with extension to the syndesmotic region with no definite syndesmotic widening.Talus: * Osteochondral lesion of the lateral talar dome with a small chip fracture. No cystic and depression.Calcaneus: Intact. Distraction pin in situ.Navicular: Chronic irregularity of the dorsal aspect is seen.Cuboid: Intact.Large subchondral cystic changes.Severe degenerative changes of the cuboid metatarsal articulation.Cuneiforms and metatarsal: Moderate to severe intertarsal and tarsometatarsal joint degenerative changes.Soft tissues: * Subcutaneous gas from recent surgery along the anterior soft tissues.* Diffuse circumferential soft tissue swelling.* Kager's fat pad edema. IMPRESSION: * Medial malleolar fracture stabilization with 2 screws in situ.* Posterior malleolar fracture with minimal displacement.* Distal fibular fracture with minimal displacement and extension is syndesmotic joint. No syndesmotic widening.* Osteochondral fracture arising from the lateral talar dome without significant depression.* Circumferential soft tissue swelling [facility]High [facility] [employer] QDPYZ2295-24-19 09:52:00 Test Item Value Reference Range Interpretation Comments Osmolality (test code = Osmolality) 282 280-300 [facility]2023-03-17 09:52:00 Test Item Value Reference Range Interpretation Comments U Osmolality (test code = U Osmolality) 421 300-800 [facility]2023-03-17 09:52:00 Test Item Value Reference Range Interpretation Comments U Sodium (test code = U Sodium) 37 [place] 88677023-03-17 00:32:34 Test Item Value Reference Range Interpretation Comments RADRPT (test code = EXAM: XR RIGHT ANKLE 3 RADRPT) VIEWSDATE: 12/06/2022 17:02INDICATION: - Post splintUT SECTION: ER COMPARISON: None.TECHNIQUE: AP, oblique and lateral radiographs of the ankleFINDINGS: Interval splint placement obscuring underlying bony and soft tissue detail.Redemonstrated supination external rotation stage IV injury with Jefferson a fracture of the distal fibula, minimally displaced fracture of the posterior malleolus, and minimally displaced fracture of the medial malleolus. IMPRESSION: 1. Interval splint placement obscuring underlying bony and soft tissue detail.2. Redemonstrated supination external rotation stage IV injury with Jefferson B fracture of the distal fibula, minimally displaced posterior malleolus fracture, and minimally displaced fracture of the medial malleolus. [place] [id number] 23:17:57 Test Item Value Reference Range Interpretation Comments RADRPT (test code EXAM: XR LEFT HAND 3 = RADRPT) VIEWSDATE: 12/06/2022 17:02INDICATION: - PainCOMPARISON: None.UT SECTION: ERTECHNIQUE: PA, lateral and oblique radiographs of the handFINDINGS: * No acute fracture. * Severe degenerative changes at the first carpometacarpal joint. * Benign-appearing 8 mm cystic lesion within the medial distal ulna.* Degenerative changes in the DIP most significantly at the middle and ring fingers. TheNo soft tissue abnormality is identified.IMPRESSION: 1. No acute fracture.2. Severe osteoarthrosis of the first carpometacarpal joint.3. Degenerative changes of the DIP joints.4. Benign-appearing 8 mm cystic lesion within the medial distal ulna. [place] [id number] 21:00:00 Test Item Value Reference Range Interpretation Comments Coronavirus (COVID-19) Not Detected (12/06/22 AN (test code = 4:00 PM) Coronavirus (COVID-19) AN) [id number] 21:00:00 Test Item Value Reference Range Interpretation Comments Coronavirus (COVID-19) Not Detected (12/06/22 AN (test code = 4:00 PM) Coronavirus (COVID-19) AN) [place] [id number] 19:33:40 Test Item Value Reference Range Interpretation Comments RADRPT (test code = EXAM: XR RIGHT KNEE 3 RADRPT) VIEWS DATE: 12/06/2022 12:47INDICATION: - painCOMPARISON: None.TECHNIQUE: 3 views of the kneeFINDINGS: Diffuse osteopenia noted.No fracture, periosteal reaction, or erosions identified.Joint alignment is normal.Tricompartmental osteophytes present most notable in the lateral compartment.Medial and lateral compartment joint space narrowing present.Soft tissues are unremarkable.Small knee joint effusion present.Vascular calcifications noted.IMPRESSION:No fractures identified.Tricompartmenta l osteoarthrosis, moderate in the medial and lateral compartments.Diffuse osteopenia.Small knee joint effusion. [place] [id number] 18:42:19 Test Item Value Reference Range Interpretation Comments RADRPT (test code EXAM: CT CHEST WITH = RADRPT) CONTRASTEXAM: CT ABDOMEN AND PELVIS WITH CONTRASTDATE: 12/06/2022 12:11 INDICATION: - fall with deformity to ankle COMPARISON: None.TECHNIQUE: Volumetric CT of the chest, abdomen and pelvis is acquired following intravenous administration of contrast. Axial, coronal and sagittal images are provided.IV contrast: There is a lung mass on Beatriz Refer to MAR/technologist documentationOral contrast: None.DLP: Refer to CT protocol formUT SECTION: ERFINDINGS: Final Inspector And Tester: Noncontributory.Lines and tubes: Spinal canal catheter with tip at T12 and medication pump in the left lower quadrant subcutaneous soft tissues.Lower Neck: Subcentimeter bilateral supraclavicular lymph nodes noted.Thoracic Aorta and Mediastinum record and approved: Thyroid gland and esophagus demonstrate no acute findings.Large hiatal hernia containing majority of the gastric body and fundus noted.Mild atherosclerotic disease of the thoracic aorta is present. Heart size is normal.No pericardial effusion present.Coronary artery calcifications noted.No mediastinal hematoma identified.Increased number of upper normal and borderline enlarged mediastinal lymph nodes present.AP window lymph node measuring 0.9 cm noted.Precarinal lymph node measuring 1.3 cm noted.Subcarinal lymph node measuring 1.2 cm present.Lungs, Pleura, Diaphragm: Nonspecific 1.6 x 1.5 cm irregular marginated nodule in the inferior right upper lobe abutting the minor fissure noted.Differential possibilities include pulmonary neoplasia.Recommend follow-up PET CT evaluation.Multifocal patchy centrilobular micronodular densities present within the periphery of the right upper lobe which may be due to fungal, bacterial, or atypical mycobacterial infection.Complete atelectasis/consolidation of the right middle lobe noted.Bronchiectasis of the segmental and subsegmental bronchi in the right middle lobe noted.Moderate atelectasis/consolidation present in the basilar segments of the right lower lobe with the segmental and subsegmental bronchi demonstrating opacification.Differential possibilities include aspiration and/or pneumonia.Minimal subsegmental atelectasis in the superior segment right lower lobe noted.Mild subsegmental atelectasis present in the lingula and left lower lobe.Trace bilateral pleural effusions noted.No pulmonary contusions. No pneumothorax. No diaphragmatic injury.Liver and biliary tree: Diffuse hepatic steatosis noted.No injury. No biliary abnormality. Gallbladder: No acute injuries.Pancreas: No injury.Fatty pancreatic atrophy in the head neck region noted.Spleen: No injury.Adrenals: No injury.Kidneys and ureters: No injury.Bladder: No injury.Reproductive organs: Uterus is surgically absent.Gastrointestinal tract: Large hiatal hernia.Colonic diverticulosis without inflammatory changes.No bowel injury.Peritoneum and retroperitoneum: No fluid collections or free air.Lymph nodes: Increased number upper normal borderline enlarged mediastinal lymph nodes as described above.Vasculature: No vascular injury.Soft tissues: No acute findings.Spine/ Bones: Diffuse osteopenia noted.Osteitis condensans ilii noted.No acute abnormality of the spine. No other bony injury. Grade 2 degenerative anterolisthesis present at L5-S1.Grade 1 degenerative retrolisthesis present at L2-L3, L3-L4.Severe degenerative disc disease present at L1-L4, L5-S1.Mild degenerative disease present at L4-L5.Moderate-severe facet arthropathy present throughout the lumbar spine.Multilevel spinal canal and neural foraminal stenosis present lumbar spine.IMPRESSION: Nonspecific 1.6 x 1.5 cm irregular marginated nodule in the inferior right upper lobe abutting the minor fissure.Differential possibilities include pulmonary neoplasia versus infectious/inflammatory etiology.Recommend follow-up PET CT evaluation.Gabby Davis notified by telephone 12/06/2022 at 1900 hoursMultifocal patchy centrilobular micronodular densities within the periphery of the right upper lobe which may be due to fungal, bacterial, or atypical mycobacterial infection.Moderate atelectasis/consolidation in the basilar segments of the right lower lobe with the segmental and subsegmental bronchi demonstrating opacification.Differential possibilities include aspiration and/or pneumonia.Complete atelectasis/consolidation of the right middle lobe with bronchiectasis.No acute intra-thoracic injuries are observed.No acute intra-abdominal/pelvic injuries are identified.Large hiatal hernia containing portion of the stomach.Coronary disease.Nonspecific borderline mediastinal lymphadenopathy.Trace bilateral pleural effusions.Diffuse hepatic steatosis.Colonic diverticulosis.Diffuse osteopenia.Multilevel lumbar degenerative disc disease, facet arthropathy, spondylolisthesis with spinal canal and neural foraminal stenosis.Additional findings as described above. [id number] 18:35:18 Test Item Value Reference Range Interpretation Comments RADRPT (test code = EXAM: CT BRAIN WITHOUT RADRPT) CONTRASTDATE: 12/06/2022INDICATION: - fall with deformity to ankle.COMPARISON: None.TECHNIQUE: Axial CT images of the brain were obtained. Sagittal and coronal reformats.IV contrast: NoneDLP: Refer to CT protocol formFINDINGS: There is no edema, hemorrhage, mass lesion or other acute intracranial abnormality. There is no chronic abnormality.The skull base, calvarium, and included facial bones are unremarkable. The paranasal sinuses are predominantly clear.IMPRESSION:Unremarka ble noncontrast head CT. [id number] 18:27:29 Test Item Value Reference Range Interpretation Comments RADRPT (test code EXAM: CT CERVICAL SPINE = RADRPT) WITHOUT CONTRASTDATE: 12/06/2022 12:11INDICATION: - fall with deformity to ankleCOMPARISON: Ct chest abdomen and pelvis 12/06/22TECHNIQUE: Volumetric CT of the cervical spine is acquired without contrast. Axial, coronal and sagittal images are provided. IV contrast: None.DLP: Refer to CT protocol formUT SECTION: ERFINDINGS: The spine is imaged from the skull base to the level of T2.Final Inspector And Tester: Noncontributory.Bones: Minimal grade 1 degenerative anterolisthesis present at C3-C4, C4-C5.Vertebral body heights are normal.No cervical spine fracture is identified.Diffuse osteopenia noted.No prevertebral soft tissue edema or hematoma is observed.Moderate degenerative disc disease present at C6-C7.Mild degenerative disc disease present at C3-C6.Disc-osteophyte complexes present at C5-C7.Uncovertebral joint hypertrophy present at C5-C7.Moderate right-sided facet arthropathy present at C3-C4.Moderate left-sided facet arthropathy present at C4-C5.Mild spinal canal stenosis present at C5-C7.Right-sided neural foraminal stenosis present at C5-C6.Left-sided neural from stenosis present at C6-C7.Soft tissues:Thoracic findings reported on concurrent CT chest exam.IMPRESSION: No cervical spine fractures identified.Multilevel degenerative disc disease, uncovertebral joint hypertrophy, disc-osteophyte complexes, and facet joint arthropathy with spinal canal and neural foraminal stenosis as described.Diffuse osteopenia.Additional findings as described above. [id number] 16:45:00 Test Item Value Reference Range Interpretation Comments U Amph Scr (test code Negative *NA*(12/06/22 = U Amph Scr) 11:45 AM) [facility] [id number] 16:45:00 Test Item Value Reference Range Interpretation Comments U Xena Scr (test code Negative *NA*(12/06/22 = U Xena Scr) 11:45 AM) [facility] [id number] 16:45:00 Test Item Value Reference Range Interpretation Comments U Benzodiaz Scr (test Negative *NA*(12/06/22 code = U Benzodiaz Scr) 11:45 AM) [facility] [id number] 16:45:00 Test Item Value Reference Range Interpretation Comments U Cocaine Scr (test Negative *NA*(12/06/22 code = U Cocaine Scr) 11:45 AM) [facility] [id number] 16:45:00 Test Item Value Reference Range Interpretation Comments U Cannab Scr (test Negative *NA*(12/06/22 code = U Cannab Scr) 11:45 AM) [id number] 16:45:00 Test Item Value Reference Range Interpretation Comments U Opiate Scr (test Positive *ABN*(12/06/22 code = U Opiate Scr) 11:45 AM) [facility] [id number] 16:45:00 Test Item Value Reference Range Interpretation Comments U Phencyclidine Scr (test Negative code = U Phencyclidine *NA*(12/06/22 11:45 Scr) AM) [facility] [id number] 16:45:00 Test Item Value Reference Range Interpretation Comments UDS Note (test code = See Note (12/06/22 11:45 UDS Note) AM) [facility] [id number] 16:45:00 Test Item Value Reference Range Interpretation Comments U Amph Scr (test code Negative *NA*(12/06/22 = U Amph Scr) 11:45 AM) [facility] [id number] 16:45:00 Test Item Value Reference Range Interpretation Comments U Xena Scr (test code Negative *NA*(12/06/22 = U Xena Scr) 11:45 AM) [facility] [id number] 16:45:00 Test Item Value Reference Range Interpretation Comments U Benzodiaz Scr (test Negative *NA*(12/06/22 code = U Benzodiaz Scr) 11:45 AM) [facility] [id number] 16:45:00 Test Item Value Reference Range Interpretation Comments U Cocaine Scr (test Negative *NA*(12/06/22 code = U Cocaine Scr) 11:45 AM) [facility] [id number] 16:45:00 Test Item Value Reference Range Interpretation Comments U Cannab Scr (test Negative *NA*(12/06/22 code = U Cannab Scr) 11:45 AM) [facility] [id number] 16:45:00 Test Item Value Reference Range Interpretation Comments U Opiate Scr (test Positive *ABN*(12/06/22 code = U Opiate Scr) 11:45 AM) [facility] [id number] 16:45:00 Test Item Value Reference Range Interpretation Comments U Phencyclidine Scr (test Negative code = U Phencyclidine *NA*(12/06/22 11:45 Scr) AM) [facility] [id number] 16:45:00 Test Item Value Reference Range Interpretation Comments UDS Note (test code = See Note (12/06/22 11:45 UDS Note) AM) [facility] [id number] 16:45:00 Test Item Value Reference Range Interpretation Comments UA Color (test code = Yellow *NA*(12/06/22 UA Color) 11:45 AM) [facility] [id number] 16:45:00 Test Item Value Reference Range Interpretation Comments UA Turbidity (test code = Clear (12/06/22 11:45 UA Turbidity) AM) [facility] [id number] 16:45:00 Test Item Value Reference Range Interpretation Comments UA Spec Grav (test code = UA Spec 1.018 1 Grav) [facility] [id number] 16:45:00 Test Item Value Reference Range Interpretation Comments UA pH (test code = UA pH) 7.0 1 5.0-8.0 [facility] [id number] 16:45:00 Test Item Value Reference Range Interpretation Comments UA Protein (test code = UA Negative mg/dL Protein) [facility] [id number] 16:45:00 Test Item Value Reference Range Interpretation Comments UA Glucose (test code = UA Negative mg/dL Glucose) [facility] AND [id number] 16:45:00 Test Item Value Reference Range Interpretation Comments UA Ketones (test code = UA Ketones) 20 mg/dL [facility] AND [id number] 16:45:00 Test Item Value Reference Range Interpretation Comments UA Bili (test code = Negative *NA*(12/06/22 UA Bili) 11:45 AM) [facility] AND [id number] 16:45:00 Test Item Value Reference Range Interpretation Comments UA Blood (test code = Negative (12/06/22 11:45 UA Blood) AM) [facility] AND [id number] 16:45:00 Test Item Value Reference Range Interpretation Comments UA Urobilinogen (test code = UA no gt 0.1-1.0 Urobilinogen) [facility] AND [id number] 16:45:00 Test Item Value Reference Range Interpretation Comments UA Nitrite (test code Negative (12/06/22 11:45 = UA Nitrite) AM) [facility] AND [id number] 16:45:00 Test Item Value Reference Range Interpretation Comments UA Leuk Est (test Negative (12/06/22 11:45 code = UA Leuk Est) AM) [facility] AND [id number] 16:45:00 Test Item Value Reference Range Interpretation Comments UA Ascorbic Acid (test Negative 4*NA*(12/06/22 code = UA Ascorbic 11:45 AM) Acid) [facility] AND [id number] 16:45:00 Test Item Value Reference Range Interpretation Comments UA Sq Epi (test code = UA Sq Occasional /LPF Epi) [facility] AND [id number] 16:45:00 Test Item Value Reference Range Interpretation Comments UA WBC (test code = no gt See_Comment [Automa cindy message] The UA WBC) system which ge nerated this result transmit cindy reference range : <=5. The reference range was not used to interpr et this result as estrella l/abnormal. [facility] AND [id number] 16:45:00 Test Item Value Reference Range Interpretation Comments UA RBC (test code = 1 See_Comment [Automa cindy message] The UA RBC) system which ge nerated this result transmit cindy reference range : <=2. The reference range was not used to interpr et this result as estrella l/abnormal. [facility] AND [id number] 16:45:00 Test Item Value Reference Range Interpretation Comments UA Mucus (test code = UA Mucus) Few /LPF [facility] AND [id number] 16:45:00 Test Item Value Reference Range Interpretation Comments UA Color (test code = Yellow *NA*(12/06/22 UA Color) 11:45 AM) [facility] AND [id number] 16:45:00 Test Item Value Reference Range Interpretation Comments UA Turbidity (test code = Clear (12/06/22 11:45 UA Turbidity) AM) [facility] AND [id number] 16:45:00 Test Item Value Reference Range Interpretation Comments UA Spec Grav (test code = UA Spec 1.018 1 Grav) [facility] AND [id number] 16:45:00 Test Item Value Reference Range Interpretation Comments UA pH (test code = UA pH) 7.0 1 5.0-8.0 [facility] AND [id number] 16:45:00 Test Item Value Reference Range Interpretation Comments UA Protein (test code = UA Negative mg/dL Protein) [facility] AND [id number] 16:45:00 Test Item Value Reference Range Interpretation Comments UA Glucose (test code = UA Negative mg/dL Glucose) [facility] AND [id number] 16:45:00 Test Item Value Reference Range Interpretation Comments UA Ketones (test code = UA Ketones) 20 mg/dL [facility] AND [id number] 16:45:00 Test Item Value Reference Range Interpretation Comments UA Bili (test code = Negative *NA*(12/06/22 UA Bili) 11:45 AM) [facility] AND [id number] 16:45:00 Test Item Value Reference Range Interpretation Comments UA Blood (test code = Negative (12/06/22 11:45 UA Blood) AM) [facility] [id number] 16:45:00 Test Item Value Reference Range Interpretation Comments UA Urobilinogen (test code = UA no gt 0.1-1.0 Urobilinogen) [facility] [id number] 16:45:00 Test Item Value Reference Range Interpretation Comments UA Nitrite (test code Negative (12/06/22 11:45 = UA Nitrite) AM) [facility] AND [id number] 16:45:00 Test Item Value Reference Range Interpretation Comments UA Leuk Est (test Negative (12/06/22 11:45 code = UA Leuk Est) AM) [facility] AND [id number] 16:45:00 Test Item Value Reference Range Interpretation Comments UA Ascorbic Acid (test Negative 3*NA*(12/06/22 code = UA Ascorbic 11:45 AM) Acid) [facility] AND [id number] 16:45:00 Test Item Value Reference Range Interpretation Comments UA Sq Epi (test code = UA Sq Occasional /LPF Epi) [facility] AND [id number] 16:45:00 Test Item Value Reference Range Interpretation Comments UA WBC (test code = no gt See_Comment [Automa cindy message] The UA WBC) system which ge nerated this result transmit cindy reference range : <=5. The reference range was not used to interpr et this result as estrella l/abnormal. [facility] AND [id number] 16:45:00 Test Item Value Reference Range Interpretation Comments UA RBC (test code = 1 See_Comment [Automa cindy message] The UA RBC) system which ge nerated this result transmit cindy reference range : <=2. The reference range was not used to interpr et this result as estrella l/abnormal. [facility] AND [id number] 16:45:00 Test Item Value Reference Range Interpretation Comments UA Mucus (test code = UA Mucus) Few /LPF [facility] [id number] 16:10:05 Test Item Value Reference Range Interpretation Comments RADRPT (test code EXAM: XR CHEST AP 1 = RADRPT) VIEWDATE: 12/06/2022 9:58 INDICATION: - fall with deformity to ankleCOMPARISON: NoneTECHNIQUE: Chest AP -- 1 ViewFINDINGS: Cardiac silhouette size is normal.Mild prominence of the central pulmonary vasculature is identified.Suspected moderate size hiatal hernia noted.Mild atherosclerotic disease of the thoracic aorta is present. Low lung volumes with bronchovascular crowding present.Mild atelectasis/consolidation in bilateral lower lung zones greater on the right.No pneumothorax or pleural effusion identified.Skeletal structures demonstrate no acute findings.Diffuse osteopenia noted.Mild degenerative disk disease is present.IMPRESSION:Mild atelectasis/consolidation bilateral lower lung zones greater on the right.Differential possibilities include atelectasis, aspiration, and/or pneumonia.Suspected moderate size hiatal hernia. [id number] 15:24:57 Test Item Value Reference Range Interpretation Comments RADRPT (test code = EXAM: XR PELVIS 1 RADRPT) VIEWDATE: 12/06/2022 9:58INDICATION: - fall with deformity to ankleCOMPARISON: None.TECHNIQUE: Single view pelvisFINDINGS: No acute fracture or malalignment is identified.Lumbar degenerative disc disease and facet arthropathy noted.No soft tissue abnormality is identified.Electronic device projects over the left lower quadrant with catheter coursing toward the midline.IMPRESSION: No fractures identified. [id number] 15:15:31 Test Item Value Reference Range Interpretation Comments RADRPT (test code EXAM: XR RIGHT TIBIA-FIBULA = RADRPT) 2 VIEWSEXAM: XR RIGHT ANKLE 3 VIEWSEXAM: XR RIGHT FOOT 3 VIEWSDATE: 12/06/2022 9:58INDICATION: - ankle deformityCOMPARISON: None.TECHNIQUE: 2 views of the tibia-fibula, 3 views of the ankle, 3 views of the foot. FINDINGS:Overlying splint decreases bone and soft tissue visibility. Diffuse osteopenia noted.Tibia-fibula/ankle: Jefferson class B distal fibular fracture with one quarter shaft width lateral displacement.Minimally displaced posterior malleolar intra-articular fracture noted.Minimally displaced medial malleolar intra-articular fracture noted.Widening of the medial malleolus-talar joint space 8 mm.Foot: No additional acute fracture or malalignment is identified. Severe degenerative changes of the TMT and naviculocuneiform joints noted with osteoarthrosis, joint , sclerosis which may be due to remote trauma or neuropathic arthropathy.Moderate degenerative changes of the first MTP and first IP joints noted. Soft tissues: Soft tissue swelling of the ankle.IMPRESSION: Supination-external rotation stage IV injury with mildly displaced Jefferson B fracture of the distal fibula, minimally displaced fracture of the posterior malleolus, and minimally displaced fracture of the medial malleolus.Soft tissue swelling about the ankle.Severe degenerative changes of the TMT and naviculocuneiform joints which may be due to remote trauma or neuropathic arthropathy.Moderate degenerative changes of the first MTP and first IP joints. [facility] [id number] 14:51:00 Test Item Value Reference Range Interpretation Comments ABO/Rh (test code = ABO/Rh) A POS [facility] [id number] 14:51:00 Test Item Value Reference Range Interpretation Comments Antibody Scrn (test Negative (12/06/22 9:51 code = Antibody Scrn) AM) [facility] [id number] 14:51:00 Test Item Value Reference Range Interpretation Comments ABO/Rh (test code = ABO/Rh) A POS [facility] [id number] 14:51:00 Test Item Value Reference Range Interpretation Comments Antibody Scrn (test Negative (12/06/22 9:51 code = Antibody Scrn) AM) [facility] [id number] 14:51:00 Test Item Value Reference Range Interpretation Comments Lactic Acid Lvl (test code = Lactic 0.8 0.5-2.2 Acid Lvl) [facility] [id number] 14:51:00 Test Item Value Reference Range Interpretation Comments Ethanol Lvl (test code = Ethanol Lvl) no gt [facility] [id number] 14:51:00 Test Item Value Reference Range Interpretation Comments Etoh (%) (test code = Etoh (%)) no gt [facility] [id number] 14:51:00 Test Item Value Reference Range Interpretation Comments Lactic Acid Lvl (test code = Lactic 0.8 0.5-2.2 Acid Lvl) [facility] [id number] 14:51:00 Test Item Value Reference Range Interpretation Comments pH Corey (test code = pH Corey) 7.44 1 7.28-7.42 [facility] FxmhnsgADLWVAJAJ4290-59-04 14:51:00 Test Item Value Reference Range Interpretation Comments pCO2 Corey (test code = pCO2 Corey) 43 38-52 [facility]7295[facility]-94 14:51:00 Test Item Value Reference Range Interpretation Comments pO2 Corey (test code = pO2 Corey) 45 20-49 [facility]IbkjvwpGMJTFSYOU5075-26-81 14:51:00 Test Item Value Reference Range Interpretation Comments HCO3 Corey (test code = HCO3 Corey) 29 22-26 [place] [id number] 14:51:00 Test Item Value Reference Range Interpretation Comments BE Corey (test code = BE Corey) 4 -2-2 [facility]WjtebbkXLIADXQGH1428-34-15 14:51:00 Test Item Value Reference Range Interpretation Comments O2 Sat Corey (calc) (test code = O2 Sat 82.6 40.0-70.0 Corey (calc)) [facility]KkmbkvvAVTKIADJW9798-15-42 14:51:00 Test Item Value Reference Range Interpretation Comments Temp Corey (test code = Temp Corey) 37.0 [place] 302573-03-16 14:51:00 Test Item Value Reference Range Interpretation Comments PT (test code = PT) 14.4 s 12.0-14.7 [place] 302573-03-16 14:51:00 Test Item Value Reference Range Interpretation Comments INR (test code = INR) 1.12 1 0.85-1.17 [place] 302573-03-16 14:51:00 Test Item Value Reference Range Interpretation Comments PTT (test code = PTT) 27.4 s 22.9-35.8 [place] 302573-03-16 14:51:00 Test Item Value Reference Range Interpretation Comments ACT (TEG) Rapid (test code = ACT (TEG) 97 s 86-118 Rapid) [place] 302573-03-16 14:51:00 Test Item Value Reference Range Interpretation Comments Split Point Rapid (test code = Split 0.5 min Point Rapid) [place] 302573-03-16 14:51:00 Test Item Value Reference Range Interpretation Comments R-time Rapid (test code = R-time 0.5 min 0.4-0.7 Rapid) [place] 302573-03-16 14:51:00 Test Item Value Reference Range Interpretation Comments K-time Rapid (test code = K-time 0.8 min 0.6-2.3 Rapid) [place] [address]-03-16 14:51:00 Test Item Value Reference Range Interpretation Comments Angle Rapid (test code = Angle 83 degrees 64-80 Rapid) [place] [address]-03-16 14:51:00 Test Item Value Reference Range Interpretation Comments Max Amplitude Rapid (test code = Max 75 mm 52-71 Amplitude Rapid) [place] [address]-03-16 14:51:00 Test Item Value Reference Range Interpretation Comments G-value Rapid (test code = G-value 15.3 5.0-11.6 Rapid) [place] [address]-03-16 14:51:00 Test Item Value Reference Range Interpretation Comments Estimated % Lysis Rapid 8.5 See_Comment [Au tomated message] The (test code = Estimated syste m which generated % Lysis Rapid) this result t ransmitted reference range : <=7.5. The reference r musa was not used to int erpret this result as normal/abnormal . [place] 302573-03-16 14:51:00 Test Item Value Reference Range Interpretation Comments Segs (test code = Segs) 86.3 45.0-75.0 [place] [address]-03-16 14:51:00 Test Item Value Reference Range Interpretation Comments Lymphocytes (test code = Lymphocytes) 6.8 20.0-40.0 [place] [address]-03-16 14:51:00 Test Item Value Reference Range Interpretation Comments Monocytes (test code = Monocytes) 6.0 2.0-12.0 [place] [address]-03-16 14:51:00 Test Item Value Reference Range Interpretation Comments Eosinophils (test code = 0.6 See_Comment [A utomated message] The Eosinophils) system which ge nerated this result tra nsmitted reference range : <=4.0. The reference r musa was not used to int erpret this result as normal/abnormal . [place] [address]-03-16 14:51:00 Test Item Value Reference Range Interpretation Comments Basophils (test code = 0.3 See_Comment [Aut omated message] The Basophils) system which ge nerated this result tra nsmitted reference range : <=1.0. The reference r musa was not used to int erpret this result as normal/abnormal . [place] 302573-03-16 14:51:00 Test Item Value Reference Range Interpretation Comments Neutrophils # (test code = Neutrophils 13.0 1.5-8.1 #) [place] 302573-03-16 14:51:00 Test Item Value Reference Range Interpretation Comments Lymphocytes # (test code = Lymphocytes 1.0 1.0-5.5 #) [place] 302573-03-16 14:51:00 Test Item Value Reference Range Interpretation Comments Monocytes # (test code 0.9 See_Comment [Aut omated message] The = Monocytes #) system which generated this result tra nsmitted reference range : <=0.8. The reference r musa was not used to int erpret this result as normal/abnormal . [place] [address]-03-16 14:51:00 Test Item Value Reference Range Interpretation Comments Eosinophils # (test code 0.1 See_Comment [A utomated message] The = Eosinophils #) system whic h generated this result tra nsmitted reference range : <=0.5. The reference r musa was not used to int erpret this result as normal/abnormal . [facility]IwlsqgvCJKWDURRFJ6455-28-42 14:51:00 Test Item Value Reference Range Interpretation Comments PT (test code = PT) 14.4 s 12.0-14.7 [place] [address]-03-16 14:51:00 Test Item Value Reference Range Interpretation Comments INR (test code = INR) 1.12 1 0.85-1.17 [place] [address]-03-16 14:51:00 Test Item Value Reference Range Interpretation Comments PTT (test code = PTT) 27.4 s 22.9-35.8 [place] [address]-03-16 14:51:00 Test Item Value Reference Range Interpretation Comments ACT (TEG) Rapid (test code = ACT (TEG) 97 s 86-118 Rapid) [place] [address]-03-16 14:51:00 Test Item Value Reference Range Interpretation Comments Split Point Rapid (test code = Split 0.5 min Point Rapid) [place] [address]-03-16 14:51:00 Test Item Value Reference Range Interpretation Comments R-time Rapid (test code = R-time 0.5 min 0.4-0.7 Rapid) [facility] CenterSioyckxRDAGJDKUAF3439-83-80 14:51:00 Test Item Value Reference Range Interpretation Comments K-time Rapid (test code = K-time 0.8 min 0.6-2.3 Rapid) [facility] CenterWsrjdndRCJTJTDMBW7357-65-29 14:51:00 Test Item Value Reference Range Interpretation Comments Angle Rapid (test code = Angle 83 degrees 64-80 Rapid) [place] 302573-03-16 14:51:00 Test Item Value Reference Range Interpretation Comments Max Amplitude Rapid (test code = Max 75 mm 52-71 Amplitude Rapid) [place] 302573-03-16 14:51:00 Test Item Value Reference Range Interpretation Comments G-value Rapid (test code = G-value 15.3 5.0-11.6 Rapid) [facility] CenterVirhyosHUGVXVDRJB5109-93-31 14:51:00 Test Item Value Reference Range Interpretation Comments Estimated % Lysis Rapid 8.5 See_Comment [Au tomated message] The (test code = Estimated syste m which generated % Lysis Rapid) this result t ransmitted reference range : <=7.5. The reference r musa was not used to int erpret this result as normal/abnormal . [facility]QgcfvphXJXGCTAEKA2073-26-83 14:51:00 Test Item Value Reference Range Interpretation Comments Ethanol Lvl (test code = Ethanol Lvl) no gt [facility]JoivkexPJJVDAOZHW6128-55-06 14:51:00 Test Item Value Reference Range Interpretation Comments Etoh (%) (test code = Etoh (%)) no [facility] METABOLIC PANEL (NA, K, CL, CO2, GLUCOSE, BUN, CREATININE, CA)2022-08-31 07:11:02 Test Item Value Reference Range Interpretation Comments NA (test code = 137 mmol/L 135-145 7949836874) K (test code = 5.0 mmol/L 3.5-5.0 1784345491) CL (test code = 96 mmol/L 98-108 L 1096697477) CO2 TOTAL (test code = 31 mmol/L 23-31 9799357821) AGAP (test code = 2-16 6078357403) BUN (test code = 19 mg/dL 7-23 5789834313) GLUCOSE (test code = 123 mg/dL 70-110 H 4124176740) CREATININE (test code = 0.74 mg/dL 0.50-1.04 4704171745) CALCIUM (test code = 9.4 mg/dL 8.6-10.6 1554582288) eGFR (test code = mL/min/1.73m2 4634906323) YANI (test code = YANI) Association of Glomerular Filtration Rate (GFR) and Staging of Kidney Disease* + --+ --+ ------+| GFR (mL/min/1.73 m2) ?| With Kidney Damage ?| ?Without Kidney Damage+ --------+ --------+ +| ?>90 ?| ?Stage one ?| ? Normal ?+ ---+ ---+ -------+| ?60-89 ?| ?Stage two ?| ? Decreased GFR ? + --+ --+ ------+| ?30-59 ?| ?Stage three ?| ? Stage three ? + --+ --+ ------+| ?15-29 ?| ?Stage four ? | ? Stage four ?+ ---+ ---+ -------+| ?<15 (or dialysis) ? ?| ?Stage five ? | ? Stage five ?+ ---+ ---+ -------+ *Each stage assumes the associated GFR [...] or abnormalities in imaging tests). Lab Interpretation Abnormal (test code = 06172-2) [facility] / [id number] 06:54:58 Test Item Value Reference Range Interpretation Comments PROTIME PATIENT (test See_Comment [Auto mated message] code = 5964-2) The system [employer] generated this result transmitted ref erence range: 12.0 - 1 4.7 Seconds. The re ference range was not u sed to interpret this result as normal/abnor mal. INR (test code = 6301-6) Nor mal INR <1.1; Warfarin Therap eutic range 2.0 to 3. 0 or 2.5 to 3.5, dep ending upon the indica tions. Lab Interpretation (test Normal code = 47750-9) [facility] WITH [id number] 06:22:40 Test Item Value Reference Range Interpretation Comments WBC (test code = See_Comment H [Automated 6690-2) message] The sy stem which generated this [...] RDW-SD (test code = 40.1 fL 39.0-49.9 02891-3) RDW-CV (test code = 12.1 % 12.0-15.5 788-0) PLT (test code = See_Comment H [Automated 777-3) message] The sy stem which generated this result transmitted reference range : 166 - 358 10*3/ ?L. The reference r musa was not used to interpret this result as normal/abnormal . MPV (test code = 9.1 fL 9.5-12.9 L 51095-8) NRBC/100 WBC (test See_Comment [Automat ed code = 8512596051) message] The system which generated this result transmitted reference range : 0.0 - 10.0 /100 WBCs. The refer ence range was not u sed to interpret th is result as normal/abnormal . NRBC x10^3 (test code See_Comment [Auto mated = 5377724718) message] The s ystem which generated this result transmitted reference range : 10*3/?L. The reference range was not used to interpret this result as normal/abnormal . GRAN MAT (NEUT) % 87.4 % (test code = 770-8) IMM GRAN % (test code 0.80 % = 5107239939) LYMPH % (test code = 5.3 % 736-9) MONO % (test code = 6.2 % 5905-5) EOS % (test code = 0.0 % 713-8) BASO % (test code = 0.3 % 706-2) GRAN MAT x10^3(ANC) 9.99 10*3/uL 1.88-7.09 H (test code = 0939909892) IMM GRAN x10^3 (test 0.09 10*3/uL 0.00-0.06 H code = 3718127440) LYMPH x10^3 (test code 0.60 10*3/uL 1.32-3.29 L = 731-0) MONO x10^3 (test code 0.71 10*3/uL 0.33-0.92 = 742-7) EOS x10^3 (test code = 0.03-0.39 L 711-2) BASO x10^3 (test code 0.03 10*3/uL 0.01-0.07 = 704-7) Lab Interpretation Abnormal (test code = 41264-4) [facility]
[2023-02-22 22:58] LABS: Hematocrit 35.6 % (36.0-45.0); Lymphocytes % 25.8 % (15.3-44.8); MCV 85.7 fL (80-100); MPV 7.6 fL (7.6-11.3); RBC Red Blood Cell Count 4.15 M/uL (3.86-4.86)
[2023-02-22 23:02] LABS: Potassium 3.9 mEq/L (3.5-5.1); Troponin High Sensitivity 5.4 pg/mL (<58.9)
--- NOTE | 2023-02-22 23:45 | ER ---
Nurse's Notes [facility] Name: Chaparrita Blanca Age: 72 yrs Sex: Female : 1950 Arrival Date: 02/22/2023 Time: 21:52 Bed 3 Private MD: Diagnosis: Essential (primary) hypertension Presentation: 02/22 22:01 Chief complaint: EMS states: We were toned out for high blood pressure. She calls all vc1 the time for her blood pressure but takes a clonidine before we get there and her blood pressure is back down when we arrive. Systolic was in the 140's today. Ebola Screen: Patient negative for fever greater than or equal to 101.5 degrees Fahrenheit, and additional compatible Ebola Virus Disease symptoms Patient denies exposure to infectious person. Patient denies travel to an Ebola-affected area in the 21 days before illness onset. No symptoms or risks identified at this time. Risk Assessment: Do you want to hurt yourself or someone else? Patient reports no desire to harm self or others. Onset of symptoms was February 22, 2023. 22:01 Method Of Arrival: EMS: [facility] vc1 22:01 Acuity: NORBERT 4 vc1 22:06 Initial Sepsis Screen: Does the patient meet any 2 criteria? No. Patient's initial vc1 sepsis screen is negative. Does the patient have a suspected source of infection? No. Patient's initial sepsis screen is negative. Historical: - Allergies: 22:03 PENICILLINS; vc1 22:03 Celexa; vc1 22:03 Codeine; vc1 22:03 Keflex; vc1 22:03 Niacin; vc1 22:03 Gbzvrjx-OLE-XsX Reductase Inhibitors; vc1 22:03 Mobic; vc1 22:03 Levaquin; vc1 22:03 Repatha SureClick; vc1 22:03 Paxil; vc1 - PMHx: 22:03 Anxiety; Arthritis; Hypertension; Hyperlipidemia; Chronic pain; vc1 - PSHx: 22:03 pain pump (morphine); vc1 Screenin:05 Abuse screen: Denies threats or abuse. Nutritional screening: On. Nutritional vc1 screening: No deficits noted. Nutritional screening: No deficits noted. Tuberculosis screening: No symptoms or risk factors identified. 02/23 00:00 [facility] ED Fall Risk Assessment (Adult) History of falling in the last 3 months, jb4 including since admission No falls in past 3 months (0 pts) Confusion or Disorientation No (0 pts) Score/Fall Risk Level 0 - 2 = Low Risk. Assessment: 02/22 22:00 General: Appears in no apparent distress. comfortable, Behavior is calm, cooperative, jb4 appropriate for age. Pain: Denies pain. Neuro: Level of Consciousness is awake, alert, obeys commands, Oriented to person, place, time, situation. Cardiovascular: Patient's skin is warm and dry. Respiratory: Airway is patent Respiratory effort is even, unlabored, Respiratory pattern is regular, symmetrical. GI: No signs and/or symptoms were reported involving the gastrointestinal system. : No signs and/or symptoms were reported regarding the genitourinary system. EENT: No signs and/or symptoms were reported regarding the EENT system. Derm: Skin is intact, Skin is pink, warm \T\ dry. Musculoskeletal: Circulation, motion, and sensation intact. Range of motion: intact in all extremities. 23:33 Reassessment: No changes from previously documented assessment. Patient and/or family vc1 updated on plan of care and expected duration. Pain level reassessed. Patient is alert, oriented x 3, equal unlabored respirations, skin warm/dry/pink. 02/23 00:00 Reassessment: Patient appears in no apparent distress at this time. Patient and/or jb4 family updated on plan of care and expected duration. Pain level reassessed. Patient is alert, oriented x 3, equal unlabored respirations, skin warm/dry/pink. PT verbalized understanding of d/c and follow up instructions. Denies questions or concerns at this time. Vital Signs: 02/22 22:01 Weight 77.11 kg; Height 5 ft. 4 in. ; vc1 22:03 BP 143 / 71; Pulse 82; Resp 18; Temp 99.1(O); Pulse Ox 91% on R/A; Weight 77.11 kg; oe Height 5 ft. 4 in. ; Pain 0/10; 23:00 BP 124 / 72; Pulse 91; Resp 20; Pulse Ox 92% on R/A; vc1 22:03 Body Mass Index 29.18 (77.11 kg, 162.56 cm) oe 22:03 Pain Scale: Adult oe ED Course: 21:57 Patient arrived in ED. kb 21:57 Venkatesh Evans MD is Attending Physician. michelle 21:57 Grace Marcelo FNP-C is [facility]. kb 21:58 Venkatesh Evans MD is Attending Physician. kb 22:03 Triage completed. vc1 22:03 Arm band placed on left wrist. vc1 22:06 Patient has correct armband on for positive identification. Bed in low position. Call vc1 light in reach. Pulse ox on. NIBP on. 22:53 XRAY Chest (1 view) In Process Unspecified. EDMS 22:57 Asif Covarrubias, RN is Primary Nurse. jb4 02/23 00:00 No provider procedures requiring assistance completed. IV discontinued, intact, jb4 bleeding controlled, No redness/swelling at site. Pressure dressing applied. Administered Medications: No medications were administered Medication: 02/22 22:06 VIS not applicable for this client. vc1 Outcome: 23:43 Discharge ordered by . kb 02/23 00:00 Discharged to home via wheelchair, with friend. jb4 Condition: stable Discharge instructions given to patient, Instructed on discharge instructions, follow up and referral plans. Demonstrated understanding of instructions, follow-up care. 00:01 Patient left the ED. jb4 Signatures: Dispatcher [employer] EDNE Grace Marcelo FNP-C CLINICAL ADMINISTRATIVE COORDINATOR-Ckb Venkatesh Evans MD MD cha Bryson, James, RN RN jb4 Garrett Cooley Vanessa RN RN vc1
--- NOTE | 2023-02-22 23:45 | EDPHYS ---
Physician Documentation [facility] Name: Chaparrita Blanca Age: 72 yrs Sex: Female : 1950 Arrival Date: 02/22/2023 Time: 21:52 Bed 3 Private MD: ED Physician Venkatesh Evans HPI: 02/22 23:39 This 72 yrs old Female presents to ER via EMS with complaints of High Blood Pressure. kb 23:39 The patient has elevated blood pressure and discovered this at home. Onset: The kb symptoms/episode began/occurred this morning. Modifying factors: The symptoms are aggravated by discontinuation of meds. Associated signs and symptoms: Pertinent positives: headache, Pertinent negatives: chest pain, dizziness, dyspnea, lightheadedness, nausea, visual changes, vomiting, weakness. Severity of symptoms: At its worst the blood pressure was 200 mm Hg, in the emergency department the blood pressure is improved, 143 mm Hg. The patient has experienced similar episodes in the past, chronically. The patient has been recently seen by a physician:. Pt reports she recently was hospitalized for a leg fracture and was taken off of all blood pressure and anxiety medication. States she has since seen Dr Perry and told him of this, but he did not restart it yet. States she has a stress test scheduled for next week. States her blood pressure has been elevated all day today and she started getting worried about it so she called EMS. States she isn't sure if her anxiety is getting to her and making it worse, but didn't want to wait through the weekend to get seen. Reports she had a headache that has resolved. Historical: - Allergies: 22:03 PENICILLINS; vc1 22:03 Celexa; vc1 22:03 Codeine; vc1 22:03 Keflex; vc1 22:03 Niacin; vc1 22:03 Xafntsr-NAQ-FqF Reductase Inhibitors; vc1 22:03 Mobic; vc1 22:03 Levaquin; vc1 22:03 Repatha SureClick; vc1 22:03 Paxil; vc1 - PMHx: 22:03 Anxiety; Arthritis; Hypertension; Hyperlipidemia; Chronic pain; vc1 - PSHx: 22:03 pain pump (morphine); vc1 ROS: 23:42 Constitutional: Negative for fever, chills, and weight loss. kb 23:42 Neuro: Positive for headache. 23:42 Psych: Positive for anxiety. 23:42 All other systems are negative. Exam: 23:42 Constitutional: This is a well developed, well nourished patient who is awake, alert, kb and in no acute distress. Head/Face: Normocephalic, atraumatic. ENT: Moist Mucous membranes Cardiovascular: Regular rate and rhythm with a normal S1 and S2. No gallops, murmurs, or rubs. No pulse deficits. Respiratory: Respirations even and unlabored. No increased work of breathing. Talking in full sentences Abdomen/GI: Soft, non-tender. No distention Skin: Warm, dry with normal turgor. Normal color. MS/ Extremity: Pulses equal, no cyanosis. Neurovascular intact. Full, normal range of motion. Neuro: Awake and alert, GCS 15, oriented to person, place, time, and situation. Moves all extremities. Normal gait. Psych: Awake, alert, with orientation to person, place and time. Behavior, mood, and affect are within normal limits. 23:42 Constitutional: The patient appears anxious. kb Vital Signs: 22:01 Weight 77.11 kg; Height 5 ft. 4 in. ; vc1 22:03 BP 143 / 71; Pulse 82; Resp 18; Temp 99.1(O); Pulse Ox 91% on R/A; Weight 77.11 kg; oe Height 5 ft. 4 in. ; Pain 0/10; 23:00 BP 124 / 72; Pulse 91; Resp 20; Pulse Ox 92% on R/A; vc1 22:03 Body Mass Index 29.18 (77.11 kg, 162.56 cm) oe 22:03 Pain Scale: Adult oe MDM: 21:57 Patient medically screened. kb 23:42 Differential diagnosis: htn, anxiety. Data reviewed: vital signs, nurses notes. kb Historians other than the Patient: EMS: [facility]. Counseling: I had a detailed discussion with the patient and/or guardian regarding: the historical points, exam findings, and any diagnostic results supporting the discharge/admit diagnosis, lab results, radiology results, the need for outpatient follow up, a family practitioner, to return to the emergency department if symptoms worsen or persist or if there are any questions or concerns that arise at home. 23:49 ED course: Pt denies chest pain. Headache and hypertension resolved. Troponin normal. kb will discharge home to follow up with [place] as planned. 02/22 21:58 Order name: Basic Metabolic Panel; Complete Time: 23:09 kb 02/22 21:58 Order name: CBC with Diff; Complete Time: 23:02 kb 02/22 21:58 Order name: Magnesium; Complete Time: 23:09 kb 02/22 21:58 Order name: NT PRO-BNP; Complete Time: 23:09 kb 02/22 21:58 Order name: Troponin HS; Complete Time: 23:09 kb 02/22 21:58 Order name: XRAY Chest (1 view) kb 02/22 21:58 Order name: EKG; Complete Time: 21:58 kb 02/22 21:58 Order name: Cardiac monitoring; Complete Time: 22:27 kb 02/22 21:58 Order name: EKG - Nurse/Tech; Complete Time: 22:27 kb 02/22 21:58 Order name: IV Saline Lock; Complete Time: 22:47 kb 02/22 21:58 Order name: Labs collected and sent; Complete Time: 22:48 kb 02/22 21:58 Order name: O2 Per Protocol; Complete Time: 22:28 kb 02/22 21:58 Order name: O2 Sat Monitoring; Complete Time: 22:28 kb Administered Medications: No medications were administered Disposition Summary: 02/22/23 23:43 Discharge Ordered Location: Home kb Condition: Stable kb Diagnosis - Essential (primary) hypertension kb Followup: kb - With: Emergency Department - When: As needed - Reason: Worsening of condition Followup: kb - With: Private Physician - When: 2 - 3 days - Reason: Recheck today's complaints, Continuance of care, Re-evaluation by your physician Discharge Instructions: - Discharge Summary Sheet kb - Hypertension, Adult, Ciuq-sj-Zwte kb - Panic Attack, Selg-hq-Zvhp kb Forms: - Medication Reconciliation Form kb - Thank You Letter kb - Antibiotic Education kb - Prescription Opioid Use kb Signatures: Dispatcher [employer] Grace Dan, LIU-C LIU-Sherrie Blair, RN RN vc1
[2023-02-23 01:35] VITALS: BP 143/71; TEMP 99.1; O2SAT 91
--- NOTE | 2023-02-23 22:33 | RAD REPORT ---
EXAM DESCRIPTION: RAD - Chest Single View - 02/22/2023 10:52 pm CLINICAL HISTORY: The patient is 72 years old and is Female; CHEST PAIN TECHNIQUE: Frontal view of the chest. COMPARISON: No relevant prior studies available. FINDINGS: Lungs: Unremarkable. No consolidation. Pleural space: Unremarkable. No pneumothorax. Heart: Unremarkable. Mediastinum: Unremarkable. Bones/joints: Unremarkable. IMPRESSION: No acute findings in the chest. Electronically signed by: Valeriy Mccormack MD 02/22/2023 11:37 PM CDT Due to temporary technical issues with the PACS/Fluency reporting system, reports are being signed by the in house radiologists without review as a courtesy to insure prompt reporting. The interpreting radiologist is fully responsible for the content of the report.
--- NOTE | 2023-02-24 14:20 | EKG ---
Test Date: 2023-02-22 Test Time: 22:20:43 Plaster Machine Tender: RONALD MEASUREMENT RESULTS: Intervals: Rate: 81 SD: 196 QRSD: 76 QT: 382 QTc: 443 [place]: P: 61 SD: 196 QRS: -38 T: 36 INTERPRETIVE STATEMENTS: Normal sinus rhythm Left axis deviation Possible Anterior infarct, age undetermined Abnormal ECG Compared to ECG 10/29/2022 00:02:00 No significant changes Electronically Signed On 02-24-23 14:17:25 CDT by Abdon Perry
== END 2023-02-23 00:01 | disposition home or self-care (01) ==
LOC: ER 21:52
DX: I10 Essential (primary) hypertension (principal); R51.9 Headache, unspecified; E78.5 Hyperlipidemia, unspecified; F41.9 Anxiety disorder, unspecified; Z88.0 Allergy status to penicillin; Z88.1 Allergy status to other antibiotic agents; Z88.5 Allergy status to narcotic agent; Z88.8 Allergy status to other drugs, medicaments and biological substances; Z91.048 Other nonmedicinal substance allergy status
CPT/HCPCS: 36415; 71045; 80048; 83735; 83880; 84484; 85025; 93005; 99284

== ENCOUNTER 2023-08-31 12:06 | Emergency (ER) | payer OTHER ==
[2023-08-31 13:06] LABS: Absolute Lymphocytes (CBC) 0.9 K/uL (0.7-4.9); Hematocrit 40.8 % (36.0-45.0); Lymphocytes % 17.1 % (15.3-44.8); MCV 88.2 fL (80-100); MPV 7.5 fL (7.6-11.3); Platelets 192 thou/uL (152-406); RBC Red Blood Cell Count 4.63 M/uL (3.86-4.86)
[2023-08-31 13:09] LABS: Protime INR 1.04
[2023-08-31 13:27] LABS: Albumin 3.2 g/dL (3.4-5.0); Bilirubin Direct 0.1 mg/dL (0-0.2); Bilirubin Indirect, Calculated 0.3 mg/dL (0.2-0.8); Bilirubin Total 0.4 mg/dL (0.2-1.0); Magnesium 2.2 mg/dL (1.6-2.4); Potassium 4.3 mEq/L (3.5-5.1); Troponin High Sensitivity 3.5 pg/mL (<58.9)
--- NOTE | 2023-08-31 14:18 | RAD REPORT ---
EXAM DESCRIPTION: RADChest Single View08/31/2023 1:39 pm CLINICAL HISTORY: Chest pain;Dyspnea COMPARISON: Chest Pa And Lat (2 Views) dated 05/21/2023; Chest Single View dated 02/22/2023; Chest Pa A nd Lat (2 Views) dated 01/09/2023; Chest Pa And Lat (2 Views) dated 11/26/2022 TECHNIQUE: Portable AP view of the chest. FINDINGS: The lungs are clear. No pneumothorax or effusion. The cardiomediastinal contours are unre markable. IMPRESSION: No acute cardiopulmonary process.
--- NOTE | 2023-08-31 15:38 | EDPHYS ---
Physician Documentation [facility] Name: Chaparrita Blanca Age: 73 yrs Sex: Female : 1950 Arrival Date: 08/31/2023 Time: 12:06 Bed 18 Private MD: ED Physician Tom Wilson HPI: 08/31 13:36 This 73 yrs old Female presents to ER via Ambulatory with complaints of Shortness Of sb4 Breath. 13:38 Patient with history of coronary artery disease, questional atrial fibrillation, sb4 hypertension, hyperlipidemia presents with complaints of exertional dyspnea, states it feels similar to when she required a stent. She called her pyroglazer and has appointment in 2 days. She reports compliance with all of her medications. She denies any chest pain, nausea, vomiting, diaphoresis.. Historical: - Allergies: 12:45 Celexa; nj1 12:45 Codeine; nj1 12:45 Keflex; nj1 12:45 Levaquin; nj1 12:45 Mobic; nj1 12:45 Niacin; nj1 12:45 Paxil; nj1 12:45 PENICILLINS; nj1 12:45 Repatha SureClick; nj1 12:45 Xbalwea-Kpg-Nqz Reductase Inhibitors; nj1 12:45 Crestor; nj1 12:45 Boniva; nj1 12:45 Zetia; nj1 12:45 Augmentin; nj1 12:45 Amoxicillin; nj1 - PMHx: 12:45 Anxiety; Arthritis; Chronic pain; Hyperlipidemia; Hypertension; Coronary nj1 atherosclerosis; - PSHx: 12:45 Stented artery; nj1 - Immunization history:: Client reports having NOT received the Covid vaccine. - Social history:: Smoking status: Patient reports the use of cigarette tobacco products, Patient denies any tobacco usage or history of. ROS: 13:41 Constitutional: Negative for fever, chills, and weight loss, sb4 13:41 Respiratory: Positive for dyspnea on exertion, 13:41 All other systems are negative, Exam: 13:41 Constitutional: This is a well developed, well nourished patient who is awake, alert, sb4 and in no acute distress. Head/Face: Normocephalic, atraumatic. Eyes: Extra-ocular motions intact. Periorbital areas with no swelling, redness, or edema. ENT: Mucous membranes moist. Cardiovascular: Regular rate and rhythm with a normal S1 and S2. Respiratory: Lungs have equal breath sounds bilaterally, clear to auscultation and percussion. No rales, rhonchi or wheezes noted. No increased work of breathing, no retractions or nasal flaring. Abdomen/GI: Soft, non-tender, no distension. Skin: Warm, dry with normal turgor. Normal color with no rashes, no lesions, and no evidence of cellulitis. MS/ Extremity: Pulses equal, no cyanosis. Neurovascular intact. Full, normal range of motion. Neuro: Awake and alert, GCS 15, oriented to person, place, time, and situation. Motor strength 5/5 in all extremities. Sensory grossly intact. Vital Signs: 12:20 BP 144 / 85; Pulse 81; Resp 17; Temp 98.4(TE); Pulse Ox 97% on R/A; Weight 77.11 kg; nj1 Height 5 ft. 3 in. ; 13:20 BP 113 / 66; Pulse 66; Resp 15; Pulse Ox 96% on R/A; nj1 14:30 BP 116 / 60; Pulse 60; Resp 14; Pulse Ox 98% ; nj1 15:20 BP 107 / 56; Pulse 62; Resp 12; Pulse Ox 96% ; nj1 12:20 Body Mass Index 30.11 (77.11 kg, 160.02 cm) nj1 MDM: 12:21 Patient medically screened. sb4 13:41 Differential diagnosis: asthma, Bronchitis Chronic Obstructive Pulmonary Disease sb4 Myocardial Infarction pneumonia, pulmonary edema, Pulmonary Embolism. 13:41 The patient's Wells Deep Vein Thrombosis Score was calculated as follows: No Risks (0 sb4 Pts) Total Score: 0-2 Pts- Low Risk. The patient's pulmonary embolism risk score was calculated as follows: No Risks (0 Pts) Total Score: 0-2 points. This patient was found to be at low risk for a pulmonary embolism by using the Well's assessment criteria. Scoring Tools HEART Score: History: ECG: Age: Risk Factors: Troponin: Total Score = 5. 18:05 Antibiotic administration: Not indicated, the patient does not have an appreciated sb4 infiltrate. Data reviewed: vital signs, nurses notes, lab test result(s), EKG, radiologic studies, and as a result, I will discharge patient. Consideration of Admission/Observation Escalation of care including admission/observation considered. Care significantly affected by the following chronic conditions: Hypertension. Counseling: I had a detailed discussion with the patient and/or guardian regarding the historical points, exam findings, and any diagnostic results supporting the discharge/admit diagnosis, lab results, radiology results, the need for outpatient follow up, a pyroglazer, to return to the emergency department if symptoms worsen or persist or if there are any questions or concerns that arise at home. 08/31 12:33 Order name: Basic Metabolic Panel; Complete Time: 13:28 sb4 08/31 12:33 Order name: CBC with Diff; Complete Time: 13:12 sb4 08/31 12:33 Order name: LFT's; Complete Time: 13:28 sb4 08/31 12:33 Order name: Magnesium; Complete Time: 13:28 sb4 08/31 12:33 Order name: NT PRO-BNP; Complete Time: 13:28 sb4 08/31 12:33 Order name: PT-INR; Complete Time: 13:12 sb4 08/31 12:33 Order name: Troponin HS; Complete Time: 13:28 sb4 08/31 14:42 Order name: Troponin High Sensitivity; Complete Time: 15:21 sb4 08/31 12:33 Order name: XRAY Chest (1 view); Complete Time: 14:20 sb4 08/31 12:33 Order name: EKG; Complete Time: 12:34 sb4 08/31 12:33 Order name: Cardiac monitoring; Complete Time: 12:41 sb4 08/31 12:33 Order name: EKG - Nurse/Tech; Complete Time: 13:19 sb4 08/31 12:33 Order name: IV Saline Lock; Complete Time: 13:01 sb4 08/31 12:33 Order name: Labs collected and sent; Complete Time: 13:01 sb4 08/31 12:33 Order name: O2 Per Protocol; Complete Time: 12:41 sb4 08/31 12:33 Order name: O2 Sat Monitoring; Complete Time: 12:41 sb4 08/31 14:42 Order name: Misc. Order: ambulate; Complete Time: 14:46 sb4 EC:16 Rate is 72 beats/min. Rhythm is regular, Normal Sinus Rhythm. Left axis deviation sb4 noted. VT interval is normal at 190 msec. QRS interval is normal at 88 msec. QT interval is normal at 412 msec. No Q waves. No ST changes noted. Clinical impression: No evidence of ischemia. Interpreted by me. Reviewed by me. Administered Medications: No medications were administered Disposition Summary: 08/31/23 15:37 Discharge Ordered Notes: Location: Home sb4 Problem: new sb4 Symptoms: have improved sb4 Condition: Stable sb4 Diagnosis - dyspnea on exertion sb4 Followup: sb4 - With: Abdon Perry MD - When: 1 - 2 days - Reason: Further diagnostic work-up, Recheck today's complaints, Re-evaluation by your physician Discharge Instructions: - Discharge Summary Sheet sb4 - Cardiopulmonary Exercise Stress Test, [id number] sb4 Forms: - Medication Reconciliation Form sb4 - Thank You Letter sb4 - Antibiotic Education sb4 - Prescription Opioid Use sb4 - Patient Portal Instructions sb4 - Leadership Thank You Letter sb4 Addendum: 09/09/2023 09:24 I reviewed the patient's care provided by the Advanced Practice Provider and agree with jayro funez the diagnosis and treatment plan. Signatures: Dispatcher [employer] EDAllison Camacho PA-C PA-C sb4 Génesis Bills RN RN nj1 Tom Wilson Corrections: (The following items were deleted from the chart) 08/31 13:44 13:41 The patient's pulmonary embolism risk score was calculated as follows: No Risks sb4 (0 Pts) Total Score: 0-2 points. This patient was found to be at low risk for a pulmonary embolism by using the Well's assessment criteria sb4 13:44 13:41 Scoring Tools HEART Score: History: ECG: Age: Risk Factors: Troponin: Total Score sb4 = 6 sb4
--- NOTE | 2023-08-31 15:38 | ER ---
Nurse's Notes [facility] Name: Chaparrita Blanca Age: 73 yrs Sex: Female : 1950 Arrival Date: 08/31/2023 Time: 12:06 Bed 18 Private MD: Diagnosis: dyspnea on exertion Presentation: 08/31 12:20 Chief complaint: Patient states: "not able to cath a breath" along with the feeling nj1 "you are about to pass out if i dont sit down". Going on for about a week on/off, called cosmetology instructor, has appointment on Saturday. Able to walk to room with no distress, declined wheel chair when called from [facility]. 12:20 Coronavirus screen: Vaccine status: Patient reports being unvaccinated. Ebola Screen: nj1 Patient denies travel to an Ebola-affected area in the 21 days before illness onset. Initial Sepsis Screen: Does the patient meet any 2 criteria? No. Patient's initial sepsis screen is negative. Does the patient have a suspected source of infection? No. Patient's initial sepsis screen is negative. Risk Assessment: Do you want to hurt yourself or someone else? Patient reports no desire to harm self or others. Onset of symptoms was August 2023. 12:20 Method Of Arrival: Ambulatory nj1 12:20 Acuity: NORBERT 3 nj1 Historical: - Allergies: 12:45 Celexa; nj1 12:45 Codeine; nj1 12:45 Keflex; nj1 12:45 Levaquin; nj1 12:45 Mobic; nj1 12:45 Niacin; nj1 12:45 Paxil; nj1 12:45 PENICILLINS; nj1 12:45 Repatha SureClick; nj1 12:45 Yzlekap-Gmw-Gfn Reductase Inhibitors; nj1 12:45 Crestor; nj1 12:45 Boniva; nj1 12:45 Zetia; nj1 12:45 Augmentin; nj1 12:45 Amoxicillin; nj1 - PMHx: 12:45 Anxiety; Arthritis; Chronic pain; Hyperlipidemia; Hypertension; Coronary nj1 atherosclerosis; - PSHx: 12:45 Stented artery; nj1 - Immunization history:: Client reports having NOT received the Covid vaccine. - Social history:: Smoking status: Patient reports the use of cigarette tobacco products, Patient denies any tobacco usage or history of. Screenin:30 [facility] ED Fall Risk Assessment (Adult) Score/Fall Risk Level 0 - 2 = Low Risk nj1 Oriented to surroundings, Maintained a safe environment, Hourly rounding (assess needs \\T\\ fall precautionary measures) done. Abuse screen: Denies threats or abuse. Denies injuries from another. Nutritional screening: No deficits noted. Tuberculosis screening: No symptoms or risk factors identified. Assessment: 12:20 General: Appears in no apparent distress. comfortable, Behavior is calm, cooperative, nj1 appropriate for age. 12:20 Pain: Denies pain. Neuro: Level of Consciousness is awake, alert, obeys commands, nj1 Oriented to person, place, time, situation. Cardiovascular: Patient's skin is warm and dry. Cardiovascular: Denies chest pain, Rhythm is regular. Respiratory: Airway is patent Respiratory effort is even, unlabored. 13:20 Reassessment: Patient appears in no apparent distress at this time. Patient and/or nj1 family updated on plan of care and expected duration. Pain level reassessed. Patient is alert, oriented x 3, equal unlabored respirations, skin warm/dry/pink. 14:20 Reassessment: Patient appears in no apparent distress at this time. Patient and/or nj1 family updated on plan of care and expected duration. Pain level reassessed. Patient is alert, oriented x 3, equal unlabored respirations, skin warm/dry/pink. 15:20 Reassessment: Patient appears in no apparent distress at this time. Patient and/or nj1 family updated on plan of care and expected duration. Pain level reassessed. Patient is alert, oriented x 3, equal unlabored respirations, skin warm/dry/pink. Vital Signs: 12:20 BP 144 / 85; Pulse 81; Resp 17; Temp 98.4(TE); Pulse Ox 97% on R/A; Weight 77.11 kg; nj1 Height 5 ft. 3 in. ; 13:20 BP 113 / 66; Pulse 66; Resp 15; Pulse Ox 96% on R/A; nj1 14:30 BP 116 / 60; Pulse 60; Resp 14; Pulse Ox 98% ; nj1 15:20 BP 107 / 56; Pulse 62; Resp 12; Pulse Ox 96% ; nj1 12:20 Body Mass Index 30.11 (77.11 kg, 160.02 cm) nj1 ED Course: 12:09 Patient arrived in ED. mg5 12:21 Allison Contreras PA-C is PHCP. sb4 12:21 Tom Wilson is Attending Physician. sb4 12:30 Patient has correct armband on for positive identification. Bed in low position. Call nj1 light in reach. Provided Education on: fall precautions, call light. 12:41 Génesis Bills, RN is Primary Nurse. nj1 12:44 Triage completed. nj1 12:47 Arm band placed on left wrist. nj1 13:41 XRAY Chest (1 view) In Process Unspecified. EDMS 15:36 Abdon Perry MD is Referral Physician. sb4 15:40 No provider procedures requiring assistance completed. nj1 15:40 IV discontinued, intact, bleeding controlled. nj1 Administered Medications: No medications were administered Medication: 15:40 VIS not applicable for this client. nj1 Outcome: 15:37 Discharge ordered by MD. sb4 15:40 Discharged to home ambulatory, nj1 15:40 Condition: stable 15:40 Discharge instructions given to patient, Instructed on discharge instructions, follow up and referral plans. Demonstrated understanding of instructions, follow-up care, 15:45 Patient left the ED. nj1 Signatures: Dispatcher [employer] EDNM Allison Contreras PA-C PA-C sb4 Génesis Bills, RN RN [facility] Lakeisha Chun mg5 Corrections: (The following items were deleted from the chart) 15:21 15:19 General: Appears in no apparent distress. comfortable, nj nj1 16:11 16:10 Patient left the ED. nj1 nj1
[2023-08-31 16:16] VITALS: TEMP 98.4
[2023-08-31 16:19] VITALS: BP 107/56; O2SAT 96
--- NOTE | 2023-09-03 13:53 | EKG ---
Test Date: 2023-08-31 Test Time: 13:12:52 Content Curator: MINERVA MEASUREMENT RESULTS: Intervals: Rate: 72 AR: 190 QRSD: 88 QT: 412 QTc: 451 [place]: P: 62 AR: 190 QRS: -38 T: 41 INTERPRETIVE STATEMENTS: Normal sinus rhythm Left axis deviation Low voltage QRS Cannot rule out Anterior infarct, age undetermined Abnormal ECG Compared to ECG 02/22/2023 22:20:43 Low QRS voltage now present Myocardial infarct finding still present Electronically Signed On 09-03-23 13:42:30 COFFEE SOMMELIER by Abdon Perry
== END 2023-08-31 16:10 | disposition home or self-care (01) ==
LOC: ER 12:06
DX: R06.00 Dyspnea, unspecified (principal); I10 Essential (primary) hypertension; I25.10 Atherosclerotic heart disease of native coronary artery without angina pectoris; E78.5 Hyperlipidemia, unspecified; F17.210 Nicotine dependence, cigarettes, uncomplicated; Z88.0 Allergy status to penicillin; Z88.3 Allergy status to other anti-infective agents; Z88.5 Allergy status to narcotic agent; Z88.8 Allergy status to other drugs, medicaments and biological substances
CPT/HCPCS: 36415; 71045; 80048; 80076; 83735; 83880; 84484; 85025; 85610; 93005; 99283

== ENCOUNTER → 2023-10-30 | Emergency (ER) | payer OTHER ==
[~2023-10-30] MED LIST changes: -ASPIRIN 325 MG TAB ONE; -ATROPINE SULF 1 MG/10 ML SYR IV ONE; -CLOPIDOGREL 75 MG TABLET ONE; -FENTANYL CITR 100 MCG/2 ML ONE; -HEPA 1000U/500MLS 2,000 UNIT/1,000 ML BAG IV ONE; -HEPARIN 10,000 UNIT/10 ML VIAL IV ONE; -HEPARIN 5000 UNIT/ML 1 ML VIAL ONE; -MIDAZOLAM HCL 2 MG/2 ML INJ ONE; +TDAP (DIPHTH,PERTUSS(ACELL),TET VAC) 0.5 ML VIAL IMVAC ONE; -TICAGRELOR 90 MG TABLET PO ONE; -VERAPAMIL HCL 10 MG/4 ML VIAL IV ONE
--- NOTE | 2023-10-30 10:51 | RAD REPORT ---
EXAM DESCRIPTION: CT - [id number] - 10/30/2023 10:17 am CLINICAL HISTORY: Trauma, head and neck injury. fall COMPARISON: No comparisons TECHNIQUE: Axial 5 mm thick images of the head were obtained. Axial 2 mm thick images of the cervical spine were obtained with sagittal and coronal reconstruction images generated and reviewed. All CT scans are performed using dose optimization technique as appropriate and may include automated exposure control or mA/KV adjustment according to patient size. FINDINGS: CT HEAD WITHOUT CONTRAST: No acute hemorrhage, hydrocephalus or extra-axial collection is identified.No areas of brain edema or midline shift. Circumferential thickening in the right and left maxillary sinus.The calvarium is intact. CT CERVICAL SPINE WITHOUT CONTRAST: No fracture or subluxation.No prevertebral soft tissues swelling is identified. Multilevel degenerati ve changes are present in the spine. Varying degrees of neural foraminal narrowing noted including bi laterally at C5-6 and left greater than right at C6-7. No central spinal stenosis appreciated. Caroti d artery calcifications. IMPRESSION: No acute intracranial or cervical spine findings.
--- NOTE | 2023-10-30 10:53 | RAD REPORT ---
EXAM DESCRIPTION: RAD - Chest Pa And Lat (2 Views) - 10/30/2023 10:28 am CLINICAL HISTORY: fall COMPARISON: Chest Single View dated 08/31/2023; Chest Pa And Lat (2 Views) dated 05/21/2023; Chest Sin gle View dated 02/22/2023; Chest Pa And Lat (2 Views) dated 01/09/2023; Chest For Pe Angio dated 10/09/19 24 FINDINGS: Lines: None. Lungs: Mild nodularity present in the right upper lobe is better demonstrated on CT. No new acute pro cess identified. Pleural: No significant pleural effusions or pneumothorax. Cardiac: The heart size is within normal limits. Mediastinum: Small hiatal hernia. Bones: No acute fractures. Other: None IMPRESSION: No new acute cardiopulmonary disease. Mild right upper lobe nodularity persists but is b theo visualized on the CT from 10/09/2023.
--- NOTE | 2023-10-30 11:28 | EDPHYS ---
Physician Documentation [facility] Name: Chaparrita Blanca Age: 73 yrs Sex: Female : 1950 Arrival Date: 10/30/2023 Time: 09:46 Bed 7 Private MD: ED Physician Haresh Winchester HPI: 10/30 11:40 This 73 yrs old Female presents to ER via Wheelchair with complaints of Fall Injury. ms3 11:40 73-year-old female with past medical history of anxiety, coronary atherosclerosis, ms3 chronic pain, hyperlipidemia, hypertension, arthritis presents to the emergency department after tripping in a driveway while wearing flip-flops. Patient states that she landed on her chest and it knocked the air out of her. Patient denies loss of consciousness. Patient denies any alleviating or inciting factors. Patient states her pain is a 2/10.. Historical: - Allergies: 10:07 Amoxicillin; ll1 10:07 Augmentin; ll1 10:07 Boniva; ll1 10:07 Celexa; ll1 10:07 Codeine; ll1 10:07 Crestor; ll1 10:07 Keflex; ll1 10:07 Levaquin; ll1 10:07 Mobic; ll1 10:07 Niacin; ll1 10:07 Paxil; ll1 10:07 PENICILLINS; ll1 10:07 Repatha SureClick; ll1 10:07 Fxehgxm-Lhd-Djp Reductase Inhibitors; ll1 10:07 Zetia; ll1 - PMHx: 10:07 Anxiety; coronary atherosclerosis; Chronic pain; Hyperlipidemia; Hypertension; ll1 Arthritis; - PSHx: 10:07 pain pump (morphine); Stented artery; ll1 - Immunization history:: Adult Immunizations up to date. - Social history:: Smoking status: Patient denies any tobacco usage or history of. - Immunization history: Last tetanus immunization: unknown. ROS: 11:40 Constitutional: Negative for fever, and chills. Neck: Negative for injury, pain, and ms3 swelling, Cardiovascular: Negative for chest pain, and palpitations. Respiratory: Negative for shortness of breath, cough, wheezing, and pleuritic chest pain, Abdomen/GI: Negative for abdominal pain, nausea, vomiting, diarrhea, and constipation, MS/Extremity: Negative for injury and deformity, 11:40 Neuro: Negative for headache, weakness, numbness, tingling. 11:40 Skin: Positive for abrasion(s), Exam: 11:40 Constitutional: This is a well developed, well nourished patient who is awake, alert, ms3 and in no acute distress. Head/Face: Normocephalic, atraumatic. Chest/axilla: Normal chest wall appearance and motion. Nontender with no deformity. Cardiovascular: Regular rate and rhythm with a normal S1 and S2. No gallops, murmurs, or rubs. Normal PMI, no JVD. No pulse deficits. Respiratory: Lungs have equal breath sounds bilaterally, clear to auscultation and percussion. No rales, rhonchi or wheezes noted. No increased work of breathing, no retractions or nasal flaring. Abdomen/GI: Soft, non-tender, with normal bowel sounds. No distension or tympany. No guarding or rebound. No evidence of tenderness throughout. 11:40 Skin: injury, abrasion(s), small abrasion noted, of the bilateral knees, right elbow, Vital Signs: 10:11 Resp 18; Temp 97.6; Pain 9/10; ll1 11:39 BP 144 / 80; Pulse 74; Resp 15; Pulse Ox 99% ; ko1 10:11 Pain Scale: Adult ll1 [place] Coma Score: 10:59 Eye Response: spontaneous(4). Motor Response: obeys commands(6). Verbal Response: ko1 oriented(5). Total: 15. Trauma Score (Adult): 10:59 Eye Response: spontaneous(1); Verbal Response: oriented(1); Motor Response: obeys ko1 commands(2); Systolic BP: > 89 mm Hg(4); Respiratory Rate: 10 to 29 per min(4); [place] Score: 15; Trauma Score: 12 MDM: 10:18 Patient medically screened. ms3 11:40 Differential diagnosis: abrasion, closed head injury, fracture. Data reviewed: vital ms3 signs, nurses notes, and as a result, I will discharge patient. I considered the following discharge prescriptions or medication management in the emergency department Medications were administered in the Emergency Department. See MAR. Counseling: I had a detailed discussion with the patient and/or guardian regarding the historical points, exam findings, and any diagnostic results supporting the discharge/admit diagnosis, lab results, radiology results, the need for outpatient follow up, to return to the emergency department if symptoms worsen or persist or if there are any questions or concerns that arise at home. Special discussion: I discussed with the patient/guardian in detail that at this point there is no indication for admission to the hospital. It is understood, however, that if the symptoms persist or worsen the patient needs to return immediately for re-evaluation. ED course: Discussed imaging studies with patient. Patient is aware of right upper lung nodularity and is currently seeking treatment for an infection in her right upper lung. Patient to follow-up with primary care physician in 2 to 3 days. Patient understands and agrees with plan. All questions were answered. Return precautions discussed include worsening symptoms, or any other concerns. On reevaluation patient is alert and oriented x 4, no apparent distress, nontoxic-appearing, speaking full sentences, ambulatory in the emergency department. 10/30 10:04 Order name: CT Head C Spine; Complete Time: 11:23 ms3 10/30 10:04 Order name: Chest Pa And Lat (2 Views) XRAY; Complete Time: 11:23 ms3 Administered Medications: 10:57 Drug: Boostrix Tdap IM 0.5 ml IM once; as a single dose Route: IM; Site: right deltoid; ko1 11:38 Drug: Bacitracin Topical Ointment (500 unit/g) 1 application Topical once Route: ko1 Topical; Site: affected area; Disposition Summary: 10/30/23 11:27 Discharge Ordered Notes: Location: Home ms3 Condition: Stable ms3 Diagnosis - Fall on same level, unspecified ms3 - Abrasion, left knee ms3 - Abrasion, right knee ms3 Followup: ms3 - With: Eleuterio Winter DO - When: 2 - 3 days - Reason: Recheck today's complaints Discharge Instructions: - Discharge Summary Sheet ms3 - Abrasion, [id number]-[id number] ms3 Forms: - Medication Reconciliation Form ms3 - Thank You Letter ms3 - Antibiotic Education ms3 - Prescription Opioid Use ms3 - Patient Portal Instructions ms3 - Leadership Thank You Letter ms3 Signatures: Dispatcher [employer] EDNV Walter Palencia RN RN [facility] Haresh Winchester DO DO ms3 Milly Nixon RN RN ko1 Corrections: (The following items were deleted from the chart) 12:18 11:40 ED course: Discussed imaging studies with patient. Patient to follow-up with ms3 primary care physician in 2 to 3 days. Patient understands and agrees with plan. All questions were answered. Return precautions discussed include worsening symptoms, or any other concerns. On reevaluation patient is alert and oriented x 4, no apparent distress, nontoxic-appearing, speaking full sentences, ambulatory in the emergency department. ms3
--- NOTE | 2023-10-30 11:28 | ER ---
Nurse's Notes [facility] Name: Chaparrita Blanca Age: 73 yrs Sex: Female : 1950 Arrival Date: 10/30/2023 Time: 09:46 Bed 7 Private MD: Diagnosis: Fall on same level, unspecified;Abrasion, left knee;Abrasion, right knee Presentation: 10/30 10:07 Coronavirus screen: Client denies travel out of the [place] in the last 14 days. At this ll1 time, the client does not indicate any symptoms associated with coronavirus-19. Ebola Screen: Patient denies travel to an Ebola-affected area in the 21 days before illness onset. Initial Sepsis Screen: Does the patient meet any 2 criteria? No. Patient's initial sepsis screen is negative. Does the patient have a suspected source of infection? Yes: Skin breakdown/wound. Risk Assessment: Do you want to hurt yourself or someone else? Patient reports no desire to harm self or others. 10:07 Method Of Arrival: Wheelchair ll1 10:07 Acuity: NORBERT 3 ll1 10:11 Chief complaint: Patient states: Tripped on uneven driveway this AM. Abrasions to all ll1 extremities. Chin abrasions, felt teeth crunch. R trunk pain is the worst. No LOC. 10:12 Onset of symptoms was October 30, 2023. ll1 10:59 Care prior to arrival: None. Mechanism of Injury: Fall from standing position. Trauma ko1 event details: Injury occurred in the [facility]. Trauma Activation: Not Applicable Physician: ED Physician; Name: ; Notified At: ; Arrived At: Physician: General Surgeon; Name: ; Notified At: ; Arrived At: Physician: Radiology; Name: ; Notified At: ; Arrived At: Physician: Respiratory; Name: ; Notified At: ; Arrived At: Physician: Lab; Name: ; Notified At: ; Arrived At: Historical: - Allergies: 10:07 Amoxicillin; ll1 10:07 Augmentin; ll1 10:07 Boniva; ll1 10:07 Celexa; ll1 10:07 Codeine; ll1 10:07 Crestor; ll1 10:07 Keflex; ll1 10:07 Levaquin; ll1 10:07 Mobic; ll1 10:07 Niacin; ll1 10:07 Paxil; ll1 10:07 PENICILLINS; ll1 10:07 Repatha SureClick; ll1 10:07 Sqoqaqy-Hcu-Mjo Reductase Inhibitors; ll1 10:07 Zetia; ll1 - PMHx: 10:07 Anxiety; coronary atherosclerosis; Chronic pain; Hyperlipidemia; Hypertension; ll1 Arthritis; - PSHx: 10:07 pain pump (morphine); Stented artery; ll1 - Immunization history:: Adult Immunizations up to date. - Social history:: Smoking status: Patient denies any tobacco usage or history of. - Immunization history: Last tetanus immunization: unknown. Screenin:59 Abuse screen: Denies threats or abuse. Denies injuries from another. Tuberculosis ko1 screening: No symptoms or risk factors identified. 11:02 [facility] ED Fall Risk Assessment (Adult) History of falling in the last 3 months, ko1 including since admission Yes- single mechanical fall (1 pt) Confusion or Disorientation No (0 pts) Intoxicated or Sedated No (0 pts) Impaired Gait No (0 pts) Mobility Assist Device Used No (0 pt) Altered Elimination No (0 pt) Score/Fall Risk Level 0 - 2 = Low Risk Oriented to surroundings, Maintained a safe environment, Educated pt \T\ family on fall prevention, incl call for assistance when getting out of bed, Assessed \T\ reinforced patient's understanding of fall precautions, Provided non-skid footwear, Hourly rounding (assess needs \T\ fall precautionary measures) done, Used ambulatory aids as needed (educated on \T\ assisted with), Used gait belt as appropriate. Nutritional screening: No deficits noted. Primary Survey: 10:59 NO uncontrolled hemorrhage observed. A: The client is awake and alert. The airway is ko1 patent. The client is alert. Breathing/Chest: Spontaneous respiratory effort, equal unlabored respirations, breath sounds clear bilaterally, regular pattern, symmetrical chest rise and fall. Respiratory effort: spontaneous, unlabored. Circulation: No external hemorrhage present. Regular and strong central pulse, skin warm/dry/normal color. Disability Pupils are equal, round, reactive to light and accommodation. Client is alert. Exposure/Environment: There is no evidence of uncontrolled external bleeding. A warming method has been applied: A warm blanket has been provided to the patient. Reassessment Alertness and Airway: Awake and alert. The airway is patent. Breathing: Spontaneous respiratory effort, equal unlabored respirations, breath sounds clear bilaterally, regular pattern with symmetrical chest rise and fall. Circulation: No external hemorrhage noted. Regular and strong central pulse, skin warm/dry/normal color. Disability: Pupils Pupils are equal, round, reactive to light and accomodation. Alert. Assessment: 10:59 General: Appears in no apparent distress. comfortable, Behavior is calm, cooperative, ko1 appropriate for age. Pain: Complains of pain in anterior aspect of right upper chest and right breast. 11:02 Derm:. Musculoskeletal:. Injury Description: Abrasion sustained to bilateral elbows and ko1 knees. Vital Signs: 10:11 Resp 18; Temp 97.6; Pain 9/10; ll1 11:39 BP 144 / 80; Pulse 74; Resp 15; Pulse Ox 99% ; ko1 10:11 Pain Scale: Adult ll1 Andra Coma Score: 10:59 Eye Response: spontaneous(4). Motor Response: obeys commands(6). Verbal Response: ko1 oriented(5). Total: 15. Trauma Score (Adult): 10:59 Eye Response: spontaneous(1); Verbal Response: oriented(1); Motor Response: obeys ko1 commands(2); Systolic BP: > 89 mm Hg(4); Respiratory Rate: 10 to 29 per min(4); [place] Score: 15; Trauma Score: 12 ED Course: 09:48 Patient arrived in ED. im 09:53 Haresh Winchester DO is Attending Physician. ms3 10:06 Arm band placed on Patient placed in an exam room, on a stretcher. ll1 10:08 Triage completed. ll1 10:10 Milly Nixon, RN is Primary Nurse. ko1 10:18 CT Head C Spine In Process Unspecified. EDMS 10:24 Chest Pa And Lat (2 Views) XRAY In Process Unspecified. EDMS 10:59 Patient has correct armband on for positive identification. Placed in gown. Bed in low ko1 position. Call light in reach. Side rails up X 1. 10:59 Patient maintains SpO2 saturation greater than 95% on room air. ko1 11:26 Eleuterio Winter DO is Referral Physician. ms3 11:39 Provided Education on: na. ko1 11:39 No provider procedures requiring assistance completed. Patient did not have IV access ko1 during this emergency room visit. Dressings: Band aid x 4 bilateral knees and elbows. Wound care: to abrasion, located on bilateral knees and elbows was cleaned with Hibiclens, dressed with band aid. 11:41 Thermoregulation: warm blanket given to patient. ko1 Administered Medications: 10:57 Drug: Boostrix Tdap IM 0.5 ml IM once; as a single dose Route: IM; Site: right deltoid; ko1 11:38 Drug: Bacitracin Topical Ointment (500 unit/g) 1 application Topical once Route: ko1 Topical; Site: affected area; Medication: 11:02 Vaccine Information Statement (VIS) provided today. Questions and/or concerns ko1 addressed. VIS edition date: October 30, 2023. Intake: 11:41 PO: 0ml; Total: 0ml. ko1 Output: 11:41 Urine: 0ml; Total: 0ml. ko1 Outcome: 11:27 Discharge ordered by . ms3 11:39 Discharged to home ambulatory, ko1 11:39 Condition: stable 11:39 Discharge instructions given to patient, Instructed on discharge instructions, follow up and referral plans. wound care, Demonstrated understanding of instructions, follow-up care, wound care, 11:41 Patient's length of stay was not longer than 2 hours. ko1 11:41 Patient left the ED. ko1 Signatures: Dispatcher [employer] EDMS Walter Palencia RN RN ll1 Haresh Winchester DO DO ms3 Milly Nixon RN RN ko1 Coleen Parra im Corrections: (The following items were deleted from the chart) 10:12 10:11 Chief complaint: Patient states: Tripped on uneven driveway this AM. Abrasions to ll1 all extremities. Chin abrasions, felt teeth crunch. No LOC. ll1
[2023-10-31 21:17] VITALS: BP 144/80; TEMP 97.6; O2SAT 99
== END ==
LOC: ER 09:46
DX: S80.212A Abrasion, left knee, initial encounter (principal); S80.211A Abrasion, right knee, initial encounter; W18.30XA Fall on same level, unspecified, initial encounter; I10 Essential (primary) hypertension; F41.9 Anxiety disorder, unspecified; E78.5 Hyperlipidemia, unspecified; G89.29 Other chronic pain; Z88.0 Allergy status to penicillin; Z88.1 Allergy status to other antibiotic agents; Z88.5 Allergy status to narcotic agent; Z88.8 Allergy status to other drugs, medicaments and biological substances
CPT/HCPCS: 70450; 71046; 72125

== ENCOUNTER 2024-03-08 22:52 | Emergency (ER) | payer OTHER ==
[2024-03-08] MEDS ORDERED: NA CHLORIDE 0.9% 1,000 ML ONE (23:10)
[2024-03-08 23:54] LABS: Absolute Eosinophils 0.3 K/uL (0-0.5); Absolute Lymphocytes (CBC) 1.4 K/uL (0.7-4.9); Absolute Monocytes 0.4 K/uL (0.1-1.3); Basophils % 0.4 % (0-1.3); Eosinophils % 4.8 % (0-4.4); Hematocrit 37.6 % (36.0-45.0); Hemoglobin 12.3 g/dL (12.0-15.0); Lymphocytes % 22.4 % (15.3-44.8); MCH 29.7 pg (27.0-35.0); MCHC 32.8 g/dL (32.0-36.0); MCV 90.6 fL (80-100); MPV 7.6 fL (7.6-11.3); Monocytes % 7.1 % (3.3-12.3); Neutrophils % 65.3 % (41.7-73.7); Platelets 246 thou/uL (152-406); RBC Red Blood Cell Count 4.15 M/uL (3.86-4.86); Red Cell Distribution Width 13.4 % (12.1-15.2)
[2024-03-09 00:05] LABS: Albumin 3.2 g/dL (3.4-5.0); Albumin/Globulin Ratio 0.9 (1.1-1.8); Anion Gap 7.6 mEq/L (5.0-15.0); Bilirubin Total 0.3 mg/dL (0.2-1.0); Globulin 3.6 g/dL (2.3-3.5); Potassium 3.6 mEq/L (3.5-5.1); Protein, Total 6.8 g/dL (6.4-8.2)
[2024-03-09 00:08] LABS: Specific Gravity 1.019 (1.005-1.030); Sqamous Epithelial <5 /HPF (None Seen); Urine Bacteria None Seen /HPF (<20); Urine Bilirubin NEGATIVE (Negative); Urine Blood 3+ (Negative); Urine Clarity Extremely Turbid (Clear); Urine Color Yellow (Yellow); Urine Culture Reflex Order REFLEXED; Urine Glucose NEGATIVE (Negative); Urine Ketones NEGATIVE (Negative); Urine Microscopic Reflex YN ORDER UMIC; Urine Mucus Slight /HPF (None Seen); Urine Nitrite NEGATIVE (Negative); Urine Protein 2+ (Negative); Urine RBC >50 /HPF (None Seen); Urine Triple Phosphate Crystal Many /HPF (None Seen); Urine Urobilinogen Normal (Normal)
[2024-03-09] MEDS ORDERED: NA CHLORIDE 0.9% 50 ML ONE (01:30)
[2024-03-09] MEDS ORDERED: CEFTRIAXONE 1000 MG/VIAL ONE (01:30)
--- NOTE | 2024-03-09 02:11 | ER ---
Nurse's Notes [facility] Name: Chaparrita Blanca Age: 73 yrs Sex: Female : 1950 Arrival Date: 03/08/2024 Time: 22:52 Bed 4 Private MD: Diagnosis: Acute cystitis with hematuria;Other mechanical complication of urinary (indwelling) catheter Presentation: 03/08 23:11 Chief complaint: EMS states: patient had surgery last Saturday (bladder lift), and is now tm6 experiencing right pelvic and back pain. Coronavirus screen: Vaccine status: Patient reports being unvaccinated. Ebola Screen: Patient negative for fever greater than or equal to 101.5 degrees Fahrenheit, and additional compatible Ebola Virus Disease symptoms Patient denies exposure to infectious person. Patient denies travel to an Ebola-affected area in the 21 days before illness onset. No symptoms or risks identified at this time. Initial Sepsis Screen: Does the patient meet any 2 criteria? No. Patient's initial sepsis screen is negative. Does the patient have a suspected source of infection? No. Patient's initial sepsis screen is negative. Risk Assessment: Do you want to hurt yourself or someone else? Patient reports no desire to harm self or others. Onset of symptoms was March 08, 2024. 23:11 Method Of Arrival: EMS: [facility] tm6 23:11 Acuity: NORBERT 3 tm6 Triage Assessment: 23:12 General: Appears in no apparent distress. Behavior is calm, cooperative. Pain: tm6 Complains of pain in back and pelvis Pain currently is 8 out of 10 on a pain scale. EENT: No signs and/or symptoms were reported regarding the EENT system. Neuro: Level of Consciousness is awake, alert, obeys commands, Oriented to person, place, time, situation. Cardiovascular: Patient's skin is warm and dry. Respiratory: Airway is patent Respiratory effort is even, unlabored, Respiratory pattern is regular, symmetrical. GI: No signs and/or symptoms were reported involving the gastrointestinal system. Abdomen is round non-distended. : Sotelo in place Reports pain pelvis and back. Derm: No signs and/or symptoms reported regarding the dermatologic system. Musculoskeletal: Capillary refill < 3 seconds, Reports pain in back and pelvis. Historical: - Allergies: 23:12 Amoxicillin; tm6 23:12 Augmentin; tm6 23:12 Boniva; tm6 23:12 Celexa; tm6 23:12 Codeine; tm6 23:12 Crestor; tm6 23:12 Keflex; tm6 23:12 Levaquin; tm6 23:12 Mobic; tm6 23:12 Niacin; tm6 23:12 Paxil; tm6 23:12 PENICILLINS; tm6 23:12 Repatha SureClick; tm6 23:12 Mglmblq-Mpa-Slw Reductase Inhibitors; tm6 23:12 Zetia; tm6 23:12 NSAIDS; tm6 - PMHx: 23:12 Anxiety; Arthritis; Chronic pain; coronary atherosclerosis; Hyperlipidemia; tm6 Hypertension; Depressive disorder; - PSHx: 23:12 pain pump (morphine); Stented artery; bladder lift (March 02, 2024); tm6 - Immunization history:: Client reports having NOT received the Covid vaccine. - Infectious Disease History:: Denies. - Family history:: not pertinent. - Social history:: Smoking status: Patient denies any tobacco usage or history of. Patient/guardian denies using alcohol. Screenin:16 [facility] ED Fall Risk Assessment (Adult) History of falling in the last 3 months, tm6 including since admission No falls in past 3 months (0 pts) Confusion or Disorientation No (0 pts) Intoxicated or Sedated No (0 pts) Impaired Gait No (0 pts) Mobility Assist Device Used No (0 pt) Altered Elimination Yes (1 pt) Score/Fall Risk Level 0 - 2 = Low Risk Oriented to surroundings, Maintained a safe environment, Educated pt \T\ family on fall prevention, incl call for assistance when getting out of bed. Abuse screen: Denies threats or abuse. Abuse screen: Denies injuries from another. Nutritional screening: No deficits noted. Tuberculosis screening: No symptoms or risk factors identified. Assessment: 23:16 Reassessment: see triage assessment. Neuro: Level of Consciousness is awake, alert, tm6 obeys commands, Oriented to person, place, time, situation. 03/09 00:55 Reassessment: Patient and/or family updated on plan of care and expected duration. Pain pc2 level reassessed. Patient is alert, oriented x 3, equal unlabored respirations, skin warm/dry/pink. 01:37 Reassessment: No changes from previously documented assessment. tm6 02:59 Reassessment: Patient appears in no apparent distress at this time. tm6 Vital Signs: 03/08 23:11 BP 138 / 66; Pulse 95; Resp 19; Temp 98(TE); Pulse Ox 96% on R/A; Pain 8/10; tm6 03/09 00:45 BP 119 / 81; Pulse 90; Resp 16; Pulse Ox 99% on R/A; pc2 01:37 BP 122 / 51; Pulse 97; Pulse Ox 96% on R/A; tm6 02:58 BP 107 / 57; Pulse 94; Resp 17; Temp 98.1(TE); Pulse Ox 97% on R/A; Pain 0/10; tm6 03/08 23:11 Pain Scale: Adult tm6 02:58 Pain Scale: Adult tm6 ED Course: 03/08 22:59 Patient arrived in ED. jj6 23:02 Venkatesh Evans MD is Attending Physician. michelle 23:08 Zulema jiménez, RN is Primary Nurse. pc2 23:12 Triage completed. tm6 23:12 Arm band placed on right wrist. tm6 23:16 Patient has correct armband on for positive identification. Bed in low position. Call tm6 light in reach. Side rails up X2. Provided Education on: use of call rodriges. Client placed on continuous cardiac and pulse oximetry monitoring. NIBP monitoring applied. Pulse ox on. NIBP on. Door closed. Noise minimized. Warm blanket given. 23:29 Inserted saline lock: 20 gauge in right antecubital area, using aseptic technique. pc2 Blood collected. 23:30 CBC with Diff Sent. pc2 23:30 CMP Sent. pc2 23:30 Lipase Sent. pc2 23:30 Urinalysis w/ reflexes Sent. pc2 03/09 00:42 CT Abd/Pelvis - IV Contrast Only In Process Unspecified. EDMS 02:10 Ladonna Acevedo MD is Referral Physician. [facility] 02:59 No provider procedures requiring assistance completed. IV discontinued, intact, tm6 bleeding controlled, No redness/swelling at site. Pressure dressing applied. Administered Medications: 03/08 23:29 Drug: NS 0.9% IV 1000 ml IV at 1 bolus Per protocol; 1000 mL bolus Route: IV; Rate: 1 pc2 bolus; Site: right antecubital; 03/09 01:36 Drug: Rocephin - Rocephin (cefTRIAXone) IVPB 1 grams IVPB once over 30 mins; (mix in 50 tm6 mL NS) Route: IVPB; Infused Over: 30 mins; Site: right antecubital; 02:47 Drug: Phenazopyridine PO 200 mg PO once Route: PO; tm6 02:48 Drug: Cefdinir PO 300 mg PO once Route: PO; tm6 Medication: 03/08 23:16 VIS not applicable for this client. tm6 Outcome: 03/09 02:10 Discharge ordered by . michelle 02:59 Discharged to home via wheelchair, tm6 02:59 Condition: stable 02:59 Discharge instructions given to patient, Instructed on discharge instructions, follow up and referral plans. medication usage, Demonstrated understanding of instructions, follow-up care, medications, Prescriptions given X 2, 03:00 Patient left the ED. tm6 Signatures: Dispatcher [employer] EDMS Venkatesh Evans MD MD cha Jeffries, Jennifer j6 Bryan Tolentino RN RN tm6 Zulema jiménez, RN RN pc2 Corrections: (The following items were deleted from the chart) 01:01 00:30 BP 119 / 81; Pulse 90bpm; Resp 16bpm; Pulse Ox 99% RA; pc2 pc2
--- NOTE | 2024-03-09 02:11 | EDPHYS ---
Physician Documentation [facility] Name: Chaparrita Blanca Age: 73 yrs Sex: Female : 1950 Arrival Date: 03/08/2024 Time: 22:52 Bed 4 Private MD: ANASTASIA Physician Venkatesh Evans HPI: 03/08 23:08 This 73 yrs old Female presents to ER via Unassigned with complaints of right michelle lower quadrant pain, right flank pain, 1 week ago bladder lift, vaginally. 23:08 The patient presents with abdominal pain right lower quadrant, abdominal distention in michelle the upper abdomen, in the lower abdomen. Onset: The symptoms/episode began/occurred 2 day(s) ago. The patient presents with flank pain, on the right. Modifying factors: The symptoms are alleviated by nothing, the symptoms are aggravated by nothing. Associated signs and symptoms: The patient has no apparent associated signs or symptoms. The patient is not sexually active. The symptoms do not radiate. Associated signs and symptoms: Pertinent negatives: nausea, vomiting, and diarrhea. Historical: - Allergies: 23:12 Amoxicillin; tm6 23:12 Augmentin; tm6 23:12 Boniva; tm6 23:12 Celexa; tm6 23:12 Codeine; tm6 23:12 Crestor; tm6 23:12 Keflex; tm6 23:12 Levaquin; tm6 23:12 Mobic; tm6 23:12 Niacin; tm6 23:12 Paxil; tm6 23:12 PENICILLINS; tm6 23:12 Repatha SureClick; tm6 23:12 Occdtwi-Myu-Uco Reductase Inhibitors; tm6 23:12 Zetia; tm6 23:12 NSAIDS; tm6 - PMHx: 23:12 Anxiety; Arthritis; Chronic pain; coronary atherosclerosis; Hyperlipidemia; tm6 Hypertension; Depressive disorder; - PSHx: 23:12 pain pump (morphine); Stented artery; bladder lift (March 02, 2024); tm6 - Immunization history:: Client reports having NOT received the Covid vaccine. - Infectious Disease History:: Denies. - Family history:: not pertinent. - Social history:: Smoking status: Patient denies any tobacco usage or history of. Patient/guardian denies using alcohol. ROS: 23:08 Constitutional: Negative for fever, chills, and weight loss, Eyes: Negative for injury, michelle pain, redness, and discharge, ENT: Negative for injury, pain, and discharge, Neck: Negative for injury, pain, and swelling, Cardiovascular: Negative for chest pain, palpitations, and edema, Respiratory: Negative for shortness of breath, cough, wheezing, and pleuritic chest pain, : Negative for injury, bleeding, discharge, and swelling, MS/Extremity: Negative for injury and deformity, Skin: Negative for injury, rash, and discoloration, Neuro: Negative for headache, weakness, numbness, tingling, and seizure, Psych: Negative for depression, anxiety, suicide ideation, homicidal ideation, and hallucinations, Allergy/Immunology: Negative for hives, rash, and allergies, Endocrine: Negative for neck swelling, polydipsia, polyuria, polyphagia, and marked weight changes, Hematologic/Lymphatic: Negative for swollen nodes, abnormal bleeding, and unusual bruising, 23:08 Abdomen/GI: Positive for abdominal pain, abdominal cramps, abdominal distension, of the posterior aspect of right lateral abdomen, anterior aspect of right lateral abdomen and right lower quadrant, Exam: 23:08 Constitutional: This is a well developed, well nourished patient who is awake, alert, michelle and in no acute distress. Head/Face: Normocephalic, atraumatic. Eyes: Pupils equal round and reactive to light, extra-ocular motions intact. Lids and lashes normal. Conjunctiva and sclera are non-icteric and not injected. Cornea within normal limits. Periorbital areas with no swelling, redness, or edema. ENT: Nares patent. No nasal discharge, no septal abnormalities noted. Tympanic membranes are normal and external auditory canals are clear. Oropharynx with no redness, swelling, or masses, exudates, or evidence of obstruction, uvula midline. Mucous membranes moist. Neck: Trachea midline, no thyromegaly or masses palpated, and no cervical lymphadenopathy. Supple, full range of motion without nuchal rigidity, or vertebral point tenderness. No Meningismus. Chest/axilla: Normal chest wall appearance and motion. Nontender with no deformity. No lesions are appreciated. Cardiovascular: Regular rate and rhythm with a normal S1 and S2. No gallops, murmurs, or rubs. Normal PMI, no JVD. No pulse deficits. Respiratory: Lungs have equal breath sounds bilaterally, clear to auscultation and percussion. No rales, rhonchi or wheezes noted. No increased work of breathing, no retractions or nasal flaring. Back: No spinal tenderness. No costovertebral tenderness. Full range of motion. Female : Normal external genitalia. Skin: Warm, dry with normal turgor. Normal color with no rashes, no lesions, and no evidence of cellulitis. MS/ Extremity: Pulses equal, no cyanosis. Neurovascular intact. Full, normal range of motion. Neuro: Awake and alert, GCS 15, oriented to person, place, time, and situation. Cranial nerves II-XII grossly intact. Motor strength 5/5 in all extremities. Sensory grossly intact. Cerebellar exam normal. Normal gait. Psych: Awake, alert, with orientation to person, place and time. Behavior, mood, and affect are within normal limits. 23:08 Abdomen/GI: Inspection: distension, that is mild, Bowel sounds: normal, Palpation: mild abdominal tenderness, in the right lower quadrant, Liver: no appreciated palpable abnormalities, Hernia: not appreciated, Vital Signs: 23:11 BP 138 / 66; Pulse 95; Resp 19; Temp 98(TE); Pulse Ox 96% on R/A; Pain 8/10; tm6 03/09 00:45 BP 119 / 81; Pulse 90; Resp 16; Pulse Ox 99% on R/A; pc2 01:37 BP 122 / 51; Pulse 97; Pulse Ox 96% on R/A; tm6 02:58 BP 107 / 57; Pulse 94; Resp 17; Temp 98.1(TE); Pulse Ox 97% on R/A; Pain 0/10; tm6 03/08 23:11 Pain Scale: Adult tm6 02:58 Pain Scale: Adult tm6 MDM: 03/08 23:02 Patient medically screened. [facility] 23:14 Differential diagnosis: nonspecific abdominal pain, urinary tract infection, post michelle surgical complication gastritis, Mesenteric ischemia or infarction, non-specific abd pain. Data reviewed: vital signs, nurses notes, lab test result(s), EKG, radiologic studies, CT scan. Consideration of Admission/Observation Escalation of care including admission/observation considered. 03/08 23:08 Order name: CBC with Diff; Complete Time: 00:18 michelle 03/08 23:08 Order name: CMP; Complete Time: 00:18 [facility] 03/08 23:08 Order name: Lipase; Complete Time: 00:18 [facility] 03/08 23:08 Order name: Urinalysis w/ reflexes; Complete Time: 01:18 [facility] 03/09 00:22 Order name: Urine Culture EDMN 03/08 23:08 Order name: CT Abd/Pelvis - IV Contrast Only [facility] 03/08 23:08 Order name: IV Saline Lock; Complete Time: 23:30 [facility] 03/08 23:08 Order name: Labs collected and sent; Complete Time: 23:30 [facility] Administered Medications: 23:29 Drug: NS 0.9% IV 1000 ml IV at 1 bolus Per protocol; 1000 mL bolus Route: IV; Rate: 1 pc2 bolus; Site: right antecubital; 03/09 01:36 Drug: Rocephin - Rocephin (cefTRIAXone) IVPB 1 grams IVPB once over 30 mins; (mix in 50 tm6 mL NS) Route: IVPB; Infused Over: 30 mins; Site: right antecubital; 02:47 Drug: Phenazopyridine PO 200 mg PO once Route: PO; tm6 02:48 Drug: Cefdinir PO 300 mg PO once Route: PO; tm6 Disposition Summary: 03/09/24 02:10 Discharge Ordered Notes: Location: Home [facility] Problem: new michelle Symptoms: have improved michelle Condition: Stable michelle Diagnosis - Acute cystitis with hematuria michelle - Other mechanical complication of urinary (indwelling) catheter michelle Followup: michelle - With: Private Physician - When: 2 - 3 days - Reason: Recheck today's complaints, Continuance of care, Re-evaluation by your physician Followup: michelle - With: Ladonna Acevedo MD - When: 2 - 3 days - Reason: Recheck today's complaints, Continuance of care, Re-evaluation by your physician Discharge Instructions: - Discharge Summary Sheet michelle - Indwelling Urinary Catheter Care, Adult michelle - Urinary Tract Infection, Adult michelle - Urinary Tract Infection, Adult, [id number] michelle - Indwelling Urinary Catheter Care, Adult, [id number] [facility] Forms: - Medication Reconciliation Form michelle - Antibiotic Education michelle - Prescription Opioid Use michelle - Patient Portal Instructions [facility] - Leadership Thank You Letter [facility] Prescriptions: - cefdinir 300 mg Oral capsule - take 1 capsule ORAL route every 12 hours; 14 capsule; Refills: 0, Product [facility] Selection Permitted - Pyridium 200 mg Oral Tablet - take 1 tablet ORAL route every 8 hours for 3 days; 9 tablet; Refills: 0, michelle Product Selection Permitted Signatures: Dispatcher [employer] Venkatesh Chavez, Bryan Ulloa MD, cha RN RN tm6 Zulema jiménez, RN RN pc2
[2024-03-09] MEDS ORDERED: CEFDINIR 300 MG CAP PO ONE (02:39)
[2024-03-09] MEDS ORDERED: PHENAZOPYRIDINE 100MG TAB PO ONE (02:40)
[2024-03-09 03:22] VITALS: BP 107/57; TEMP 98.1; O2SAT 97
--- NOTE | 2024-03-09 11:16 | RAD REPORT ---
EXAM DESCRIPTION: CT Abdomen and Pelvis With Intravenous Contrast CLINICAL HISTORY: The patient is 73 years old and is Female; Abd pain;Flank pain TECHNIQUE: Axial computed tomography images of the abdomen and pelvis with intravenous contrast. S agittal and coronal reformatted images were created and reviewed. This CT exam was performed using one or more of the following dose reduction techniques: automated exposure control, adjustment of t he mA and/or kV according to patient size, and/or use of iterative reconstruction technique. COMPARISON: No relevant prior studies available. FINDINGS: LUNG BASES: Bronchiectasis and chronic atelectasis within the right middle lobe and ling geraldine is noted. The remainder of the visualized lungs are clear. MEDIASTINUM: A moderate-sized hiatal hernia is present. ABDOMEN: LIVER: The liver is enlarged and fatty. GALLBLADDER AND BILE DUCTS: The gallbladder is minimally distended. No calcified gallstones or du ctal dilatation is seen. PANCREAS: The pancreas is severely atrophic. SPLEEN: Unremarkable. ADRENALS: Unremarkable. No mass. KIDNEYS AND URETERS: Unremarkable. The kidneys enhance symmetrically. No obstructing renal or ure teral calculus is seen. No hydronephrosis or hydroureter. No perinephric fluid or stranding. STOMACH AND BOWEL: The stomach is filled with fluid. A small duodenal diverticulum is noted witho ut surrounding inflammation. The majority of the small bowel is decompressed. Stool is present throug hout the colon. Scattered colonic diverticula are noted without surrounding inflammation. There is no bowel obstruction. PELVIS: APPENDIX: No findings to suggest acute appendicitis. BLADDER: A Sotelo catheter is present within the bladder which is completely decompressed. Bladder wall thickening with surrounding inflammatory stranding is present. REPRODUCTIVE: The patient is status post hysterectomy. ABDOMEN and PELVIS: INTRAPERITONEAL SPACE: Unremarkable. No free air. No significant fluid collection. BONES/JOINTS: No acute fracture. Degenerative change of the spine is present. Anterolisthesis of L5 on S1 secondary to degenerative facet arthropathy is noted. SOFT TISSUES: Unremarkable. VASCULATURE: Atherosclerosis of the vasculature is present. The vessels are normal in caliber. No abdominal aortic aneurysm. LYMPH NODES: Unremarkable. No enlarged lymph nodes. TUBES, LINES AND DEVICES: A battery pack for a neural stimulator within the soft tissues of the l eft anterior abdominal wall. IMPRESSION: 1. Mild bladder wall thickening with surrounding inflammation concerning for cystitis. 2. Moderate-sized hiatal hernia. 3. Colonic diverticulosis. Electronically signed by: Nevaeh Nichole MD 03/09/2024 12:52 AM CDT RP Due to temporary technical issues with the PACS/Fluency reporting system, reports are being signed by the in house radiologist without review as a courtesy to ensure prompt reporting. The interpreting r adiologist is fully responsible for the content of the report.
== END 2024-03-09 03:00 | disposition home or self-care (01) ==
LOC: ER 22:52
DX: N30.01 Acute cystitis with hematuria (principal); T83.098A Other mechanical complication of other urinary catheter, initial encounter
CPT/HCPCS: 87088; 85025; 81001; 87086; 36415; 83690; 80053; 74177; Q9967; J7030; J0696; 87077; 87186; 96374; 99285

== ENCOUNTER 2024-03-13 11:53 | Observation (INO) | payer OTHER ==
[2024-03-13] MEDS ORDERED: DIPHENHYDRAMINE 25 MG TAB/CAP PO PRN (13:00)
[2024-03-13] MEDS ORDERED: POLYETHYL GLY 3350 17 GM/DOSE PO PRN (13:00)
[2024-03-13] MEDS ORDERED: LOPERAMIDE HCL 2 MG CAPSULE PO PRN (13:00)
[2024-03-13] MEDS: NACHLORIDE 0.45% 1,000 ML IV SCH (13:00)
[2024-03-13] MEDS ORDERED: ONDANSETRON 4 MG (ODT) TAB PO PRN (13:00)
[2024-03-13] MEDS ORDERED: ACETAMINOPHEN 325 MG TABLET PO PRN (13:00)
[2024-03-13] MEDS ORDERED: ONDANSETRON 4 MG/2 ML VIAL IV PRN (13:00)
[2024-03-13 13:06] LABS: Absolute Eosinophils 0.2 K/uL (0-0.5); Absolute Monocytes 0.4 K/uL (0.1-1.3); Absolute Neutrophil 4.7 K/uL (1.8-8.0); Basophils % 0.4 % (0-1.3); Hematocrit 37.4 % (36.0-45.0); Hemoglobin 12.5 g/dL (12.0-15.0); Lymphocytes % 16.2 % (15.3-44.8); MCH 29.9 pg (27.0-35.0); MCHC 33.4 g/dL (32.0-36.0); MCV 89.4 fL (80-100); MPV 7.2 fL (7.6-11.3); Neutrophils % 73.4 % (41.7-73.7); Nucleated Red Blood Cells % 0.1 % (0-0); Platelets 303 thou/uL (152-406); RBC Red Blood Cell Count 4.18 M/uL (3.86-4.86); Red Cell Distribution Width 13.5 % (12.1-15.2)
--- NOTE | 2024-03-13 13:13 | RAD REPORT ---
EXAM DESCRIPTION: RAD - Chest Pa And Lat (2 Views) - 03/13/2024 1:06 pm CLINICAL HISTORY: dyspnea Chest pain. COMPARISON: Chest Pa And Lat (2 Views) dated 10/30/2023; Chest Single View dated 08/31/2023; Chest Pa A nd Lat (2 Views) dated 05/21/2023; Chest Single View dated 02/22/2023 FINDINGS: The lungs are hyperexpanded with mild linear atelectasis in the right lung base. The findi ngs likely represent COPD. No focal infiltrate is suspect pneumonia. The heart is normal in size. Lar ge hiatal hernia suspected.
[2024-03-13 13:22] LABS: ALT/SGPT 17 U/L (13-56); AST/SGOT 15 U/L (15-37); Albumin 3.4 g/dL (3.4-5.0); Albumin/Globulin Ratio 0.9 (1.1-1.8); Alkaline Phosphatase 98 U/L (45-117); BUN Blood Urea Nitrogen 16 mg/dL (7-18); Bicarbonate 35 mEq/L (21-32); Bilirubin Direct < 0.2 mg/dL (0-0.2); Bilirubin Indirect, Calculated 0.2 mg/dL (0.2-0.8); Bilirubin Total 0.4 mg/dL (0.2-1.0); Globulin 3.8 g/dL (2.3-3.5); Glomerular Filtration Rate 60 ml/min (=/>90); Glucose Level 88 mg/dL (74-106); Protein, Total 7.2 g/dL (6.4-8.2); Sodium Level 136 mEq/L (136-145)
[2024-03-13 14:27] VITALS: BMI 31.4
[2024-03-13] MEDS: ENOXAPARIN 40 MG/0.4 ML SQ SCH (16:00)
--- NOTE | 2024-03-13 18:57 | RAD REPORT ---
EXAM DESCRIPTION: RAD - Chest Single View - 03/13/2024 6:42 pm CLINICAL HISTORY: PICC LINE PLACEMENT COMPARISON: Chest Pa And Lat (2 Views) dated 03/13/2024; Chest Pa And Lat (2 Views) dated 10/30/2023; C hest Single View dated 08/31/2023; Chest Pa And Lat (2 Views) dated 05/21/2023 FINDINGS: Portable chest was obtained following placement of a right upper extremity PICC line. The catheter tip projects over the SVC.
[2024-03-13] MEDS ORDERED: ALPRAZOLAM 0.25 MG TABLET PO PRN (20:30)
[2024-03-13] MEDS ORDERED: TRAMADOL HCL 50 MG TAB PO PRN (20:30)
[2024-03-13] MEDS: IMIPRAMINE HCL 25 MG TAB PO SCH (21:00)
[2024-03-13] MEDS: DULOXETINE 30 MG CAP PO SCH (21:00)
[2024-03-13] MEDS: GABAPENTIN 400 MG CAP PO SCH (21:00)
[2024-03-13] MEDS: Meropenem 1,000 MG in NA CHLORIDE 0.9% 100 ML IV SCH (21:06)
[2024-03-13] MEDS: Mupirocin NASAL 2 APPL/1 GM TUBE NAS SCH (21:06)
--- NOTE | 2024-03-13 21:11 | P.SSS ---
Patient History Date of Service: 03/13/24 Reason for admission: POST OP URINARY BACTERIA History of Present Illness: FRANCESCO HAD A UROGENITAL SURGERY BY . SHE HAD A CHEW FOR A WEEK. AFTER CHEW THE SAMPLE WAS TAKEN AND IT SHOWED ESBL AND E FECALIS BACTERIA. SHE HAS NO SYMPTOMS BUT SHE NEEDS IV ABX IT IS A POST OP BACTERIA INURINE AND DR. SALAZAR WANTS HER ON ABX. ORAL ABX ARE NOT GOING TO WORK SHE ALLERGIC TO MANY. WE WILL GIVE IV ABX FOR 10 DAYS. SHE IS HERE FOR IV ABX, PICC LINE AND DC IN AM IF SW IS ABLE TO HAVE ABX APPROVED. Allergies Ecakmyg-DUL-OjX Reductase Inhibitor [Wgdpbdh-Khl-Gys Reductase Inhibitor] Allergy (Severe, Verified 03/13/24 12:22) Hives/Rash citalopram hydrobromide [From Celexa] Allergy (Verified 03/13/24 12:22) UNK codeine Allergy (Verified 03/13/24 12:22) Flushing in face ezetimibe [From Zetia] Allergy (Verified 03/13/24 12:22) UNK fish derived Allergy (Verified 03/13/24 12:22) PALPITATIONS ibandronate sodium [From Boniva] Allergy (Verified 03/13/24 12:22) REFLUX levofloxacin [From Levaquin] Allergy (Verified 03/13/24 12:22) Rash meloxicam [From Mobic] Allergy (Verified 03/13/24 12:22) Rash niacin Allergy (Verified 03/13/24 12:22) UNK NSAIDS (Non-Steroidal Anti-Inflamma Allergy (Verified 03/13/24 12:22) UNK paroxetine HCl [From Paxil] Allergy (Verified 03/13/24 12:22) UNK penicillin G Allergy (Verified 03/13/24 12:22) Rash Penicillins Allergy (Verified 03/13/24 12:22) Rash risedronate sodium [From Actonel] Allergy (Verified 03/13/24 12:22) UNK atorvastatin [From Lipitor] Adverse Reaction (Verified 03/13/24 12:22) Hives/Rash cephalexin monohydrate [From Keflex] Adverse Reaction (Verified 03/13/24 12:22) NAUSEA Home Medications: Duloxetine [Cymbalta *] 30 mg PO BEDTIME 08/17/13 estradioL [Estradiol] 0.5 mg PO DAILY 08/17/13 Dexlansoprazole [Dexilant] 60 mg PO BEDTIME 12/08/21 Gabapentin 400 mg PO BEDTIME 12/08/21 Imipramine HCl 50 mg PO BEDTIME 12/08/21 traMADol HCL [Ultram*] 50 mg PO TID PRN 10/08/22 ALPRAZolam [Xanax*] 0.25 mg PO BEDTIME PRN tab 11/02/22 Furosemide [Lasix] 20 mg PO BEDTIME 03/13/24 Sotalol HCl [Betapace*] 40 mg PO BID 6AM 6PM 03/13/24 - Past Medical/Surgical History Has patient received pneumonia vaccine in the past: Yes Diabetic: No -: Arthritis -: Chronic Pain -: CORONARY ARTERY DISEASE WITH STENT RECENTLY -: ANXIETY -: HTN -: HLD -: Hysterectomy -: Appendectomy -: Pain Pump -: Foot surgery -: Bladder lift - Family History Father -: Heart disease, Cancer Notes: pancreatic/liver cancer Mother -: Heart disease, Hypertension, Stroke - Social History Smoking Status: Former smoker Alcohol use: No CD- Drugs: No Caffeine use: Yes Place of Residence: Home Review of Systems 10-point ROS is otherwise unremarkable General: As per HPI Physical Examination - Vital Signs Temperature: 97.2 F Blood Pressure: 108/59 Pulse: 84 Respirations: 17 Pulse Ox (%): 91 - Physical Exam General: Alert, In no apparent distress HEENT: Atraumatic, PERRLA, Mucous membr. moist/pink, EOMI, Sclerae nonicteric Neck: Supple, 2+ carotid pulse no bruit, No LAD, Without JVD or thyroid abnormality Respiratory: Clear to auscultation bilaterally, Normal air movement Cardiovascular: Regular rate/rhythm, Normal S1 S2 Gastrointestinal: Normal bowel sounds, No tenderness Musculoskeletal: No tenderness, Scoliosis Integumentary: No rashes Neurological: Normal gait, Normal speech, Normal strength at 5/5 x4 extr, Normal tone, Normal affect Lymphatics: No axilla or inguinal lymphadenopathy - Studies Laboratory Data (last 24 hrs) 03/13/24 03/13/24 03/13/24 14:21 12:46 12:46 WBC 6.40 Hgb 12.5 Hct 37.4 Plt Count 303 PT 11.0 INR 1.00 Sodium 136 Potassium 4.0 BUN 16 Creatinine 1.00 Glucose 88 Total Bilirubin 0.4 AST 15 ALT 17 Alkaline Phosphatase 98 - Diagnosis (Problem(s)) (1) Urinary tract infection due to ESBL Klebsiella Current Visit: Yes Status: Acute Plan: MERREM IV FOR 10 DAYS. PROCESS STARTED. - Disposition Disposition: ROUTINE DISCHARGE
[2024-03-14] MEDS: SOTALOL HCL 80 MG TAB PO SCH (06:00)
[2024-03-14 10:19] VITALS: O2SAT 93
[2024-03-14 12:41] VITALS: BP 118/69; TEMP 97.2
--- NOTE | 2024-03-16 13:10 | EKG ---
Test Date: 2024-03-13 Test Time: 16:45:00 Manager Business: NORM MEASUREMENT RESULTS: Intervals: Rate: 79 NH: 220 QRSD: 86 QT: 390 QTc: 447 Arjay: P: 63 NH: 220 QRS: -48 T: 45 INTERPRETIVE STATEMENTS: Sinus rhythm with 1st degree AV block Left axis deviation Abnormal ECG Compared to ECG 08/31/2023 13:12:52 First degree AV block now present Myocardial infarct finding no longer present Electronically Signed On 03-16-24 13:04:07 CDT by Abdon Perry
== END 2024-03-14 12:05 | disposition home or self-care (01) ==
LOC: 2ND 11:53
PROVIDERS: ADMIT Internal Medicine; ATTEND Internal Medicine
DX: N39.0 Urinary tract infection, site not specified (principal); B96.1 Klebsiella pneumoniae [K. pneumoniae] as the cause of diseases classified elsewhere; T83.511A Infection and inflammatory reaction due to indwelling urethral catheter, initial encounter; Z88.5 Allergy status to narcotic agent; Z88.6 Allergy status to analgesic agent; Z88.0 Allergy status to penicillin; Z88.8 Allergy status to other drugs, medicaments and biological substances; Z91.013 Allergy to seafood; Z87.891 Personal history of nicotine dependence
CPT/HCPCS: 36569; 87040; 85025; 80048; 36415; 85610; 80076; 71045; 71046; J1650 ×2; J2185 ×2; 93005; G0378; G0379

== ENCOUNTER 2024-05-30 04:27 | Emergency (ER) | payer OTHER ==
--- NOTE | 2024-05-30 06:11 | ER ---
Nurse's Notes [facility] Name: Chaparrita Blanca Age: 74 yrs Sex: Female : 1950 Arrival Date: 05/30/2024 Time: 04:27 Bed 8 Private MD: Diagnosis: Bilateral leg pain Presentation: 05/30 04:56 Chief complaint: Patient states: redness to L lower extremity that has been ongoing x 1 ss year. Pt reports over the past few days she noticed the redness is getting a little worse and now seems to have moved over to her R lower extremity. Pt states, "I just read that it might be an infection and I just want to get it checked out.". Coronavirus screen: Client denies travel out of the [place] in the last 14 days. Ebola Screen: Patient denies exposure to infectious person. Patient denies travel to an Ebola-affected area in the 21 days before illness onset. Initial Sepsis Screen: Does the patient meet any 2 criteria? No. Patient's initial sepsis screen is negative. Does the patient have a suspected source of infection? No. Patient's initial sepsis screen is negative. Risk Assessment: Do you want to hurt yourself or someone else? Patient reports no desire to harm self or others. Onset of symptoms is unknown. 04:56 Method Of Arrival: Ambulatory ss 04:56 Acuity: NORBERT 3 ss Triage Assessment: 05:00 General: Appears in no apparent distress. comfortable, Behavior is calm, cooperative. ss Neuro: Level of Consciousness is awake, alert, obeys commands. Respiratory: Respiratory effort is even, unlabored. Derm: Skin is intact, is healthy with good turgor, Skin is pink, warm \\T\\ dry. normal. Historical: - Allergies: 04:58 Amoxicillin; ss 04:58 Augmentin; ss 04:58 Boniva; ss 04:58 Celexa; ss 04:58 Codeine; ss 04:58 Crestor; ss 04:58 Keflex; ss 04:58 Levaquin; ss 04:58 Mobic; ss 04:58 Niacin; ss 04:58 NSAIDS; ss 04:58 Paxil; ss 04:58 PENICILLINS; ss 04:58 Repatha SureClick; ss 04:58 Pezlotk-Akg-Lnb Reductase Inhibitors; ss 04:58 Zetia; ss - PMHx: 04:58 Anxiety; depressive disorder; Arthritis; coronary atherosclerosis; Chronic pain; ss Hyperlipidemia; Hypertension; - PSHx: 04:58 Bladder lift (March 02); pain pump (morphine); Stented artery; ss - Immunization history:: Client reports having NOT received the Covid vaccine. - Infectious Disease History:: Denies. - Social history:: Smoking status: Patient denies any tobacco usage or history of. Screenin:12 Abuse screen: Denies threats or abuse. Denies injuries from another. Nutritional ss screening: No deficits noted. Tuberculosis screening: Never had TB. Assessment: 05:45 Reassessment: Pt states she does not want to wait to be seen by provider at this time ss and would like to go home and rest. Pt verbalizes understanding importance of following up with PCP. Vital Signs: 04:56 BP 136 / 73; Pulse 88; Resp 16; Temp 97.9(TE); Pulse Ox 95% on R/A; Weight 81.65 kg; ss Height 5 ft. 4 in. ; Pain 6/10; 04:56 Body Mass Index 30.90 (81.65 kg, 162.56 cm) ss 04:56 Pain Scale: Adult ss ED Course: 04:32 Patient arrived in ED. [id number] 04:34 Edgardo Metz MD is Attending Physician. sp4 04:58 Triage completed. ss 04:58 Arm band placed on right wrist. ss 06:06 No provider procedures requiring assistance completed. Patient did not have IV access ss during this emergency room visit. Administered Medications: No medications were administered Outcome: 06:12 Eloped from patient exam room, before seeing physician ss 06:12 Patient left the ED. ss Signatures: Niyah Carvalho, RN RN Feli Kumar [email or web address] Edgardo Metz MD MD sp4
--- NOTE | 2024-05-30 06:11 | EDPHYS ---
Physician Documentation [facility] Name: Chaparrita Blanca Age: 74 yrs Sex: Female : 1950 Arrival Date: 05/30/2024 Time: 04:27 Bed 8 Private MD: ED Physician Edgardo Metz HPI: 05/30 04:34 This 74 yrs old Female presents to ER via Unassigned with complaints of Leg sp4 Swelling, BILATERAL LEG PAIN/REDNESS. 06:09 Patient has eloped prior to examination. sp4 Historical: - Allergies: 04:58 Amoxicillin; ss 04:58 Augmentin; ss 04:58 Boniva; ss 04:58 Celexa; ss 04:58 Codeine; ss 04:58 Crestor; ss 04:58 Keflex; ss 04:58 Levaquin; ss 04:58 Mobic; ss 04:58 Niacin; ss 04:58 NSAIDS; ss 04:58 Paxil; ss 04:58 PENICILLINS; ss 04:58 Repatha SureClick; ss 04:58 Cbtsopl-Cbk-Lxo Reductase Inhibitors; ss 04:58 Zetia; ss - PMHx: 04:58 Anxiety; depressive disorder; Arthritis; coronary atherosclerosis; Chronic pain; ss Hyperlipidemia; Hypertension; - PSHx: 04:58 Bladder lift (March 02); pain pump (morphine); Stented artery; ss - Immunization history:: Client reports having NOT received the Covid vaccine. - Infectious Disease History:: Denies. - Social history:: Smoking status: Patient denies any tobacco usage or history of. Vital Signs: 04:56 BP 136 / 73; Pulse 88; Resp 16; Temp 97.9(TE); Pulse Ox 95% on R/A; Weight 81.65 kg; ss Height 5 ft. 4 in. ; Pain 6/10; 04:56 Body Mass Index 30.90 (81.65 kg, 162.56 cm) ss 04:56 Pain Scale: Adult ss MDM: 04:45 Patient medically screened. sp4 06:09 Data reviewed: vital signs, nurses notes. sp4 06:09 Differential Diagnosis altered mental status, sepsis, flu. ED course: Patient has sp4 eloped prior to examination. Administered Medications: No medications were administered Disposition: 06:10 Chart complete. sp4 Disposition Summary: 09/07/24 06:10 Eloped Notes: Disposition: before being seen by provider sp4 Problem: new sp4 Symptoms: are unchanged sp4 Reason: unknown sp4 Condition: Undetermined sp4 Diagnosis - Bilateral leg pain sp4 Followup: sp4 - With: Private Physician - When: As needed - Reason: Signatures: Niyah Carvalho RN RN ss Edgardo Metz MD MD sp4
[2024-05-30 06:17] VITALS: BP 136/73; TEMP 97.9; O2SAT 95
== END 2024-05-30 06:12 | disposition left against medical advice (07) ==
LOC: ER 04:27
DX: Z53.21 Procedure and treatment not carried out due to patient leaving prior to being seen by health care provider (principal)
CPT/HCPCS: 99281

== ENCOUNTER 2024-12-28 10:17 | Emergency (ER) | payer OTHER ==
[2024-12-28] MEDS ORDERED: LIDOCAINE 1% MPF 5 ML VIAL ONE (10:41)
[2024-12-28] MEDS ORDERED: TDAP (DIPHTH,PERTUSS(ACELL),TET VAC) 0.5 ML VIAL IMVAC ONE (10:41)
--- NOTE | 2024-12-28 11:05 | ER ---
Nurse's Notes [facility] Name: Chaparrita Blanca Age: 74 yrs Sex: Female : 1950 Arrival Date: 12/28/2024 Time: 10:17 Bed 13 Private MD: Diagnosis: Laceration without foreign body of left hand, initial encounter Presentation: 12/28 10:34 Chief complaint: Patient states: she cut her left hand with a knife after sharpening ap3 it. patient presented to the ED with left hand wrapped with home-made dressing. Coronavirus screen: At this time, the client does not indicate any symptoms associated with coronavirus-19. Ebola Screen: No symptoms or risks identified at this time. Complicating Factors: The type of wound is a puncture. Initial Sepsis Screen: Does the patient meet any 2 criteria? No. Patient's initial sepsis screen is negative. Does the patient have a suspected source of infection? No. Patient's initial sepsis screen is negative. Risk Assessment: Do you want to hurt yourself or someone else? Patient reports no desire to harm self or others. Onset of symptoms was December 28, 2024. 10:34 Method Of Arrival: Ambulatory ap3 10:34 Acuity: NORBERT 3 ap3 Triage Assessment: 10:36 General: Appears in no apparent distress. Behavior is calm, cooperative, appropriate ap3 for age. Pain: Complains of pain in dorsum of left hand. Neuro: Level of Consciousness is awake, alert, obeys commands, Oriented to person, place, time, situation, Appropriate for age. Cardiovascular: Patient's skin is warm and dry. Respiratory: Airway is patent Respiratory effort is even, unlabored, Respiratory pattern is regular, symmetrical. Derm: Wound noted dorsum of left hand. Injury Description: Laceration sustained to dorsum of left hand. Historical: - Allergies: 10:36 Amoxicillin; ap3 10:36 Augmentin; ap3 10:36 Boniva; ap3 10:36 Celexa; ap3 10:36 Codeine; ap3 10:36 Crestor; ap3 10:36 Keflex; ap3 10:36 Levaquin; ap3 10:36 Mobic; ap3 10:36 Niacin; ap3 10:36 NSAIDS; ap3 10:36 Paxil; ap3 10:36 PENICILLINS; ap3 10:36 Repatha SureClick; ap3 10:36 Ranamyj-Fxg-Rfr Reductase Inhibitors; ap3 10:36 Zetia; ap3 - PMHx: 10:36 Anxiety; Arthritis; Chronic pain; coronary atherosclerosis; depressive disorder; ap3 Hyperlipidemia; Hypertension; - PSHx: 10:36 Bladder lift (February 0); pain pump (morphine); Stented artery; ap3 - Immunization history:: Client reports having NOT received the Covid vaccine. Flu vaccine is not up to date. - Infectious Disease History:: Denies. - Social history:: Smoking status: Patient denies any tobacco usage or history of. Screenin:37 Abuse screen: Denies threats or abuse. Nutritional screening: No deficits noted. ap3 Tuberculosis screening: No symptoms or risk factors identified. 10:49 [facility] ED Fall Risk Assessment (Adult) History of falling in the last 3 months, ld1 including since admission No falls in past 3 months (0 pts) Confusion or Disorientation No (0 pts) Intoxicated or Sedated No (0 pts) Impaired Gait No (0 pts) Mobility Assist Device Used No (0 pt) Altered Elimination No (0 pt) Score/Fall Risk Level 0 - 2 = Low Risk Oriented to surroundings, Hourly rounding (assess needs \T\ fall precautionary measures) done. Assessment: 10:49 General: Appears in no apparent distress. comfortable, Behavior is calm, cooperative, ld1 appropriate for age. Pain: Denies pain. Neuro: Level of Consciousness is awake, alert, obeys commands, Oriented to person, place, time, situation. Cardiovascular: Capillary refill < 3 seconds Patient's skin is warm and dry. Respiratory: Airway is patent Respiratory effort is even, unlabored. GI: Abdomen is flat, non-distended. : No signs and/or symptoms were reported regarding the genitourinary system. EENT: No signs and/or symptoms were reported regarding the EENT system. Derm: No signs and/or symptoms reported regarding the dermatologic system. Musculoskeletal: Range of motion: intact in all extremities. 10:49 Derm:. Injury Description: Laceration sustained to lateral aspect of left hand is ld1 clean, not bleeding. Vital Signs: 10:34 BP 133 / 71; Pulse 86; Resp 18; Temp 98.4(O); Pulse Ox 100% on R/A; Weight 65.77 kg; ap3 10:49 BP 112 / 69; Pulse 81; Resp 18; Pulse Ox 96% on R/A; ld1 ED Course: 10:18 Patient arrived in ED. im 10:20 Allison Contreras PA-C is PHCP. sb4 10:20 Edmar Winter MD is Attending Physician. sb4 10:28 Lima Winchester, ROHIT is Primary Nurse. ld1 10:36 Triage completed. ap3 10:37 Arm band placed on right wrist. ap3 10:49 Patient has correct armband on for positive identification. Placed in gown. Bed in low ld1 position. Call light in reach. Side rails up X2. Pulse ox on. NIBP on. Door closed. Noise minimized. Warm blanket given. 10:49 Patient did not have IV access during this emergency room visit. Wound care: to ld1 laceration was cleaned with Hibiclens, soaked in Hibiclens solution, dressed with 4X4s, Kerlix, Patient tolerated well. 11:22 Assist provider with laceration repair using sutures. Set up tray. Performed by Allison Contreras PA-C Dressed with 4X4s, Patient tolerated well. Administered Medications: 10:45 Drug: Lidocaine Infiltration (1 %) 5 ml 5 ml Infiltration once; to bedside {Note: ld1 Administered By PA. Jaimee} Volume: 5 ml; Route: Infiltration; 11:22 Follow up: Response: No adverse reaction ld1 10:48 Drug: Boostrix Tdap IM 0.5 ml IM once; as a single dose Route: IM; Site: right deltoid; ld1 11:22 Follow up: Response: (VIS) Vaccine information sheet provided today. Questions and/or ld1 concerns addressed. VIS edition date: Apr 28, 2021.; No adverse reaction Medication: 10:49 Vaccine Information Statement (VIS) provided today. Questions and/or concerns ld1 addressed. VIS edition date: December 28, 2024. Outcome: 11:05 Discharge ordered by . sb4 11:22 Discharged to home ambulatory, ld1 11:22 Condition: stable 11:22 Discharge instructions given to patient, Instructed on discharge instructions, follow up and referral plans. medication usage, Demonstrated understanding of instructions, follow-up care, medications, Prescriptions given X 1, 11:23 Patient left the ED. ld1 Signatures: Jenny Vivar RN RN ap3 Lima Winchester RN RN ld1 Allison Contreras, VICTORINO PAAna Luisa sb4 Coleen Parra
--- NOTE | 2024-12-28 11:05 | EDPHYS ---
Physician Documentation [facility] Name: Chaparrita Blanca Age: 74 yrs Sex: Female : 1950 Arrival Date: 12/28/2024 Time: 10:17 Bed 13 Private MD: ED Physician Edmar Winter HPI: 12/28 10:29 This 74 yrs old Female presents to ER via Unassigned with complaints of Laceration To sb4 Hand. 10:29 The patient has a laceration related to: cooking, from a knife, occurred at home, and sb4 there are no complicating factors. The injury was accidental. The laceration(s) is(are) located on the dorsum of left hand. Onset: The symptoms/episode began/occurred just prior to arrival. Associated signs and symptoms: The patient has no apparent associated signs or symptoms. The patient has not experienced similar symptoms in the past. Historical: - Allergies: 10:36 Amoxicillin; ap3 10:36 Augmentin; ap3 10:36 Boniva; ap3 10:36 Celexa; ap3 10:36 Codeine; ap3 10:36 Crestor; ap3 10:36 Keflex; ap3 10:36 Levaquin; ap3 10:36 Mobic; ap3 10:36 Niacin; ap3 10:36 NSAIDS; ap3 10:36 Paxil; ap3 10:36 PENICILLINS; ap3 10:36 Repatha SureClick; ap3 10:36 Zezocuy-Mhe-Hzs Reductase Inhibitors; ap3 10:36 Zetia; ap3 - PMHx: 10:36 Anxiety; Arthritis; Chronic pain; coronary atherosclerosis; depressive disorder; ap3 Hyperlipidemia; Hypertension; - PSHx: 10:36 Bladder lift (February); pain pump (morphine); Stented artery; ap3 - Immunization history:: Client reports having NOT received the Covid vaccine. Flu vaccine is not up to date. - Infectious Disease History:: Denies. - Social history:: Smoking status: Patient denies any tobacco usage or history of. ROS: 10:29 Constitutional: Negative for fever, chills, and weight loss, sb4 10:29 Skin: Positive for laceration(s), of the dorsum of left hand, 10:29 All other systems are negative, Exam: 10:29 Constitutional: This is a well developed, well nourished patient who is awake, alert, sb4 and in no acute distress. Head/Face: Normocephalic, atraumatic. Eyes: Extra-ocular motions intact. Periorbital areas with no swelling, redness, or edema. ENT: Mucous membranes moist. Respiratory: No increased work of breathing, no retractions or nasal flaring. 10:29 Skin: injury, laceration(s), the wound is approximately 2.5 cm(s), with a depth of .5 cm(s), of the dorsum of left hand, that can be described as clean, no foreign body, linear, with mild bleeding, Vital Signs: 10:34 BP 133 / 71; Pulse 86; Resp 18; Temp 98.4(O); Pulse Ox 100% on R/A; Weight 65.77 kg; ap3 10:49 BP 112 / 69; Pulse 81; Resp 18; Pulse Ox 96% on R/A; ld1 Laceration: 11:05 Wound Repair of 3cm ( 1.2in ) subcutaneous laceration to dorsum of left hand. sb4 Irregularly shaped.. Distal neuro/vascular/tendon intact. Anesthesia: Local anesthetic administered with 3 mls of 1% lidocaine. Wound prep: Simple cleansing with hibiclenz by nurse, Wound irrigation with saline by nurse. Skin closed with 3 5-0 Prolene using simple sutures and sterile technique. Dressed with pressure dressing. Patient tolerated well. MDM: 10:22 Medical Screening Exam initiated sb4 11:06 Data reviewed: vital signs, nurses notes, and as a result, I will discharge patient. sb4 Counseling: I had a detailed discussion with the patient and/or guardian regarding the historical points, exam findings, and any diagnostic results supporting the discharge/admit diagnosis, the need for outpatient follow up, for suture removal in 7 days, to return to the emergency department if symptoms worsen or persist or if there are any questions or concerns that arise at home. 12/28 10:29 Order name: Wound Care; Complete Time: 10:48 sb4 Administered Medications: 10:45 Drug: Lidocaine Infiltration (1 %) 5 ml 5 ml Infiltration once; to bedside {Note: ld1 Administered By PA. Jaimee} Volume: 5 ml; Route: Infiltration; 11:22 Follow up: Response: No adverse reaction ld1 10:48 Drug: Boostrix Tdap IM 0.5 ml IM once; as a single dose Route: IM; Site: right deltoid; ld1 11:22 Follow up: Response: (VIS) Vaccine information sheet provided today. Questions and/or ld1 concerns addressed. VIS edition date: Apr 28, 2021.; No adverse reaction Disposition Summary: 12/28/24 11:05 Discharge Ordered Notes: Location: Home sb4 Problem: new sb4 Symptoms: have improved sb4 Condition: Stable sb4 Diagnosis - Laceration without foreign body of left hand, initial encounter sb4 Followup: sb4 - With: Private Physician - When: 7 - 10 days - Reason: Staple/Suture removal Discharge Instructions: - Discharge Summary Sheet sb4 - Laceration Care, Adult sb4 Forms: - Antibiotic Education sb4 - Patient Portal Instructions sb4 - Leadership Thank You Letter sb4 Prescriptions: - Doxycycline Hyclate 100 mg Oral tablet - take 1 tablet ORAL route every 12 hours; 14 tablet; Refills: 0, Product sb4 Selection Permitted Signatures: Jenny Vivar RN RN ap3 Lima Winchester RN RN ld1 Allison Contreras, PAAna Luisa PAAna Luisa sb4
[2024-12-28 11:33] VITALS: BP 112/69; TEMP 98.4; O2SAT 96
== END 2024-12-28 11:23 | disposition home or self-care (01) ==
LOC: ER 10:17
DX: S61.412A Laceration without foreign body of left hand, initial encounter (principal); W26.0XXA Contact with knife, initial encounter; Z23 Encounter for immunization
CPT/HCPCS: 12002 ×2; 90715; 96372; 99284; J2003; 12042

== ENCOUNTER 2025-06-24 16:04 | Inpatient (IN) | payer OTHER ==
[2025-06-24 17:07] LABS: Absolute Lymphocytes (CBC) 0.9 K/uL (0.7-4.9); Hematocrit 37.9 % (36.0-45.0); Hemoglobin 12.4 g/dL (12.0-15.0); MCH 28.2 pg (27.0-35.0); MCHC 32.9 g/dL (32.0-36.0); MCV 85.9 fL (80-100); MPV 6.9 fL (7.6-11.3); Nucleated RBC Absolute Count 0.0 (0-0); Nucleated Red Blood Cells % 0.0 % (0-0); RBC Red Blood Cell Count 4.41 M/uL (3.86-4.86); White Blood Count 6.90 thou/uL (4.3-10.9)
[2025-06-24 17:20] LABS: Influenza A Ag Negative; Influenza B Ag Negative; SARS-CoV-2 Antigen Rapid Res Negative (Negative)
[2025-06-24 17:23] LABS: ALT/SGPT 15 U/L (13-56); AST/SGOT 18 U/L (15-37); Albumin 2.8 g/dL (3.4-5.0); Albumin/Globulin Ratio 0.7 (1.1-1.8); Alkaline Phosphatase 76 U/L (45-117); Anion Gap 6.6 mEq/L (5.0-15.0); BUN Blood Urea Nitrogen 14 mg/dL (7-18); Globulin 4.0 g/dL (2.3-3.5); Glucose Level 116 mg/dL (74-106); NT PRO-BNP 160 pg/mL (<125); Potassium 3.6 mEq/L (3.5-5.1)
[2025-06-24 17:28] LABS: Troponin High Sensitivity < 3.0 pg/mL (<58.9)
[2025-06-24 17:35] LABS: PT Prothrombin Time 13.5 SECONDS (10-13.0); PTT, Activated Partial Thromb 30.7 SECONDS (27.2-37.4); Protime INR 1.2
--- NOTE | 2025-06-24 18:03 | RAD REPORT ---
EXAM: CT CHEST WITH CONTRAST CLINICAL INDICATION: Cough;Congestion TECHNIQUE: Routine CT scan of the chest with intravenous contrast. One or more of the following dose reduction techniques were used: Automated exposure control, adjustment of the mA and/or kV according to patient size, and/or iterative reconstruction. Unless otherwise specified, incidental fi ndings do not require dedicated imaging follow-up. COMPARISON: 10/09/2023 FINDINGS: LUNGS: Irregular tree-in-bud opacities with nodularity seen posterior right upper lobe as well as bot h lower lobes, greater on the left. Irregular scarring is present traction bronchiectasis right middle lobe and to a lesser extent the lingula. Findings likely represent infection, possible atypica l infection such as JANNETH. PLEURA: No pleural effusion. No pneumothorax. MEDIASTINUM AND LYMPH NODES: Mildly prominent presumed reactive lymph nodes are present largest in th e pretracheal station measuring up to 12 mm. OSSEOUS STRUCTURES AND CHEST WALL: Intact. Mild thoracic levoscoliosis. UPPER ABDOMEN: Moderate to large hiatal hernia with possible chronic volvulus. IMPRESSION: Extensive tree-in-bud opacity with nodularity seen greatest in the lower lung becker suggests infecti on, possible atypical infection such as JANNETH. Moderate to large hiatal hernia as described.
--- NOTE | 2025-06-24 18:05 | RAD REPORT ---
EXAMINATION: ONE VIEW CHEST XR CLINICAL INDICATION: COUGH TECHNIQUE: Frontal chest projection is submitted. Examination is limited by patient positioning and t echnique. COMPARISON: 05/27/2025 FINDINGS: Emphysematous changes with linear opacities in both lung bases, greater on the right likely related t o infection. The heart is upper limit of normal in size. No displaced fractures identified. Moderate hiatal hernia.
--- NOTE | 2025-06-24 18:59 | ER ---
Nurse's Notes [facility] Name: Chaparrita Blanca Age: 75 yrs Sex: Female : 1950 Arrival Date: 06/24/2025 Time: 16:04 Bed 19 Private MD: Diagnosis: Unspecified bacterial pneumonia Presentation: 06/24 16:11 Chief complaint: Patient states: cough began in May and has worsened with dd2 greenish asldivar sputum . pt sent here by Dr. Delacruz. Coronavirus screen: At this time, the client does not indicate any symptoms associated with coronavirus-19. Ebola Screen: No symptoms or risks identified at this time. Initial Sepsis Screen: Does the patient meet any 2 criteria? No. Patient's initial sepsis screen is negative. Does the patient have a suspected source of infection?. Risk Assessment: Do you want to hurt yourself or someone else? Patient reports no desire to harm self or others. Onset of symptoms was June 10, 2025. 16:11 Method Of Arrival: Ambulatory dd2 16:11 Acuity: NORBERT 3 dd2 Triage Assessment: 16:14 General: Appears in no apparent distress. uncomfortable, Behavior is calm, cooperative, dd2 appropriate for age. Pain: Complains of pain in chest Aggravated by cough. Respiratory: Reports cough that is pain with cough Airway is patent Respiratory effort is even, unlabored, Respiratory pattern is regular, symmetrical, Breath sounds with rhonchi bilaterally. Historical: - Allergies: 16:14 Amoxicillin; dd2 16:14 Augmentin; dd2 16:14 Boniva; dd2 16:14 Celexa; dd2 16:14 Codeine; dd2 16:14 Crestor; dd2 16:14 Keflex; dd2 16:14 Levaquin; dd2 16:14 Mobic; dd2 16:14 Niacin; dd2 16:14 NSAIDS; dd2 16:14 Paxil; dd2 16:14 PENICILLINS; dd2 16:14 Repatha SureClick; dd2 16:14 Ymjsydl-Zbm-Yaa Reductase Inhibitors; dd2 16:14 Zetia; dd2 - PMHx: 16:14 Anxiety; Arthritis; Chronic pain; coronary atherosclerosis; depressive disorder; dd2 Hyperlipidemia; Hypertension; - PSHx: 16:14 Bladder lift (February); pain pump (morphine); Stented artery; dd2 - Immunization history:: Adult Immunizations not up to date. - Infectious Disease History:: Denies. - Social history:: Smoking status: Patient denies any tobacco usage or history of. Screenin:30 [facility] ED Fall Risk Assessment (Adult) History of falling in the last 3 months, ar8 including since admission No falls in past 3 months (0 pts) Confusion or Disorientation No (0 pts) Intoxicated or Sedated No (0 pts) Impaired Gait No (0 pts) Mobility Assist Device Used No (0 pt) Altered Elimination No (0 pt) Score/Fall Risk Level 0 - 2 = Low Risk Oriented to surroundings, Maintained a safe environment. Abuse screen: Denies threats or abuse. Abuse screen: Denies threats or abuse. Nutritional screening: No deficits noted. Tuberculosis screening: No symptoms or risk factors identified. Assessment: 16:30 General: Appears in no apparent distress. Behavior is calm, cooperative. Pain: Denies ar8 pain. Neuro: Level of Consciousness is awake, alert, obeys commands, Oriented to person, place, time, situation. Cardiovascular: Patient's skin is warm and dry. Respiratory: Airway is patent Respiratory effort is even, unlabored, Respiratory pattern is regular, symmetrical. Respiratory:. GI: No signs and/or symptoms were reported involving the gastrointestinal system. : No signs and/or symptoms were reported regarding the genitourinary system. EENT: No signs and/or symptoms were reported regarding the EENT system. Derm: No signs and/or symptoms reported regarding the dermatologic system. Musculoskeletal: No signs and/or symptoms reported regarding the musculoskeletal system. 18:06 Reassessment: Patient and/or family updated on plan of care and expected duration. Pain ar8 level reassessed. Patient is alert, oriented x 3, equal unlabored respirations, skin warm/dry/pink. Vital Signs: 16:11 BP 106 / 47; Pulse 91; Resp 18; Temp 98.4; Pulse Ox 90% on R/A; Weight 63.5 kg; Pain dd2 5/10; 17:00 BP 102 / 47; Pulse 84; Resp 19; Pulse Ox 94% on 2 lpm NC; Pain 0/10; ar8 18:05 BP 122 / 51; Pulse 85; Resp 19; Pulse Ox 97% on 2 lpm NC; Pain 0/10; ar8 16:11 Pain Scale: Adult dd2 17:00 Pain Scale: Adult ar8 18:05 Pain Scale: Adult ar8 ED Course: 16:06 Patient arrived in ED. im 16:10 Dago Osman FNP-C is PHCP. dr5 16:10 Joseph Waters MD is Attending Physician. dr5 16:14 Triage completed. dd2 16:14 Arm band placed on right wrist. dd2 16:24 Lazaro Owens, RN is Primary Nurse. ar8 16:30 Placed in gown. Bed in low position. Call light in reach. Side rails up X2. Provided ar8 Education on: plan of care, diagnostics, estimated wait time. Client placed on continuous cardiac and pulse oximetry monitoring. NIBP monitoring applied. 16:30 Oxygen administration via nasal cannula \T\ 2L/min O2 via O2 sat 89% on RA Response to ar8 oxygen therapy: symptoms improved. 16:35 EKG done, by ED staff, reviewed by Dago CHAIREZ. ty 16:44 No provider procedures requiring assistance completed. Inserted saline lock: 22 gauge ar8 in right forearm, using aseptic technique. Blood collected. Flushed with 10 mL NS. 17:[address] via stretcher. ar8 17:46 Thorax W/ Con In Process Unspecified. EDMS 17:52 Patient moved back from [address]. Radiology at bedside for portable CXR. ar8 17:59 Chest Single View XRAY In Process Unspecified. EDMS 18:59 Esa Ortiz MD is Hospitalizing Provider. dr5 Administered Medications: No medications were administered Medication: 17:00 VIS not applicable for this client. ar8 Outcome: 18:59 Decision to Hospitalize by Provider. dr5 20:18 Patient left the ED. vk Signatures: Dispatcher [employer] EDMS Coleen Parra Vivian vk Yandell, Tylor ty MARIA A AWAD RN RN dd2 Dago Osman FNP-C FNP-[facility]5 Lazaro Owens, ROHIT RN ar8
--- NOTE | 2025-06-24 18:59 | EDPHYS ---
Physician Documentation [facility] Name: Chaparrita Blanca Age: 75 yrs Sex: Female : 1950 Arrival Date: 06/24/2025 Time: 16:04 Bed 19 Private MD: ED Physician Joseph Waters HPI: 06/24 19:00 This 75 yrs old Female presents to ER via Ambulatory with complaints of Cough.dr5 19:00 Onset: The symptoms/episode began/occurred acutely. 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 Patient was seen by Dr. Omar Delacruz in office today and was instructed to come to the emergency room for treatment and admission.. Historical: - Allergies: 16:14 Amoxicillin; dd2 16:14 Augmentin; dd2 16:14 Boniva; dd2 16:14 Celexa; dd2 16:14 Codeine; dd2 16:14 Crestor; dd2 16:14 Keflex; dd2 16:14 Levaquin; dd2 16:14 Mobic; dd2 16:14 Niacin; dd2 16:14 NSAIDS; dd2 16:14 Paxil; dd2 16:14 PENICILLINS; dd2 16:14 Repatha SureClick; dd2 16:14 Ynckwff-Ufq-Eym Reductase Inhibitors; dd2 16:14 Zetia; dd2 - PMHx: 16:14 Anxiety; Arthritis; Chronic pain; coronary atherosclerosis; depressive disorder; dd2 Hyperlipidemia; Hypertension; - PSHx: 16:14 Bladder lift (February); pain pump (morphine); Stented artery; dd2 - Immunization history:: Adult Immunizations not up to date. - Infectious Disease History:: Denies. - Social history:: Smoking status: Patient denies any tobacco usage or history of. ROS: 19:00 Constitutional: as per hpi dr5 Exam: 19:00 Constitutional: This is a well developed, well nourished patient who is awake, alert, dr5 and in no acute distress. Head/Face: Normocephalic, atraumatic. Eyes: Pupils equal round and reactive to light, extra-ocular motions intact. Lids and lashes normal. Conjunctiva and sclera are non-icteric and not injected. Cornea within normal limits. Periorbital areas with no swelling, redness, or edema. Chest/axilla: Normal chest wall appearance and motion. Nontender with no deformity. No lesions are appreciated. Cardiovascular: Regular rate and rhythm with a normal S1 and S2. Normal PMI, no JVD. No pulse deficits. Respiratory: Lungs have equal breath sounds bilaterally, clear to auscultation. No wheezes noted. Rhonchi noted to left lower lung field with mild increased work of breathing, no retractions or nasal flaring. Abdomen/GI: Soft, non-tender, non-distended Back: No spinal tenderness. No costovertebral tenderness. Full range of motion. Skin: Warm, dry with normal turgor. Normal color with no rashes, no lesions, and no evidence of cellulitis. MS/ Extremity: Pulses equal, no cyanosis. Neurovascular intact. Full, normal range of motion. Neuro: Awake and alert, GCS 15, oriented to person, place, time, and situation. Cranial nerves II-XII grossly intact. Motor strength 5/5 in all extremities. Sensory grossly intact. Cerebellar exam normal. Normal gait. Vital Signs: 16:11 BP 106 / 47; Pulse 91; Resp 18; Temp 98.4; Pulse Ox 90% on R/A; Weight 63.5 kg; Pain dd2 5/10; 17:00 BP 102 / 47; Pulse 84; Resp 19; Pulse Ox 94% on 2 lpm NC; Pain 0/10; ar8 18:05 BP 122 / 51; Pulse 85; Resp 19; Pulse Ox 97% on 2 lpm NC; Pain 0/10; ar8 16:11 Pain Scale: Adult dd2 17:00 Pain Scale: Adult ar8 18:05 Pain Scale: Adult ar8 MDM: 16:10 Medical Screening Exam initiated dr5 19:00 Differential Diagnosis: Bronchitis Influenza Upper Respiratory Infection Viral Syndrome dr5 Pneumonia. Data reviewed: vital signs, nurses notes, lab test result(s), cardiac enzymes, troponin i, CBC, white blood cell count, hemoglobin, hematocrit, platelets, PT/PTT, lactate, BNP, EKG, radiologic studies, CT scan, plain films. Consideration of Admission/Observation Patient was admitted/placed on observation. Management of patient was discussed with the following: Hospitalist: Dr. Ortiz -discussed case with Dr. Ortiz. Dr. Ortiz recommended to touch base with Dr. Delacruz for further recommendations.. Attendant [employer]: Dr. Delacruz -spoke with Dr. Delacruz who recommended admission with sputum culture, blood cultures, meropenem 1 g twice daily.. Spoke back with Dr. Ortiz to tell him what Dr. Delacruz recommended and will admit with regular diet, sputum culture, antibiotics. Wants sputum culture collected prior to antibiotics. Spoke with RN who already has sent sputum culture off to lab.. I considered the following discharge prescriptions or medication management in the emergency department I discussed and recommended Over The Counter medications. Independent interpretation of the following test(s) in the Emergency Department X-Ray: My interpretation is Independent interpretation of x-ray reveals concerns for pneumonia left lower lung. Care significantly affected by the following chronic conditions: Arthritis, anxiety, chronic pain, atherosclerosis, depression, hyperlipidemia, hypertension. Care significantly affected by the following Social Determinants of Health: Poor access to healthcare and/or lack of insurance, Poor access to transportation, Problems related to employment. Counseling: I had a detailed discussion with the patient and/or guardian regarding the historical points, exam findings, and any diagnostic results supporting the discharge/admit diagnosis, the presence of at least one elevated blood pressure reading (>120/80) during this emergency department visit, lab results, radiology results, the need for further work-up and treatment in the hospital. ED course: Patient is agreeable to admission. All doctors consulted and will put orders in [facility]. Sputum culture already collected so can start antibiotics given blood cultures also collected.. 06/24 16:16 Order name: BNP; Complete Time: 17:30 dr5 06/24 16:16 Order name: Blood Culture Adult (2) dr5 06/24 16:16 Order name: CBC with Diff; Complete Time: 17:21 dr5 06/24 16:16 Order name: CMP; Complete Time: 17:30 dr5 06/24 16:16 Order name: Lactate w/ 2H reflex if indic.; Complete Time: 17:25 dr5 06/24 16:16 Order name: Protime (+inr); Complete Time: 17:44 dr5 06/24 16:16 Order name: Ptt, Activated; Complete Time: 17:44 dr5 06/24 16:16 Order name: Troponin HS; Complete Time: 17:30 dr5 06/24 16:16 Order name: COVID-19 Ag + Flu A+B Ag; Complete Time: 17:21 dr5 06/24 16:16 Order name: Sputum Culture [facility] 06/24 19:13 Order name: Basic Metabolic Panel [facility] 06/24 19:13 Order name: Basic Metabolic Panel [facility] 06/24 19:13 Order name: CBC with Automated Diff [facility] 06/24 19:13 Order name: CBC with Automated Diff [facility] 06/24 19:13 Order name: NT PRO-BNP [facility] 06/24 19:13 Order name: NT PRO-BNP [facility] 06/24 19:13 Order name: Troponin High Sensitivity [facility] 06/24 19:14 Order name: Sputum Culture [facility] 06/24 19:14 Order name: Sputum Gram Stain [facility] 06/24 17:09 Order name: Thorax W/ Con; Complete Time: 18:06 [facility] 06/24 17:44 Order name: Chest Single View XRAY; Complete Time: 18:06 [facility] 06/24 16:16 Order name: Accucheck; Complete Time: 16:40 dr5 06/24 16:16 Order name: Cardiac monitoring; Complete Time: 16:40 [facility] 06/24 16:16 Order name: EKG - Nurse/Tech; Complete Time: 16:40 dr5 06/24 16:16 Order name: IV Saline Lock - Large Bore; Complete Time: 17:03 dr5 06/24 16:16 Order name: Labs collected and sent; Complete Time: 17:03 dr5 06/24 16:16 Order name: O2 Per Protocol; Complete Time: 16:40 [facility] 06/24 16:16 Order name: O2 Sat Monitoring; Complete Time: 16:40 dr5 06/24 16:16 Order name: Vital Signs; Complete Time: 16:40 dr5 EC:35 Rate is 83 beats/min. Rhythm is regular. QRS [place] is Normal. PA interval is normal at dr5 172 msec. QRS interval is normal at 84 msec. QT interval is normal at 382 msec. Clinical impression: Normal ECG and No evidence of ischemia. Administered Medications: No medications were administered Disposition Summary: 06/24/25 18:59 Hospitalization Ordered Notes: Hospitalization Status: Inpatient Admission dr5 Provider: Esa Ortiz Location: Telemetry/MedSurg (Inpatient) dr5 Condition: Stable dr5 Problem: new dr5 Symptoms: have worsened dr5 Bed/Room Type: Standard dr5 Room Assignment: 412(06/24/25 19:11) rv1 Diagnosis - Unspecified bacterial pneumonia dr5 Forms: - Medication Reconciliation Form dr5 - SBAR form dr5 - Leadership Thank You Letter dr5 Addendum: 07/03/2025 07:02 Co-signature as Attending Physician, Joseph Waters MD I reviewed the patient's care r n provided by the Advanced Practice Provider and agree with the diagnosis and treatment plan. Signatures: Dispatcher [employer] EDMS Joseph Waters MD MD rn Villegas, Rebecca rv1 MARIA A AWAD RN RN dd2 Dago Osman, PILE DRIVER OPERATOR [employer]-C PILE DRIVER OPERATOR [employer]-Cdr5 Lazaro Owens RN RN ar8 Corrections: (The following items were deleted from the chart) 06/24 16:17 16:17 PROBNP+C.LAB.BRZ ordered. EDMS EDMS 16:17 16:17 BLOOD CULTURE*+BA.LAB.BRZ ordered. EDMS EDMS 16:17 16:17 CBC+H.LAB.BRZ ordered. EDMS EDMS 16:17 16:17 COMPREHENSIVE METABOLIC PANEL+C.LAB.BRZ ordered. EDMS EDMS 16:17 16:17 LACTATE+C.LAB.BRZ ordered. EDMS EDMS 16:17 16:17 PROTIME (+INR)+COAG.LAB.BRZ ordered. EDMS EDMS 16:17 16:17 PTT, ACTIVATED+COAG.LAB.BRZ ordered. EDMS EDMS 16:17 16:17 Troponin High Sensitivity+C.LAB.BRZ ordered. EDMS EDMS 16:17 16:17 COVID-19 Ag + Flu A+B Ag+I.LAB.BRZ ordered. EDMS EDMS 16:17 16:17 Sputum Culture+BA.LAB.BRZ ordered. EDMS EDMS 16:17 16:17 Thorax Wo Con+CT.RAD.BRZ ordered. EDMS EDMS 19:11 18:59 dr5 rv1
[2025-06-24] MEDS: Meropenem 1,000 MG in NA CHLORIDE 0.9% 100 ML IV SCH (20:44)
[2025-06-24 21:55] VITALS: BMI 24.9
[2025-06-25] MEDS: ACETAMINOPHEN 500 MG TAB PO PRN (05:51)
[2025-06-25] MEDS: SOTALOL HCL 80 MG TAB PO SCH (06:00)
[2025-06-25 07:23] LABS: Absolute Lymphocytes (CBC) 1.2 K/uL (0.7-4.9); Hematocrit 36.6 % (36.0-45.0); Hemoglobin 12.0 g/dL (12.0-15.0); MCH 27.9 pg (27.0-35.0); MCHC 32.8 g/dL (32.0-36.0); MCV 85.1 fL (80-100); MPV 6.9 fL (7.6-11.3); Nucleated RBC Absolute Count 0.0 (0-0); Nucleated Red Blood Cells % 0.1 % (0-0); RBC Red Blood Cell Count 4.30 M/uL (3.86-4.86); White Blood Count 7.00 thou/uL (4.3-10.9)
[2025-06-25 07:47] LABS: Anion Gap 6.7 mEq/L (5.0-15.0); BUN Blood Urea Nitrogen 10.0 mg/dL (7-18); Glucose Level 103.0 mg/dL (74-106); NT PRO-BNP 165.0 pg/mL (<125); Potassium 3.7 mEq/L (3.5-5.1)
[2025-06-25] MEDS: IPRATROPIUM BROM 0.5MG/2.5ML NEB PRN (08:06)
[2025-06-25] MEDS: ALBUTEROL 2.5 MG/3 ML NEB SOL NEB PRN (08:06)
[2025-06-25] MEDS: ASPIRIN 81 MG CHEWABLE TABLET PO SCH (08:48)
[2025-06-25] MEDS: FUROSEMIDE 20 MG TABLET PO SCH (08:49)
[2025-06-25] MEDS: PANTOPRAZOLE 40MG TABLET PO SCH (08:49)
[2025-06-25] MEDS: ENOXAPARIN 40 MG/0.4 ML SQ SCH (11:15)
--- NOTE | 2025-06-25 12:45 | P.CNS ---
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 came into my office complaining of worsening congestion fever not feeling well hypoxic patient ended up in the emergency room as were was admitted failed outpatient therapy still feeling a little weak Allergies Rbqyfpj-[id number]-[id number] Reductase Inhibitor [Tgvdomd-Cxa-Psa Reductase Inhibitor] Allergy (Severe, Verified 03/13/24 12:22) Hives/Rash citalopram hydrobromide [From Celexa] Allergy (Verified 03/13/24 12:22) UNK codeine Allergy (Verified 03/13/24 12:22) Flushing in face ezetimibe [From Zetia] Allergy (Verified 03/13/24 12:22) UNK fish derived Allergy (Verified 03/13/24 12:22) PALPITATIONS ibandronate sodium [From Boniva] Allergy (Verified 03/13/24 12:22) REFLUX levofloxacin [From Levaquin] Allergy (Verified 03/13/24 12:22) Rash meloxicam [From Mobic] Allergy (Verified 03/13/24 12:22) Rash niacin Allergy (Verified 03/13/24 12:22) UNK NSAIDS (Non-Steroidal Anti-Inflamma Allergy (Verified 03/13/24 12:22) UNK paroxetine HCl [From Paxil] Allergy (Verified 03/13/24 12:22) UNK penicillin G Allergy (Verified 03/13/24 12:22) Rash Penicillins Allergy (Verified 03/13/24 12:22) Rash risedronate sodium [From Actonel] Allergy (Verified 03/13/24 12:22) UNK atorvastatin [From Lipitor] Adverse Reaction (Verified 03/13/24 12:22) Hives/Rash cephalexin monohydrate [From Keflex] Adverse Reaction (Verified 03/13/24 12:22) NAUSEA evolocumab [From Repatha Pushtronex] Adverse Reaction (Verified 06/03/24 14:03) Rash rosuvastatin [From Crestor] Adverse Reaction (Verified 06/03/24 14:03) Rash Home Medications: Duloxetine [Cymbalta *] 30 mg PO BEDTIME 08/17/13 estradioL [Estradiol] 0.5 mg PO DAILY 08/17/13 Dexlansoprazole [Dexilant] 60 mg PO DAILY 12/08/21 Gabapentin 400 mg PO BEDTIME 12/08/21 Imipramine HCl 50 mg PO BEDTIME 12/08/21 Furosemide [Lasix*] 20 mg PO DAILY 03/13/24 Sotalol HCl [Betapace*] 40 mg PO BID 6AM 6PM 03/13/24 Aspirin 81 mg PO DAILY 06/03/24 methocarbamoL [Methocarbamol] 1 tab PO DAILY 05/26/25 - Past Medical/Surgical History Diabetic: No -: Arthritis -: Chronic Pain -: CORONARY ARTERY DISEASE WITH STENT RECENTLY -: ANXIETY -: HTN -: HLD -: Hysterectomy -: Appendectomy -: Pain Pump -: Foot surgery -: Bladder lift -: Pain pump implant Psychosocial/ Personal History: 2 sons live in [place]. Patient is . She does have a morphine pain pump. - Family History Father Medical History: Heart disease, Cancer Notes: pancreatic/liver cancer Mother Medical History: Heart disease, Hypertension, Stroke - Social History Smoking Status: Unknown if ever smoked Alcohol use: No CD- Drugs: No Caffeine use: Yes Review of Systems 10-point ROS is otherwise unremarkable General: Weakness Physical Examination Temp Pulse Resp BP Pulse Ox 97.9 F 71 15 96/42 L 96 06/25/25 12:00 06/25/25 12:00 06/25/25 12:00 06/25/25 12:00 06/25/25 12:00 General: Alert, Oriented x3 HEENT: Atraumatic Neck: Supple Respiratory: Clear to auscultation bilaterally, Diminished Cardiovascular: Regular rate/rhythm, Normal S1 S2 Laboratory Data (last 24 hrs) 06/24/25 06/24/25 06/24/25 16:44 16:44 16:44 WBC 6.90 Hgb 12.4 Hct 37.9 Plt Count 313 PT 13.5 H INR 1.20 APTT 30.7 Sodium 136 Potassium 3.6 BUN 14 Creatinine 0.74 Glucose 116 H Total Bilirubin 0.4 AST 18 ALT 15 Alkaline Phosphatase 76 - Problems (1) Left lower lobe pneumonia Current Visit: Yes Status: Acute Plan: Patient is 75 years of age with a history of Pseudomonas and atypical Mycobacterium infection came in with worsening chest congestion labs chemistries reviewed patient is allergic to levofloxacin in addition to being on sotalol which is a relative contraindication was admitted for IV meropenem i antibiotics until cultures are obtained Pseudomonas was isolated last year he has a recurrent relapse about a year or so chest CT scan shows fairly extensive tree-in-bud changes most likely due to a bacterial infection with left lower lobe consolidation sputum cultures are pending Qualifiers: Aspiration pneumonia type: unspecified
--- NOTE | 2025-06-25 19:56 | HP ---
Date of Admission: 06/25/2025 Chief Complaint: Cough, congestion, coughing up colored mucus, and shortness of breath. History Of Present Illness: This is a 75-year-old, very pleasant, female patient who is having ongoing problem with cough, chest congestion, coughing up colored mucus in last 2-3 weeks or so and has taken doxycycline and azithromycin on an outpatient basis. The patient was seen by Dr. Delacruz yesterday as she was having worsening of her symptoms and while at his office. She was also having shortness of breath complaints. With that, Dr. Delacruz directed her to come to emergency room and after she was evaluated in the ER, I was contacted requesting admission to the hospital for pneumonia. The patient denies any vomiting or diarrhea. Denies any hemoptysis or blood in stool or blood in urine. Allergies: TO STATIN CAUSING RASH, REPATHA CAUSING RASH, KEFLEX, PAXIL, NONSTEROIDAL ANTI-INFLAMMATORY MEDICATIONS, LEVAQUIN, BONIVA, ZETIA, CELEXA, AUGMENTIN, ALL THESE MEDICATIONS CAUSE RASH TYPE OF SIDE EFFECT. Medications: Praluent 75 mg once a month, duloxetine 30 mg daily, gabapentin 400 mg daily at bedtime, methocarbamol 500 mg 3 times a day as needed for back pain or muscle spasm, alprazolam 0.5 mg 2 times a day as needed for anxiety, clonidine 0.1 mg 3 times a day as needed for systolic blood pressure more than 190, Dexilant 60 mg daily, estradiol 0.5 mg daily, furosemide 20 mg daily, hyoscyamine 0.125 daily as needed, imipramine 50 mg takes 1 tablet by mouth 2 times a day, sotalol 80 mg takes half a tablet 2 times a day, tramadol as needed for pain. Review of Systems: Respiratory: As mentioned above. All other systems reviewed and negative. 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 Past Surgical History: Dental surgery in November of 2024, coronary artery stent placement in 2021, bilateral leg varicose vein procedure in 2015, appendectomy in 1959, hysterectomy in 1986, bladder suspension in November 2023, pain pump placement in 2014, ankle surgery for fracture in 2021, and bladder suspension in November 2023. Family History: Father with cancer of unknown type. Mother , had heart disease. Brother alive and well. Social History: Negative for smoking and alcohol use. Physical Examination: Vital Signs: This morning, temperature 98, pulse 70, respiratory rate 12, blood pressure 91/49, oxygen saturation 91%. Height 5 feet 3 inches, weight 140 pounds. General: Awake, alert, oriented, not in distress. HEENT: Head atraumatic, normocephalic. Conjunctivae nonerythematous. Sclerae white. Mouth, no thrush or edema noted. Ears/Nose, no mass, lesion, discharge noted. Neck: Supple. No JVD, lymph nodes, bruit, thyromegaly noted. Lungs: Presence of diffuse crackles in all the lung becker. Not using any accessory muscles of respiration. Heart: Normal heart sounds, no murmur or gallop. Abdomen: Soft, bowel sounds normal. No guarding, rigidity, tenderness, mass, hepatosplenomegaly, distention, or bruit noted. Extremities: No leg edema. No calf tenderness. Skin: No rash, ulcer, cellulitis. Lymphatics: No lymph node enlargement in neck, supraclavicular, infraclavicular region. Neuro: No focal neurological deficit. Chest: Unremarkable. External Genitalia: Deferred. Rectal: Deferred. Laboratory Data: Yesterday, WBC 6.9, hemoglobin 12.4, platelets 313. Sodium 136, potassium 3.6, chloride 99, bicarb 34, BUN 14, creatinine 0.74, glucose 116. Lactic acid 1.4. Liver function tests are unremarkable. Troponin less than 3. ProBNP 160. Today, WBC 7, hemoglobin 12, platelets 285. Sodium 137, potassium 3.7, chloride 100, bicarb 34, BUN 10, creatinine 0.63, glucose 103. ProBNP 165. Influenza A and B and COVID-19 test negative. CAT scan of the chest with contrast done in the emergency room shows extensive tree-in-bud opacity with nodularity seen greatest in lower lung becker, but it involves right upper lobe as well as both lower lobes. Moderate to large hiatal hernia present. Chest x-ray shows emphysematous changes with linear opacities in both lung bases, greater on the right than the left. Impression: 1. Pneumonia. 2. Hypertension. 3. Hyperlipidemia. 4. Coronary artery disease. 5. Paroxysmal atrial fibrillation. 6. Gastroesophageal reflux disease. 7. Diverticulosis. 8. Anxiety. Plan: We will admit patient to hospital for further evaluation and management of this problem. For pneumonia, we will consult Dr. Delacruz from [facility] and I did discuss details with him. The patient had similar problem about a year ago and she was diagnosed and treated for atypical mycobacterium infection. Dr. Delacruz will be looking into it. We will send sputum for Gram stain and culture. Start empiric antibiotic, meropenem, per order and DVT prophylaxis with Lovenox will be given. For hypertension, monitor blood pressure, make adjustment on medication as it becomes necessary. For coronary artery disease, continue aspirin therapy. No need for further intervention. For gastroesophageal reflux disease. Continue her proton pump inhibitor without any further intervention. I did discuss with her regarding her advance directives. The patient is full code as per her decision. Total time spent was 65 minutes including communication with the emergency room provider, review of emergency room visit record, review of last hospital admission record from 05/26/2025, communication with Dr. Delacruz, delivery consultant, performing today's evaluation and management. JOY/MARLENY Voice ID: [id number] MTDD
[2025-06-25] MEDS: IMIPRAMINE HCL 25 MG TAB PO SCH (20:19)
[2025-06-25] MEDS: GABAPENTIN 300 MG CAP PO SCH (20:19)
[2025-06-25] MEDS: GABAPENTIN 100 MG CAP PO SCH (20:19)
[2025-06-25] MEDS: DULOXETINE 30 MG CAP PO SCH (20:19)
[2025-06-26] MEDS: NA CHLORIDE 0.9% 500 ML IV ONE (00:25)
[2025-06-26] MEDS: ALBUMIN HUMAN 25% 100 ML IV ONE (00:26)
[2025-06-26] MEDS ORDERED: MAGNESIUM HYDROXIDE 8% 30 ML PO PRN (09:16)
[2025-06-26] MEDS: DOCUSATE NA/SENNA CONC 1 TAB PO SCH (10:03)
--- NOTE | 2025-06-26 10:22 | PN ---
Date of Progress Note: 06/26/2025 Subjective: The patient was seen this morning for followup. No new complaints or problems reported by the patient. Overall, she feels better compared to yesterday. She has chronic constipation probl em for which she uses suppository at home, but has not been using any oral stool softener or a laxati ve, and we did talk about using that instead of just directly going to suppository and she is willing to try that. For physical exam, vital signs reviewed. Systolic blood pressure remains in range of 90 or so. She is not having any symptoms with blood pressure remaining on low side. Objective: Vital Signs: Reviewed. HEENT: Unremarkable. Lungs: Bilateral good equal air entry. Significant improvement in lung findings today. Very minima l crackles in lower lung field, but overall significantly better than yesterday. Not using any acces denise muscles of respiration. Heart: Sounds normal. Abdomen: Soft. Bowel sounds normal. No guarding, rigidity, tenderness, distention. Extremities: No leg edema. Laboratory Data: No new labs. Sputum culture and blood cultures still pending. Impression: 1. Pneumonia. 2. Hypertension. Plan: We will go ahead and continue current antibiotic, which is IV meropenem. Await on the sputum culture results and then decide about discharge plan. Start her on stool softener, Senokot-S 2 table ts 2 times a day and milk of magnesia as needed. Details were discussed with Dr. Delacruz. I will see her tomorrow for followup. Continue sotalol along with furosemide 20 mg daily. JOY/MODL Voice ID: [id number] Report ID: [id number]
[2025-06-26] MEDS: predniSONE 10 MG TAB PO SCH (14:31)
--- NOTE | 2025-06-27 10:53 | PN ---
Date of Progress Note: 06/27/2025 Subjective: The patient was seen this morning for followup. No new complaints or problems reported by patient. Yesterday afternoon nurse contacted me, informed me that the patient was complaining of lot of back pain radiating to her right leg and she had this kind of lumbar radiculopathy pain before and responded well to the steroid in the past and that is what she had requested, so prednisone 30 m g daily was started yesterday. This morning when I saw her, she informed me that her pain is signifi cantly better after use of prednisone, which was started yesterday. Her cough, chest congestion are better. She remains on oxygen 2 L/minute. This morning, maintaining adequate oxygenation. Objective: Vital Signs: Reviewed. HEENT: Unremarkable. Lungs: Bilateral good equal air entry, not in any respiratory distress. Minimal bilateral basal ral es present. Heart: Sounds normal. Abdomen: Soft. Bowel sounds normal. No guarding, rigidity, tenderness, distention. Extremities: No leg edema. Laboratory Data: Sputum culture and blood culture are pending. Impression: 1. Pneumonia. 2. Lumbar radiculopathy. Plan: We will go ahead and continue current medication. Continue meropenem while waiting on the cul ture results. Continue prednisone 30 mg daily and after 3-4 days of current dose, we will start redu cing the dose to taper it off. I will see her tomorrow for followup. Will continue to follow up wit antonio Delacruz from [facility]. Ambulation was encouraged. For constipation yesterday, we st arted her on Senokot S and she has responded well and today she reports that she had bowel movement yesterday. We will continue that stool softener. JOY/MODL Voice ID: [id number] Report ID: [id number]
[2025-06-28 06:39] LABS: Absolute Lymphocytes (CBC) 1.5 K/uL (0.7-4.9); Hematocrit 34.9 % (36.0-45.0); Hemoglobin 11.4 g/dL (12.0-15.0); MCH 28.1 pg (27.0-35.0); MCHC 32.8 g/dL (32.0-36.0); MCV 85.7 fL (80-100); MPV 7.0 fL (7.6-11.3); Nucleated RBC Absolute Count 0.0 (0-0); Nucleated Red Blood Cells % 0.0 % (0-0); RBC Red Blood Cell Count 4.07 M/uL (3.86-4.86); White Blood Count 7.60 thou/uL (4.3-10.9)
[2025-06-28 06:47] LABS: Anion Gap 6.0 mEq/L (5.0-15.0); BUN Blood Urea Nitrogen 12.0 mg/dL (7-18); Glucose Level 88.0 mg/dL (74-106); Magnesium 2.4 mg/dL (1.6-2.4); Potassium 5.0 mEq/L (3.5-5.1)
[2025-06-28 09:42] VITALS: O2SAT 93
--- NOTE | 2025-06-28 11:50 | RAD REPORT ---
Procedure: Chest Pa And Lat (2 Views) HISTORY: Cough COMPARISON: June 24, 2025 FINDINGS: Overall no significant change in the moderate bilateral reticular nodular opacities within the lungs probably infection. Moderate hiatal hernia. No significant pleural effusion Normal heart size
[2025-06-28 12:32] VITALS: BP 119/55; TEMP 98.1
--- NOTE | 2025-06-29 10:38 | DS ---
Date of Discharge: 06/28/2025 Disposition: Discharged to go home. Physical Examination: HEENT: Unremarkable. Lungs: Clear to auscultation except minimal basal rales. This is significantly better than before. Not using accessory muscles of respiration. Heart: Sounds normal. Abdomen: Soft. Bowel sounds normal. No guarding, rigidity, tenderness, distention. Extremities: No leg edema. Discharge Medications And Instructions: 1. Continue all prior home medication. 2. Start cefpodoxime 100 mg 2 times a day for 1 week. 3. Follow up at my office week after next. 4. Follow up with Dr. eDlacruz next week. Laboratory Data: Upon admission, WBC 6.9, hemoglobin 12.4, platelets 313. Sodium 136, potassium 3.6, chloride 99, bicarb 34, BUN 14, creatinine 0.74, glucose 116. Lactic acid 1.4. Liver function tests are unremarkable. Troponin less than 3. ProBNP 160. Today, WBC 7.6, hemoglobin 11.4, platelets 315. Sodium 144, potassium 5, chloride 108, bicarb 35, BUN 12, creatinine 0.60, glucose 88. Her sputum culture has grown E coli. Blood culture negative. Influenza A and B and COVID-19 test negative. CAT scan of the chest with contrast done in the emergency room shows extensive tree-in-bud opacity with nodularity seen greatest in lower lung becker, but it involves right upper lobe as well as both lower lobes. Moderate to large hiatal hernia present. Chest x-ray shows emphysematous changes with linear opacities in both lung bases, greater on the right than the left. Hospital Course: This is a 75-year-old pleasant female patient, who was admitted to the hospital with cough, congestion, coughing up colored mucus, and shortness of breath. Please see dictated H and P for more information. After the patient was evaluated in the emergency room, she was admitted to the hospital with extensive pneumonia involving right upper lobe and bilateral lower lobes. The patient has prior history of atypical mycobacterium infection and Dr. Delacruz was consulted. The patient has multiple allergies and meropenem was started which she tolerated very well and in fact clinically she showed significant improvement. Her sputum culture and blood culture was collected upon admission and today's sputum culture came back growing E coli and details were discussed with Dr. Delacruz. It is sensitive to cephalosporin and meropenem and type of reaction the patient had to cephalosporin listed according to the hospital record is nausea and according to outpatient record is rash and Dr. Delacruz did communicate with the patient regarding trying third generation oral cephalosporin and she was willing to do so and meanwhile he also informed me that he will see her next week at office and he will follow up on the remaining cultures to see if any further treatment intervention might be necessary or not. The patient was discharged to go home in stable and improved condition with above-mentioned medications and instructions. Final Diagnoses: 1. Pneumonia. 2. Hypertension. 3. Hyperlipidemia. 4. Coronary artery disease. 5. Paroxysmal atrial fibrillation. 6. Gastroesophageal reflux disease. 7. Diverticulosis. 8. Anxiety. Total time spent 35 minutes. JOY/MARLENY Voice ID: [id number] Report ID: [id number] MTDD
--- NOTE | 2025-07-01 12:29 | P.PN ---
Subjective Date of Service: 06/28/25 Chief Complaint: Cough congestion fever chills Subjective: Improving (Patient is improving doing much better) No new complaints no congestion Review of Systems Unremarkable Physical Examination - Vital Signs Temperature: 98.1 F Blood Pressure: 119/55 Pulse: 82 Respirations: 16 Pulse Ox (%): 92 - Physical Exam General: Alert, Oriented x3 Respiratory: Clear to auscultation bilaterally Cardiovascular: No edema, Regular rate/rhythm Gastrointestinal: Normal bowel sounds, Soft and benign Assessment And Plan - Current Problems (Diagnosis) (1) Left lower lobe pneumonia Status: Acute Plan: Patient is 75 years of age admitted with left lower lobe pneumonia she is doing much better was treated with meropenem however at the time of discharge sputum culture showed E. coli he is to be discharged home on a cephalosporin patient is allergic to levofloxacin labs chemistries reviewed to follow-up in my office in a week Qualifiers: Aspiration pneumonia type: unspecified
== END 2025-06-28 16:00 | disposition home or self-care (01) | DRG 195 ==
LOC: ER 16:04 → ERHOLD 19:06 → 4TH 19:53
PROVIDERS: ADMIT Internal Medicine; ATTEND Internal Medicine
DX: J15.9 Unspecified bacterial pneumonia (principal); I10 Essential (primary) hypertension; E78.5 Hyperlipidemia, unspecified; F32.A Depression, unspecified; F41.9 Anxiety disorder, unspecified; M19.90 Unspecified osteoarthritis, unspecified site; I25.10 Atherosclerotic heart disease of native coronary artery without angina pectoris; Z88.1 Allergy status to other antibiotic agents; Z88.5 Allergy status to narcotic agent; Z88.0 Allergy status to penicillin; Z96.41 Presence of insulin pump (external) (internal); Z56.0 Unemployment, unspecified; Z88.8 Allergy status to other drugs, medicaments and biological substances; Z59.82 Transportation insecurity; Z59.71 Insufficient health insurance coverage; Z79.82 Long term (current) use of aspirin; Z79.899 Other long term (current) drug therapy; I48.0 Paroxysmal atrial fibrillation; K21.9 Gastro-esophageal reflux disease without esophagitis; K57.90 Diverticulosis of intestine, part unspecified, without perforation or abscess without bleeding; K59.09 Other constipation; M54.16 Radiculopathy, lumbar region; Z11.52 Encounter for screening for COVID-19; B96.20 Unspecified Escherichia coli [E. coli] as the cause of diseases classified elsewhere
CPT/HCPCS: 36415; 71045; 71046; 71260; 80048; 80053; 83605; 83735; 83880; 84484; 85025; 85610; 85730; 87015; 87040; 87070; 87077; 87116; 87186; 87205; 87206; 87428; 93005; 94010; 94640; 94668; 94760; 99285; J1650; J2185; J7040; J7512; J7613; J7644; P9047; Q9967

== ENCOUNTER 2025-07-22 10:26 | Emergency (ER) | payer OTHER ==
[2025-07-22 11:19] LABS: Absolute Lymphocytes (CBC) 1.0 K/uL (0.7-4.9); Hematocrit 36.6 % (36.0-45.0); Hemoglobin 12.0 g/dL (12.0-15.0); MCH 28.1 pg (27.0-35.0); MCHC 32.8 g/dL (32.0-36.0); MCV 85.6 fL (80-100); MPV 7.3 fL (7.6-11.3); Nucleated RBC Absolute Count 0.0 (0-0); Nucleated Red Blood Cells % 0.0 % (0-0); RBC Red Blood Cell Count 4.28 M/uL (3.86-4.86); White Blood Count 6.00 thou/uL (4.3-10.9)
[2025-07-22 11:38] LABS: ALT/SGPT 18.0 U/L (13-56); AST/SGOT 19.0 U/L (15-37); Albumin 3.2 g/dL (3.4-5.0); Albumin/Globulin Ratio 0.8 (1.1-1.8); Alkaline Phosphatase 102.0 U/L (45-117); Anion Gap 6.9 mEq/L (5.0-15.0); BUN Blood Urea Nitrogen 21.0 mg/dL (7-18); Globulin 4.1 g/dL (2.3-3.5); Glucose Level 95.0 mg/dL (74-106); Potassium 3.9 mEq/L (3.5-5.1)
[2025-07-22] MEDS ORDERED: CLINDAMYCIN 300 MG/NS 50 ML IV 50 ML IV ONE (12:00)
--- NOTE | 2025-07-22 12:03 | ER ---
Nurse's Notes [facility] Name: Chaparrita Blanca Age: 75 yrs Sex: Female : 1950 Arrival Date: 07/22/2025 Time: 10:26 Bed 7 Private MD: Diagnosis: Cellulitis Presentation: 07/22 10:42 Chief complaint: Patient states: she has been having right lower leg swelling. patient ap3 reports yesterday she pulled off some "scaling" and her leg started draining. patient states she has an appointment with her "espinoza currie dr 08/13/25". patient denies any pain at this time. Coronavirus screen: At this time, the client does not indicate any symptoms associated with coronavirus-19. Ebola Screen: No symptoms or risks identified at this time. Initial Sepsis Screen: Does the patient meet any 2 criteria? No. Patient's initial sepsis screen is negative. Does the patient have a suspected source of infection? No. Patient's initial sepsis screen is negative. Risk Assessment: Do you want to hurt yourself or someone else? Patient reports no desire to harm self or others. Onset of symptoms is unknown. 10:42 Method Of Arrival: Ambulatory ap3 10:42 Acuity: NORBERT 3 ap3 Triage Assessment: 10:44 General: Appears in no apparent distress. Behavior is calm, cooperative, appropriate ap3 for age. Pain: Denies pain. Neuro: Level of Consciousness is awake, alert, obeys commands, Oriented to person, place, time, situation, Appropriate for age Speech is normal, Facial symmetry appears normal. Cardiovascular: Patient's skin is warm and dry. Respiratory: Airway is patent Respiratory effort is even, unlabored, Respiratory pattern is regular, symmetrical. Derm: Skin is redness and swelling noted to right lower extremity. Musculoskeletal: Swelling present in right leg. Historical: - Allergies: 10:43 Amoxicillin; ap3 10:43 Augmentin; ap3 10:43 Boniva; ap3 10:43 Celexa; ap3 10:43 Codeine; ap3 10:43 Crestor; ap3 10:43 Keflex; ap3 10:43 Levaquin; ap3 10:43 Mobic; ap3 10:43 Niacin; ap3 10:43 NSAIDS; ap3 10:43 Paxil; ap3 10:43 PENICILLINS; ap3 10:43 Repatha SureClick; ap3 10:43 Dmocord-Pew-Gtr Reductase Inhibitors; ap3 10:43 Zetia; ap3 - PMHx: 10:43 Anxiety; Arthritis; Chronic pain; coronary atherosclerosis; depressive disorder; ap3 Hyperlipidemia; Hypertension; - PSHx: 10:43 Bladder lift (February 0); pain pump (morphine); Stented artery; ap3 - Immunization history:: Flu vaccine is not up to date. - Infectious Disease History:: Denies. - Social history:: Smoking status: Patient denies any tobacco usage or history of. Screenin:45 Abuse screen: Denies threats or abuse. Nutritional screening: No deficits noted. ap3 Tuberculosis screening: No symptoms or risk factors identified. 10:45 [facility] ED Fall Risk Assessment (Adult) History of falling in the last 3 months, bp including since admission No falls in past 3 months (0 pts) Confusion or Disorientation No (0 pts) Intoxicated or Sedated No (0 pts) Impaired Gait No (0 pts) Mobility Assist Device Used Yes (1 pt) Altered Elimination No (0 pt) Score/Fall Risk Level 0 - 2 = Low Risk Oriented to surroundings. Assessment: 10:41 Reassessment: Patient appears in no apparent distress at this time. Patient and/or db family updated on plan of care and expected duration. Pain level reassessed. Patient is alert, oriented x 3, equal unlabored respirations, skin warm/dry/pink. General: Appears in no apparent distress. comfortable, Behavior is calm, cooperative. Neuro: Level of Consciousness is awake, alert, obeys commands, Oriented to person, place, time. 10:45 Reassessment: Patient appears in no apparent distress at this time. Patient and/or db family updated on plan of care and expected duration. Pain level reassessed. Patient is alert, oriented x 3, equal unlabored respirations, skin warm/dry/pink. 11:45 Reassessment: Patient appears in no apparent distress at this time. Patient and/or db family updated on plan of care and expected duration. Pain level reassessed. Patient is alert, oriented x 3, equal unlabored respirations, skin warm/dry/pink. PATIENT AMBULATORY TO RESTROOM UNASSISTED. Vital Signs: 10:42 BP 134 / 74; Pulse 85; Resp 18; Temp 98.7; Pulse Ox 95% ; Weight 65.77 kg; Height 5 ft. ap3 3 in. ; Pain 0/10; 11:00 BP 109 / 91; Pulse 83; Resp 16; Pulse Ox 95% on R/A; db 12:49 BP 134 / 64; Pulse 53; Resp 16; Temp 98.5; Pulse Ox 100% ; bp 10:42 Body Mass Index 25.69 (65.77 kg, 160.02 cm) ap3 10:42 Pain Scale: Adult ap3 ED Course: 10:29 Patient arrived in ED. mr 10:29 Edmar Winter MD is Attending Physician. sp3 10:32 Be Dickinson, ROHIT is Primary Nurse. bp 10:43 Triage completed. ap3 10:45 Arm band placed on right wrist. ap3 10:55 First set of blood cultures drawn. db 11:10 Initial lab(s) drawn, by me, sent to lab. Second set of blood cultures drawn by me. db Inserted saline lock: 20 gauge in right antecubital area, using aseptic technique. Blood collected. Flushed with 10 mL NS. 11:14 Patient has correct armband on for positive identification. Bed in low position. Call db light in reach. Side rails up X 1. Pulse ox on. NIBP on. Pillow given. 12:02 Patient taken to ultrasound. via stretcher. db 12:26 US Extremity Venous Unilateral Ltd In Process Unspecified. EDMS 12:50 No provider procedures requiring assistance completed. IV discontinued, intact, bp bleeding controlled, No redness/swelling at site. Pressure dressing applied. Administered Medications: 11:51 Drug: Clindamycin IVPB 300 mg IVPB once over 30 mins; (mix in 50 mL) Route: IVPB; db Infused Over: 30 mins; Site: right antecubital; 12:51 Follow up: IV Status: Completed infusion bp Medication: 11:14 VIS not applicable for this client. db Outcome: 12:02 Discharge ordered by . sp3 12:31 Discharge ordered by . sp3 12:50 Discharged to home ambulatory, bp 12:50 Condition: stable 12:50 Discharge instructions given to patient, Instructed on discharge instructions, follow up and referral plans. medication usage, Demonstrated understanding of instructions, follow-up care, medications, Prescriptions given X 1, 12:51 Patient left the ED. bp Signatures: Dispatcher [employer] EDMS Jericho Noelle, Reg Reg mr Be Dickinson, RN RN bp Jenny Vivar, RN RN ap3 Edmar Winter MD MD sp3 Анна Baig, RN RN db
--- NOTE | 2025-07-22 12:03 | EDPHYS ---
Physician Documentation [facility] Name: Chaparrita Blanca Age: 75 yrs Sex: Female : 1950 Arrival Date: 07/22/2025 Time: 10:26 Bed 7 Private MD: ED Physician Edmar Winter HPI: 07/22 11:03 This 75 yrs old Female presents to ER via Ambulatory with complaints of Leg Swelling. sp3 11:03 75-year-old female with history of CAD, chronic pain, lymphedema, anxiety, presents to sp3 the ED with chief complaint right lower extremity swelling with worsening redness and baseline, and L area where "the skin came off". Patient states she is going to her "vein doctor" in a few weeks and has an appointment. She denies any fever, headache, neck pain, chest pain, shortness of breath, abdominal pain, nausea, vomiting, diarrhea, syncope, rash elsewhere, bleeding, or any other signs or symptoms on ROS at this time. No prior history of DVT or PE and patient has had no prolonged immobilization, recent travel.. Historical: - Allergies: 10:43 Amoxicillin; ap3 10:43 Augmentin; ap3 10:43 Boniva; ap3 10:43 Celexa; ap3 10:43 Codeine; ap3 10:43 Crestor; ap3 10:43 Keflex; ap3 10:43 Levaquin; ap3 10:43 Mobic; ap3 10:43 Niacin; ap3 10:43 NSAIDS; ap3 10:43 Paxil; ap3 10:43 PENICILLINS; ap3 10:43 Repatha SureClick; ap3 10:43 Qhbmabh-Zjm-Vtt Reductase Inhibitors; ap3 10:43 Zetia; ap3 - PMHx: 10:43 Anxiety; Arthritis; Chronic pain; coronary atherosclerosis; depressive disorder; ap3 Hyperlipidemia; Hypertension; - PSHx: 10:43 Bladder lift (February); pain pump (morphine); Stented artery; ap3 - Immunization history:: Flu vaccine is not up to date. - Infectious Disease History:: Denies. - Social history:: Smoking status: Patient denies any tobacco usage or history of. ROS: 11:04 Constitutional: Negative for fever, chills, and weight loss, Eyes: Negative for injury, sp3 pain, redness, and discharge, ENT: Negative for injury, pain, and discharge, Neck: Negative for injury, pain, and swelling, Cardiovascular: Negative for chest pain, palpitations, and edema, Respiratory: Negative for shortness of breath, cough, wheezing, and pleuritic chest pain, Abdomen/GI: Negative for abdominal pain, nausea, vomiting, diarrhea, and constipation, Back: Negative for injury and pain, Neuro: Negative for headache, weakness, numbness, tingling, and seizure, Psych: Negative for depression, anxiety, suicide ideation, homicidal ideation, and hallucinations, Allergy/Immunology: Negative for hives, rash, and allergies, Endocrine: Negative for neck swelling, polydipsia, polyuria, polyphagia, and marked weight changes, Hematologic/Lymphatic: Negative for swollen nodes, abnormal bleeding, and unusual bruising, 11:04 All other systems are negative, Exam: 11:05 Constitutional: This is a well developed, well nourished patient who is awake, alert, sp3 and in no acute distress. Head/Face: Normocephalic, atraumatic. Neck: Trachea midline, no thyromegaly or masses palpated, and no cervical lymphadenopathy. Supple, full range of motion without nuchal rigidity, or vertebral point tenderness. No Meningismus. Chest/axilla: Normal chest wall appearance and motion. Nontender with no deformity. No lesions are appreciated. Cardiovascular: Regular rate and rhythm with a normal S1 and S2. No gallops, murmurs, or rubs. Normal PMI, no JVD. No pulse deficits. Respiratory: Lungs have equal breath sounds bilaterally, clear to auscultation and percussion. No rales, rhonchi or wheezes noted. No increased work of breathing, no retractions or nasal flaring. Abdomen/GI: Soft, non-tender, with normal bowel sounds. No distension or tympany. No guarding or rebound. No evidence of tenderness throughout. Back: No spinal tenderness. No costovertebral tenderness. Full range of motion. Neuro: Awake and alert, GCS 15, oriented to person, place, time, and situation. Cranial nerves II-XII grossly intact. Motor strength 5/5 in all extremities. Sensory grossly intact. Cerebellar exam normal. Normal gait. Psych: Awake, alert, with orientation to person, place and time. Behavior, mood, and affect are within normal limits. 11:05 Musculoskeletal/extremity: Right lower extremity swollen in the calf and redness from the mid lower extremity carter area distally to the ankle. Distal neurovascular exam is normal. Patient has approximately 1 cm by half centimeter area of superficial epidermis missing with lymph fluid draining mild in nature. Patient states erythema is always there but may have gotten worse. No blisters, vesicles, abscess or other concerning findings. Nikolsky sign is negative.. Vital Signs: 10:42 BP 134 / 74; Pulse 85; Resp 18; Temp 98.7; Pulse Ox 95% ; Weight 65.77 kg; Height 5 ft. ap3 3 in. ; Pain 0/10; 11:00 BP 109 / 91; Pulse 83; Resp 16; Pulse Ox 95% on R/A; db 12:49 BP 134 / 64; Pulse 53; Resp 16; Temp 98.5; Pulse Ox 100% ; bp 10:42 Body Mass Index 25.69 (65.77 kg, 160.02 cm) ap3 10:42 Pain Scale: Adult ap3 MDM: 10:35 Medical Screening Exam initiated sp3 11:06 Data reviewed: vital signs, nurses notes, old medical records, lab test result(s), sp3 radiologic studies. ED course: 75-year-old female with PMH above now with right lower extremity swelling, erythema and lymphedema. Differential diagnosis includes cellulitis, DVT, lymphedema, among others. Workup include ultrasound of the right lower extremity, general labs and antibiotics will be started clindamycin 300 mg IV given patient's allergies. Probable discharge home if workup negative with PCP and/or vein specialist follow-up.. 12:02 ED course: Blood work without significant abnormalities. We will go ahead and discharge sp3 patient on clindamycin with PCP follow-up.. 07/22 10:52 Order name: Blood Culture Adult (2) sp3 07/22 10:52 Order name: CBC with Diff; Complete Time: 12: sp3 07/22 10:52 Order name: CMP; Complete Time: 12: sp3 07/22 10:52 Order name: Lactate w/ 2H reflex if indic.; Complete Time: 12: sp3 07/22 10:52 Order name: US Extremity Venous Unilateral Ltd; Complete Time: 12:31 sp3 10/30 10:52 Order name: IV Saline Lock - Large Bore; Complete Time: 11:15 sp3 07/22 10:52 Order name: Labs collected and sent; Complete Time: 11:15 sp3 07/22 10:52 Order name: Vital Signs; Complete Time: 11:15 sp3 Administered Medications: 11:51 Drug: Clindamycin IVPB 300 mg IVPB once over 30 mins; (mix in 50 mL) Route: IVPB; db Infused Over: 30 mins; Site: right antecubital; 12:51 Follow up: IV Status: Completed infusion bp Disposition Summary: 07/22/25 12:31 Discharge Ordered Notes: Location: Home(07/22/25 12:31) sp3 Condition: Stable(07/22/25 12:31) sp3 Diagnosis - Cellulitis sp3 Followup: sp3 - With: Private Physician - When: Upon discharge from the Emergency Department - Reason: Continuance of care Discharge Instructions: - Discharge Summary Sheet sp3 - Cellulitis, Adult sp3 Forms: - Medication Reconciliation Form sp3 - Antibiotic Education sp3 - Prescription Opioid Use sp3 - Patient Portal Instructions sp3 - Leadership Thank You Letter sp3 Prescriptions: - Clindamycin HCl 300 mg Oral Capsule - take 1 capsule ORAL route every 6 hours for 10 days; 40 capsule; Refills: 0, sp3 Product Selection Permitted Signatures: Dispatcher [employer] EDMS Jenny Vivar, RN RN ap3 Edmar Winter MD MD sp3 Анна Baig RN RN Be Dumont RN bp Corrections: (The following items were deleted from the chart) 10:52 10:52 BLOOD CULTURE*+BA.LAB.BRZ ordered. EDMS EDMS 10:52 10:52 CBC+H.LAB.BRZ ordered. EDMS EDMS 10:52 10:52 COMPREHENSIVE METABOLIC PANEL+C.LAB.BRZ ordered. EDMS EDMS 10:52 10:52 LACTATE+C.LAB.BRZ ordered. EDMS EDMS 10:52 10:52 Extremity Venous Uni Ltd+US.RAD.BRZ ordered. EDMS EDMS 12:05 12:02 Home sp3 sp3 12:05 12:02 Stable sp3 sp3 12:05 12:02 Cellulitis sp3 sp3
--- NOTE | 2025-07-22 12:30 | RAD REPORT ---
EXAMINATION: US RIGHT LOWER EXTREMITY VENOUS DOPPLER CLINICAL INDICATION: Swelling;Pain RIGHT TECHNIQUE: Complete bilateral duplex sonography of the RIGHT lower extremity veins was performed. The examination included compression for vein patency, color Doppler imaging and flow augmentation in response to distal compression of the distal external iliac, common femoral, femoral, popliteal, tibi al, and great and small saphenous veins. COMPARISON: No prior exam. FINDINGS: Duplex sonography testing of the veins of the RIGHT lower extremity was performed. Color flow imaging shows all veins to be compressible with [id number] color filling. Pulsatile and phasic flow is present within all lower extremity deep and superficial veins examined. IMPRESSION: There is no deep vein or superficial vein thrombosis.
[2025-07-22 13:16] VITALS: BP 134/64; TEMP 98.5; O2SAT 100
== END 2025-07-22 12:51 | disposition home or self-care (01) ==
LOC: ER 10:26
DX: L03.115 Cellulitis of right lower limb (principal); Z97.8 Presence of other specified devices
CPT/HCPCS: 96365; 87040 ×2; 85025; 36415; 83605; 80053; 93971; 99285; J3490